=== PATIENT | male | born 1950 | race Two or more races ===

== ENCOUNTER 2018-03-05 00:26 | Inpatient (IN) | payer MEDICARE ==
[~2018-03-05] VITALS: Ht 177.8 cm; Wt 93.0 kg
[2018-03-05] VITALS (7 sets, daily range): BP systolic 94–136; BP diastolic 42–81; BMI 29.4
--- NOTE | ~2018-03-05 | EC ---
PATIENT:DARRELL DE LA ROSA DATE OF SERVICE: 03/05/18 SEX: M MEDICAL RECORD: [id number] DATE OF : 50 LOCATION:D.[facility] AGE OF PATIENT: 67 ADMISSION DATE: 03/05/18 REFERRING PHYSICIAN: INTERPRETING PHYSICIAN: ANNE SANTANA MD ECHOCARDIOGRAM REPORT ECHO CHARGES 4 ECHO COMPLETE Date: 03/06 CLINICAL DIAGNOSIS: FEVER/CELLULITIS - R/O ENDOCARDITIS ECHOCARDIOGRAPHIC MEASUREMENTS (adult normal given) AC root (d.<3.7cm) 3.0 cm LV Septum d (<1.2 cm> 1.3 cm Valve Excursion 2.2 cm LV Septum (systole) 1.8 cm Left Atria (s.<4.0cm> 3.9 cm LVPW d(<1.2cm) 1.3 cm RV (d.<2.3cm) 2.7 cm LVPW (sytole) 1.8 cm LV diastole(<5.6CM) 5.4 cm MV E-F(>70mm/sec) cm LV systole 2.9 cm LVOT Diameter 1.9 cm MV exc.(>10mm) cm Est.ejection fraction (50-75%) % DOPPLER: LVIT cm/sec A 82.0 cm/sec E 118 cm/sec LA cm/sec RVSP 48.0 mmHg LVOT 142 cm/sec AOP1/2T m/s Asc. Ao 173 cm/sec RVOT 87.0 cm/sec RA cm/sec PA 133 cm/sec AV Gradient Peak 12.0 mmHg AV Mean 6.1 mmHg AV Area 2.0 cm MV Gradient Peak 7.3 mmHg MV Mean 2.6 mmHg MV Area cm COMMENTS: Digital Strategist Senior Manager: 1 MICHELLE FRANCIA Multimedia Programmer: 4 Dr. Santana TAPE# PACS Pericardial Effusion N DATE OF SERVICE: PROCEDURE: Transthoracic echocardiogram. FINDINGS: 1. The patient has evidence of mild left ventricular hypertrophy. Ejection fraction is 60%. 2. The left atrium is normal size, structure and function. 3. The aortic valve is normal. 4. The mitral valve is normal. ECHOCARDIOGRAM REPORT [id number] DARRELL DE LA ROSA 5. The tricuspid valve is normal with an RVSP estimated at 40 mmHg. 6. The pericardium is normal. 7. The right ventricle is normal. 8. The right atrium is mildly dilated. 9. The pulmonic valve is normal. CONCLUSIONS: The patient has no distinct evidence on transthoracic of endocarditis. A ERIBERTO may be more helpful if clinical indications are there. TRANSINT:[id number] Voice Confirmation ID: [id number] DOCUMENT ID: [id number] ANNE SANTANA MD at 1702 CC: [id number] DICTATION DATE: 03/07/18 0746 STATIONARY FIREMAN: 03/07/18 1115 ADM IN [facility] [address] [place] [address]
--- NOTE | ~2018-03-05 | MORECARE ---
CASE MANAGEMENT DISCHARGE SUMMARY PATIENT: DARRELL DE LA ROSA UNIT: [id number] ADM DATE: 03/05/18 AGE: 67 : 50 SEX: M ROOM/BED: D.2206 AUTHOR: CASE, DOOR LINER PHYSICIAN: REFERRING PHYSICIAN: RICARDO BAUMAN MD DATE OF SERVICE: 03/05/18 Discharge Plan Patient Name: DARRELL DE LA ROSA Facility: [facility]:[place] : 1950 Planned Disposition: Home Anticipated Discharge Date: Discharge Date: Expected LOS: Initial Reviewer: [email or web address] Initial Review Date: 03/05/2018 Generated: 03/10/18 12:56 pm Patient Name: DARERLL DE LA ROSA Page [id number] All edits/amendments must be made on the electronic document DICTATION DATE: 03/10/18 1155 ASSISTANT PRESSMAN: 03/10/18 1155 RPT#: [id number] DC DATE: STATUS: ADM IN [facility] [address] [place] [address] END OF REPORT
[2018-03-05 06:25] LABS: BASOPHILS 0 % (0-2); EOSINOPHILS 0 % (0-7); HEMATOCRIT 35.5 % (42.0-54.0); HEMOGLOBIN 12.3 g/dL (13.5-17.5); IMMATURE GRANULOCYTES 0.2 % (0-5); LYMPHOCYTES 4.6 % (15-50); MCH 35.7 pg (26.0-34.0); MCHC 34.6 g/dL (31.0-37.0); MCV 102.9 fL (80.0-100.0); MONOCYTES 3.5 % (2-11); NEUTROPHILS 91.7 % (40-80); PLATELET COUNT 76 10x3/uL (130-400); RBC 3.45 10x6/uL (4.20-6.10); RDW 15.2 % (11.5-14.5)
[2018-03-05 06:47] LABS: ALBUMIN 2.1 g/dL (3.4-5.0); ALKALINE PHOSPHATASE 100 U/L (46-116); ALT (SGPT) 32 U/L (10-68); BILIRUBIN - TOTAL 7.17 mg/dL (0.2-1.3); CALC OSMOLALITY 274 mosm/kg (275-300); CARBON DIOXIDE 27.1 mmol/L (21.0-32.0); CHLORIDE - SERUM 105 mmol/L (98-107); CREATININE - SERUM 0.7 mg/dL (0.6-1.3); GLUCOSE 160 mg/dL (74-106); POTASSIUM - SERUM 3.9 mmol/L (3.5-5.1); PROTEIN - SERUM 6.5 g/dL (6.4-8.2); SODIUM 136 mmol/L (136-145); UREA NITROGEN 13 mg/dL (7-18); eGFR NON AFRICAN AMERICAN > 90 mL/min (90-120)
[2018-03-05 07:15] LABS: PLATELET ESTIMATE DECREASED
[2018-03-05 14:33] LABS: APPEARANCE CLEAR (CLEAR); COLOR ORANGE/RED (YELLOW); GLUCOSE NEGATIVE (NEGATIVE); KETONE SMALL mg/dL (NEGATIVE); NITRITE NEGATIVE (NEGATIVE); PROTEIN NEGATIVE (NEGATIVE)
[2018-03-05 14:34] LABS: BILIRUBIN 2+ (NEGATIVE)
[2018-03-05 14:35] LABS: BACTERIA FEW /hpf (NONE SEEN); EPITHELIAL CELLS 0-5 /hpf (0-5); WHITE CELLS - URINE 0-5 /hpf (0-5)
[2018-03-05 14:49] LABS: THYROID STIMULATING HORMONE 0.99 uIU/mL (0.36-3.74)
[2018-03-06 04:30] VITALS: BP 104/50
[2018-03-06 05:36] LABS: BASOPHILS 0 % (0-2); EOSINOPHILS 0 % (0-7); HEMATOCRIT 30.9 % (42.0-54.0); HEMOGLOBIN 10.7 g/dL (13.5-17.5); IMMATURE GRANULOCYTES 0.2 % (0-5); LYMPHOCYTES 4.7 % (15-50); MCH 35.3 pg (26.0-34.0); MCHC 34.6 g/dL (31.0-37.0); MONOCYTES 9.1 % (2-11); PLATELET COUNT 77 10x3/uL (130-400); RBC 3.03 10x6/uL (4.20-6.10); RDW 15.2 % (11.5-14.5); WBC 13.1 10x3/uL (4.8-10.8)
[2018-03-06 06:09] LABS: ALBUMIN 1.9 g/dL (3.4-5.0); ALKALINE PHOSPHATASE 73 U/L (46-116); ALT (SGPT) 30 U/L (10-68); BILIRUBIN - DIRECT 1.81 mg/dL (0.00-0.30); BILIRUBIN - TOTAL 3.89 mg/dL (0.2-1.3); CALC OSMOLALITY 281 mosm/kg (275-300); CALCIUM 7.8 mg/dL (8.5-10.1); CARBON DIOXIDE 26.6 mmol/L (21.0-32.0); CHLORIDE - SERUM 107 mmol/L (98-107); CREATININE - SERUM 0.6 mg/dL (0.6-1.3); GLUCOSE 122 mg/dL (74-106); POTASSIUM - SERUM 3.9 mmol/L (3.5-5.1); PROTEIN - SERUM 5.8 g/dL (6.4-8.2); SODIUM 139 mmol/L (136-145); UREA NITROGEN 21 mg/dL (7-18); eGFR NON AFRICAN AMERICAN > 90 mL/min (90-120)
[2018-03-06 06:10] LABS: INR 3.21 (0.85-1.17)
[2018-03-06 09:10] VITALS: BP 106/51
[2018-03-06 14:32] VITALS: BP 110/45
[2018-03-06 17:00] VITALS: BP 108/49
[2018-03-06 21:05] VITALS: BP 121/55
[2018-03-07 05:45] LABS: BASOPHILS 0.1 % (0-2); EOSINOPHILS 0.2 % (0-7); HEMOGLOBIN 10.9 g/dL (13.5-17.5); IMMATURE GRANULOCYTES 0.3 % (0-5); LYMPHOCYTES 10.8 % (15-50); MCHC 34.1 g/dL (31.0-37.0); MCV 102.9 fL (80.0-100.0); MEAN PLATELET VOLUME 12.3 fL (7.4-10.4); MONOCYTES 9.5 % (2-11); NEUTROPHILS 79.1 % (40-80); PLATELET COUNT 81 10x3/uL (130-400); RBC 3.11 10x6/uL (4.20-6.10); RDW 15.8 % (11.5-14.5)
[2018-03-07 05:55] LABS: PROTIME 22.2 SECONDS (11.6-15.0)
[2018-03-07 05:56] LABS: INR 2.05 (0.85-1.17)
[2018-03-07 06:27] LABS: ALBUMIN 1.9 g/dL (3.4-5.0); ALKALINE PHOSPHATASE 80 U/L (46-116); ALT (SGPT) 30 U/L (10-68); BILIRUBIN - TOTAL 3.08 mg/dL (0.2-1.3); CALC OSMOLALITY 278 mosm/kg (275-300); CALCIUM 7.7 mg/dL (8.5-10.1); CARBON DIOXIDE 29.6 mmol/L (21.0-32.0); CHLORIDE - SERUM 108 mmol/L (98-107); CREATININE - SERUM 0.6 mg/dL (0.6-1.3); GLUCOSE 91 mg/dL (74-106); POTASSIUM - SERUM 3.9 mmol/L (3.5-5.1); PROTEIN - SERUM 5.9 g/dL (6.4-8.2); SODIUM 139 mmol/L (136-145); UREA NITROGEN 16 mg/dL (7-18); eGFR NON AFRICAN AMERICAN > 90 mL/min (90-120)
[2018-03-07 06:35] VITALS: BP 117/62
[2018-03-07 09:12] VITALS: BP 115/50
[2018-03-07 11:01] VITALS: Ht 177.8 cm; Wt 93.0 kg
[2018-03-07 12:52] VITALS: BP 114/52
[2018-03-07 22:53] VITALS: BP 118/56
[2018-03-08 05:43] VITALS: BP 138/60
[2018-03-08 06:21] LABS: BASOPHILS 0.2 % (0-2); EOSINOPHILS 3.4 % (0-7); HEMATOCRIT 34.2 % (42.0-54.0); HEMOGLOBIN 11.5 g/dL (13.5-17.5); IMMATURE GRANULOCYTES 1.1 % (0-5); LYMPHOCYTES 18.6 % (15-50); MCH 35.3 pg (26.0-34.0); MCHC 33.6 g/dL (31.0-37.0); MEAN PLATELET VOLUME 12.3 fL (7.4-10.4); MONOCYTES 9.7 % (2-11); RBC 3.26 10x6/uL (4.20-6.10); RDW 15.9 % (11.5-14.5)
[2018-03-08 06:23] LABS: APTT 42.3 SECONDS (22.8-39.4); INR 1.83 (0.85-1.17); PROTIME 20.6 SECONDS (11.6-15.0)
[2018-03-08 06:30] LABS: MCV 104.9 fL (80.0-100.0); PLATELET COUNT 98 10x3/uL (130-400); WBC 4.7 10x3/uL (4.8-10.8)
[2018-03-08 06:54] LABS: ALBUMIN 1.9 g/dL (3.4-5.0); ALKALINE PHOSPHATASE 82 U/L (46-116); ALT (SGPT) 32 U/L (10-68); BILIRUBIN - TOTAL 2.96 mg/dL (0.2-1.3); CALC OSMOLALITY 283 mosm/kg (275-300); CALCIUM 7.4 mg/dL (8.5-10.1); CARBON DIOXIDE 29.6 mmol/L (21.0-32.0); CHLORIDE - SERUM 109 mmol/L (98-107); CREATININE - SERUM 0.7 mg/dL (0.6-1.3); GLUCOSE 98 mg/dL (74-106); POTASSIUM - SERUM 3.7 mmol/L (3.5-5.1); SODIUM 143 mmol/L (136-145); eGFR NON AFRICAN AMERICAN > 90 mL/min (90-120)
[2018-03-08 06:55] LABS: UREA NITROGEN 11 mg/dL (7-18)
[2018-03-08 08:37] VITALS: BP 130/66
[2018-03-08 12:29] VITALS: BP 124/55
[2018-03-08 14:55] LABS: BASOPHILS 0.2 % (0-2); EOSINOPHILS 3.6 % (0-7); HEMATOCRIT 33.3 % (42.0-54.0); HEMOGLOBIN 11.1 g/dL (13.5-17.5); IMMATURE GRANULOCYTES 1.5 % (0-5); LYMPHOCYTES 16.7 % (15-50); MCHC 33.3 g/dL (31.0-37.0); MEAN PLATELET VOLUME 11.2 fL (7.4-10.4); MONOCYTES 15.6 % (2-11); NEUTROPHILS 62.4 % (40-80); PLATELET COUNT 80 10x3/uL (130-400); RBC 3.17 10x6/uL (4.20-6.10); RDW 15.7 % (11.5-14.5); WBC 4.7 10x3/uL (4.8-10.8)
[2018-03-08 15:02] LABS: APTT 41.4 SECONDS (22.8-39.4); INR 1.85 (0.85-1.17); PROTIME 20.8 SECONDS (11.6-15.0)
[2018-03-08 15:06] LABS: ALBUMIN 1.8 g/dL (3.4-5.0); CALC OSMOLALITY 281 mosm/kg (275-300); CALCIUM 7.4 mg/dL (8.5-10.1); CARBON DIOXIDE 32.5 mmol/L (21.0-32.0); CHLORIDE - SERUM 109 mmol/L (98-107); CREATININE - SERUM 0.6 mg/dL (0.6-1.3); GLUCOSE 140 mg/dL (74-106); POTASSIUM - SERUM 3.8 mmol/L (3.5-5.1); SODIUM 141 mmol/L (136-145); UREA NITROGEN 9 mg/dL (7-18); eGFR NON AFRICAN AMERICAN > 90 mL/min (90-120)
[2018-03-08 15:31] LABS: PLATELET ESTIMATE DECREASED
[2018-03-08 16:35] VITALS: BP 115/51
[2018-03-08 21:25] VITALS: BP 123/70
[2018-03-09 00:34] VITALS: BP 127/60
[2018-03-09 04:28] LABS: BASOPHILS 0.2 % (0-2); EOSINOPHILS 5.8 % (0-7); HEMATOCRIT 35.6 % (42.0-54.0); HEMOGLOBIN 11.7 g/dL (13.5-17.5); IMMATURE GRANULOCYTES 2.7 % (0-5); LYMPHOCYTES 16.1 % (15-50); MCHC 32.9 g/dL (31.0-37.0); MCV 106.6 fL (80.0-100.0); MEAN PLATELET VOLUME 11.4 fL (7.4-10.4); MONOCYTES 16.1 % (2-11); NEUTROPHILS 59.1 % (40-80); PLATELET COUNT 93 10x3/uL (130-400); RBC 3.34 10x6/uL (4.20-6.10); RDW 15.8 % (11.5-14.5); WBC 4.1 10x3/uL (4.8-10.8)
[2018-03-09 04:42] LABS: ALBUMIN 2.1 g/dL (3.4-5.0); ALKALINE PHOSPHATASE 102 U/L (46-116); ALT (SGPT) 34 U/L (10-68); BILIRUBIN - TOTAL 2.76 mg/dL (0.2-1.3); CALC OSMOLALITY 290 mosm/kg (275-300); CALCIUM 7.8 mg/dL (8.5-10.1); CARBON DIOXIDE 35.6 mmol/L (21.0-32.0); CHLORIDE - SERUM 105 mmol/L (98-107); CREATININE - SERUM 0.7 mg/dL (0.6-1.3); GLUCOSE 113 mg/dL (74-106); PROTEIN - SERUM 6.4 g/dL (6.4-8.2); SODIUM 147 mmol/L (136-145); UREA NITROGEN 7 mg/dL (7-18); eGFR NON AFRICAN AMERICAN > 90 mL/min (90-120)
[2018-03-09 06:12] VITALS: BP 146/59
[2018-03-09 07:37] LABS: INR 1.79 (0.85-1.17); PROTIME 20.2 SECONDS (11.6-15.0)
[2018-03-09 08:48] VITALS: BP 133/56
[2018-03-09 10:26] LABS: PROTEIN - BODY FLUID 0.8 G/DL
[2018-03-09 13:17] LABS: MACROPHAGES BF 45 %; MESOTHELIALS BF 6 %; NEUT - BF 34 %
[2018-03-09 13:21] LABS: HEPATITIS C ANTIBODY 0.3 (0.0-0.9)
[2018-03-09 16:20] VITALS: BP 110/63
[2018-03-09 20:21] VITALS: BP 118/50
[2018-03-10 00:22] VITALS: BP 111/46
[2018-03-10 04:31] LABS: BASOPHILS 0 % (0-2); EOSINOPHILS 3.6 % (0-7); HEMOGLOBIN 11.6 g/dL (13.5-17.5); IMMATURE GRANULOCYTES 1.6 % (0-5); LYMPHOCYTES 13.5 % (15-50); MCH 34.9 pg (26.0-34.0); MCHC 32.2 g/dL (31.0-37.0); MCV 108.4 fL (80.0-100.0); MEAN PLATELET VOLUME 11.3 fL (7.4-10.4); MONOCYTES 15.5 % (2-11); NEUTROPHILS 65.8 % (40-80); PLATELET COUNT 95 10x3/uL (130-400); RBC 3.32 10x6/uL (4.20-6.10); RDW 15.7 % (11.5-14.5); WBC 4.4 10x3/uL (4.8-10.8)
[2018-03-10 04:57] LABS: ALKALINE PHOSPHATASE 103 U/L (46-116); ALT (SGPT) 34 U/L (10-68); BILIRUBIN - TOTAL 2.53 mg/dL (0.2-1.3); CALC OSMOLALITY 282 mosm/kg (275-300); CALCIUM 7.7 mg/dL (8.5-10.1); CARBON DIOXIDE 36.1 mmol/L (21.0-32.0); CHLORIDE - SERUM 107 mmol/L (98-107); CREATININE - SERUM 0.7 mg/dL (0.6-1.3); GLUCOSE 136 mg/dL (74-106); POTASSIUM - SERUM 4.1 mmol/L (3.5-5.1); PROTEIN - SERUM 6.3 g/dL (6.4-8.2); SODIUM 142 mmol/L (136-145); UREA NITROGEN 7 mg/dL (7-18); eGFR NON AFRICAN AMERICAN > 90 mL/min (90-120)
[2018-03-10 06:13] VITALS: BP 139/56
[2018-03-10 08:34] VITALS: BP 103/58
[2018-03-10] MEDS ORDERED: XIFAXAN550 MG PO (11:29)
[2018-03-10] MEDS ORDERED: ALDACTONE25 MG PO (11:29)
[2018-03-10] MEDS ORDERED: CHRONULAC30 ML PO (11:30)
[2018-03-10] MEDS ORDERED: PROTONIX40 MG PO (11:30)
[2018-03-10] MEDS ORDERED: ANORO ELLIPTA1 EACH INH (12:13)
[2018-03-10 12:40] VITALS: BP 117/54
== END 2018-03-10 15:24 | disposition home or self-care (01) | DRG 441 ==
LOC: D.ER 00:26 → D.EDHOLD 04:53 → D.MS 04:53
PROVIDERS: Family Medicine; Internal Medicine Gastroenterology; Radiology Diagnostic Radiology; Specialist
PROC: 0W9G3ZZ Drainage of Peritoneal Cavity, Percutaneous Approach (ICD-10-PCS; principal; 2018-03-09 09:00)
DX: K72.90 Hepatic failure, unspecified without coma (principal); J18.9 Pneumonia, unspecified organism; E72.20 Disorder of urea cycle metabolism, unspecified; D68.9 Coagulation defect, unspecified; J96.11 Chronic respiratory failure with hypoxia; I87.8 Other specified disorders of veins; K70.31 Alcoholic cirrhosis of liver with ascites; R60.9 Edema, unspecified; R16.1 Splenomegaly, not elsewhere classified; J44.9 Chronic obstructive pulmonary disease, unspecified; D53.9 Nutritional anemia, unspecified; D69.6 Thrombocytopenia, unspecified; I10 Essential (primary) hypertension; F10.11 Alcohol abuse, in remission; E11.65 Type 2 diabetes mellitus with hyperglycemia

== ENCOUNTER 2019-03-12 12:03 | Inpatient (IN) | payer MEDICARE ==
[~2019-03-12] VITALS: Ht 177.8 cm; Wt 89.1 kg
[~2019-03-12 12:03] MED LIST: ALDACTONE25 MG PO; ANORO ELLIPTA1 EACH INH; CHRONULAC30 ML PO; PROTONIX40 MG PO; XIFAXAN550 MG PO
--- NOTE | 2019-03-12 14:21 | NUR ---
ZITHROMAX AND ROCHEPHIN GIVEN SHAPE CARVER;
[2019-03-12 14:44] VITALS: BP 119/67
[2019-03-12 14:58] LABS: BASOPHILS 0.1 % (0-2); EOSINOPHILS 0 % (0-7); HEMOGLOBIN 10.8 g/dL (13.5-17.5); IMMATURE GRANULOCYTES 0.3 % (0-5); LYMPHOCYTES 3.1 % (15-50); MCH 35.4 pg (26.0-34.0); MCV 98.4 fL (80.0-100.0); MONOCYTES 2.8 % (2-11); NEUTROPHILS 93.7 % (40-80); PLATELET COUNT 83 10x3/uL (130-400); RBC 3.05 10x6/uL (4.20-6.10); RDW 14.9 % (11.5-14.5)
[2019-03-12 15:22] LABS: ALBUMIN 1.6 g/dL (3.4-5.0); ALKALINE PHOSPHATASE 76 U/L (46-116); ALT (SGPT) 41 U/L (10-68); BILIRUBIN - TOTAL 6.86 mg/dL (0.2-1.3); CALC OSMOLALITY 278 mosm/kg (275-300); CALCIUM 7.4 mg/dL (8.5-10.1); CARBON DIOXIDE 17.5 mmol/L (21.0-32.0); CHLORIDE - SERUM 105 mmol/L (98-107); GLUCOSE 105 mg/dL (74-106); MAGNESIUM - SERUM 2.1 mg/dL (1.8-2.4); PROTEIN - SERUM 5.2 g/dL (6.4-8.2); SODIUM 135 mmol/L (136-145); UREA NITROGEN 37 mg/dL (7-18); eGFR NON AFRICAN AMERICAN 79 mL/min (90-120)
[2019-03-12 15:37] LABS: PLATELET ESTIMATE DECREASED
--- NOTE | 2019-03-12 15:40 | NUR ---
RECIEVED PT FROM ER. PT HAD DIFFICULTY TRANSFERING TO OUR BED, WAS ASSISTED. PT HAD LARGE BELLY GIRTH, VERY DISTENDED AND FIRM. PTS SKIN IS YELLOW AND TIGHT. LOWER LEGS HAVE +4 EDEMA, EVERYWHERE ELSE HAS GENERALIZED EDEMA. PT AND SPEAK NO ROMANSH, EXECUTIVE OFFICER PHONE IN ROOM BUT I HAVE BEEN TOLD WE HAVE TO USE IT SPARINGLY AND SHARE WITH OTHER DEPARTMENTS OF THE HOSPITAL WE HAVE SEVERAL PTS THAT REQUIRE IT BUT ONLY ONE PHONE AVALIABLE. PT STATES NO PAIN AT THIS TIME, REPORTS NO TROUBLE BREATHING AT THIS TIME. CL IN REACH, SRX2, BED ALARM ON. PT DOES NOT SEEM CONFUSED OR DISORIENTED BUT D/T LANGUAGE BARRIER AND PTS EXTREME WEAKNESS I FEEL THIS IS THE BEST MOVE AT THIS TIME. AT BEDSIDE.
[2019-03-12 15:46] LABS: AMYLASE - SERUM 47 U/L (25-115); LIPASE 811 U/L (73-393)
[2019-03-12 15:59] VITALS: BP 100/70; BMI 25.8
[2019-03-12 16:02] LABS: CKMB 9.3 U/L (0.0-3.6); CREATINE KINASE 256 UL (21-232)
[2019-03-12 16:07] LABS: TROPONIN-I < 0.017 ng/mL (0.000-0.060)
[2019-03-12 16:19] VITALS: BP 163/94
--- NOTE | 2019-03-12 18:02 | NUR ---
AFTER RECIEVING LACTOLOSE PT HAD TO USE THE RESTROOM. PT DIDN'T UNDERSTAND THE BEDPAN, HE INSISTED HE USE THE TOILET. OBTAINED A BEDSIDE COMMODE AND AIDED PT TO IT. PT WAS A MAX ASSIST WITH MYSELF AND TWO TECHS BASICALLY LIFTING HIM TO THE TOILET AND TEHN BACK WHEN HE WAS DONE. AFTER MAKING SURE HE WAS CLEAN, I USED THE TRANSPORTATION MAINTENANCE SPECIALIST PHONE TO INFORM THE PT AND HIS HE WOULD HAVE TO USE THE BEDPAN. WHILE USING THE TRANSLATER I ANSWERED ALL QUESTIONS THE FAMILY HAD TO THE BEST OF MY KNOWLEDGE. CL IN REACH, SRX2, AT BEDSIDE.
[2019-03-12 20:00] VITALS: BP 110/51
--- NOTE | 2019-03-12 20:00 | NUR ---
INITIAL ROUNDS AND ASSESSMENT COMPLETED. PT RESTING IN BED. IV TO RIGHT A/C AND LEFT A/C, BOTH SALINE LOCKED. SR PER TELEMETRY. ABDOMEN DISTENDED. PT AND HAVE BEEN TOLD THAT HE IS TOO WEAK TO GET UP FROM THE BED AND MUST USE A BEDPAN. BUSH PATENT TO BEDSIDE DRAIN BAG. TRANSLATER PHONE IN ROOM AND UTILIZED AT THIS TIME TO GIVE INSTRUCTIONS TO PATIENT/SPOUSE ABOUT SAFETY AND TAKING HIS LACTULOSE.
--- NOTE | 2019-03-12 22:00 | NUR ---
STILL HAVING LANGUAGE BARRIER ISSUES. USING TRANSLATER PHONE AND ABLE TO GET TO UNDERSTAND TEACHINGS OF SAFETY AND USE OF BEDPAN.
[2019-03-12 22:05] LABS: CKMB 7.3 U/L (0.0-3.6); CREATINE KINASE 155 UL (21-232)
[2019-03-12 22:09] LABS: TROPONIN-I < 0.017 ng/mL (0.000-0.060)
[2019-03-13] VITALS: BP 102/53
--- NOTE | 2019-03-13 02:20 | NUR ---
STAFF ATTEMPTED TO GET PT UP TO BSC AT HIS INSISTANCE. PT WAS MAX ASSIST AND STUBBED HIS RIGHT FOOT/TOES ON SOMETHING DURING THE ATTEMPTED TRANSFER. PT MAX ASSIST BACK TO BED AND THEN DRESSING APPLIED TO ABRAISED AREA OF RIGHT FOOT/TOE AREAS. PROVIDED BLANKET/PILLOW TO SPOUSE AND BOTH ARE SETTLED FOR THE NIGHT.
[2019-03-13 04:00] VITALS: BP 101/51
--- NOTE | 2019-03-13 04:42 | NUR ---
URINE SPECIMEN COLLECTED AND SENT TO LAB. URINE IS FRANCES COLORED.
[2019-03-13 04:48] LABS: BASOPHILS 0.1 % (0-2); EOSINOPHILS 0.1 % (0-7); HEMATOCRIT 27.3 % (42.0-54.0); HEMOGLOBIN 9.9 g/dL (13.5-17.5); IMMATURE GRANULOCYTES 0.4 % (0-5); LYMPHOCYTES 5.9 % (15-50); MCH 35.9 pg (26.0-34.0); MCHC 36.3 g/dL (31.0-37.0); MCV 98.9 fL (80.0-100.0); MEAN PLATELET VOLUME 11.5 fL (7.4-10.4); MONOCYTES 7.7 % (2-11); NEUTROPHILS 85.8 % (40-80); PLATELET COUNT 86 10x3/uL (130-400); RBC 2.76 10x6/uL (4.20-6.10); RDW 14.8 % (11.5-14.5)
[2019-03-13 05:12] LABS: ALBUMIN 1.4 g/dL (3.4-5.0); ALKALINE PHOSPHATASE 70 U/L (46-116); ALT (SGPT) 36 U/L (10-68); BILIRUBIN - TOTAL 5.56 mg/dL (0.2-1.3); CALC OSMOLALITY 280 mosm/kg (275-300); CALCIUM 7.3 mg/dL (8.5-10.1); CHLORIDE - SERUM 107 mmol/L (98-107); CKMB 7.8 U/L (0.0-3.6); CREATINE KINASE 173 UL (21-232); GLUCOSE 129 mg/dL (74-106); MAGNESIUM - SERUM 2.1 mg/dL (1.8-2.4); POTASSIUM - SERUM 3.4 mmol/L (3.5-5.1); SODIUM 136 mmol/L (136-145); UREA NITROGEN 32 mg/dL (7-18); eGFR NON AFRICAN AMERICAN 79 mL/min (90-120)
[2019-03-13 05:15] LABS: APTT 47.1 SECONDS (22.8-39.4); INR 3.15 (0.85-1.17); PROTIME 31.6 SECONDS (11.6-15.0)
[2019-03-13 05:20] LABS: CARBON DIOXIDE 21.9 mmol/L (21.0-32.0); TROPONIN-I < 0.017 ng/mL (0.000-0.060)
[2019-03-13 09:42] VITALS: BP 101/43
[2019-03-13 14:32] VITALS: BMI 25.8
[2019-03-13 16:03] VITALS: Ht 177.8 cm; Wt 89.1 kg
--- NOTE | 2019-03-13 16:59 | MORECARE ---
CASE MANAGEMENT DISCHARGE SUMMARY PATIENT: DARRELL DE LA ROSA UNIT: [id number] ADM DATE: 03/12/19 AGE: 68 : 50 SEX: M ROOM/BED: D.2106 AUTHOR: GUIDO CURTIS PHYSICIAN: REFERRING PHYSICIAN: TREVA MCCARTNEY MD DATE OF SERVICE: 03/13/19 Discharge Plan Patient Name: DARRELL DE LA ROSA Facility: [facility]:[place] : 1950 Planned Disposition: Home Anticipated Discharge Date: Discharge Date: Expected LOS: Initial Reviewer: [email or web address] Initial Review Date: 03/12/2019 Generated: 03/13/19 5:59 pm DCPIA - Discharge Planning Initial Assessment Updated by [email or web address]: Javi Ayala on 03/13/19 4:59 pm * Is the patient Alert and Oriented? Yes * How many steps to enter\exit or inside your home? * PCP [facility] [phone] * Pharmacy [facility] [phone] * Preadmission Environment Home with Family * ADLs Independent * Equipment Nebulizer * Other Equipment [facility] - MEDICAL EQUIPMENT PROVIDER PREFERENCE * List name and contact numbers for known caregivers / representatives who currently or will assist patient after discharge: RONDA SARWAT, SPOUSE, [phone] TAPAN RAO, DTR, * Verbal permission to speak to the caregivers and representatives has been obtained from the patient. Yes * Community resources currently utilized None * Please name any agencies selected above. NONE * Additional services required to return to the preadmission environment? No * Can the patient safely return to the preadmission environment? Yes * Has this patient been hospitalized within the prior 30 days at any hospital? No Patient Name: DARRELL DE LA ROSA Page [phone] at 8173 All edits/amendments must be made on the electronic document DICTATION DATE: 03/13/191658 RUG SETTER AXMINSTER: MARCELL 03/13/191658 RPT#: [id number] DC DATE: STATUS: ADM IN [facility] [address] [place] [address] END OF REPORT
--- NOTE | 2019-03-13 17:09 | MORECARE ---
CASE MANAGEMENT DISCHARGE SUMMARY PATIENT: DARRELL DE LA ROSA UNIT: [id number] ADM DATE: 03/12/19 AGE: 68 : 50 SEX: M ROOM/BED: D.2106 AUTHOR: GUIDO CURTIS PHYSICIAN: REFERRING PHYSICIAN: TREVA MCCARTNEY MD DATE OF SERVICE: 03/13/19 Discharge Plan Patient Name: DARRELL DE LA ROSA Facility: [facility]:[place] : 1950 Planned Disposition: Home Anticipated Discharge Date: Discharge Date: Expected LOS: Initial Reviewer: [email or web address] Initial Review Date: 03/12/2019 Generated: 03/13/19 6:09 pm Comments DCP- Discharge Planning Updated by [id number]: Javi Ayala on 03/13/19 4:[address] Patient Name: DARRELL GALDAMEZ Admission Status: ER Accout number: [id number] Admission Date: 03-12-2019 : 1950 Admission Diagnosis: Attending: TREVA MCCARTNEY Current LOS: 1 Anticipated DC Date: Planned Disposition: Home Primary Insurance: MEDICARE A & B Discharge Planning Comments: CM MET WITH PT AND SPOUSE IN ROOM TO DISCUSS DISCHARGE PLANNING AND NEEDS. CM CALLED [facility] [employer] [employer], , WAS ASSISTED BY RONDA, BUTTON CUTTING MACHINE OPERATOR # [id number]. DARRELL GALDAMEZ provided verbal consent to discuss current and ongoing needs with/in the presence of: SPOUSE, RONDA. PT REPORTS LIVING AT HOME INDEPENDENTLY WITH HIS . PT HAS NEBULIZER, HE NO LONGER HAS OXYGEN FROM [facility], THEY PICKED IT UP. PT HAS NO OUTSIDE SERVICES ASSISTING IN THE HOME. PT REPORTS SOMEONE FROM THE MEDICAL CLINIC CHECKS ON HIM AT HOME. CM DISCUSSED AVAILABILITY OF HOME HEALTH, REHAB SERVICES AND MEDICAL EQUIPMENT. PT DENIES DISCHARGE NEEDS, PT INITIALLY ASKED FOR HOSPITAL TO GIVE HIM AND HIS A TAXI RIDE HOME IF THEY ARE LEAVING TODAY, CM EXPLAINED THAT THEY ARE NOT DISCHARGING TODAY, WE ARE ONLY TALKING ABOUT THE DISCHARGE PLAN. PT HTEN REPORTS FAMILY WILL PICK HE AND UP FOR DISCHARGE HOME. IMPORTANT MESSAGE FROM MEDICARE PROVIDED AND EXPLAINED, PROVIDED IN ENGLISH PT REPORTS ABILITY TO READ ENGLISH. PT DENIES DISCHARGE NEEDS, FAMILY TO TRANSPORT HOME AT DISCHARGE. CM TO FOLLOW AND ASSIST IF NEEDED. Analytical Strategist: Javi Ayala DCPIA - Discharge Planning Initial Assessment Updated by [id number]: Javi Ayala on 03/13/19 4:59 pm * Is the patient Alert and Oriented? Yes * How many steps to enter\exit or inside your home? * PCP [facility] [phone] * Pharmacy [facility] [phone] * Preadmission Environment Home with Family * ADLs Independent * Equipment Nebulizer * Other Equipment [facility] - MEDICAL EQUIPMENT PROVIDER PREFERENCE * List name and contact numbers for known caregivers / representatives who currently or will assist patient after discharge: RONDA FAM, SPOUSE, [phone] TAPAN RAO, DTR, * Verbal permission to speak to the caregivers and representatives has been obtained from the patient. Yes * Community resources currently utilized None * Please name any agencies selected above. NONE * Additional services required to return to the preadmission environment? No * Can the patient safely return to the preadmission environment? Yes * Has this patient been hospitalized within the prior 30 days at any hospital? No Coverage Notice Reviewer: [id number] - Javi Ayala Notice Issued Date-Time: 03/13/2019 16:30 Notice Type: IM Discharge Notice Notice Delivered To: Family Member Relationship to Patient: Spouse Inspector Toys Name: RONDA FAM Delivery Method: HAND - Hand Delivered Lanny Days: Prior Verbal Notification: Recipient Understood Notice: Yes Recipient Signature: Yes Med Rec Note Co-signed by Attending: Coverage Notice Comment: Last DP export: 03/13/19 3:59 pm Patient Name: MAIRA GALDAMEZ MELLISAALVAGERBER Page 13091 at 1709 All edits/amendments must be made on the electronic document DICTATION DATE: 03/13/191708 TURNAROUND PLANNER: MARCELL 03/13/191708 RPT#: [id number] DC DATE: STATUS: ADM IN [facility] [address] [place] [address] END OF REPORT
[2019-03-13 20:00] VITALS: BP 101/48
--- NOTE | 2019-03-13 20:43 | NUR ---
AT BEDSIDE. CALL LIGHT IN REACH.
[2019-03-14] VITALS: BP 116/59
--- NOTE | 2019-03-14 01:49 | NUR ---
REST QUIETLY IN BED. BED LOW. CALL LIGHT IN REACH.
[2019-03-14 04:00] VITALS: BP 101/48
--- NOTE | 2019-03-14 04:23 | NUR ---
REST QUIETLY IN BED. CALL LIGHT IN REACH.
[2019-03-14 04:51] LABS: ALBUMIN 1.6 g/dL (3.4-5.0); ALKALINE PHOSPHATASE 103 U/L (46-116); ALT (SGPT) 45 U/L (10-68); BILIRUBIN - TOTAL 4.23 mg/dL (0.2-1.3); CALCIUM 7.5 mg/dL (8.5-10.1); CARBON DIOXIDE 20.4 mmol/L (21.0-32.0); CHLORIDE - SERUM 109 mmol/L (98-107); CREATININE - SERUM 0.9 mg/dL (0.6-1.3); GLUCOSE 98 mg/dL (74-106); LIPASE 1211 U/L (73-393); MAGNESIUM - SERUM 1.7 mg/dL (1.8-2.4); PROTEIN - SERUM 5.6 g/dL (6.4-8.2); SODIUM 138 mmol/L (136-145); eGFR NON AFRICAN AMERICAN 89 mL/min (90-120)
[2019-03-14 04:53] LABS: CALC OSMOLALITY 278 mosm/kg (275-300); POTASSIUM - SERUM 3.4 mmol/L (3.5-5.1); UREA NITROGEN 22 mg/dL (7-18)
[2019-03-14 05:22] LABS: BASOPHILS 0.2 % (0-2); EOSINOPHILS 0.7 % (0-7); HEMATOCRIT 28.9 % (42.0-54.0); HEMOGLOBIN 10.5 g/dL (13.5-17.5); IMMATURE GRANULOCYTES 1.3 % (0-5); LYMPHOCYTES 5.6 % (15-50); MCH 35.8 pg (26.0-34.0); MCHC 36.3 g/dL (31.0-37.0); MCV 98.6 fL (80.0-100.0); MEAN PLATELET VOLUME 11.6 fL (7.4-10.4); MONOCYTES 11.4 % (2-11); NEUTROPHILS 80.8 % (40-80); PLATELET COUNT 90 10x3/uL (130-400); RBC 2.93 10x6/uL (4.20-6.10); WBC 9.9 10x3/uL (4.8-10.8)
[2019-03-14 06:01] LABS: PLATELET ESTIMATE DECREASED
--- NOTE | 2019-03-14 07:00 | NUR ---
BEDSIDE SHIFT REPORT, PATIENT IS IN ISOLATION FOR ECOLI IN THE BLOOD PER NURSE REPORT. PATIENT IS SLEEPING/SNORING IN THE BED, SUPINE WITH HEAD OF BED AT 30 DEGREES, SPOUSE IS SNORING IN THE RECLINER AT BEDSIDE. LIGHTS OFF, CALL LIGHT IN REACH
--- NOTE | 2019-03-14 07:51 | NUR ---
USED THE LANGUAGE LINE TO INFORM PATIENT AND HIS SPOUSE ABOUT THE SCHEDULED CT, AND BEING NPO. INTRODUCTIONS MADE, PATIENT DENIES ANY NEEDS, JUST ASKING WHEN HE CAN EAT.
[2019-03-14 08:10] LABS: HEPATITIS C ANTIBODY <0.1 S/CO RAT (0.0-0.9)
[2019-03-14 09:02] VITALS: BP 113/53
[2019-03-14 09:40] LABS: APTT 49.8 SECONDS (22.8-39.4)
[2019-03-14 10:17] LABS: INR 2.95 (0.85-1.17)
[2019-03-14 13:07] VITALS: BP 105/53
--- NOTE | 2019-03-14 15:45 | NUR ---
OT NOTE: PT COMPLETED BED MOB TASKS WITH MIN A. PT COMPLETED SIT TO STAND WITH CGA. PT COMPLETED FACE WASH WITH SET UP. PT COMPLETED HAIR GROOMING WITH SET UP. THANK YOU, STACEY HOLLIS
--- NOTE | 2019-03-14 19:15 | NUR ---
CONTACT ISOLATION OBSERVED BED LOW AND LOCKED IV AT 30M TO RT AC AND SALINE LOCK TO LEFT PT DOES NOT SPEAK ANY SPANISH LCTA BUSH TO GRAVITY
[2019-03-14 20:00] VITALS: BP 121/64
[2019-03-15] VITALS: BP 119/65
[2019-03-15 04:00] VITALS: BP 118/63
[2019-03-15 05:14] LABS: BASOPHILS 0.1 % (0-2); EOSINOPHILS 0.9 % (0-7); HEMATOCRIT 28.4 % (42.0-54.0); HEMOGLOBIN 10.2 g/dL (13.5-17.5); IMMATURE GRANULOCYTES 2.6 % (0-5); LYMPHOCYTES 7.4 % (15-50); MCH 35.8 pg (26.0-34.0); MCHC 35.9 g/dL (31.0-37.0); MCV 99.6 fL (80.0-100.0); MEAN PLATELET VOLUME 11.8 fL (7.4-10.4); PLATELET COUNT 92 10x3/uL (130-400); RBC 2.85 10x6/uL (4.20-6.10); RDW 15.3 % (11.5-14.5); WBC 9.1 10x3/uL (4.8-10.8)
[2019-03-15 05:42] LABS: ALBUMIN 1.4 g/dL (3.4-5.0); ALKALINE PHOSPHATASE 89 U/L (46-116); ALT (SGPT) 46 U/L (10-68); BILIRUBIN - TOTAL 3.43 mg/dL (0.2-1.3); CALC OSMOLALITY 272 mosm/kg (275-300); CALCIUM 7.1 mg/dL (8.5-10.1); CARBON DIOXIDE 20.9 mmol/L (21.0-32.0); CHLORIDE - SERUM 109 mmol/L (98-107); CREATININE - SERUM 0.8 mg/dL (0.6-1.3); GLUCOSE 128 mg/dL (74-106); PHOSPHOROUS 1.9 mg/dL (2.5-4.9); PROTEIN - SERUM 5.2 g/dL (6.4-8.2); SODIUM 135 mmol/L (136-145); eGFR NON AFRICAN AMERICAN > 90 mL/min (90-120)
[2019-03-15 05:49] LABS: APTT 48.5 SECONDS (22.8-39.4); INR 2.59 (0.85-1.17)
[2019-03-15 06:05] LABS: UREA NITROGEN 16 mg/dL (7-18)
--- NOTE | 2019-03-15 07:03 | NUR ---
REPORT RECEIVED. HE IS ASLEEP AT THIS TIME WITH RESP EVEN WITHOUT LABOR. FAMILY AT BEDSIDE ASLEEP. IV SITE TO RIGHT A/C WITH SITE CLEAR. F/C PATENT WITH FRANCES URINE DRAINING. BED IN LOWEST POSITION AND LOCKED. CAREPLAN REVIEW DONE WITH SAFETY PRECAUTIONS IN PLACE. HE REMAINS IN CONTACT ISOLATION.
[2019-03-15 08:00] VITALS: BP 126/56
--- NOTE | 2019-03-15 11:25 | NUR ---
OT NOTE: BED MOB WITH MOD/MIN ASSIST FOR SUPINE TO SIT. ABLE TO AMB IN ROOM WITH USE OF RW AND MIN ASSIST. BACK TO BED WITH MIN ASSIST. AMB TO BATHROOM WITH PRESS LEADER BUT VERY UNSTEADY WITHOUT WALKER. TOILET TRANSFER WITH MIN ASSIST; SET UP FOR HYGIENE. LUKE CHEUNG,OTR/L
[2019-03-15 11:37] VITALS: BP 120/47
[2019-03-15 12:10] LABS: ANA REFLEX - DIRECT Negative (Negative)
--- NOTE | 2019-03-15 12:47 | NUR ---
Nutrition Follow-up: Tolerating PO intake Diet: Low Na Diabetic PO intake: 100% lunch & dinner 03/14 Last BM: 03/14 Wt: 180# Labs noted: Ca 7.1, Glu 128, Na 135, Alb 1.4, PO4 1.9 Meds noted: Lasix, KDur, Mag Sulfate Rec continue current diet as tolerated. [place] food preferences within diet restrictions. RD following.
[2019-03-15 16:41] VITALS: BP 124/63
--- NOTE | 2019-03-15 17:30 | NUR ---
STAT LOCK MOVED OVER TO LEFT LEG DUE TO C/O ITCHING. NOTED TO HAVE FLUID FILLED AREA ON UNDER SIDE OF PENIS DUE TO EDEMA. TOWEL ROLLED UP AND PROPPED UP ON IT TO HELP WITH EDEMA. HIS ABDOMEN REMAINS SWOLLEN SHINY AND WITH EDEMA BUT IS THE SAME SIZE HAS THIS AM.
--- NOTE | 2019-03-15 19:39 | NUR ---
PT IN BED. RESTING QUIETLY WITH EYES CLOSED. EVEN AND UNLABORED RESPIRATIONS NOTED AT THIS TIME.
[2019-03-15 20:00] VITALS: BP 114/49
[2019-03-16] VITALS: BP 133/63
[2019-03-16 04:00] VITALS: BP 116/54
[2019-03-16 06:01] LABS: BASOPHILS 0.1 % (0-2); EOSINOPHILS 0.5 % (0-7); HEMATOCRIT 30.6 % (42.0-54.0); HEMOGLOBIN 10.7 g/dL (13.5-17.5); IMMATURE GRANULOCYTES 5.9 % (0-5); LYMPHOCYTES 5.8 % (15-50); MCH 35.3 pg (26.0-34.0); MEAN PLATELET VOLUME 11.7 fL (7.4-10.4); MONOCYTES 8.7 % (2-11); PLATELET COUNT 93 10x3/uL (130-400); RBC 3.03 10x6/uL (4.20-6.10); RDW 15.4 % (11.5-14.5)
[2019-03-16 06:04] LABS: WBC 11.8 10x3/uL (4.8-10.8)
[2019-03-16 06:08] LABS: APTT 43.2 SECONDS (22.8-39.4); INR 2.68 (0.85-1.17); PROTIME 27.8 SECONDS (11.6-15.0)
[2019-03-16 06:23] LABS: ALBUMIN 1.4 g/dL (3.4-5.0); ALKALINE PHOSPHATASE 120 U/L (46-116); BILIRUBIN - TOTAL 3.56 mg/dL (0.2-1.3); CALC OSMOLALITY 263 mosm/kg (275-300); CARBON DIOXIDE 19.6 mmol/L (21.0-32.0); CHLORIDE - SERUM 104 mmol/L (98-107); CREATININE - SERUM 0.8 mg/dL (0.6-1.3); GLUCOSE 150 mg/dL (74-106); MAGNESIUM - SERUM 1.6 mg/dL (1.8-2.4); PHOSPHOROUS 2.3 mg/dL (2.5-4.9); POTASSIUM - SERUM 4.6 mmol/L (3.5-5.1); PROTEIN - SERUM 5.6 g/dL (6.4-8.2); SODIUM 130 mmol/L (136-145); UREA NITROGEN 12 mg/dL (7-18); eGFR NON AFRICAN AMERICAN > 90 mL/min (90-120)
[2019-03-16 06:29] LABS: CALCIUM 7.3 mg/dL (8.5-10.1)
[2019-03-16 06:36] LABS: ALT (SGPT) 61 U/L (10-68); LIPASE 1741 U/L (73-393)
--- NOTE | 2019-03-16 07:00 | NUR ---
BEDSIDE SHIFT REPORT, PATIENT RESTING IN THE BED, DENIES PAIN, SPOUSE AT BEDSIDE
--- NOTE | 2019-03-16 07:45 | NUR ---
CALLED TO THE ROOM TO ASSIST THE PATIENT OUT OF THE BATHROOM, LARGE SOFT BM NOTED. ASSESSMENT COMPLETED, PATIENT DENIES PAIN. SCROTUM PROPPED UP ON A TOWEL TO PROMOTE DECREASE IN SWELLING. LANGUAGE LINE USED FOR ASSESSMENT. PATIENT REPORTS HIS BUSH NO LONGER HURTS, AND HIS LEG NO LONGER ITCHES WITH NEW STAT LOCK. IT WAS EXPLAINED AGAIN WHAT THE DOCTORS ARE WAITING FOR BEFORE THE PATIENT HAS HIS FLUID DRAINED OFF HIS ABDOMEN. BOTH HE AND THE SPOUSE STATE UNDERSTANDING. CALL LIGHT IN REACH, FALL PRECAUTIONS EXPLAINED.
[2019-03-16 09:17] VITALS: BP 126/64
[2019-03-16 09:46] LABS: PLATELET ESTIMATE DECREASED
[2019-03-16 09:49] LABS: ROULEAUX OCC
--- NOTE | 2019-03-16 13:02 | NUR ---
OT NOTE: PT APPEARS MORE DISTENDED TODAY. INCREASED DIFFICULTY WITH SUPINE TO SIT DUE TO ABD SIZE. AMB APPROX 100 FT TODAY WITH MIN ASSIST AND FREQ CUES FOR WALKER MGMT. MIN ASSIST TO ALL GOWN BUT UNABLE TO ALL SOCKS DUE TO DIFFICULTY BENDING OVER. LUKE CHEUNG, OTR/L
[2019-03-16 14:09] LABS: MITOCHONDRIAL ANTIBODY <20.0 Units (0.0-20.0); SMOOTH MUSCLE ABS (ACTIN) 167 Units (0-19)
--- NOTE | 2019-03-16 16:16 | NUR ---
OT NOTE: PT COMPLETED ORAL HYGIENE WITH SET UP. PT COMPLETED FACE WASH WITH SET UP. PT COMPLETED BED MOB WITH MIN A FOR LE MANAGEMENT. PT COMPLETED ADL MOB WITH R/W WITH CGA. PT BY BEDSIDE. PT IS PLEASANT AND COOPERATIVE. THANK YOU, STACEY HOLLIS
--- NOTE | 2019-03-16 19:30 | NUR ---
PT LAYING IN BED ALERT AND ORIENTED WITH AT BEDSIDE. THERE IS A LANGUAGE BARRIER. A TRANSLATION PHONE IS SET UP IN PT'S ROOM. NO ACUTE S/S OF DISTRESS AT THIS TIME. IS AT BEDSIDE. WILL CONTINUE TO MONITOR.
[2019-03-16 20:00] VITALS: BP 131/75
--- NOTE | 2019-03-16 23:56 | NUR ---
ASSISTED PT TO BATHEROOM. WILL CONTINUE TO MONITOR.
[2019-03-17] VITALS: BP 117/68
--- NOTE | 2019-03-17 03:25 | NUR ---
PT ALERT BUT CONFUSED AT THIS TIME. PT COMPLAINS OF PAIN IN ABDOMEN. USED I-PHONE TO COMMUNICATE. THE TRANSLATION PHONE IS HARD TO HEAR BOTH PT AND MYSELF COULD NOT UNDERSTAND. WILL CONTINUE TO MONITOR.
[2019-03-17 04:00] VITALS: BP 124/67
[2019-03-17 05:05] LABS: APTT 42.2 SECONDS (22.8-39.4); INR 2.51 (0.85-1.17); PROTIME 26.3 SECONDS (11.6-15.0)
--- NOTE | 2019-03-17 05:11 | NUR ---
ASSISTED PT TO BATHEROOM. BOWEL MOVEMENT LIQUID WITH BRIGHT RED IN IT. PT COMPLAINS OD PAIN IN LOWER QUADRANT OF ABDOMEN. REPOSITIONED PT. DOES NOT HELP DISCOMFORT. PT CONFUSED BUT ALERT. AT BEDSIDE. WILL CONTINUE TO MONITOR.
[2019-03-17 05:20] LABS: BASOPHILS 0.3 % (0-2); EOSINOPHILS 0.9 % (0-7); HEMATOCRIT 29.1 % (42.0-54.0); HEMOGLOBIN 10.3 g/dL (13.5-17.5); IMMATURE GRANULOCYTES 8.7 % (0-5); LYMPHOCYTES 8.3 % (15-50); MCH 35.6 pg (26.0-34.0); MCHC 35.4 g/dL (31.0-37.0); MCV 100.7 fL (80.0-100.0); MEAN PLATELET VOLUME 11.8 fL (7.4-10.4); MONOCYTES 11.7 % (2-11); NEUTROPHILS 70.1 % (40-80); PLATELET COUNT 82 10x3/uL (130-400); RBC 2.89 10x6/uL (4.20-6.10); RDW 15.2 % (11.5-14.5); WBC 9.7 10x3/uL (4.8-10.8)
[2019-03-17 05:25] LABS: ALBUMIN 1.5 g/dL (3.4-5.0); ALKALINE PHOSPHATASE 101 U/L (46-116); ALT (SGPT) 53 U/L (10-68); BILIRUBIN - TOTAL 4.68 mg/dL (0.2-1.3); CALC OSMOLALITY 267 mosm/kg (275-300); CALCIUM 7.7 mg/dL (8.5-10.1); CARBON DIOXIDE 22.2 mmol/L (21.0-32.0); CHLORIDE - SERUM 105 mmol/L (98-107); CREATININE - SERUM 0.9 mg/dL (0.6-1.3); GLUCOSE 118 mg/dL (74-106); LIPASE 1230 U/L (73-393); MAGNESIUM - SERUM 1.6 mg/dL (1.8-2.4); PHOSPHOROUS 2.6 mg/dL (2.5-4.9); POTASSIUM - SERUM 4.7 mmol/L (3.5-5.1); PROTEIN - SERUM 5.7 g/dL (6.4-8.2); SODIUM 133 mmol/L (136-145); eGFR NON AFRICAN AMERICAN 89 mL/min (90-120)
[2019-03-17 05:28] LABS: UREA NITROGEN 16 mg/dL (7-18)
[2019-03-17 09:27] VITALS: BP 116/70
--- NOTE | 2019-03-17 11:03 | NUR ---
BLADDER SCAN COMPLETED WITH RESULTS OF 10 ML URINE NOTED.
--- NOTE | 2019-03-17 13:33 | NUR ---
Nutrition Follow-up: Per chart review, pt on clear liquid diet until lipase comes back down. No new wt Last BM: 03/16 Labs reviewed Meds reviewed If unable to advance past clears within the next 24-48 hours, may consider Procalamine. RD following.
[2019-03-17 13:45] VITALS: BP 122/62
--- NOTE | 2019-03-17 15:44 | NUR ---
IR-NOTIFIED [facility] NURSE- INR IS TOO HIGH FOR IR TO SAFELY DO PARACENTESIS TODAY. WILL REEVALUATE LAB ON WEDNESDAY
--- NOTE | 2019-03-17 15:50 | NUR ---
CANDICE FROM IR CALLED THEY ARE UNABLE TO DO PARACENTESIS DUE TO INR IS STILL TO HIGH. I DID CALL OFFICE AND LEAVE A MESSAGE FOR DR BARRAZA CONCERNING THIS. IR STATED THEY WOULD RE-EVAL ON WEDNESDAY.
--- NOTE | 2019-03-17 16:23 | NUR ---
OT NOTE: PT COMPLETED SUPINE TO SIT WITH CGA. PT COMPLETED ADL MOBILITY WITH HH ASSIST. PT COMPLETED TOILETING AND HANDING WASHING HYGIENE WITH SPV. THANK YOU, STACEY HOLLIS
[2019-03-17 17:18] VITALS: BP 105/56
[2019-03-17 20:00] VITALS: BP 118/61
--- NOTE | 2019-03-17 20:11 | NUR ---
EVENING ROUNDS COMPLETED. REPORT RECEIVED. PT SITTING UP IN BED WITH EYES OPEN, RR EVEN AND UNLABORED. BED IN LOW POSITION. NO S/S OF DISTRESS NOTED. 70 SINUS ON TELEMETRY. INTRODUCED SELF TO PT. PT NODS HEAD. CALL LIGHT IN REACH. WILL CTM.
--- NOTE | 2019-03-17 22:12 | NUR ---
ADMINISTERED ORDERED ANALGESIC FOR COMPLAINTS OF PAIN IN ABDOMEN, PT STATES PAIN OF AN 8 ON A SCALE OF 0-10.
[2019-03-18] VITALS: BP 114/61
--- NOTE | 2019-03-18 02:01 | NUR ---
ASSISTED PT TO BATHROOM, DENIES FURTHER NEEDS AT THIS TIME. CALL LIGHT IN REACG. WILL CTM.
--- NOTE | 2019-03-18 03:53 | NUR ---
I have reviewed this patient and I concur with the Shift Assessment completed by the Licensed Practical Nurse today this shift.
[2019-03-18 05:10] LABS: BASOPHILS 0.2 % (0-2); EOSINOPHILS 1.3 % (0-7); HEMATOCRIT 29.3 % (42.0-54.0); HEMOGLOBIN 10.3 g/dL (13.5-17.5); IMMATURE GRANULOCYTES 12.7 % (0-5); LYMPHOCYTES 7.8 % (15-50); MCH 35.6 pg (26.0-34.0); MCHC 35.2 g/dL (31.0-37.0); MCV 101.4 fL (80.0-100.0); MEAN PLATELET VOLUME 11.7 fL (7.4-10.4); MONOCYTES 12.5 % (2-11); NEUTROPHILS 65.5 % (40-80); PLATELET COUNT 90 10x3/uL (130-400); RBC 2.89 10x6/uL (4.20-6.10); RDW 15.4 % (11.5-14.5); WBC 8.2 10x3/uL (4.8-10.8)
[2019-03-18 05:25] LABS: PLATELET ESTIMATE DECREASED
[2019-03-18 05:38] LABS: ALBUMIN 1.4 g/dL (3.4-5.0); ALKALINE PHOSPHATASE 89 U/L (46-116); ALT (SGPT) 48 U/L (10-68); BILIRUBIN - TOTAL 6.36 mg/dL (0.2-1.3); CALC OSMOLALITY 269 mosm/kg (275-300); CALCIUM 7.7 mg/dL (8.5-10.1); CARBON DIOXIDE 23.2 mmol/L (21.0-32.0); CHLORIDE - SERUM 104 mmol/L (98-107); CREATININE - SERUM 0.8 mg/dL (0.6-1.3); GLUCOSE 111 mg/dL (74-106); LIPASE 619 U/L (73-393); PHOSPHOROUS 2.8 mg/dL (2.5-4.9); POTASSIUM - SERUM 4.7 mmol/L (3.5-5.1); PROTEIN - SERUM 5.6 g/dL (6.4-8.2); SODIUM 134 mmol/L (136-145); UREA NITROGEN 15 mg/dL (7-18); eGFR NON AFRICAN AMERICAN > 90 mL/min (90-120)
--- NOTE | 2019-03-18 06:25 | NUR ---
MORNING MEDICATIONS ADMINISTERED WITHOUT ISSUE. ASSISTED PT BACK TO BED AFTER LARGE LOOSE GREEN BOWEL MOVEMENT. PT DENIES FURTHER NEEDS AT THIS TIME. CALL LIGHT IN REACH. WILL CTM.
--- NOTE | 2019-03-18 07:00 | NUR ---
RECEIVED REPORT. ASSUMED CARE OF PATIENT. CALL LIGHT WITHIN REACH. PATIENT WITH EYES CLOSED. RESP EVEN AND UNLABORED. FEMALE AT BEDSIDE IN CHAIR WITH EYES CLOSED. NO DISTRESS.
--- NOTE | 2019-03-18 08:45 | NUR ---
ASSISTED PATIENT BACK TO BED FROM RESTROOM. NO DISTRESS.
[2019-03-18 08:50] VITALS: BP 130/61
[2019-03-18 11:55] LABS: INR 2.15 (0.85-1.17); PROTIME 23.4 SECONDS (11.6-15.0)
[2019-03-18 12:30] VITALS: BP 117/61
--- NOTE | 2019-03-18 14:54 | NUR ---
PATIENT RESTING IN BED. MULTIPLE FAMILY MEMBERS/FRIENDS SURROUNDING THE BED VISITING. NO DISTRESS. TAKES MEDICATIONS WITHOUT DIFFICULTY. FRESH ICEWATER AND JUICE PROVIDED.
--- NOTE | 2019-03-18 18:09 | NUR ---
ASSISTED PATIENT FROM BED TO BATHROOM AND BACK TO BED. CALL LIGHT WITHIN REACH. FRESH ICE WATER PROVIDED. NO DISTRESS. ABD SEEMS TO HAVE INCREASED IN SIZE FROM THIS AM BUT ABD NOT MEASURED THIS AM.
--- NOTE | 2019-03-18 19:30 | NUR ---
EVENING ROUNDS COMPLETED. REPORT RECEIVED. PT SITTING UP IN BED WITH EYES OPEN, RR EVEN AND UNLABORED. NO S/S OF DISTRESS NOTED. 81 SINUS ON TELEMETRY. ASSISTED PT TO TOILET WITH MINIMAL ASSISTANCE FROM . PT DENIES FURTHER NEEDS AT THIS TIME. CALL LIGHT IN REACH. WILL CTM.
[2019-03-18 20:00] VITALS: BP 124/58
--- NOTE | 2019-03-18 22:16 | NUR ---
EVENING MEDICATIONS ADMINISTERED WITHOUT ISSUE. PT DENIES FURTHER NEEDS AT THIS TIME. 82 SINUS ON TELEMETRY. BED IN LOW POSITION. AT BEDSIDE. CALL LIGHT IN REACH. WILL CTM.
[2019-03-19] VITALS: BP 134/67
--- NOTE | 2019-03-19 01:52 | NUR ---
I have reviewed this patient and I concur with the Shift Assessment completed by the Licensed Practical Nurse today this shift.
[2019-03-19 04:00] VITALS: BP 117/67
--- NOTE | 2019-03-19 08:07 | NUR ---
PT AWAKE AND ALERT DURING MORNING ROUNDS. LAB IS IN THE ROOM DRAWING BLOOD. PT COMPLAINS OF ABD PAIN IN THE LOWER RIGHT QUADRANT. BUT DENIES ANY WANTS OF PAIN MEDICAITON. CALL LIGHT IS IN REACH. IV IS INT HE RIGHT AND LEFT AC SALINE LOCKED. DENIES ANY ADDITONAL NEEDS AT THIS TIME
[2019-03-19 08:28] LABS: BASOPHILS 0.2 % (0-2); EOSINOPHILS 1.4 % (0-7); HEMATOCRIT 29.5 % (42.0-54.0); HEMOGLOBIN 10.3 g/dL (13.5-17.5); IMMATURE GRANULOCYTES 9.1 % (0-5); LYMPHOCYTES 7.6 % (15-50); MCH 35.5 pg (26.0-34.0); MCHC 34.9 g/dL (31.0-37.0); MCV 101.7 fL (80.0-100.0); MEAN PLATELET VOLUME 11.1 fL (7.4-10.4); MONOCYTES 14.8 % (2-11); NEUTROPHILS 66.9 % (40-80); PLATELET COUNT 105 10x3/uL (130-400); RDW 15.1 % (11.5-14.5)
[2019-03-19 08:39] LABS: ALBUMIN 1.6 g/dL (3.4-5.0); ALKALINE PHOSPHATASE 102 U/L (46-116); ALT (SGPT) 47 U/L (10-68); BILIRUBIN - TOTAL 6.72 mg/dL (0.2-1.3); CALC OSMOLALITY 269 mosm/kg (275-300); CARBON DIOXIDE 24.9 mmol/L (21.0-32.0); CHLORIDE - SERUM 104 mmol/L (98-107); CREATININE - SERUM 0.8 mg/dL (0.6-1.3); GLUCOSE 113 mg/dL (74-106); LIPASE 773 U/L (73-393); PHOSPHOROUS 2.8 mg/dL (2.5-4.9); POTASSIUM - SERUM 4.7 mmol/L (3.5-5.1); PROTEIN - SERUM 5.9 g/dL (6.4-8.2); SODIUM 134 mmol/L (136-145); UREA NITROGEN 15 mg/dL (7-18); eGFR NON AFRICAN AMERICAN > 90 mL/min (90-120)
[2019-03-19 08:53] LABS: INR 2.09 (0.85-1.17); PROTIME 22.8 SECONDS (11.6-15.0)
[2019-03-19 08:55] VITALS: BP 120/59
[2019-03-19 13:01] VITALS: BP 114/58
[2019-03-19 17:59] VITALS: BP 99/42
[2019-03-19 20:00] VITALS: BP 120/57
--- NOTE | 2019-03-19 20:01 | NUR ---
EVENING ROUNDS COMPLETED. REPORT RECEIVED. PT SITTING UP IN BED WITH EYES OPEN, RR EVEN AND UNLABORED. 82 SINUS ON TELEMETRY. NO S/S OF DISTRESS NOTED. BED IN LOW POSITION. AT BEDSIDE. INTRODUCED SELF TO PT. ASSISTED PT TO BATHROOM. PT DENIES FURTHER NEEDS AT THIS TIME. CALL LIGHT IN REACH. WILL CTM.
[2019-03-20] VITALS: BP 121/79; BP 122/62
--- NOTE | 2019-03-20 02:56 | NUR ---
I have reviewed this patient and I concur with the Shift Assessment completed by the Licensed Practical Nurse today this shift.
[2019-03-20 04:00] VITALS: BP 122/56
[2019-03-20 04:16] LABS: BASOPHILS 0.1 % (0-2); EOSINOPHILS 1.6 % (0-7); HEMATOCRIT 28.9 % (42.0-54.0); HEMOGLOBIN 10.1 g/dL (13.5-17.5); IMMATURE GRANULOCYTES 9.4 % (0-5); LYMPHOCYTES 8.9 % (15-50); MCH 35.1 pg (26.0-34.0); MCHC 34.9 g/dL (31.0-37.0); MCV 100.3 fL (80.0-100.0); MEAN PLATELET VOLUME 11.4 fL (7.4-10.4); PLATELET COUNT 88 10x3/uL (130-400); RBC 2.88 10x6/uL (4.20-6.10); RDW 15.1 % (11.5-14.5); WBC 6.9 10x3/uL (4.8-10.8)
[2019-03-20 04:43] LABS: ALBUMIN 1.6 g/dL (3.4-5.0); ALKALINE PHOSPHATASE 101 U/L (46-116); ALT (SGPT) 47 U/L (10-68); BILIRUBIN - TOTAL 6.29 mg/dL (0.2-1.3); CALC OSMOLALITY 270 mosm/kg (275-300); CALCIUM 8.1 mg/dL (8.5-10.1); CARBON DIOXIDE 26.2 mmol/L (21.0-32.0); CHLORIDE - SERUM 105 mmol/L (98-107); CREATININE - SERUM 0.9 mg/dL (0.6-1.3); GLUCOSE 97 mg/dL (74-106); LIPASE 704 U/L (73-393); POTASSIUM - SERUM 4.2 mmol/L (3.5-5.1); PROTEIN - SERUM 5.8 g/dL (6.4-8.2); SODIUM 135 mmol/L (136-145); UREA NITROGEN 15 mg/dL (7-18); eGFR NON AFRICAN AMERICAN 89 mL/min (90-120)
[2019-03-20 04:54] LABS: PLATELET ESTIMATE DECREASED
[2019-03-20 06:19] LABS: INR 2.28 (0.85-1.17); PROTIME 25.2 SECONDS (11.6-15.0)
[2019-03-20 08:30] VITALS: BP 103/54
[2019-03-20 12:06] VITALS: BP 108/43
--- NOTE | 2019-03-20 13:30 | NUR ---
Nutrition Follow-up: Diet: Clear Liquid PO intake: 75% avg meal intake on 03/18 Wt: 195# Last BM: 03/20 Labs reviewed Meds reviewed On clear liquid diet x 4 days. If unable to advance past clears, rec initiate Procalamine. RD following.
--- NOTE | 2019-03-20 13:54 | NUR ---
OT NOTE: PT REQUIRED MAX A FOR SUPINE TO SIT. PT REQUIRED MAX A FOR SIT TO SUPINE. PT COMPLETED EOB SITTING WITH SBA. PT CONFUSED THIS AM. PT UNABLE TO FOLLOW DIRECTIONS . IBARRA NOTIFIED NURSING OF PT CONDITION. NURSING COME IN TO BEDSIDE. THANK YOU, STACEY HOLLIS
--- NOTE | 2019-03-20 15:54 | NUR ---
DR SINGH CALLED ABOUT INR AND PARACENTESIS ORDERED. WILL CHECK LABS IN AM.
[2019-03-20 16:04] VITALS: BP 100/50
--- NOTE | 2019-03-20 19:10 | NUR ---
RESTING WITH EYES CLOSED PRESENT BUT ALSO SPEAKS NO QATARI LCTA SKIN WARM AND DRY BUSH TO GRAVITY AND IV X2 BILAT AC SL BED IS LOW AND LOCKED AND CALL LIGHT IS WITH
--- NOTE | 2019-03-21 03:32 | NUR ---
I have reviewed this patient and I concur with the Shift Assessment completed by the Licensed Practical Nurse today this shift.
[2019-03-21 04:00] VITALS: BP 128/57
[2019-03-21 07:14] LABS: BASOPHILS 0 % (0-2); EOSINOPHILS 0 % (0-7); HEMATOCRIT 24.2 % (42.0-54.0); HEMOGLOBIN 8.8 g/dL (13.5-17.5); LYMPHOCYTES 5.8 % (15-50); MCH 36.1 pg (26.0-34.0); MCHC 36.4 g/dL (31.0-37.0); MCV 99.2 fL (80.0-100.0); MEAN PLATELET VOLUME 11.3 fL (7.4-10.4); MONOCYTES 5.1 % (2-11); NEUTROPHILS 87.1 % (40-80); PLATELET COUNT 92 10x3/uL (130-400); RBC 2.44 10x6/uL (4.20-6.10); RDW 15.3 % (11.5-14.5); WBC 6.5 10x3/uL (4.8-10.8)
[2019-03-21 07:47] LABS: INR 2.3 (0.85-1.17); PROTIME 24.6 SECONDS (11.6-15.0)
[2019-03-21 07:57] VITALS: BP 102/58
[2019-03-21 08:38] LABS: ALBUMIN 1.3 g/dL (3.4-5.0); ALKALINE PHOSPHATASE 89 U/L (46-116); ALT (SGPT) 38 U/L (10-68); BILIRUBIN - TOTAL 4.71 mg/dL (0.2-1.3); CALC OSMOLALITY 274 mosm/kg (275-300); CALCIUM 7.7 mg/dL (8.5-10.1); CARBON DIOXIDE 25.4 mmol/L (21.0-32.0); CHLORIDE - SERUM 106 mmol/L (98-107); CREATININE - SERUM 0.9 mg/dL (0.6-1.3); GLUCOSE 128 mg/dL (74-106); POTASSIUM - SERUM 4.2 mmol/L (3.5-5.1); PROTEIN - SERUM 5.4 g/dL (6.4-8.2); SODIUM 136 mmol/L (136-145); UREA NITROGEN 16 mg/dL (7-18); eGFR NON AFRICAN AMERICAN 89 mL/min (90-120)
[2019-03-21 12:50] VITALS: BP 108/62
--- NOTE | 2019-03-21 15:42 | NUR ---
OT NOTE: PT IS STILL CONFUSED THIS AM. PT EXHIBITS PROCESSING DELAYS AND REQUIRED EXTENSIVE CUES FOR SIMPLE TASKS. PT REQUIRED MOD PHYSICAL ASSISTANCE WITH ADL MOB AND BED MOB SECONDARY TO INCREASED CONFUSION. PT REQUIRED TOTAL A WITH TOILETING HYGIENE TASKS WHERE PRIOR WAS AT SBA. IBARRA NOTIFIED NURSING OF SITUATION. THANK YOU, STACEY HOLLIS
--- NOTE | 2019-03-21 15:52 | NUR ---
OT NOTE: PT COMPLETED BUE AAROM WHILE SUPINE IN BED, IBARRA USED AAROM A TACTILE CUE. PT HAS STRENGTH/ROM TO COMPLETED TASK... HAS DIFFICULTY WHEN CUES TO PERFORM AN INTENTIONAL UE MOVEMENT FOR RETURN DEMONSTRATION. PT COMPLETED BED MOB TASKS WITH MOD A. THANK YOU, STACEY HOLLIS
--- NOTE | 2019-03-21 19:20 | NUR ---
RESTING QUIETLY IN BED AND AROUSES EASILY BED LOW AND LOCKED PT STARTED TWITCHING WHEN I BEGAN THE EXAM SKIN WARM AND DRY AND LCTA EDEMA TO FEET BUT PULSES INTACT BED LOW AND LOCKED CALL LIGHT IS IN REACH
--- NOTE | 2019-03-21 19:30 | NUR ---
AT REST OPENS EYES WITH EXAM NO SPANISH IS SPOKEN SKIN WARM AND DRY EDEMA TO BOTH LOWER EX AND ABD GREATLYU DISTINDED BED IS LOW AND LOCK WITH CALL LIGHT NOTE SHE ALSO DOES NOT SPEAK SPANISH THROUGH INTERPRITURE ITS DETERMINED PT IS NOT ORIETED TO PLACE OR SITUATION
[2019-03-21 20:00] VITALS: BP 160/55
[2019-03-22 04:00] VITALS: BP 118/51
[2019-03-22 05:38] LABS: BASOPHILS 0.1 % (0-2); EOSINOPHILS 0 % (0-7); HEMATOCRIT 27.6 % (42.0-54.0); HEMOGLOBIN 9.9 g/dL (13.5-17.5); IMMATURE GRANULOCYTES 1.7 % (0-5); LYMPHOCYTES 4.7 % (15-50); MCHC 35.9 g/dL (31.0-37.0); MCV 100.4 fL (80.0-100.0); MEAN PLATELET VOLUME 11.4 fL (7.4-10.4); MONOCYTES 4.5 % (2-11); PLATELET COUNT 99 10x3/uL (130-400); RBC 2.75 10x6/uL (4.20-6.10); RDW 15.7 % (11.5-14.5); WBC 7.8 10x3/uL (4.8-10.8)
[2019-03-22 06:02] LABS: INR 2.14 (0.85-1.17); PROTIME 23.2 SECONDS (11.6-15.0)
[2019-03-22 06:07] LABS: ALBUMIN 1.4 g/dL (3.4-5.0); ALKALINE PHOSPHATASE 98 U/L (46-116); ALT (SGPT) 43 U/L (10-68); BILIRUBIN - TOTAL 3.81 mg/dL (0.2-1.3); CALC OSMOLALITY 273 mosm/kg (275-300); CARBON DIOXIDE 26.9 mmol/L (21.0-32.0); CHLORIDE - SERUM 104 mmol/L (98-107); CREATININE - SERUM 0.9 mg/dL (0.6-1.3); GLUCOSE 125 mg/dL (74-106); POTASSIUM - SERUM 4.1 mmol/L (3.5-5.1); PROTEIN - SERUM 5.9 g/dL (6.4-8.2); SODIUM 136 mmol/L (136-145); UREA NITROGEN 16 mg/dL (7-18); eGFR NON AFRICAN AMERICAN 89 mL/min (90-120)
--- NOTE | 2019-03-22 07:31 | NUR ---
INITIAL ROUNDING, BEDSIDE REPORT COMPLETE. PATIENT IS AWAKE AND RESTING IN BED, HE REPORTS PAIN IN THE ABD OF 3/10, HOB AT 30 DEGREES, SPOUSE ASLEEP IN BEDSIDE RECLINER. CALL LIGHT IN REACH. O2 VIA NC IN PLACE, TELE MONITOR ON.
[2019-03-22 08:30] VITALS: BP 115/59
[2019-03-22 11:01] LABS: ACANTHOCYTES OCC; ANISOCYTOSIS OCC; PLATELET ESTIMATE DECREASED
--- NOTE | 2019-03-22 11:36 | NUR ---
Rehab Note- Acute Inpatient Rehab prescreen order received. The patient is a good inpatient acute rehab candidate when medically stable and medical work up is completed if the patient is in agreeance with coming to [facility] Acute Inpatient Rehab. Awaiting thoracentsis when INR WNL per IR. Will continue to follow at this time. Thank you for this referral! Katherine Lew RN Clinical Liaison, [facility] Rehab
[2019-03-22 12:59] VITALS: BP 124/59
--- NOTE | 2019-03-22 14:31 | NUR ---
OT NOTE: PT CONTINUES TO EXHIBIT DIFFICULTY WITH TRANSFERRING FROM TOILET TO BED. NURSING STATED THAT PTS LEGS ARE NUMB WHEN SITTING BECAUSE DECREASED BLOOD FLOW. PT COMPLETED TOILETING TASKS WITH MOD/MAX A. PT COMPLETED HYGIENE TASKS WITH MAX A. PT COMPLETED ADL MOBILITY TO TOILET WITH MIN A... REQUIRED MOD/MAX A FROM TOILET TO BED. PT IS COOPERATIVE BUT APPEARS CONFUSED. NOTED EDEMA IN LES. NURSING NOTIFIED . THANK YOU,STACEY HOLLIS
[2019-03-22 16:04] VITALS: BP 110/61
--- NOTE | 2019-03-22 16:49 | MORECARE ---
CASE MANAGEMENT DISCHARGE SUMMARY PATIENT: DARRELL DE LA ROSA UNIT: [id number] ADM DATE: 03/12/19 AGE: 68 : 50 SEX: M ROOM/BED: D.2106 AUTHOR: GUIDO CURTIS PHYSICIAN: REFERRING PHYSICIAN: TREVA MCCARTNEY MD DATE OF SERVICE: 03/22/19 Discharge Plan Patient Name: DARRELL DE LA ROSA Facility: [facility]:[place] : 1950 Planned Disposition: Inpatient Rehab Anticipated Discharge Date: 03/23/19 Discharge Date: Expected LOS: 11 Initial Reviewer: [id number] Initial Review Date: 03/12/2019 Generated: 03/22/19 5:49 pm DCP- Discharge Planning Updated by [email or web address]: Javi Ayala on 03/13/19 4:[address] Patient Name: DARRELL GALDAMEZ Admission Status: ER Accout number: [id number] Admission Date: 03-12-2019 : 1950 Admission Diagnosis: Attending: TREVA MCCARTNEY Current LOS: 1 Anticipated DC Date: Planned Disposition: Home Primary Insurance: MEDICARE A & B Discharge Planning Comments: CM MET WITH PT AND SPOUSE IN ROOM TO DISCUSS DISCHARGE PLANNING AND NEEDS. CM CALLED [employer] [employer], , WAS ASSISTED BY RONDA, GRINDER OPERATOR TOOL # [id number]. DARRELL GALDAMEZ provided verbal consent to discuss current and ongoing needs with/in the presence of: SPOUSE, RONDA. PT REPORTS LIVING AT HOME INDEPENDENTLY WITH HIS . PT HAS NEBULIZER, HE NO LONGER HAS OXYGEN FROM [facility], THEY PICKED IT UP. PT HAS NO OUTSIDE SERVICES ASSISTING IN THE HOME. PT REPORTS SOMEONE FROM THE MEDICAL CLINIC CHECKS ON HIM AT HOME. CM DISCUSSED AVAILABILITY OF HOME HEALTH, REHAB SERVICES AND MEDICAL EQUIPMENT. PT DENIES DISCHARGE NEEDS, PT INITIALLY ASKED FOR HOSPITAL TO GIVE HIM AND HIS A TAXI RIDE HOME IF THEY ARE LEAVING TODAY, CM EXPLAINED THAT THEY ARE NOT DISCHARGING TODAY, WE ARE ONLY TALKING ABOUT THE DISCHARGE PLAN. PT HTEN REPORTS FAMILY WILL PICK HE AND UP FOR DISCHARGE HOME. IMPORTANT MESSAGE FROM MEDICARE PROVIDED AND EXPLAINED, PROVIDED IN SUDANESE PT REPORTS ABILITY TO READ SUDANESE. PT DENIES DISCHARGE NEEDS, FAMILY TO TRANSPORT HOME AT DISCHARGE. CM TO FOLLOW AND ASSIST IF NEEDED. Cage Clerk: Javi Ayala DCPIA - Discharge Planning Initial Assessment Updated by CASEY: Javi Ayala on 03/13/19 4:59 pm * Is the patient Alert and Oriented? Yes * How many steps to enter\exit or inside your home? * PCP [facility] IN [facility] [phone] * Pharmacy [facility] IN [facility] [phone] * Preadmission Environment Home with Family * ADLs Independent * Equipment Nebulizer * Other Equipment [facility] IN [facility] - MEDICAL EQUIPMENT PROVIDER PREFERENCE * List name and contact numbers for known caregivers / representatives who currently or will assist patient after discharge: RONDA FAM, SPOUSE, [phone] TAPAN WEBSTERLemuel, DTR, * Verbal permission to speak to the caregivers and representatives has been obtained from the patient. Yes * Community resources currently utilized None * Please name any agencies selected above. NONE * Additional services required to return to the preadmission environment? No * Can the patient safely return to the preadmission environment? Yes * Has this patient been hospitalized within the prior 30 days at any hospital? No Coverage Notice Reviewer: CASEY - Javi Ayala Notice Issued Date-Time: 03/13/2019 16:30 Notice Type: IM Discharge Notice Notice Delivered To: Family Member Relationship to Patient: Spouse Motor Vehicle Emissions Inspector Name: RONDA FAM Delivery Method: HAND - Hand Delivered Lanny Days: Prior Verbal Notification: Recipient Understood Notice: Yes Recipient Signature: Yes Med Rec Note Co-signed by Attending: Coverage Notice Comment: Last DP export: 03/13/19 4:09 pm Patient Name: MAIRA GRANADOSDARRELL Gallo Page [phone] at 1649 All edits/amendments must be made on the electronic document DICTATION DATE: 03/22/191648 RADIOISOTOPE TECHNICIAN: MARCELL 03/22/191648 RPT#: [id number] DC DATE: STATUS: ADM IN [facility] [address] [place] [address] END OF REPORT
--- NOTE | 2019-03-22 16:57 | MORECARE ---
CASE MANAGEMENT DISCHARGE SUMMARY PATIENT: DARRELL DE LA ROSA UNIT: [id number] ADM DATE: 03/12/19 AGE: 68 : 50 SEX: M ROOM/BED: D.2106 AUTHOR: EVERDOC PHYSICIAN: REFERRING PHYSICIAN: TREVA MCCARTNEY MD DATE OF SERVICE: 03/22/19 Discharge Plan Patient Name: DARRELL DE LA ROSA Facility: [facility]:[place] : 1950 Planned Disposition: Inpatient Rehab Anticipated Discharge Date: 03/23/19 Discharge Date: Expected LOS: 11 Initial Reviewer: [email or web address] Initial Review Date: 03/12/2019 Generated: 03/22/19 5:56 pm Comments DCP- Discharge Planning Updated by [email or web address]: Javi Ayala on 03/22/19 3:[address] Patient Name: DARRELL GALDAMEZ Admission Status: ER Accout number: [id number] Admission Date: 03-12-2019 : 1950 Admission Diagnosis:SEPSIS, UNSPECIFIED ORGANISM Attending: TREVA MCCARTNEY Current LOS: 10 Anticipated DC Date: 03-23-2019 Planned Disposition: Inpatient Rehab Primary Insurance: MEDICARE A & B PLANNED EXTERNAL PROVIDER; [facility] INPATIENT REHAB Discharge Planning Comments: CM MET WITH PT AND SPOUSE IN ROOM TO DISCUSS DISCHARGE PLANNING AND NEEDS. CM UTILIZED [employer] LEAFLET OR NEWSPAPER DELIVERER SERVICES, , BUSINESS CONTINUITY SPECIALIST # [id number]. PTCM DISCUSSED AVAILABILITY OF REHAB SERVICES, PROVIDERS AND LOCATIONS. CM DISCUSSED INPATIENT REHAB PRESCREEN AND THERAPY NEEDS. PT WOULD LIKE TO STAY AT [facility] FOR REHAB. PT NOR SPOUSE HAD FURTHER QUESTIONS FOR CM AT THIS TIME. IMPORTANT MESSAGE FROM MEDICARE PROVIDED AND EXPLAINED. CM CALLED AND SPOKE TO MATT OF INPATIENT REHAB, THEY PLAN TO ACCEPT PT WHEN MEDICALLY STABLE. WHEN READY FOR DISCHARGE, NOTIFY [facility] INPATIENT REHAB. Hand Paster: Javi Ayala DCP- Discharge Planning Updated by [email or web address]: Javi Ayala on 03/13/19 4:[address] Patient Name: DARRELL GALDAMEZ Admission Status: ER Accout number: [id number] Admission Date: 03-12-2019 : 1950 Admission Diagnosis: Attending: TREVA MCCARTNEY Current LOS: 1 Anticipated DC Date: Planned Disposition: Home Primary Insurance: MEDICARE A & B Discharge Planning Comments: CM MET WITH PT AND SPOUSE IN ROOM TO DISCUSS DISCHARGE PLANNING AND NEEDS. CM CALLED [employer], , WAS ASSISTED BY RONDA, LEAFLET OR NEWSPAPER DELIVERER # [id number]. DARRELL GALDAMEZ provided verbal consent to discuss current and ongoing needs with/in the presence of: SPOUSE, RONDA. PT REPORTS LIVING AT HOME INDEPENDENTLY WITH HIS . PT HAS NEBULIZER, HE NO LONGER HAS OXYGEN FROM [facility], THEY PICKED IT UP. PT HAS NO OUTSIDE SERVICES ASSISTING IN THE HOME. PT REPORTS SOMEONE FROM THE MEDICAL CLINIC CHECKS ON HIM AT HOME. CM DISCUSSED AVAILABILITY OF HOME HEALTH, REHAB SERVICES AND MEDICAL EQUIPMENT. PT DENIES DISCHARGE NEEDS, PT INITIALLY ASKED FOR HOSPITAL TO GIVE HIM AND HIS A TAXI RIDE HOME IF THEY ARE LEAVING TODAY, CM EXPLAINED THAT THEY ARE NOT DISCHARGING TODAY, WE ARE ONLY TALKING ABOUT THE DISCHARGE PLAN. PT HTEN REPORTS FAMILY WILL PICK HE AND UP FOR DISCHARGE HOME. IMPORTANT MESSAGE FROM MEDICARE PROVIDED AND EXPLAINED, PROVIDED IN PALESTINIAN PT REPORTS ABILITY TO READ PALESTINIAN. PT DENIES DISCHARGE NEEDS, FAMILY TO TRANSPORT HOME AT DISCHARGE. CM TO FOLLOW AND ASSIST IF NEEDED. Hand Paster: Javi Ayala DCPIA - Discharge Planning Initial Assessment Updated by [email or web address]: Javi Ayala on 03/13/19 4:59 pm * Is the patient Alert and Oriented? Yes * How many steps to enter\exit or inside your home? * PCP [facility] IN [facility] [phone] * Pharmacy [facility] IN [facility] [phone] * Preadmission Environment Home with Family * ADLs Independent * Equipment Nebulizer * Other Equipment [facility] - MEDICAL EQUIPMENT PROVIDER PREFERENCE * List name and contact numbers for known caregivers / representatives who currently or will assist patient after discharge: RONDA FAM, SPOUSE, [phone] TAPAN RAO DTR, * Verbal permission to speak to the caregivers and representatives has been obtained from the patient. Yes * Community resources currently utilized None * Please name any agencies selected above. NONE * Additional services required to return to the preadmission environment? No * Can the patient safely return to the preadmission environment? Yes * Has this patient been hospitalized within the prior 30 days at any hospital? No Coverage Notice Reviewer: CASEY Ayala Notice Issued Date-Time: 03/13/2019 16:30 Notice Type: IM Discharge Notice Notice Delivered To: Family Member Relationship to Patient: Spouse Assembler Bonding Name: RONDA FAM Delivery Method: HAND - Hand Delivered Lanny Days: Prior Verbal Notification: Recipient Understood Notice: Yes Recipient Signature: Yes Med Rec Note Co-signed by Attending: Coverage Notice Comment: Reviewer: CASEY Ayala Notice Issued Date-Time: 03/22/2019 16:45 Notice Type: IM Discharge Notice Notice Delivered To: Family Member Relationship to Patient: Spouse Assembler Bonding Name: RONDA Delivery Method: HAND - Hand Delivered Lanny Days: Prior Verbal Notification: Recipient Understood Notice: Yes Recipient Signature: Yes Med Rec Note Co-signed by Attending: Coverage Notice Comment: Last DP export: 03/22/19 3:49 p Patient Name: MAIRA GALDAMEZDARRELL Page [phone] at 1657 All edits/amendments must be made on the electronic document DICTATION DATE: 03/22/191655 RECORD CHANGER TESTER: MARCELL 03/22/191655 RPT#: [id number] DC DATE: STATUS: ADM IN [facility] [address] [place] [address] END OF REPORT
[2019-03-22 20:00] VITALS: BP 128/55
--- NOTE | 2019-03-22 20:08 | NUR ---
ROUNDS COMPLETED. VSS, AAX3. SPOSUSE AT THE BEDSIDE. ABDOMEN APPEARS DISTENDED. PT DENIES ANY PAIN AT THIS TIME. PT ON CONTACT ISOLATION. URINE APPEARS CONCENTRATED. PT DENIES ANY FURTHER NEEDS AT THIS TIME. WILL CTM.
[2019-03-23] VITALS: BP 104/49
[2019-03-23 04:00] VITALS: BP 101/44
[2019-03-23 06:55] LABS: BASOPHILS 0 % (0-2); EOSINOPHILS 0 % (0-7); HEMATOCRIT 24.8 % (42.0-54.0); IMMATURE GRANULOCYTES 1.6 % (0-5); LYMPHOCYTES 3.5 % (15-50); MCH 35.9 pg (26.0-34.0); MCHC 36.3 g/dL (31.0-37.0); MCV 98.8 fL (80.0-100.0); MONOCYTES 8.8 % (2-11); NEUTROPHILS 86.1 % (40-80); PLATELET COUNT 93 10x3/uL (130-400); RBC 2.51 10x6/uL (4.20-6.10); RDW 15.8 % (11.5-14.5); WBC 8.2 10x3/uL (4.8-10.8)
[2019-03-23 07:06] LABS: ALBUMIN 1.4 g/dL (3.4-5.0); ALKALINE PHOSPHATASE 93 U/L (46-116); ALT (SGPT) 38 U/L (10-68); BILIRUBIN - TOTAL 3.08 mg/dL (0.2-1.3); CALC OSMOLALITY 279 mosm/kg (275-300); CALCIUM 8.3 mg/dL (8.5-10.1); CARBON DIOXIDE 25.6 mmol/L (21.0-32.0); CHLORIDE - SERUM 107 mmol/L (98-107); CREATININE - SERUM 0.9 mg/dL (0.6-1.3); GLUCOSE 127 mg/dL (74-106); POTASSIUM - SERUM 3.9 mmol/L (3.5-5.1); PROTEIN - SERUM 5.4 g/dL (6.4-8.2); SODIUM 138 mmol/L (136-145); UREA NITROGEN 17 mg/dL (7-18); eGFR NON AFRICAN AMERICAN 89 mL/min (90-120)
[2019-03-23 07:10] LABS: INR 2.42 (0.85-1.17); PROTIME 25.6 SECONDS (11.6-15.0)
--- NOTE | 2019-03-23 07:32 | NUR ---
PT RESTING IN BED COMFORTABLY WITH EYES CLOSED, BREATHING EVEN AND UNLABORED, NO S/S OF DISTRESS. FAMILY AT BEDSIDE. REPLACED TELEMETRY LINES. PT DENIES ANY NEEDS. WILL CTM.
[2019-03-23 09:23] VITALS: BP 112/52
--- NOTE | 2019-03-23 11:23 | NUR ---
ADMINISTERED MEDICATION AT THIS TIME NO TROUBLE SWALLOWING. PT CONTINUES TO TRY AND REMOVE TELEMETRY, DOES NOT SEEM TO BE CONFUSED. MINIMAL LANGUAGE BARRIER. PUT TELEMETRY BACK ON. FAMILY AT BEDSIDE. DENIES ANY NEEDS. BED IN LOWEST POSITION, BED RAILS X2, CALL LIGHT WITHIN REACH. WILL CTM.
[2019-03-23 13:30] VITALS: BP 113/61
--- NOTE | 2019-03-23 15:06 | NUR ---
OT NOTE: PT COMPLETED BATHING TASKS WITH MAX A. PT COMPLETED TOILET HYGIENE WITH MOD/MAX A. PT COMPLETED GROOMING TASKS WITH CGA FOR FACE WASH. PT COMPLETED ADL MOB WITH CGA. PT COMPLETED BED MOB WITH EXTENSIVE CUES. PT HAD DIARRHOEA THIS AM. REPORTED TO NURSING STAFF. THANK YOU, STACEY HOLLIS
--- NOTE | 2019-03-23 15:57 | NUR ---
PT RESTING SUPINE IN BED, AT BEDSIDE. DENIES NEEDS. WILL CTM.
[2019-03-23 17:29] VITALS: BP 121/56
[2019-03-23 20:00] VITALS: BP 111/52
--- NOTE | 2019-03-23 20:00 | NUR ---
EVENING ROUNDS COMPLETED. VSS, AAOX4 NO S/S OF DISTRESS. PT LOWER EXTREMITIES APPEARS DRY AND SWOLLEN. ABDOMEN APPEARS DISTENDED. PT PULLED OUT HIS STAT LOCK. NEW STAT LOCK IN PLACE AT THIS TIME. SPOUSE AT BEDSIDE. PT DENIES ANY FURTHER NEEDS AT THIS TIME. WILL CTM. CL WITHIN REACH.
[2019-03-24] VITALS: BP 116/52
[2019-03-24 04:00] VITALS: BP 110/53
[2019-03-24 05:30] LABS: BASOPHILS 0 % (0-2); EOSINOPHILS 0 % (0-7); HEMATOCRIT 26.7 % (42.0-54.0); HEMOGLOBIN 9.4 g/dL (13.5-17.5); IMMATURE GRANULOCYTES 1.2 % (0-5); LYMPHOCYTES 4.3 % (15-50); MCH 35.9 pg (26.0-34.0); MCHC 35.2 g/dL (31.0-37.0); MONOCYTES 8.4 % (2-11); NEUTROPHILS 86.1 % (40-80); PLATELET COUNT 85 10x3/uL (130-400); RBC 2.62 10x6/uL (4.20-6.10); RDW 16.2 % (11.5-14.5); WBC 7.5 10x3/uL (4.8-10.8)
[2019-03-24 05:42] LABS: MCV 101.9 fL (80.0-100.0)
[2019-03-24 05:51] LABS: ALBUMIN 1.6 g/dL (3.4-5.0); ALKALINE PHOSPHATASE 105 U/L (46-116); AMYLASE - SERUM 46 U/L (25-115); BILIRUBIN - TOTAL 3.51 mg/dL (0.2-1.3); CALC OSMOLALITY 277 mosm/kg (275-300); CALCIUM 8.4 mg/dL (8.5-10.1); CARBON DIOXIDE 27.1 mmol/L (21.0-32.0); CHLORIDE - SERUM 106 mmol/L (98-107); GLUCOSE 123 mg/dL (74-106); LIPASE 377 U/L (73-393); PROTEIN - SERUM 5.8 g/dL (6.4-8.2); SODIUM 138 mmol/L (136-145); UREA NITROGEN 15 mg/dL (7-18); eGFR NON AFRICAN AMERICAN 79 mL/min (90-120)
[2019-03-24 05:52] LABS: ALT (SGPT) 56 U/L (10-68)
[2019-03-24 07:41] LABS: INR 2.31 (0.85-1.17); PROTIME 24.7 SECONDS (11.6-15.0)
--- NOTE | 2019-03-24 08:00 | NUR ---
RECEIVED A/A/OX1 TO PERSON ONLY. DENIES ANY PAIN AND NO REQUESTS VOICED. TRYING TO GET OUT OF BED AND HEADS TO THE DOOR. TOLD BY BOILER TENDERS SUPERVISOR HE WANTS TO GO HOME. REFUSED TO STAY IN THE BED. SITTING ON EDGE OF BED WITH AT BEDSIDE. BED ALARM ON BUT PT HAS PULLED TRANSMITTER BOX OUT OF THE WALL AND HAS BEEN PUT BACK IN PLACE. ASSESSMENT COMPLETED AND WILL CONTINUE PLAN OF CARE. BUSH PATENT TO BEDSIDE DRAINAGE WITH FRANCES COLORED URINE.
[2019-03-24 09:58] VITALS: BP 123/59
--- NOTE | 2019-03-24 12:02 | NUR ---
UP IN HALLWAY TO AMBULATE WITH PT. AMBULATED AROUND UNIT X 2 WITH STEADY GAIT AND ONLY MINIMAL ASSISTANCE. BACK TO ROOM AND UP IN CHAIR AT BEDSIDE. HAS BEEN UP AND DOWN IN HIS ROOM AND DISREGARDS CATH. NOW HAS SOME BLOOD NOTED IN TUBING DUE TO PULLING ON IT. STAT LOCK PLACED AND HE PULLS IT OFF.
--- NOTE | 2019-03-24 12:04 | NUR ---
CASE ASSEMBLER STATES HAS SAID SHE WANTS HIM TO GO THE REHAB IN [facility]. JESSICA HAS WENT IN TO BEGIN THE PROCESS.
[2019-03-24] MEDS ORDERED: ALDACTONE100 MG PO (12:32)
[2019-03-24] MEDS ORDERED: MIRALAX17 GM PO (12:32)
[2019-03-24] MEDS ORDERED: LASIX40 MG PO (12:32)
[2019-03-24] MEDS ORDERED: PREDNISONE10 MG PO (12:33)
[2019-03-24] MEDS ORDERED: IMURAN50 MG PO (12:33)
[2019-03-24] MEDS ORDERED: PREDNISONE20 MG PO (12:34)
--- NOTE | 2019-03-24 12:58 | NUR ---
Nutrition Follow-up: Diet advanced; tolerating. Seen by ST; recs mechanical soft with thin liquids. Noted plans to d/c to rehab today. Diet: Regular, Mechanical Soft with Thin Liquids PO intake: 100% this AM Wt: 195# Last BM: 03/23 Labs reviewed Meds reviewed Rec cardiac mechanical soft diet. [place] food preferences within diet restrictions. RD following.
[2019-03-24 13:46] VITALS: BP 134/65
--- NOTE | 2019-03-24 14:06 | MORECARE ---
CASE MANAGEMENT DISCHARGE SUMMARY PATIENT: DARRELL DE LA ROSA UNIT: [id number] ADM DATE: 03/12/19 AGE: 68 : 50 SEX: M ROOM/BED: D.2106 AUTHOR: EVERDOC PHYSICIAN: REFERRING PHYSICIAN: TREVA MCCARTNEY MD DATE OF SERVICE: 03/24/19 Discharge Plan Patient Name: DARRELL DE LA ROSA Facility: [facility]:[place] : 1950 Planned Disposition: Inpatient Rehab Anticipated Discharge Date: 03/23/19 Discharge Date: Expected LOS: 11 Initial Reviewer: [id number] Initial Review Date: 03/12/2019 Generated: 03/24/19 3:06 pm Comments DCP- Discharge Planning Updated by [id number]: Javi Ayala on 03/22/19 3:[address] Patient Name: DARRELL GALDAMEZ Admission Status: ER Accout number: [id number] Admission Date: 03-12-2019 : 1950 Admission Diagnosis:SEPSIS, UNSPECIFIED ORGANISM Attending: TREVA MCCARTNEY Current LOS: 10 Anticipated DC Date: 03-23-2019 Planned Disposition: Inpatient Rehab Primary Insurance: MEDICARE A & B PLANNED EXTERNAL PROVIDER; [facility] INPATIENT REHAB Discharge Planning Comments: CM MET WITH PT AND SPOUSE IN ROOM TO DISCUSS DISCHARGE PLANNING AND NEEDS. CM UTILIZED [employer] EDUCATION ASSISTANT SERVICES, , PROVINCE ARCHIVIST # [id number]. PTCM DISCUSSED AVAILABILITY OF REHAB SERVICES, PROVIDERS AND LOCATIONS. CM DISCUSSED INPATIENT REHAB PRESCREEN AND THERAPY NEEDS. PT WOULD LIKE TO STAY AT [facility] FOR REHAB. PT NOR SPOUSE HAD FURTHER QUESTIONS FOR CM AT THIS TIME. IMPORTANT MESSAGE FROM MEDICARE PROVIDED AND EXPLAINED. CM CALLED AND SPOKE TO MATT OF INPATIENT REHAB, THEY PLAN TO ACCEPT PT WHEN MEDICALLY STABLE. WHEN READY FOR DISCHARGE, NOTIFY [facility] INPATIENT REHAB. Websphere Developer: Javi Ayala DCP- Discharge Planning Updated by [id number]: Javi Ayala on 03/13/19 4:[address] Patient Name: DARRELL GALDAMEZ Admission Status: ER Accout number: [id number] Admission Date: 03-12-2019 : 1950 Admission Diagnosis: Attending: TREVA MCCARTNEY Current LOS: 1 Anticipated DC Date: Planned Disposition: Home Primary Insurance: MEDICARE A & B Discharge Planning Comments: CM MET WITH PT AND SPOUSE IN ROOM TO DISCUSS DISCHARGE PLANNING AND NEEDS. CM CALLED [employer], , WAS ASSISTED BY RONDA, EDUCATION ASSISTANT # [id number]. DARRELL GALDAMEZ provided verbal consent to discuss current and ongoing needs with/in the presence of: SPOUSE, RONDA. PT REPORTS LIVING AT HOME INDEPENDENTLY WITH HIS . PT HAS NEBULIZER, HE NO LONGER HAS OXYGEN FROM [facility], THEY PICKED IT UP. PT HAS NO OUTSIDE SERVICES ASSISTING IN THE HOME. PT REPORTS SOMEONE FROM THE MEDICAL CLINIC CHECKS ON HIM AT HOME. CM DISCUSSED AVAILABILITY OF HOME HEALTH, REHAB SERVICES AND MEDICAL EQUIPMENT. PT DENIES DISCHARGE NEEDS, PT INITIALLY ASKED FOR HOSPITAL TO GIVE HIM AND HIS A TAXI RIDE HOME IF THEY ARE LEAVING TODAY, CM EXPLAINED THAT THEY ARE NOT DISCHARGING TODAY, WE ARE ONLY TALKING ABOUT THE DISCHARGE PLAN. PT HTEN REPORTS FAMILY WILL PICK HE AND UP FOR DISCHARGE HOME. IMPORTANT MESSAGE FROM MEDICARE PROVIDED AND EXPLAINED, PROVIDED IN CZECH PT REPORTS ABILITY TO READ CZECH. PT DENIES DISCHARGE NEEDS, FAMILY TO TRANSPORT HOME AT DISCHARGE. CM TO FOLLOW AND ASSIST IF NEEDED. Websphere Developer: Javi Ayala DCPIA - Discharge Planning Initial Assessment Updated by [id number]: Javi Ayala on 03/13/19 4:59 pm * Is the patient Alert and Oriented? Yes * How many steps to enter\exit or inside your home? * PCP LOCATED [facility] [phone] * Pharmacy LOCATED WITHIN [facility] IN [facility] [phone] * Preadmission Environment Home with Family * ADLs Independent * Equipment Nebulizer * Other Equipment [facility] IN [facility] - MEDICAL EQUIPMENT PROVIDER PREFERENCE * List name and contact numbers for known caregivers / representatives who currently or will assist patient after discharge: RONDA FAM, SPOUSE, [phone] TAPAN RAO DTR, * Verbal permission to speak to the caregivers and representatives has been obtained from the patient. Yes * Community resources currently utilized None * Please name any agencies selected above. NONE * Additional services required to return to the preadmission environment? No * Can the patient safely return to the preadmission environment? Yes * Has this patient been hospitalized within the prior 30 days at any hospital? No External Providers External Provider: OTHER-OTHER Next Contact Date: 03/24/2019 Service Request Date: Service Type: Resolution: Reviewer: Comments: Coverage Notice Reviewer: [email or web address] Ayala Notice Issued Date-Time: 03/13/2019 16:30 Notice Type: IM Discharge Notice Notice Delivered To: Family Member Relationship to Patient: Spouse Overhead Distribution Engineer Name: RONDA FAM Delivery Method: HAND - Hand Delivered Lanny Days: Prior Verbal Notification: Recipient Understood Notice: Yes Recipient Signature: Yes Med Rec Note Co-signed by Attending: Coverage Notice Comment: Reviewer: [id number] Ayala Notice Issued Date-Time: 03/22/2019 16:45 Notice Type: IM Discharge Notice Notice Delivered To: Family Member Relationship to Patient: Spouse Overhead Distribution Engineer Name: RONDA Delivery Method: HAND - Hand Delivered Lanny Days: Prior Verbal Notification: Recipient Understood Notice: Yes Recipient Signature: Yes Med Rec Note Co-signed by Attending: Coverage Notice Comment: Last DP export: 03/22/19 3:56 p Patient Name: MAIRA GALDAMEZVIRGINIAVAGERBER Page [phone] at 1406 All edits/amendments must be made on the electronic document DICTATION DATE: 03/24/19 1405 BAKING FACTORY WORKER: MARCELL 03/24/19 1405 RPT#: [id number] DC DATE: STATUS: ADM IN [facility] [address] [place] [address] END OF REPORT
--- NOTE | 2019-03-24 14:12 | NUR ---
OT NOTE: PT VERY CONFUSED THIS SESSION. PT REQUIRED MAX CUES FOR INCREASED SAFETY. PT COMPLETED ADL MOB WITH CGA/SBA. PT COMPLETED BED MOB WITH SPV. PT COMPLETED FACE WASH WITH SET UP. NOTIFIED NURSING. THANK YOU, STACEY HOLLIS
--- NOTE | 2019-03-24 14:15 | MORECARE ---
CASE MANAGEMENT DISCHARGE SUMMARY PATIENT: DARRELL DE LA ROSA UNIT: [id number] ADM DATE: 03/12/19 AGE: 68 : 50 SEX: M ROOM/BED: D.2106 AUTHOR: EVER,DOC PHYSICIAN: REFERRING PHYSICIAN: TREVA MCCARTNEY MD DATE OF SERVICE: 03/24/19 Discharge Plan Patient Name: DARRELL DE LA ROSA Facility: [facility]:[place] : 1950 Planned Disposition: Halfway Facility Anticipated Discharge Date: 03/27/19 Discharge Date: Expected LOS: 15 Initial Reviewer: [id number] Initial Review Date: 03/12/2019 Generated: 03/24/19 3:15 pm Comments DCP- Discharge Planning Updated by [email or web address]: Javi Ayala on 03/22/19 3:[address] Patient Name: DARRELL GALDAMEZ Admission Status: ER Accout number: [id number] Admission Date: 03-12-2019 : 1950 Admission Diagnosis:SEPSIS, UNSPECIFIED ORGANISM Attending: TREVA MCCARTNEY Current LOS: 10 Anticipated DC Date: 03-23-2019 Planned Disposition: Inpatient Rehab Primary Insurance: MEDICARE A & B PLANNED EXTERNAL PROVIDER; [facility] INPATIENT REHAB Discharge Planning Comments: CM MET WITH PT AND SPOUSE IN ROOM TO DISCUSS DISCHARGE PLANNING AND NEEDS. CM UTILIZED [employer] TAXI TRUCK DRIVER SERVICES, , PAID SEARCH MARKETING ANALYST # [id number]. PTCM DISCUSSED AVAILABILITY OF REHAB SERVICES, PROVIDERS AND LOCATIONS. CM DISCUSSED INPATIENT REHAB PRESCREEN AND THERAPY NEEDS. PT WOULD LIKE TO STAY AT [place] FOR REHAB. PT NOR SPOUSE HAD FURTHER QUESTIONS FOR CM AT THIS TIME. IMPORTANT MESSAGE FROM MEDICARE PROVIDED AND EXPLAINED. CM CALLED AND SPOKE TO MATT OF INPATIENT REHAB, THEY PLAN TO ACCEPT PT WHEN MEDICALLY STABLE. WHEN READY FOR DISCHARGE, NOTIFY [facility] INPATIENT [facility]. Machine Leather Trimmer: Javi Ayala DCP- Discharge Planning Updated by [id number]: Javi Ayala on 03/13/19 4:[address] Patient Name: DARRELL GALDAMEZ Admission Status: ER Accout number: [id number] Admission Date: 03-12-2019 : 1950 Admission Diagnosis: Attending: TREVA MCCARTNEY Current LOS: 1 Anticipated DC Date: Planned Disposition: Home Primary Insurance: MEDICARE A & B Discharge Planning Comments: CM MET WITH PT AND SPOUSE IN ROOM TO DISCUSS DISCHARGE PLANNING AND NEEDS. CM CALLED [employer]TATION [employer], , WAS ASSISTED BY RONDA, TAXI TRUCK DRIVER # [id number]. DARRELL GALDAMEZ provided verbal consent to discuss current and ongoing needs with/in the presence of: SPOUSE, RONDA. PT REPORTS LIVING AT HOME INDEPENDENTLY WITH HIS . PT HAS NEBULIZER, HE NO LONGER HAS OXYGEN FROM [facility], THEY PICKED IT UP. PT HAS NO OUTSIDE SERVICES ASSISTING IN THE HOME. PT REPORTS SOMEONE FROM THE MEDICAL CLINIC CHECKS ON HIM AT HOME. CM DISCUSSED AVAILABILITY OF HOME HEALTH, REHAB SERVICES AND MEDICAL EQUIPMENT. PT DENIES DISCHARGE NEEDS, PT INITIALLY ASKED FOR HOSPITAL TO GIVE HIM AND HIS A TAXI RIDE HOME IF THEY ARE LEAVING TODAY, CM EXPLAINED THAT THEY ARE NOT DISCHARGING TODAY, WE ARE ONLY TALKING ABOUT THE DISCHARGE PLAN. PT HTEN REPORTS FAMILY WILL PICK HE AND UP FOR DISCHARGE HOME. IMPORTANT MESSAGE FROM MEDICARE PROVIDED AND EXPLAINED, PROVIDED IN DIVEHI PT REPORTS ABILITY TO READ DIVEHI. PT DENIES DISCHARGE NEEDS, FAMILY TO TRANSPORT HOME AT DISCHARGE. CM TO FOLLOW AND ASSIST IF NEEDED. Machine Leather Trimmer: Javi Ayala DCPIA - Discharge Planning Initial Assessment Updated by [id number]: Javi Ayala on 03/13/19 4:59 pm * Is the patient Alert and Oriented? Yes * How many steps to enter\exit or inside your home? * PCP LOCATED WITHIN [facility] IN [facility] [phone] * Pharmacy LOCATED WITHIN [facility] IN [facility] [phone] * Preadmission Environment Home with Family * ADLs Independent * Equipment Nebulizer * Other Equipment [facility] IN [facility] - MEDICAL EQUIPMENT PROVIDER PREFERENCE * List name and contact numbers for known caregivers / representatives who currently or will assist patient after discharge: RONDA FAM, SPOUSE, [phone] TAPAN RAO DTR, * Verbal permission to speak to the caregivers and representatives has been obtained from the patient. Yes * Community resources currently utilized None * Please name any agencies selected above. NONE * Additional services required to return to the preadmission environment? No * Can the patient safely return to the preadmission environment? Yes * Has this patient been hospitalized within the prior 30 days at any hospital? No Coverage Notice Reviewer: CASEY Ayala Notice Issued Date-Time: 03/13/2019 16:30 Notice Type: IM Discharge Notice Notice Delivered To: Family Member Relationship to Patient: Spouse Fax Machine Operator Name: RONDA FAM Delivery Method: HAND - Hand Delivered Lanny Days: Prior Verbal Notification: Recipient Understood Notice: Yes Recipient Signature: Yes Med Rec Note Co-signed by Attending: Coverage Notice Comment: Reviewer: CASEY Ayala Notice Issued Date-Time: 03/22/2019 16:45 Notice Type: IM Discharge Notice Notice Delivered To: Family Member Relationship to Patient: Spouse Fax Machine Operator Name: RONDA Delivery Method: HAND - Hand Delivered Lanny Days: Prior Verbal Notification: Recipient Understood Notice: Yes Recipient Signature: Yes Med Rec Note Co-signed by Attending: Coverage Notice Comment: Last DP export: 03/24/19 1:06 p Patient Name: MAIRA GALDAMEZDARRELL Page [id number] at 1415 All edits/amendments must be made on the electronic document DICTATION DATE: 03/24/19 1414 FORM BUILDER HELPER: MARCELL 03/24/19 1414 [facility]#: [id number] DC DATE: STATUS: ADM IN [facility] [address] [place] [address] END OF REPORT
--- NOTE | 2019-03-24 14:23 | MORECARE ---
CASE MANAGEMENT DISCHARGE SUMMARY PATIENT: DARRELL DE LA ROSA UNIT: [id number] ADM DATE: 03/12/19 AGE: 68 : 50 SEX: M ROOM/BED: D.210 AUTHOR: EVER,DOC PHYSICIAN: REFERRING PHYSICIAN: TREVA MCCARTNEY MD DATE OF SERVICE: 03/24/19 Discharge Plan Patient Name: DARRELL DE LA ROSA Facility: [facility] : 1950 Planned Disposition: Senior Care Facility Anticipated Discharge Date: 03/27/19 Discharge Date: Expected LOS: 15 Initial Reviewer: [id number] Initial Review Date: 03/12/2019 Generated: 03/24/19 3:23 pm Comments DCP- Discharge Planning Updated by [id number]: Javi Ayala on 03/24/19 1:[address] Patient Name: DARRELL GALDAMEZ Encounter No: [id number] : 1950 Primary Insurance: MEDICARE A & B Anticipated DC Date: 03-27-2019 Planned Disposition: Senior Care Facility External Planned Provider: [employer] [facility], MEDICARE REHAB BED DCP follow-up note: ZANA SPOKE TO NURSE GAS WORKER JULIANNE WHO HAS SPOKEN TO THE PT IN ROOM 2106 HAS INFORMED JULIANNE THAT PT'S SPOUSE HAS SAID THEY DO NOT WANT TO STAY HERE FOR REHAB AND WANT TO GO TO REHAB IN [facility]. CM MET WITH PT AND SPOUSE IN ROOM, USED [employer], , SERVICE CENTER MANAGER [phone]; CM DISCUSSED REHAB HERE HAS ACCEPTED TODAY. PT AND SPOUSE WANT REHAB CLOSER TO HOME IN [facility] AND IF NOT IN [facility], CLOSE TO [facility] POSSIBLE. CHOICE LETTER SIGNED. IMPORTANT MESSAGE FROM MEDICARE PROVIDED AND EXPLAINED. CM NOTIFIED DR. MCCARTNEY AND ANTHONY OF INPATIENT REHAB OF PT'S CHANGE IN PLAN. CM CALLED [facility], , SPOKE TO MILLIE WHO TOOK REFERRAL INFORMATION AND REPORTS THEY HAVE A [place] SPEAKING STAFF MEMBER THAT CAN ASSIST WEDNESDAY THRU WEDNESDAY AND WILL CONSIDER PT FOR REHAB ADMISSION. THEY WILL NOT BE ABLE TO LOOK AT REFERRAL UNTIL WEDNESDAY THEIR DIRECTOR IS OUT UNTIL THEN. CM FAXED REHAB REFERRAL TO [facility] AT [phone]. CM WAITING ADMISSION DETERMINATION FROM [facility] IN [facility]. THEY WILL NOT HAVE ADMISSION DETERMINATION UNTIL WEDNESDAY AT THE EARLIEST, 03-27-19. Javi Ayala, CASE MANAGEMENT DCP- Discharge Planning Updated by [id number]: Javi Ayala on 03/22/19 3:[address] Patient Name: DARRELL GALDAMEZ Admission Status: ER Accout number: [id number] Admission Date: 03-12-2019 : 1950 Admission Diagnosis:SEPSIS, UNSPECIFIED ORGANISM Attending: TREVA MCCARTNEY Current LOS: 10 Anticipated DC Date: 03-23-2019 Planned Disposition: Inpatient Rehab Primary Insurance: MEDICARE A & B PLANNED EXTERNAL PROVIDER; [facility] INPATIENT REHAB Discharge Planning Comments: CM MET WITH PT AND SPOUSE IN ROOM TO DISCUSS DISCHARGE PLANNING AND NEEDS. CM UTILIZED [employer] SERVICE CENTER MANAGER SERVICES, , ARCHITECTURE DEPARTMENT CHAIR # [id number]. PTCM DISCUSSED AVAILABILITY OF REHAB SERVICES, PROVIDERS AND LOCATIONS. CM DISCUSSED INPATIENT REHAB PRESCREEN AND THERAPY NEEDS. PT WOULD LIKE TO STAY AT [place] FOR REHAB. PT NOR SPOUSE HAD FURTHER QUESTIONS FOR CM AT THIS TIME. IMPORTANT MESSAGE FROM MEDICARE PROVIDED AND EXPLAINED. CM CALLED AND SPOKE TO MATT OF INPATIENT REHAB, THEY PLAN TO ACCEPT PT WHEN MEDICALLY STABLE. WHEN READY FOR DISCHARGE, NOTIFY [facility] INPATIENT REHAB. Federal Air Marshal: Javi Ayala DCP- Discharge Planning Updated by [id number]: Javi Ayala on 03/13/19 4:[address] Patient Name: DARRELL GALDAMEZ Admission Status: ER Accout number: [id number] Admission Date: 03-12-2019 : 1950 Admission Diagnosis: Attending: TREVA MCCARTNEY Current LOS: 1 Anticipated DC Date: Planned Disposition: Home Primary Insurance: MEDICARE A & B Discharge Planning Comments: CM MET WITH PT AND SPOUSE IN ROOM TO DISCUSS DISCHARGE PLANNING AND NEEDS. CM CALLED [employer], , WAS ASSISTED BY RONDA, SERVICE CENTER MANAGER # [id number]. DARRELL GALDAMEZ provided verbal consent to discuss current and ongoing needs with/in the presence of: SPOUSE, RONDA. PT REPORTS LIVING AT HOME INDEPENDENTLY WITH HIS . PT HAS NEBULIZER, HE NO LONGER HAS OXYGEN FROM [facility], THEY PICKED IT UP. PT HAS NO OUTSIDE SERVICES ASSISTING IN THE HOME. PT REPORTS SOMEONE FROM THE MEDICAL CLINIC CHECKS ON HIM AT HOME. CM DISCUSSED AVAILABILITY OF HOME HEALTH, REHAB SERVICES AND MEDICAL EQUIPMENT. PT DENIES DISCHARGE NEEDS, PT INITIALLY ASKED FOR HOSPITAL TO GIVE HIM AND HIS A TAXI RIDE HOME IF THEY ARE LEAVING TODAY, CM EXPLAINED THAT THEY ARE NOT DISCHARGING TODAY, WE ARE ONLY TALKING ABOUT THE DISCHARGE PLAN. PT HTEN REPORTS FAMILY WILL PICK HE AND UP FOR DISCHARGE HOME. IMPORTANT MESSAGE FROM MEDICARE PROVIDED AND EXPLAINED, PROVIDED IN [place] PT REPORTS ABILITY TO READ [place]. PT DENIES DISCHARGE NEEDS, FAMILY TO TRANSPORT HOME AT DISCHARGE. CM TO FOLLOW AND ASSIST IF NEEDED. Federal Air Marshal: Javi Ayala [facility] - Discharge Planning Initial Assessment Updated by [id number]: Javi Ayala on 03/13/19 4:59 pm * Is the patient Alert and Oriented? Yes * How many steps to enter\exit or inside your home? * PCP [facility] IN [facility] [phone] * Pharmacy [facility] IN [facility] [phone] * Preadmission Environment Home with Family * ADLs Independent * Equipment Nebulizer * Other Equipment [facility] IN [facility] - MEDICAL EQUIPMENT PROVIDER PREFERENCE * List name and contact numbers for known caregivers / representatives who currently or will assist patient after discharge: RONDA FAM, SPOUSE, [phone] TAPANMARILEE WEBSTERLemule DTR, * Verbal permission to speak to the caregivers and representatives has been obtained from the patient. Yes * Community resources currently utilized None * Please name any agencies selected above. NONE * Additional services required to return to the preadmission environment? No * Can the patient safely return to the preadmission environment? Yes * Has this patient been hospitalized within the prior 30 days at any hospital? No Coverage Notice Reviewer: [id number] - Javi Ayala Notice Issued Date-Time: 03/13/2019 16:30 Notice Type: IM Discharge Notice Notice Delivered To: Family Member Relationship to Patient: Spouse Electronic Equipment Maint Tech Name: RONDA FAM Delivery Method: HAND - Hand Delivered Lanny Days: Prior Verbal Notification: Recipient Understood Notice: Yes Recipient Signature: Yes Med Rec Note Co-signed by Attending: Coverage Notice Comment: Reviewer: CASEY Ayala Notice Issued Date-Time: 03/22/2019 16:45 Notice Type: IM Discharge Notice Notice Delivered To: Family Member Relationship to Patient: Spouse Electronic Equipment Maint Tech Name: RONDA Delivery Method: HAND - Hand Delivered Lanny Days: Prior Verbal Notification: Recipient Understood Notice: Yes Recipient Signature: Yes Med Rec Note Co-signed by Attending: Coverage Notice Comment: Reviewer: CASEY Ayala Notice Issued Date-Time: 03/24/2019 12:03 Notice Type: Patient Choice Letter Notice Delivered To: Family Member Relationship to Patient: Spouse Electronic Equipment Maint Tech Name: RONDA Delivery Method: HAND - Hand Delivered Lanny Days: Prior Verbal Notification: Recipient Understood Notice: Yes Recipient Signature: Yes Med Rec Note Co-signed by Attending: Coverage Notice Comment: ANY SNF IN [facility] OR CLOSE TO [facility] Reviewer: CASEY Ayala Notice Issued Date-Time: 03/24/2019 12:03 Notice Type: IM Discharge Notice Notice Delivered To: Family Member Relationship to Patient: Spouse Electronic Equipment Maint Tech Name: RONDA Delivery Method: HAND - Hand Delivered Lanny Days: Prior Verbal Notification: Recipient Understood Notice: Yes Recipient Signature: Yes Med Rec Note Co-signed by Attending: Coverage Notice Comment: Last DP export: 03/24/19 1:15 p Patient Name: MAIRA GALDAMEZDARRELL Page [phone] at 1423 All edits/amendments must be made on the electronic document DICTATION DATE: 03/24/19 142 MATLAB DEVELOPER: MARCELL 03/24/19 1423 RPT#: [id number] PR DATE: STATUS: ADM IN [facility] [address] [place] [address] END OF REPORT
--- NOTE | 2019-03-24 17:11 | NUR ---
PT IS ORIENTED TO SELF BUT NOT SITUATION. ABDOMEN IS STILL VERY LARGE. LOWER EXTREMITIES ARE EDEMATOUS. TRYING TO LEAVE THE ROOM AND UNDERSTANDS TO STAY. AT BEDSIDE.
[2019-03-24 17:59] VITALS: BP 117/58
[2019-03-24 20:00] VITALS: BP 110/52
--- NOTE | 2019-03-24 22:01 | NUR ---
PT HAS BECOME INCREASINGLY CONFUSED. STATES THAT HE WANTS TO GO HOME OR DEQUEEN. STATES SHE IS TIRED OF BEEN IN THE HOSPITAL. PT ALSO FOUND PULLING ON HIS BUSH AND TRYING TO GET OOB. NOTIFIED LUISA LUCAS, HE STATES HE WILL TALK TO PT AND SPOUSE. WILL CTM.
--- NOTE | 2019-03-24 22:53 | NUR ---
EVENING ROUNDS COMPLETED. VSS, ALERT BUT CONFUSED. SPOUSE STATES SHE HAS BEEN FIGHTING HARD TO KEEP PT IN BED, BECAUSE HE HAS BEEN TRYING TO GET OOB. WILL NOTIFY ETCH OPERATOR SEMICONDUCTOR WAFERS. BUSH INTACT, REPLACED STAT-LOCK. ABDOMEN APPEARS DISTENDED AND FIRM, PT DENIES ANY PAIN AT THIS TIME. PT SPOUSE REQUESTED PT IN 2106 TO HELP TRANSLATE FROM GERMAN TO GERMAN, I TOLD SPOUSE WE HAVE A STORE SPECIALIST PHONE IN THE ROOM, BUT PT SPOUSE REFUSED AND WENT AHEAD TO COMMUNICATE WITH PT IN ROOM 2106 ABOUT HER SPOUSE'S CARE.
[2019-03-25] VITALS: BP 121/61
--- NOTE | 2019-03-25 01:36 | NUR ---
PT IS CALM AFTER ADMINISTRATION OF ATIVAN PRN. ALTHOUGH STILL STATES HE WANTS TO GO HOME.
[2019-03-25 04:00] VITALS: BP 113/57
--- NOTE | 2019-03-25 07:00 | NUR ---
RECEIVED REPORT. ASSUMED CARE OF PATIENT. CALL LIGHT WITHIN REACH. PATIENT AWAKE, CONFUSED AND GRABBING AT STUFF IN THE AIR THAT IS NOT THERE. PATIENT AT BEDSIDE. RESP EVEN AND UNLABORED. PATIENT ABD DISTENDED DUE TO UNABLE TO HAVE PARACENTHESIS.
[2019-03-25 07:34] LABS: BASOPHILS 0.1 % (0-2); EOSINOPHILS 0 % (0-7); HEMATOCRIT 26.8 % (42.0-54.0); HEMOGLOBIN 9.3 g/dL (13.5-17.5); IMMATURE GRANULOCYTES 1.7 % (0-5); LYMPHOCYTES 7.2 % (15-50); MCH 35.6 pg (26.0-34.0); MCHC 34.7 g/dL (31.0-37.0); MCV 102.7 fL (80.0-100.0); MEAN PLATELET VOLUME 11.2 fL (7.4-10.4); MONOCYTES 6.8 % (2-11); NEUTROPHILS 84.2 % (40-80); PLATELET COUNT 79 10x3/uL (130-400); RBC 2.61 10x6/uL (4.20-6.10); RDW 16.2 % (11.5-14.5)
--- NOTE | 2019-03-25 07:38 | NUR ---
PATIENT COMFUSED, GRASPING AT THINGS IN THE AIR. PATIENTS AT BEDSIDE. TELEMETRY REAPPLIED. NO DISTRESS. COMPLAIN OF PAIN TO ABDOMEN.
[2019-03-25 07:42] LABS: INR 2.28 (0.85-1.17); PROTIME 24.5 SECONDS (11.6-15.0)
[2019-03-25 07:43] LABS: WBC 10.4 10x3/uL (4.8-10.8)
[2019-03-25 07:54] LABS: ALBUMIN 1.7 g/dL (3.4-5.0); ALKALINE PHOSPHATASE 159 U/L (46-116); BILIRUBIN - TOTAL 3.38 mg/dL (0.2-1.3); CALCIUM 8.4 mg/dL (8.5-10.1); CARBON DIOXIDE 25.1 mmol/L (21.0-32.0); CHLORIDE - SERUM 107 mmol/L (98-107); GLUCOSE 123 mg/dL (74-106); POTASSIUM - SERUM 3.9 mmol/L (3.5-5.1); PROTEIN - SERUM 5.8 g/dL (6.4-8.2); SODIUM 139 mmol/L (136-145); eGFR NON AFRICAN AMERICAN 79 mL/min (90-120)
[2019-03-25 08:08] LABS: ALT (SGPT) 104 U/L (10-68); CALC OSMOLALITY 280 mosm/kg (275-300); UREA NITROGEN 19 mg/dL (7-18)
[2019-03-25 08:14] LABS: PLATELET ESTIMATE DECREASED
--- NOTE | 2019-03-25 09:23 | NUR ---
BUSINESS PROCESS LEAD PHONE WITH ALOT OF STATIC, BUSINESS PROCESS LEAD UNABLE TO HEAR THIS ACQUISITIONS ASSISTANT CLEARLY AND VIS VERSA. INFORMED DIESEL INSPECTOR. THIS ACQUISITIONS ASSISTANT CHECKED PHONE LINE, UNPLUGGED AND PLUGGED BACK IN. NEW BUSINESS PROCESS LEAD PHONE BE LOCATED AT THIS TIME.
--- NOTE | 2019-03-25 09:24 | NUR ---
MEDICATED FOR ABD PAIN AT THIS TIME.
[2019-03-25 09:58] VITALS: BP 123/66
--- NOTE | 2019-03-25 10:29 | NUR ---
22 GAUGE PLACED TO LEFT FOREARM X 1 STICK. GOOD BLOOD RETURN, EASY FLUSH. TOELRATED IV PLACEMENT WELL. IV ATIVAN ADMINISTERED. PATIENT CONTINUES TO TRY AND GET OOB, VERY CONFUSED, PULLING AT IV AND TELEMETRY. HAS LEFT THE ROOM. IV IS TAPED, DATED AND SECURED. CURRENTLY AT BEDSIDE DOING ONE ON ONE. PATIENT CONTINUES TO PULL AT F/C, IV, TELEMETRY. HAVE ASKED CHARGE NURSE FOR ONE ON ONE SITTER AND CHARGE NURSE IS CALLING L TACKER.
--- NOTE | 2019-03-25 11:23 | NUR ---
SHANICE WILL REMAINS AT BEDSIDE FOR ONE ON ONE AT THIS TIME. PATIENT GRASPING AT ITEMS IN AIR THAT ARE NOT THERE. SIDE RAIL PADDED WITH PILLOW TO PREVENT INJURY TO LEG FROM BUMPING KNEE ON SIDE RAIL ATTEMPTING TO GET OOB. RESP EVEN AND UNLABORE. NO DISTRESS.
--- NOTE | 2019-03-25 12:28 | NUR ---
PATIENTS FAMILY AT BEDSIDE THAT SPEAKS AZERI FLUENTLY. PER ESPERANZA, THIS RESTAURANT MAINTENANCE TECHNICIAN WAS ABLE TO DISCUSS CODE STATUS WITH PATIENTS FAMILY. FAMILY DECIDING AT THIS TIME WHAT THEY WOULD WANT IN THE CASE OF CARDIAC OR RESP ARREST WERE TO OCCUR.
--- NOTE | 2019-03-25 12:36 | NUR ---
PATIENTS SPOUSE, WITH HELP OF GENERAL DENTIST/OWNER, STATES SHE WANTS EVERYTHING POSSIBLE DONE TO PROLONG THE PATIENTS LIFE. THANKED PATIENT FOR CLARIFICATION OF WISHES.
--- NOTE | 2019-03-25 12:38 | NUR ---
ADDITONAL PHONE NUMBERS TO REACH PATIENTS - ROMANA (DJIBOUTIAN SPEAKING) [phone]. ROMANA IS THE GRANDSONS GIRLFRIEND. HIS DAUGHTER [phone] OR [phone]. THEY SPEAK SOME DJIBOUTIAN.
--- NOTE | 2019-03-25 12:40 | NUR ---
PATIENTS HAS NOW LEFT WITH FAMILY MEMBERS AND WILL NOT BE BACK FOR A FEW DAYS.
--- NOTE | 2019-03-25 14:26 | NUR ---
PATIENT RESTING WITH EYES CLOSED. NO FAMILY AT BEDSIDE. PATIENT NOT AWAKENED FOR MEDICAITON ADMINISTRATION AT THIS TIME HE WAS ADMINISTERED ATIVAN TO HELP HIM CALM DOWN AND REST BECAUSE HE HAS NOT SLEPT WELL IN DAYS.
--- NOTE | 2019-03-25 14:54 | NUR ---
RESTING WITH EYES CLOSED. RESP EVEN AND UNLABORED. NO DISTRESS. NO FAMILY AT BEDSIDE. PATIENT RESTING PEACEFULLY. CALL LIGHT WITHIN REACH.
[2019-03-25 17:15] VITALS: BP 118/53
[2019-03-25 20:00] VITALS: BP 151/78
--- NOTE | 2019-03-25 20:41 | NUR ---
REPOSITION PT. BED LOW. SIDERAIL X3. CONTINUE PLAN OF CARE.
[2019-03-26] VITALS: BP 144/72
--- NOTE | 2019-03-26 00:15 | NUR ---
PT IS SO CONFUSED, TRYING TO GET OUT OF BED. TEACH PT ABOUT FALL PRECAUTIONS. REPOSITION PT. BED LOW. SIDERAIL UP X3. CONTINUE MONITOR CLOSELY.
[2019-03-26 04:00] VITALS: BP 149/70
--- NOTE | 2019-03-26 04:01 | NUR ---
I have reviewed this patient and I concur with the Shift Assessment completed by the Licensed Practical Nurse today this shift.
[2019-03-26 08:12] LABS: BASOPHILS 0 % (0-2); EOSINOPHILS 0 % (0-7); HEMATOCRIT 30.1 % (42.0-54.0); HEMOGLOBIN 10.4 g/dL (13.5-17.5); MCHC 34.6 g/dL (31.0-37.0); MCV 104.2 fL (80.0-100.0); MONOCYTES 5.7 % (2-11); NEUTROPHILS 86.3 % (40-80); PLATELET COUNT 67 10x3/uL (130-400); RBC 2.89 10x6/uL (4.20-6.10); RDW 16.5 % (11.5-14.5)
[2019-03-26 08:18] LABS: WBC 7.4 10x3/uL (4.8-10.8)
[2019-03-26 08:21] LABS: ALBUMIN 1.8 g/dL (3.4-5.0); ALKALINE PHOSPHATASE 157 U/L (46-116); ALT (SGPT) 119 U/L (10-68); BILIRUBIN - TOTAL 3.24 mg/dL (0.2-1.3); CALC OSMOLALITY 280 mosm/kg (275-300); CALCIUM 8.4 mg/dL (8.5-10.1); CARBON DIOXIDE 28.6 mmol/L (21.0-32.0); CHLORIDE - SERUM 106 mmol/L (98-107); GLUCOSE 130 mg/dL (74-106); PROTEIN - SERUM 6.1 g/dL (6.4-8.2); SODIUM 139 mmol/L (136-145); UREA NITROGEN 16 mg/dL (7-18); eGFR NON AFRICAN AMERICAN 79 mL/min (90-120)
[2019-03-26 08:31] LABS: INR 2.29 (0.85-1.17); PROTIME 24.5 SECONDS (11.6-15.0)
[2019-03-26 08:47] VITALS: BP 119/68
--- NOTE | 2019-03-26 17:02 | NUR ---
ALERT. ASSIST UP TO RESTROOM. GAIT UNSTEADY. NONSKID SOCKS ON. BUSH DRAINING BY GRAVITY. SINUS RHYTHM 72 ON TELEMETRY. ASSIST BACKT TO BED. THREE SIDERAILS UP. BED ALARM NOT WORKING. WORK ORDER PLACED. REFUSE TO LEAVE BOX ALARM ON. CONTINUE PLAN OF CARE AND SAFETY PRECAUTIONS.
[2019-03-26 17:33] VITALS: BP 134/79
--- NOTE | 2019-03-26 19:15 | NUR ---
AROUSES WITH EXAM PT SPEAKS NO VIETNAMESE AND I HAVE NO ACCESS TO INTURPRTURE TONIGHT. PT CONTINUES TO PRESENT WITH LOTS OF EDEMA TO ABD LEGS AND SCROTAL AREA LCTA DENIES PAIN WHEN I ASK IN ESTONIAN BED IS LOW AND LOCKED CALL LIGHT IS IN REACH
[2019-03-26 20:00] VITALS: BP 123/69
[2019-03-27] VITALS: BP 134/70
[2019-03-27 04:00] VITALS: BP 112/61
--- NOTE | 2019-03-27 04:41 | NUR ---
I have reviewed this patient and I concur with the Shift Assessment completed by the Licensed Practical Nurse today this shift.
[2019-03-27 04:47] LABS: BASOPHILS 0.1 % (0-2); EOSINOPHILS 0 % (0-7); HEMATOCRIT 26.3 % (42.0-54.0); HEMOGLOBIN 9.2 g/dL (13.5-17.5); IMMATURE GRANULOCYTES 2.7 % (0-5); LYMPHOCYTES 3.7 % (15-50); MCH 35.9 pg (26.0-34.0); MCV 102.7 fL (80.0-100.0); MEAN PLATELET VOLUME 12.3 fL (7.4-10.4); MONOCYTES 6.8 % (2-11); NEUTROPHILS 86.7 % (40-80); PLATELET COUNT 70 10x3/uL (130-400); RBC 2.56 10x6/uL (4.20-6.10); RDW 16.7 % (11.5-14.5); WBC 6.8 10x3/uL (4.8-10.8)
[2019-03-27 04:59] LABS: INR 2.42 (0.85-1.17); PROTIME 25.6 SECONDS (11.6-15.0)
[2019-03-27 05:03] LABS: ALBUMIN 1.5 g/dL (3.4-5.0); ALKALINE PHOSPHATASE 150 U/L (46-116); ALT (SGPT) 113 U/L (10-68); BILIRUBIN - TOTAL 2.89 mg/dL (0.2-1.3); CALC OSMOLALITY 272 mosm/kg (275-300); CARBON DIOXIDE 29.4 mmol/L (21.0-32.0); CHLORIDE - SERUM 103 mmol/L (98-107); CREATININE - SERUM 0.9 mg/dL (0.6-1.3); GLUCOSE 141 mg/dL (74-106); POTASSIUM - SERUM 4.1 mmol/L (3.5-5.1); PROTEIN - SERUM 5.3 g/dL (6.4-8.2); SODIUM 135 mmol/L (136-145); UREA NITROGEN 15 mg/dL (7-18); eGFR NON AFRICAN AMERICAN 89 mL/min (90-120)
[2019-03-27 05:18] LABS: PLATELET ESTIMATE DECREASED
[2019-03-27 08:44] VITALS: BP 107/62
--- NOTE | 2019-03-27 09:32 | MORECARE ---
CASE MANAGEMENT DISCHARGE SUMMARY PATIENT: DARRELL DE LA ROSA UNIT: [id number] ADM DATE: 03/12/19 AGE: 68 : 50 SEX: M ROOM/BED: D.210 AUTHOR: EVERDOC PHYSICIAN: REFERRING PHYSICIAN: TREVA MCCARTNEY MD DATE OF SERVICE: 03/27/19 Discharge Plan Patient Name: DARRELL DE LA ROSA Facility: [facility] : 1950 Planned Disposition: Shelter Facility Anticipated Discharge Date: 03/27/19 Discharge Date: Expected LOS: 15 Initial Reviewer: [id number] Initial Review Date: 03/12/2019 Generated: 03/27/19 10:31 am Comments DCP- Discharge Planning Updated by [email or web address]: Javi Ayala on 03/27/19 8:[address] Patient Name: DARRELL GALDAMEZ Encounter No: [id number] : 1950 Primary Insurance: MEDICARE A & B Anticipated DC Date: 03-27-2019 Planned Disposition: Shelter Facility External Planned Provider: [facility], MEDICARE REHAB BED DCP follow-up note: CM FAXED REHAB REFERRAL UPDATE TO [place] AT [phone]. CM EMAILED REFERRAL AND UPDATE TO [email or web address] CM WAITING ADMISSION DETERMINATION FROM [facility] IN [facility]. Javi Ayala, CASE JACOB DCP- Discharge Planning Updated by [id number]: Javi Ayala on 03/24/19 1:[address] Patient Name: DARRELL GALDAMEZ Encounter No: [id number] : 1950 Primary Insurance: MEDICARE A & B Anticipated DC Date: 03-27-2019 Planned Disposition: Shelter Facility External Planned Provider: [facility], MEDICARE REHAB BED DCP follow-up note: CM SPOKE TO NURSE MOLDER CLOSED MOLDS JULIANNE WHO HAS SPOKEN TO THE PT IN ROOM 2106 HAS INFORMED JULIANNE THAT PT'S SPOUSE HAS SAID THEY DO NOT WANT TO STAY HERE FOR REHAB AND WANT TO GO TO REHAB IN [facility]. CM MET WITH PT AND SPOUSE IN ROOM, USED LANGUAGE LINE, , ROUNDHOUSE FIRER/FIREMAN [id number]; CM DISCUSSED REHAB HERE HAS ACCEPTED TODAY. PT AND SPOUSE WANT REHAB CLOSER TO HOME IN [facility] AND IF NOT IN [facility], CLOSE TO [facility] POSSIBLE. CHOICE LETTER SIGNED. IMPORTANT MESSAGE FROM MEDICARE PROVIDED AND EXPLAINED. CM NOTIFIED DR. MCCARTNEY AND ANTHONY OF INPATIENT REHAB OF PT'S CHANGE IN PLAN. CM CALLED [facility], , SPOKE TO MILLIE WHO TOOK REFERRAL INFORMATION AND REPORTS THEY HAVE A DUTCH SPEAKING STAFF MEMBER THAT CAN ASSIST WEDNESDAY THRU WEDNESDAY AND WILL CONSIDER PT FOR REHAB ADMISSION. THEY WILL NOT BE ABLE TO LOOK AT REFERRAL UNTIL WEDNESDAY THEIR DIRECTOR IS OUT UNTIL THEN. CM FAXED REHAB REFERRAL TO [place] AT [phone]. CM WAITING ADMISSION DETERMINATION FROM [facility] IN [facility]. THEY WILL NOT HAVE ADMISSION DETERMINATION UNTIL WEDNESDAY AT THE EARLIEST, 03-27-19. Javi Ayala, CASE MANAGEMENT DCP- Discharge Planning Updated by [id number]: Javi Ayala on 03/22/19 3:[address] Patient Name: DARRELL GALDAMEZ Admission Status: ER Accout number: [id number] Admission Date: 03-12-2019 : 1950 Admission Diagnosis:SEPSIS, UNSPECIFIED ORGANISM Attending: TREVA MCCARTNEY Current LOS: 10 Anticipated DC Date: 03-23-2019 Planned Disposition: Inpatient Rehab Primary Insurance: MEDICARE A & B PLANNED EXTERNAL PROVIDER; [facility] INPATIENT REHAB Discharge Planning Comments: CM MET WITH PT AND SPOUSE IN ROOM TO DISCUSS DISCHARGE PLANNING AND NEEDS. CM UTILIZED [employer] ROUNDHOUSE FIRER/FIREMAN SERVICES, , BEHAVIORAL THERAPY COORDINATOR # [id number]. PTCM DISCUSSED AVAILABILITY OF REHAB SERVICES, PROVIDERS AND LOCATIONS. CM DISCUSSED INPATIENT REHAB PRESCREEN AND THERAPY NEEDS. PT WOULD LIKE TO STAY AT [place] FOR REHAB. PT NOR SPOUSE HAD FURTHER QUESTIONS FOR CM AT THIS TIME. IMPORTANT MESSAGE FROM MEDICARE PROVIDED AND EXPLAINED. CM CALLED AND SPOKE TO MATT OF INPATIENT REHAB, THEY PLAN TO ACCEPT PT WHEN MEDICALLY STABLE. WHEN READY FOR DISCHARGE, NOTIFY [facility] INPATIENT REHAB. Day Care Supervisor: Javi Ayala DCP- Discharge Planning Updated by [id number]: Javi Ayala on 03/13/19 4:[address] Patient Name: DARRELL GALDAMEZ Admission Status: ER Accout number: [id number] Admission Date: 03-12-2019 : 1950 Admission Diagnosis: Attending: TREVA MCCARTNEY Current LOS: 1 Anticipated DC Date: Planned Disposition: Home Primary Insurance: MEDICARE A & B Discharge Planning Comments: CM MET WITH PT AND SPOUSE IN ROOM TO DISCUSS DISCHARGE PLANNING AND NEEDS. CM CALLED [employer], , WAS ASSISTED BY RONDA, ROUNDHOUSE FIRER/FIREMAN # [id number]. DARRELL GALDAMEZ provided verbal consent to discuss current and ongoing needs with/in the presence of: SPOUSE, RONDA. PT REPORTS LIVING AT HOME INDEPENDENTLY WITH HIS . PT HAS NEBULIZER, HE NO LONGER HAS OXYGEN FROM [facility], THEY PICKED IT UP. PT HAS NO OUTSIDE SERVICES ASSISTING IN THE HOME. PT REPORTS SOMEONE FROM THE MEDICAL CLINIC CHECKS ON HIM AT HOME. CM DISCUSSED AVAILABILITY OF HOME HEALTH, REHAB SERVICES AND MEDICAL EQUIPMENT. PT DENIES DISCHARGE NEEDS, PT INITIALLY ASKED FOR HOSPITAL TO GIVE HIM AND HIS A TAXI RIDE HOME IF THEY ARE LEAVING TODAY, CM EXPLAINED THAT THEY ARE NOT DISCHARGING TODAY, WE ARE ONLY TALKING ABOUT THE DISCHARGE PLAN. PT HTEN REPORTS FAMILY WILL PICK HE AND UP FOR DISCHARGE HOME. IMPORTANT MESSAGE FROM MEDICARE PROVIDED AND EXPLAINED, PROVIDED IN [employer]UTCH PT REPORTS ABILITY TO READ DUTCH. PT DENIES DISCHARGE NEEDS, FAMILY TO TRANSPORT HOME AT DISCHARGE. CM TO FOLLOW AND ASSIST IF NEEDED. Day Care Supervisor: Javi Ayala DCPIA - Discharge Planning Initial Assessment Updated by [id number]: Javi Ayala on 03/13/19 4:59 pm * Is the patient Alert and Oriented? Yes * How many steps to enter\exit or inside your home? * PCP [facility] IN [facility] [phone] * Pharmacy [facility] IN [facility] [phone] * Preadmission Environment Home with Family * ADLs Independent * Equipment Nebulizer * Other Equipment [facility] IN [facility] - MEDICAL EQUIPMENT PROVIDER PREFERENCE * List name and contact numbers for known caregivers / representatives who currently or will assist patient after discharge: RONDA FAM, SPOUSE, [phone] TAPAN RAO, DTR, * Verbal permission to speak to the caregivers and representatives has been obtained from the patient. Yes * Community resources currently utilized None * Please name any agencies selected above. NONE * Additional services required to return to the preadmission environment? No * Can the patient safely return to the preadmission environment? Yes * Has this patient been hospitalized within the prior 30 days at any hospital? No Coverage Notice Reviewer: CASEY Ayala Notice Issued Date-Time: 03/13/2019 16:30 Notice Type: IM Discharge Notice Notice Delivered To: Family Member Relationship to Patient: Spouse Golf Club Maker Name: RONDA FAM Delivery Method: HAND - Hand Delivered Lanny Days: Prior Verbal Notification: Recipient Understood Notice: Yes Recipient Signature: Yes Med Rec Note Co-signed by Attending: Coverage Notice Comment: Reviewer: CASEY Ayala Notice Issued Date-Time: 03/22/2019 16:45 Notice Type: IM Discharge Notice Notice Delivered To: Family Member Relationship to Patient: Spouse Golf Club Maker Name: RONDA Delivery Method: HAND - Hand Delivered Lanny Days: Prior Verbal Notification: Recipient Understood Notice: Yes Recipient Signature: Yes Med Rec Note Co-signed by Attending: Coverage Notice Comment: Reviewer: CASEY Ayala Notice Issued Date-Time: 03/24/2019 12:03 Notice Type: Patient Choice Letter Notice Delivered To: Family Member Relationship to Patient: Spouse Golf Club Maker Name: RONDA Delivery Method: HAND - Hand Delivered Lanny Days: Prior Verbal Notification: Recipient Understood Notice: Yes Recipient Signature: Yes Med Rec Note Co-signed by Attending: Coverage Notice Comment: ANY SNF IN [facility] OR CLOSE TO [facility] Reviewer: CASEY Ayala Notice Issued Date-Time: 03/24/2019 12:03 Notice Type: IM Discharge Notice Notice Delivered To: Family Member Relationship to Patient: Spouse Golf Club Maker Name: RONDA Delivery Method: HAND - Hand Delivered Lanny Days: Prior Verbal Notification: Recipient Understood Notice: Yes Recipient Signature: Yes Med Rec Note Co-signed by Attending: Coverage Notice Comment: Last DP export: 03/24/19 1:23 p Patient Name: MELLISA DE LA ROSAVENESSA Page [id number] Electronically Signed by [facility] [place] [facility] [place] on 03/27/19 at 0932 All edits/amendments must be made on the electronic document DICTATION DATE: 03/27/19930 SITE LEASING AGENT: DM 03/27/19930 RPT#: [id number] DC DATE: STATUS: ADM IN [facility] [address] [place] [address] END OF REPORT
[2019-03-27 13:50] VITALS: BP 110/58
--- NOTE | 2019-03-27 14:34 | NUR ---
IV OUT.UNABLE TO RESTART DUE TO PT UNABLE TO BE STILL. TALKED WITH DR. JORGENSEN AND HE ORDERED IV TO BE DC. CHANGED ATIVAN TO PO.
--- NOTE | 2019-03-27 15:11 | NUR ---
OT NOTE: PT PLACED ON O2 YESTERDAY. PT DID WELL. PT COMPLETED SIT TO STAND WITH CGA. PT COMPLETED ADL MOB WITH CGA. PT COMPLETED HYGIENE TASKS WITH MOD A SECONDARY TO SEQUENCING TASKS. PT EXHIBITS SOME CONFUSION AND REQUIRED EXTRA TIME TO COMPLETE TASKS. PTS FUNCTIONAL PERFORMANCE IS INCONSISTENT. PT IS PLEASANT. THANK YOU, STACEY HOLLIS
--- NOTE | 2019-03-27 15:29 | MORECARE ---
CASE MANAGEMENT DISCHARGE SUMMARY PATIENT: DARRELL DE LA ROSA UNIT: [id number] ADM DATE: 03/12/19 AGE: 68 : 50 SEX: M ROOM/BED: D.2105 AUTHOR: EVERDOC PHYSICIAN: REFERRING PHYSICIAN: TREVA MCCARTNEY MD DATE OF SERVICE: 03/27/19 Discharge Plan Patient Name: DARRELL DE LA ROSA Facility: [facility] : 1950 Planned Disposition: Fdc Facility Anticipated Discharge Date: 03/27/19 Discharge Date: Expected LOS: 15 Initial Reviewer: [id number] Initial Review Date: 03/12/2019 Generated: 03/27/19 4:28 pm DCP- Discharge Planning Updated by [id number]: Javi Ayala on 03/27/19 8:[address] Patient Name: DARRELL GALDAMEZ Encounter No: [id number] : 1950 Primary Insurance: MEDICARE A & B Anticipated DC Date: 03-27-2019 Planned Disposition: Fdc Facility External Planned Provider: [facility], MEDICARE REHAB BED DCP follow-up note: CM FAXED REHAB REFERRAL UPDATE TO [place] AT [phone]. CM EMAILED REFERRAL AND UPDATE TO [email or web address]. CM WAITING ADMISSION DETERMINATION FROM [facility] IN [facility]. Javi Ayala, CASE JACOB DCP- Discharge Planning Updated by [id number]: Javi Ayala on 03/24/19 1:[address] Patient Name: DARRELL GALDAMEZ Encounter No: [id number] : 1950 Primary Insurance: MEDICARE A & B Anticipated DC Date: 03-27-2019 Planned Disposition: Fdc Facility External Planned Provider: [facility], MEDICARE REHAB BED DCP follow-up note: CM SPOKE TO NURSE INDIVIDUAL SMALL GROUP INSTRUCTOR JULIANNE WHO HAS SPOKEN TO THE PT IN ROOM 2106 HAS INFORMED JULIANNE THAT PT'S SPOUSE HAS SAID THEY DO NOT WANT TO STAY HERE FOR REHAB AND WANT TO GO TO REHAB IN [facility]. CM MET WITH PT AND SPOUSE IN ROOM, USED LANGUAGE LINE, , DIRECTOR OF ENTERPRISE APPLICATIONS [phone]; CM DISCUSSED REHAB HERE HAS ACCEPTED TODAY. PT AND SPOUSE WANT REHAB CLOSER TO HOME IN [facility] AND IF NOT IN [facility], CLOSE TO [facility] POSSIBLE. CHOICE LETTER SIGNED. IMPORTANT MESSAGE FROM MEDICARE PROVIDED AND EXPLAINED. CM NOTIFIED DR. MCCARTNEY AND ANTHONY OF INPATIENT REHAB OF PT'S CHANGE IN PLAN. CM CALLED [facility], , SPOKE TO MILLIE WHO TOOK REFERRAL INFORMATION AND REPORTS THEY HAVE A MALDIVIAN SPEAKING STAFF MEMBER THAT CAN ASSIST WEDNESDAY THRU WEDNESDAY AND WILL CONSIDER PT FOR REHAB ADMISSION. THEY WILL NOT BE ABLE TO LOOK AT REFERRAL UNTIL WEDNESDAY THEIR DIRECTOR IS OUT UNTIL THEN. CM FAXED REHAB REFERRAL TO [facility] AT [phone]. CM WAITING ADMISSION DETERMINATION FROM [facility] IN [facility]. THEY WILL NOT HAVE ADMISSION DETERMINATION UNTIL WEDNESDAY AT THE EARLIEST, 03-27-19. Javi Ayala, CASE MANAGEMENT DCP- Discharge Planning Updated by [id number]: Javi Ayala on 03/22/19 3:[address] Patient Name: DARRELL GALDAMEZ Admission Status: ER Accout number: [id number] Admission Date: 03-12-2019 : 1950 Admission Diagnosis:SEPSIS, UNSPECIFIED ORGANISM Attending: TREVA MCCARTNEY Current LOS: 10 Anticipated DC Date: 03-23-2019 Planned Disposition: Inpatient Rehab Primary Insurance: MEDICARE A & B PLANNED EXTERNAL PROVIDER; [facility] INPATIENT REHAB Discharge Planning Comments: CM MET WITH PT AND SPOUSE IN ROOM TO DISCUSS DISCHARGE PLANNING AND NEEDS. CM UTILIZED [employer] DIRECTOR OF ENTERPRISE APPLICATIONS SERVICES, , WAREHOUSE CLERK # [id number]. PTCM DISCUSSED AVAILABILITY OF REHAB SERVICES, PROVIDERS AND LOCATIONS. CM DISCUSSED INPATIENT REHAB PRESCREEN AND THERAPY NEEDS. PT WOULD LIKE TO STAY AT [place] FOR REHAB. PT NOR SPOUSE HAD FURTHER QUESTIONS FOR CM AT THIS TIME. IMPORTANT MESSAGE FROM MEDICARE PROVIDED AND EXPLAINED. CM CALLED AND SPOKE TO MATT OF INPATIENT REHAB, THEY PLAN TO ACCEPT PT WHEN MEDICALLY STABLE. WHEN READY FOR DISCHARGE, NOTIFY [facility] INPATIENT REHAB. Autism Tutor: Javi Ayala DCP- Discharge Planning Updated by [id number]: Javi Ayala on 03/13/19 4:[address] Patient Name: DARRELL GALDAMEZ Admission Status: ER Accout number: [id number] Admission Date: 03-12-2019 : 1950 Admission Diagnosis: Attending: TREVA MCCARTNEY Current LOS: 1 Anticipated DC Date: Planned Disposition: Home Primary Insurance: MEDICARE A & B Discharge Planning Comments: CM MET WITH PT AND SPOUSE IN ROOM TO DISCUSS DISCHARGE PLANNING AND NEEDS. CM CALLED [employer], , WAS ASSISTED BY RONDA, DIRECTOR OF ENTERPRISE APPLICATIONS # [id number]. DARRELL GALDAMEZ provided verbal consent to discuss current and ongoing needs with/in the presence of: SPOUSE, RONDA. PT REPORTS LIVING AT HOME INDEPENDENTLY WITH HIS . PT HAS NEBULIZER, [facility], [facility]. PT HAS NO OUTSIDE SERVICES ASSISTING IN THE HOME. PT REPORTS SOMEONE FROM THE MEDICAL CLINIC CHECKS ON HIM AT HOME. CM DISCUSSED AVAILABILITY OF HOME HEALTH, REHAB SERVICES AND MEDICAL EQUIPMENT. PT DENIES DISCHARGE NEEDS, PT INITIALLY ASKED FOR HOSPITAL TO GIVE HIM AND HIS A TAXI RIDE HOME IF THEY ARE LEAVING TODAY, CM EXPLAINED THAT THEY ARE NOT DISCHARGING TODAY, WE ARE ONLY TALKING ABOUT THE DISCHARGE PLAN. PT HTEN REPORTS FAMILY WILL PICK HE AND UP FOR DISCHARGE HOME. IMPORTANT MESSAGE FROM MEDICARE PROVIDED AND EXPLAINED, PROVIDED IN MALDIVIAN PT REPORTS ABILITY TO READ MALDIVIAN. PT DENIES DISCHARGE NEEDS, FAMILY TO TRANSPORT HOME AT DISCHARGE. CM TO FOLLOW AND ASSIST IF NEEDED. Autism Tutor: Javi Ayala DCPIA - Discharge Planning Initial Assessment Updated by [id number]: Javi Ayala on 03/13/19 4:59 pm * Is the patient Alert and Oriented? Yes * How many steps to enter\exit or inside your home? * PCP [facility] [phone] * Pharmacy [facility] [phone] * Preadmission Environment Home with Family * ADLs Independent * Equipment Nebulizer * Other Equipment [facility] IN [facility] - MEDICAL EQUIPMENT PROVIDER PREFERENCE * List name and contact numbers for known caregivers / representatives who currently or will assist patient after discharge: RONDA FAM, SPOUSE, [phone] TAPAN RAO, DTR, * Verbal permission to speak to the caregivers and representatives has been obtained from the patient. Yes * Community resources currently utilized None * Please name any agencies selected above. NONE * Additional services required to return to the preadmission environment? No * Can the patient safely return to the preadmission environment? Yes * Has this patient been hospitalized within the prior 30 days at any hospital? No Coverage Notice Reviewer: CASEY Ayala Notice Issued Date-Time: 03/13/2019 16:30 Notice Type: IM Discharge Notice Notice Delivered To: Family Member Relationship to Patient: Spouse Law Office Receptionist Name: RONDA FAM Delivery Method: HAND - Hand Delivered Lanny Days: Prior Verbal Notification: Recipient Understood Notice: Yes Recipient Signature: Yes Med Rec Note Co-signed by Attending: Coverage Notice Comment: Reviewer: CASEY Ayala Notice Issued Date-Time: 03/22/2019 16:45 Notice Type: IM Discharge Notice Notice Delivered To: Family Member Relationship to Patient: Spouse Law Office Receptionist Name: RONDA Delivery Method: HAND - Hand Delivered Lanny Days: Prior Verbal Notification: Recipient Understood Notice: Yes Recipient Signature: Yes Med Rec Note Co-signed by Attending: Coverage Notice Comment: Reviewer: CASEY Ayala Notice Issued Date-Time: 03/24/2019 12:03 Notice Type: Patient Choice Letter Notice Delivered To: Family Member Relationship to Patient: Spouse Law Office Receptionist Name: RONDA Delivery Method: HAND - Hand Delivered Lanny Days: Prior Verbal Notification: Recipient Understood Notice: Yes Recipient Signature: Yes Med Rec Note Co-signed by Attending: Coverage Notice Comment: ANY SNF IN [facility] OR CLOSE TO [facility] Reviewer: CASEY Ayala Notice Issued Date-Time: 03/24/2019 12:03 Notice Type: IM Discharge Notice Notice Delivered To: Family Member Relationship to Patient: Spouse Law Office Receptionist Name: RONDA Delivery Method: HAND - Hand Delivered Lanny Days: Prior Verbal Notification: Recipient Understood Notice: Yes Recipient Signature: Yes Med Rec Note Co-signed by Attending: Coverage Notice Comment: Last DP export: 03/27/19 8:32 a Patient Name: MELLISA DE LA ROSAVENESSA Page [phone] at 1529 All edits/amendments must be made on the electronic document DICTATION DATE: 03/27/191527 COMMUNITY FUNDRAISER: MARCELL 03/27/191527 RPT#: [id number] DC DATE: STATUS: ADM IN [facility] [address] [place] [address] END OF REPORT
--- NOTE | 2019-03-27 15:39 | MORECARE ---
CASE MANAGEMENT DISCHARGE SUMMARY PATIENT: DARRELL DE LA ROSA UNIT: [id number] ADM DATE: 03/12/19 AGE: 68 : 50 SEX: M ROOM/BED: D.2106 AUTHOR: EVER,DOC PHYSICIAN: REFERRING PHYSICIAN: TREVA MCCARTNEY MD DATE OF SERVICE: 03/27/19 Discharge Plan Patient Name: DARRELL DE LA ROSA Facility: [facility]:[place] : 1950 Planned Disposition: Intermediate Facility Anticipated Discharge Date: 03/27/19 Discharge Date: Expected LOS: 15 Initial Reviewer: [id number] Initial Review Date: 03/12/2019 Generated: 03/27/19 4:38 pm Comments DCP- Discharge Planning Updated by [id number]: Javi Ayala on 03/27/19 2:[address] Patient Name: DARRELL GALDAMEZ Admission Status: ER Accout number: [id number] Admission Date: 03-12-2019 : 1950 Admission Diagnosis:SEPSIS, UNSPECIFIED ORGANISM Attending: TREVA MCCARTNEY Current LOS: 15 Anticipated DC Date: 03-27-2019 Planned Disposition: Intermediate Facility Primary Insurance: MEDICARE A & B PLANNED EXTERNAL [facility] Discharge Planning Comments: CM RECEIVED CALL FROM MILLIE [facility] AT ABOUT 1420 HOURS, THEY CANNOT MEET PT'S NEEDS THEY DO NOT HAVE 24 HOUR IRISH SPEAKING STAFF AT THE FACILITY. CM CALLED [facility], , SPOKE TO SHANAE WHO TOOK REFERRAL INFORMATION AND ASKED THAT CM NOT FAX REFERRAL YET, SHE WILL CHECK WITH PEDIATRIC SPEECH LANGUAGE PATHOLOGIST AND NOTIFY CM IF THEY WILL REVIEW REFERRAL AND NOTIFY CM SHORTLY. CM WAITING RETURN CALL FROM [facility] REGARDING REHAB PLACEMENT REFERRAL. Buck Swamper: Javi Ayala DCP- Discharge Planning Updated by [id number]: Javi Ayala on 03/27/19 8:[address] Patient Name: DARRELL GALDAMEZ Encounter No: [id number] : 1950 Primary Insurance: MEDICARE A & B Anticipated DC Date: 03-27-2019 Planned Disposition: Intermediate Facility External Planned Provider: [facility], MEDICARE REHAB BED DCP follow-up note: CM FAXED REHAB REFERRAL UPDATE TO [facility] AT [phone]. CM EMAILED REFERRAL AND UPDATE TO [email or web address]. CM WAITING ADMISSION DETERMINATION FROM [facility] IN [facility]. JUSTIN Mcghee MANAGEMENT DCP- Discharge Planning Updated by [id number]: Javi Ayala on 03/24/19 1:[address] Patient Name: DARRELL GALDAMEZ Encounter No: [id number] : 1950 Primary Insurance: MEDICARE A & B Anticipated DC Date: 03-27-2019 Planned Disposition: Intermediate Facility External Planned Provider: [facility], MEDICARE REHAB BED DCP follow-up note: CM SPOKE TO NURSE LITHOGRAPHIC PLATE MAKER JULIANNE WHO HAS SPOKEN TO THE PT IN ROOM 2106 HAS INFORMED JULIANNE THAT PT'S SPOUSE HAS SAID THEY DO NOT WANT TO STAY HERE FOR REHAB AND WANT TO GO TO REHAB IN [facility]. CM MET WITH PT AND SPOUSE IN ROOM, USED LANGUAGE LINE, , HUNTER TRAPPER [id number]; CM DISCUSSED REHAB HERE HAS ACCEPTED TODAY. PT AND SPOUSE WANT REHAB CLOSER TO HOME IN [facility] AND IF NOT [facility], CLOSE TO [facility] POSSIBLE. CHOICE LETTER SIGNED. IMPORTANT MESSAGE FROM MEDICARE PROVIDED AND EXPLAINED. CM NOTIFIED DR. MCCARTNEY AND ANTHONY OF INPATIENT REHAB OF PT'S CHANGE IN PLAN. CM CALLED [facility], , SPOKE TO MILLIE WHO TOOK REFERRAL INFORMATION AND REPORTS THEY HAVE A IRISH SPEAKING STAFF MEMBER THAT CAN ASSIST WEDNESDAY THRU WEDNESDAY AND WILL CONSIDER PT FOR REHAB ADMISSION. THEY WILL NOT BE ABLE TO LOOK AT REFERRAL UNTIL WEDNESDAY THEIR DIRECTOR IS OUT UNTIL THEN. CM FAXED REHAB REFERRAL TO [facility] AT [phone]. CM WAITING ADMISSION DETERMINATION FROM [facility] IN [facility]. THEY WILL NOT HAVE ADMISSION DETERMINATION UNTIL WEDNESDAY AT THE EARLIEST, 03-27-19. JUSTIN Mcghee DCP- Discharge Planning Updated by [id number]: Javi Ayala on 03/22/19 3:[address] Patient Name: DARRELL GALDAMEZ Admission Status: ER Accout number: [id number] Admission Date: 03-12-2019 : 1950 Admission Diagnosis:SEPSIS, UNSPECIFIED ORGANISM Attending: TREVA MCCARTNEY Current LOS: 10 Anticipated DC Date: 03-23-2019 Planned Disposition: Inpatient Rehab Primary Insurance: MEDICARE A & B PLANNED EXTERNAL PROVIDER; [facility] INPATIENT REHAB Discharge Planning Comments: CM MET WITH PT AND SPOUSE IN ROOM TO DISCUSS DISCHARGE PLANNING AND NEEDS. CM UTILIZED [employer], , GRADER TENDER # [id number]. PTCM DISCUSSED AVAILABILITY OF REHAB SERVICES, PROVIDERS AND LOCATIONS. CM DISCUSSED INPATIENT REHAB PRESCREEN AND THERAPY NEEDS. PT WOULD LIKE TO STAY AT [place] FOR REHAB. PT NOR SPOUSE HAD FURTHER QUESTIONS FOR CM AT THIS TIME. IMPORTANT MESSAGE FROM MEDICARE PROVIDED AND EXPLAINED. CM CALLED AND SPOKE TO MATT OF INPATIENT REHAB, THEY PLAN TO ACCEPT PT WHEN MEDICALLY STABLE. WHEN READY FOR DISCHARGE, NOTIFY [facility] INPATIENT REHAB. Buck Swamper: Javi Ayala DCP- Discharge Planning Updated by [id number]: Javi Ayala on 03/13/19 4:[address] Patient Name: DARRELL GALDAMEZ Admission Status: ER Accout number: [id number] Admission Date: 03-12-2019 : 1950 Admission Diagnosis: Attending: TREVA MCCARTNEY Current LOS: 1 Anticipated DC Date: Planned Disposition: Home Primary Insurance: MEDICARE A & B Discharge Planning Comments: CM MET WITH PT AND SPOUSE IN ROOM TO DISCUSS DISCHARGE PLANNING AND NEEDS. CM CALLED [employer], , WAS ASSISTED BY RONDA HUNTER TRAPPER # [id number]. DARRELL GALDAMEZ provided verbal consent to discuss current and ongoing needs with/in the presence of: SPOUSE, RONDA. PT REPORTS LIVING AT HOME INDEPENDENTLY WITH HIS . PT HAS NEBULIZER, HE NO LONGER HAS OXYGEN FROM [facility], THEY PICKED IT UP. PT HAS NO OUTSIDE SERVICES ASSISTING IN THE HOME. PT REPORTS SOMEONE FROM THE MEDICAL CLINIC CHECKS ON HIM AT HOME. CM DISCUSSED AVAILABILITY OF HOME HEALTH, REHAB SERVICES AND MEDICAL EQUIPMENT. PT DENIES DISCHARGE NEEDS, PT INITIALLY ASKED FOR HOSPITAL TO GIVE HIM AND HIS A TAXI RIDE HOME IF THEY ARE LEAVING TODAY, CM EXPLAINED THAT THEY ARE NOT DISCHARGING TODAY, WE ARE ONLY TALKING ABOUT THE DISCHARGE PLAN. PT HTEN REPORTS FAMILY WILL PICK HE AND UP FOR DISCHARGE HOME. IMPORTANT MESSAGE FROM MEDICARE PROVIDED AND EXPLAINED, PROVIDED IN IRISH PT REPORTS ABILITY TO READ IRISH. PT DENIES DISCHARGE NEEDS, FAMILY TO TRANSPORT HOME AT DISCHARGE. CM TO FOLLOW AND ASSIST IF NEEDED. Buck Swamper: Javi Ayala DCPIA - Discharge Planning Initial Assessment Updated by [id number]: Javi Ayala on 03/13/19 4:59 pm * Is the patient Alert and Oriented? Yes * How many steps to enter\exit or inside your home? * PCP [facility] IN [facility] [phone] * Pharmacy [facility] [phone] * Preadmission Environment Home with Family * ADLs Independent * Equipment Nebulizer * Other Equipment [facility] - MEDICAL EQUIPMENT PROVIDER PREFERENCE * List name and contact numbers for known caregivers / representatives who currently or will assist patient after discharge: RONDA FAM, SPOUSE, [phone] TAPAN RAO DTR, * Verbal permission to speak to the caregivers and representatives has been obtained from the patient. Yes * Community resources currently utilized None * Please name any agencies selected above. NONE * Additional services required to return to the preadmission environment? No * Can the patient safely return to the preadmission environment? Yes * Has this patient been hospitalized within the prior 30 days at any hospital? No Coverage Notice Reviewer: CASEY Ayala Notice Issued Date-Time: 03/24/2019 12:03 Notice Type: IM Discharge Notice Notice Delivered To: Family Member Relationship to Patient: Spouse Primary Counselor Name: RONDA Delivery Method: HAND - Hand Delivered Lanny Days: Prior Verbal Notification: Recipient Understood Notice: Yes Recipient Signature: Yes Med Rec Note Co-signed by Attending: Coverage Notice Comment: Reviewer: CASEY Ayala Notice Issued Date-Time: 03/22/2019 16:45 Notice Type: IM Discharge Notice Notice Delivered To: Family Member Relationship to Patient: Spouse Primary Counselor Name: RONDA Delivery Method: HAND - Hand Delivered Lanny Days: Prior Verbal Notification: Recipient Understood Notice: Yes Recipient Signature: Yes Med Rec Note Co-signed by Attending: Coverage Notice Comment: Reviewer: CASEY Ayala Notice Issued Date-Time: 03/13/2019 16:30 Notice Type: IM Discharge Notice Notice Delivered To: Family Member Relationship to Patient: Spouse Primary Counselor Name: RONDA FAM Delivery Method: HAND - Hand Delivered Lanny Days: Prior Verbal Notification: Recipient Understood Notice: Yes Recipient Signature: Yes Med Rec Note Co-signed by Attending: Coverage Notice Comment: Reviewer: [id number] Shayan Ayala Notice Issued Date-Time: 03/24/2019 12:03 Notice Type: Patient Choice Letter Notice Delivered To: Family Member Relationship to Patient: Spouse Primary Counselor Name: RONDA Delivery Method: HAND - Hand Delivered Lanny Days: Prior Verbal Notification: Recipient Understood Notice: Yes Recipient Signature: Yes Med Rec Note Co-signed by Attending: Coverage Notice Comment: ANY SNF IN [facility] OR CLOSE TO [facility] Last DP export: 03/27/19 2:29 p Patient Name: MELLISA DE LA ROSAVENESSA Page [phone] at 1539 All edits/amendments must be made on the electronic document DICTATION DATE: 03/27/19 153 ASSISTANT GM OF CONTENT & DELIVERY: MARCELL 03/27/19 1538 RPT#: [id number] DC DATE: STATUS: ADM IN [facility] [address] [place] [address] END OF REPORT
--- NOTE | 2019-03-27 17:00 | NUR ---
CONFUSED X4. IV INFILTRATED. DC LT ARM IV TIP INTACT. NO IV RESITE PER . BUSH DRAINING AT BEDSIDE. ABDOMEN DISTENDED. LOWER EXTREMITIES BILATERALLY +3 PITTING EDEMA. SINUS RHYTHM ON TELEMETRY. CONTINUE PLAN OF CARE AND SAFETY PRECAUTIONS.
--- NOTE | 2019-03-27 17:21 | MORECARE ---
CASE MANAGEMENT DISCHARGE SUMMARY PATIENT: DARRELL DE LA ROSA UNIT: [id number] ADM DATE: 03/12/19 AGE: 68 : 50 SEX: M ROOM/BED: D.2106 AUTHOR: EVER,DOC PHYSICIAN: REFERRING PHYSICIAN: TREVA MCCARTNEY MD DATE OF SERVICE: 03/27/19 Discharge Plan Patient Name: DARRELL DE LA ROSA Facility: [facility]:[place] : 1950 Planned Disposition: Snf Facility Anticipated Discharge Date: 03/27/19 Discharge Date: Expected LOS: 15 Initial Reviewer: [id number] Initial Review Date: 03/12/2019 Generated: 03/27/19 6:20 pm Comments DCP- Discharge Planning Updated by [id number]: Javi Ayala on 03/27/19 2:[address] Patient Name: DARRELL GALDAMEZ Admission Status: ER Accout number: [id number] Admission Date: 03-12-2019 : 1950 Admission Diagnosis:SEPSIS, UNSPECIFIED ORGANISM Attending: TREVA MCCARTNEY Current LOS: 15 Anticipated DC Date: 03-27-2019 Planned Disposition: Snf Facility Primary Insurance: MEDICARE A & B PLANNED [facility]TERNAL [facility] Discharge Planning Comments: CM RECEIVED CALL FROM [facility] AT ABOUT 1420 HOURS, THEY CANNOT MEET PT'S NEEDS THEY DO NOT HAVE 24 HOUR [place]ORGIAN SPEAKING STAFF AT THE FACILITY. CM CALLED [facility], , SPOKE TO SHANAE WHO TOOK REFERRAL INFORMATION AND ASKED THAT CM NOT FAX REFERRAL YET, SHE WILL CHECK WITH RESOURCE COORDINATOR AND NOTIFY CM IF THEY WILL REVIEW REFERRAL AND NOTIFY CM SHORTLY. CM WAITING RETURN CALL FROM [facility] REGARDING REHAB PLACEMENT REFERRAL. Environmental Services Aide: Javi Ayala DCP- Discharge Planning Updated by [id number]: Javi Ayala on 03/27/19 8:[address] Patient Name: DARRELL GALDAMEZ Encounter No: [id number] : 1950 Primary Insurance: MEDICARE A & B Anticipated DC Date: 03-27-2019 Planned Disposition: Snf Facility External Planned Provider: [facility], MEDICARE REHAB BED DCP follow-up note: CM FAXED REHAB REFERRAL UPDATE TO [facility] AT [phone]. CM EMAILED REFERRAL AND UPDATE TO [email or web address]. CM WAITING ADMISSION DETERMINATION FROM [facility] IN [facility]. JUSTIN Mcghee MANAGEMENT DCP- Discharge Planning Updated by [id number]: Javi Ayala on 03/24/19 1:[address] Patient Name: DARRELL GALDAMEZ Encounter No: [id number] : 1950 Primary Insurance: MEDICARE A & B Anticipated DC Date: 03-27-2019 Planned Disposition: Snf Facility External Planned Provider: [facility], MEDICARE REHAB BED DCP follow-up note: CM SPOKE TO NURSE SUPERVISOR CELL OPERATION JULIANNE WHO HAS SPOKEN TO THE PT IN ROOM 2106 HAS INFORMED JULIANNE THAT PT'S SPOUSE HAS SAID THEY DO NOT WANT TO STAY HERE FOR REHAB AND WANT TO GO TO REHAB IN [facility]. CM MET WITH PT AND SPOUSE IN ROOM, USED LANGUAGE LINE, , FRUIT BUYING GRADER [phone]; CM DISCUSSED REHAB HERE HAS ACCEPTED TODAY. PT AND SPOUSE WANT REHAB CLOSER TO HOME IN [facility] AND IF NOT IN [facility], CLOSE TO [facility] POSSIBLE. CHOICE LETTER SIGNED. IMPORTANT MESSAGE FROM MEDICARE PROVIDED AND EXPLAINED. CM NOTIFIED DR. MCCARTNEY AND ANTHONY OF INPATIENT REHAB OF PT'S CHANGE IN PLAN. CM CALLED [facility], , SPOKE TO MILLIE WHO TOOK REFERRAL INFORMATION AND REPORTS THEY HAVE A [place]ORGIAN SPEAKING STAFF MEMBER THAT CAN ASSIST WEDNESDAY THRU WEDNESDAY AND WILL CONSIDER PT FOR REHAB ADMISSION. THEY WILL NOT BE ABLE TO LOOK AT REFERRAL UNTIL WEDNESDAY THEIR DIRECTOR IS OUT UNTIL THEN. CM FAXED REHAB REFERRAL TO [facility] AT [phone]. CM WAITING ADMISSION DETERMINATION FROM [facility] IN [facility]. THEY WILL NOT HAVE ADMISSION DETERMINATION UNTIL WEDNESDAY AT THE EARLIEST, 03-27-19. JUSTIN Mcghee DCP- Discharge Planning Updated by [id number]: Javi Ayala on 03/22/19 3:[address] Patient Name: DARRELL GADLAMEZ Admission Status: ER Accout number: [id number] Admission Date: 03-12-2019 : 1950 Admission Diagnosis:SEPSIS, UNSPECIFIED ORGANISM Attending: TREVA MCCARTNEY Current LOS: 10 Anticipated DC Date: 03-23-2019 Planned Disposition: Inpatient Rehab Primary Insurance: MEDICARE A & B PLANNED EXTERNAL PROVIDER; [facility] INPATIENT REHAB Discharge Planning Comments: CM MET WITH PT AND SPOUSE IN ROOM TO DISCUSS DISCHARGE PLANNING AND NEEDS. CM UTILIZED [employer], , ASSISTANT TO THE VICE PRESIDENT # [id number]. PTCM DISCUSSED AVAILABILITY OF REHAB SERVICES, PROVIDERS AND LOCATIONS. CM DISCUSSED INPATIENT REHAB PRESCREEN AND THERAPY NEEDS. PT WOULD LIKE TO STAY AT [place] FOR REHAB. PT NOR SPOUSE HAD FURTHER QUESTIONS FOR CM AT THIS TIME. IMPORTANT MESSAGE FROM MEDICARE PROVIDED AND EXPLAINED. CM CALLED AND SPOKE TO MATT OF INPATIENT REHAB, THEY PLAN TO ACCEPT PT WHEN MEDICALLY STABLE. WHEN READY FOR DISCHARGE, NOTIFY [facility] INPATIENT REH[facility]. Environmental Services Aide: Javi Ayala DCP- Discharge Planning Updated by [id number]: Javi Ayala on 03/13/19 4:[address] Patient Name: DARRELL GALDAMEZ Admission Status: ER Accout number: [id number] Admission Date: 03-12-2019 : 1950 Admission Diagnosis: Attending: TREVA MCCARTNEY Current LOS: 1 Anticipated DC Date: Planned Disposition: Home Primary Insurance: MEDICARE A & B Discharge Planning Comments: CM MET WITH PT AND SPOUSE IN ROOM TO DISCUSS DISCHARGE PLANNING AND NEEDS. CM CALLED [employer], , WAS ASSISTED BY RONDA FRUIT BUYING GRADER # [id number]. DARRELL GALDAMEZ provided verbal consent to discuss current and ongoing needs with/in the presence of: SPOUSE, RONDA. PT REPORTS LIVING AT HOME INDEPENDENTLY WITH HIS . PT HAS NEBULIZER, HE NO LONGER HAS OXYGEN FROM [facility], THEY PICKED IT UP. PT HAS NO OUTSIDE SERVICES ASSISTING IN THE HOME. PT REPORTS SOMEONE FROM THE MEDICAL CLINIC CHECKS ON HIM AT HOME. CM DISCUSSED AVAILABILITY OF HOME HEALTH, REHAB SERVICES AND MEDICAL EQUIPMENT. PT DENIES DISCHARGE NEEDS, PT INITIALLY ASKED FOR HOSPITAL TO GIVE HIM AND HIS A TAXI RIDE HOME IF THEY ARE LEAVING TODAY, CM EXPLAINED THAT THEY ARE NOT DISCHARGING TODAY, WE ARE ONLY TALKING ABOUT THE DISCHARGE PLAN. PT HTEN REPORTS FAMILY WILL PICK HE AND UP FOR DISCHARGE HOME. IMPORTANT MESSAGE FROM MEDICARE PROVIDED AND EXPLAINED, PROVIDED IN GEORGIAN PT REPORTS ABILITY TO READ GEORGIAN. PT DENIES DISCHARGE NEEDS, FAMILY TO TRANSPORT HOME AT DISCHARGE. CM TO FOLLOW AND ASSIST IF NEEDED. Environmental Services Aide: Javi Ayala DCPIA - Discharge Planning Initial Assessment Updated by [id number]: Javi Ayala on 03/13/19 4:59 pm * Is the patient Alert and Oriented? Yes * How many steps to enter\exit or inside your home? * PCP [facility] [phone] * Pharmacy [facility] [phone] * Preadmission Environment Home with Family * ADLs Independent * Equipment Nebulizer * Other Equipment [facility] - MEDICAL EQUIPMENT PROVIDER PREFERENCE * List name and contact numbers for known caregivers / representatives who currently or will assist patient after discharge: RONDA FAM, SPOUSE, [phone] TAPAN RAO DTR, * Verbal permission to speak to the caregivers and representatives has been obtained from the patient. Yes * Community resources currently utilized None * Please name any agencies selected above. NONE * Additional services required to return to the preadmission environment? No * Can the patient safely return to the preadmission environment? Yes * Has this patient been hospitalized within the prior 30 days at any hospital? No External Providers External Provider: OTHER-OTHER Next Contact Date: 03/27/2019 Service Request Date: Service Type: Resolution: Reviewer: Comments: Coverage Notice Reviewer: [id number] Shayan Ayala Notice Issued Date-Time: 03/13/2019 16:30 Notice Type: IM Discharge Notice Notice Delivered To: Family Member Relationship to Patient: Spouse Interlocker Name: RONDA FAM Delivery Method: HAND - Hand Delivered Lanny Days: Prior Verbal Notification: Recipient Understood Notice: Yes Recipient Signature: Yes Med Rec Note Co-signed by Attending: Coverage Notice Comment: Reviewer: [id number] Shayan Ayala Notice Issued Date-Time: 03/22/2019 16:45 Notice Type: IM Discharge Notice Notice Delivered To: Family Member Relationship to Patient: Spouse Interlocker Name: RONDA Delivery Method: HAND - Hand Delivered Lanny Days: Prior Verbal Notification: Recipient Understood Notice: Yes Recipient Signature: Yes Med Rec Note Co-signed by Attending: Coverage Notice Comment: Reviewer: CASEY Ayala Notice Issued Date-Time: 03/24/2019 12:03 Notice Type: Patient Choice Letter Notice Delivered To: Family Member Relationship to Patient: Spouse Interlocker Name: RONDA Delivery Method: HAND - Hand Delivered Lanny Days: Prior Verbal Notification: Recipient Understood Notice: Yes Recipient Signature: Yes Med Rec Note Co-signed by Attending: Coverage Notice Comment: ANY SNF IN [facility] OR CLOSE TO [facility] Reviewer: [id number] Ayala Notice Issued Date-Time: 03/24/2019 12:03 Notice Type: IM Discharge Notice Notice Delivered To: Family Member Relationship to Patient: Spouse Interlocker Name: RONDA Delivery Method: HAND - Hand Delivered Lanny Days: Prior Verbal Notification: Recipient Understood Notice: Yes Recipient Signature: Yes Med Rec Note Co-signed by Attending: Coverage Notice Comment: Last DP export: 03/27/19 2:39 p Patient Name: MAIRA GRANADOSDARRELL Gallo Page [id number] at 1721 All edits/amendments must be made on the electronic document DICTATION DATE: 03/27/191719 BLOCK SORTER: MARCELL 03/27/191719 RPT#: [id number] DC DATE: STATUS: ADM IN [facility] [address] [place] [address] END OF REPORT
--- NOTE | 2019-03-27 17:29 | MORECARE ---
CASE MANAGEMENT DISCHARGE SUMMARY PATIENT: DARRELL DE LA ROSA UNIT: [id number] ADM DATE: 03/12/19 AGE: 68 : 50 SEX: M ROOM/BED: D.2106 AUTHOR: EVERDOC PHYSICIAN: REFERRING PHYSICIAN: TREVA MCCARTNEY MD DATE OF SERVICE: 03/27/19 Discharge Plan Patient Name: DARRELL DE LA ROSA Facility: [facility] : 1950 Planned Disposition: Custodial Facility Anticipated Discharge Date: 03/27/19 Discharge Date: Expected LOS: 15 Initial Reviewer: [id number] Initial Review Date: 03/12/2019 Generated: 03/27/19 6:29 pm Comments DCP- Discharge Planning Updated by [email or web address]: Javi Ayala on 03/27/19 4:[address] Patient Name: DARRELL GALDAMEZ Encounter No: [id number] : 1950 Primary Insurance: MEDICARE A & B Anticipated DC Date: 03-27-2019 Planned Disposition: Custodial Facility External Planned Provider: [facility], MEDICARE REHAB BED DCP follow-up note: CM RECEIVED CALL FROM [facility],, , WHO ADVISED THAT THEY WILL SCREEN FOR REHAB ADMISSION AND TO SEND REFERRAL VIA FAX. CM FAXED REFERRAL TO [facility], . CM WAITING ADMISSION DETERMINATION FROM [facility]. JUSTIN Mcghee DCP- Discharge Planning Updated by [id number]: Javi Ayala on 03/27/19 2:[address] Patient Name: DARRELL GALDAMEZ Admission Status: ER Accout number: [id number] Admission Date: 03-12-2019 : 1950 Admission Diagnosis:SEPSIS, UNSPECIFIED ORGANISM Attending: TREVA MCCARTNEY Current LOS: 15 Anticipated DC Date: 03-27-2019 Planned Disposition: Custodial Facility Primary Insurance: MEDICARE A & B PLANNED EXTERNAL PROVIDER: [facility] Discharge Planning Comments: CM RECEIVED CALL FROM [facility] AT ABOUT 1420 HOURS, THEY CANNOT MEET PT'S NEEDS THEY DO NOT HAVE 24 HOUR [place]EXICAN SPEAKING STAFF AT THE FACILITY. CM CALLED [facility], , SPOKE TO SHANAE WHO TOOK REFERRAL INFORMATION AND ASKED THAT CM NOT FAX REFERRAL YET, SHE WILL CHECK WITH FACILITY ATTENDANT AND NOTIFY CM IF THEY WILL REVIEW REFERRAL AND NOTIFY CM SHORTLY. CM WAITING RETURN CALL FROM [facility] REGARDING REHAB PLACEMENT REFERRAL. Community Outreach Advocate: Javi Ayala DCP- Discharge Planning Updated by [email or web address]: Javi Ayala on 03/27/19 8:[address] Patient Name: DARRELL GALDAMEZ Encounter No: [id number] : 1950 Primary Insurance: MEDICARE A & B Anticipated DC Date: 03-27-2019 Planned Disposition: Custodial Facility External Planned Provider: [facility], MEDICARE REHAB BED DCP follow-up note: CM FAXED REHAB REFERRAL UPDATE TO [facility] AT [phone]. CM EMAILED REFERRAL AND UPDATE TO [email or web address]. CM WAITING ADMISSION DETERMINATION FROM [facility] IN [facility]. Javi Ayala, CASE MANAGEMENT DCP- Discharge Planning Updated by [id number]: Javi Ayala on 03/24/19 1:[address] Patient Name: DARRELL GALDAMEZ Encounter No: [id number] : 1950 Primary Insurance: MEDICARE A & B Anticipated DC Date: 03-27-2019 Planned Disposition: Custodial Facility External Planned Provider: [facility], MEDICARE REHAB BED DCP follow-up note: CM SPOKE TO NURSE CHIEF NURSE EXECUTIVE JULIANNE WHO HAS SPOKEN TO THE PT IN ROOM 5689 HAS INFORMED JULIANNE THAT PT'S SPOUSE HAS SAID THEY DO NOT WANT TO STAY HERE FOR REHAB AND WANT TO GO TO REHAB IN [facility]. CM MET WITH PT AND SPOUSE IN ROOM, USED [employer], , DOG FOOD DOUGH MIXER [phone]; CM DISCUSSED REHAB HERE HAS ACCEPTED TODAY. PT AND SPOUSE WANT REHAB CLOSER TO HOME IN [facility] AND IF NOT IN [facility], CLOSE TO [facility] POSSIBLE. CHOICE LETTER SIGNED. IMPORTANT MESSAGE FROM MEDICARE PROVIDED AND EXPLAINED. CM NOTIFIED DR. DWNATALYA OF INPATIENT REHAB OF PT'S CHANGE IN PLAN. CM CALLED [facility], , SPOKE TO MILLIE WHO TOOK REFERRAL INFORMATION AND REPORTS THEY HAVE A [place] SPEAKING STAFF MEMBER THAT CAN ASSIST WEDNESDAY THRU WEDNESDAY AND WILL CONSIDER PT FOR REHAB ADMISSION. THEY WILL NOT BE ABLE TO LOOK AT REFERRAL UNTIL WEDNESDAY THEIR DIRECTOR IS OUT UNTIL THEN. CM FA[facility]ED REH[facility] REFERRAL TO [facility] AT [phone]. CM WAITING ADMISSION DETERMINATION FROM [facility] IN [facility]. THEY WILL NOT HAVE ADMISSION DETERMINATION UNTIL WEDNESDAY AT THE EARLIEST, 03-27-19. Javi Ayala, CASE MANAGEMENT DCP- Discharge Planning Updated by [id number]: Javi Ayala on 03/22/19 3:[address] Patient Name: DARRELL GALDAMEZ Admission Status: ER Accout number: [id number] Admission Date: 03-12-2019 : 1950 Admission Diagnosis:SEPSIS, UNSPECIFIED ORGANISM Attending: TREVA MCCARTNEY Current LOS: 10 Anticipated DC Date: 03-23-2019 Planned Disposition: Inpatient Rehab Primary Insurance: MEDICARE A & B PLANNED EXTERNAL PROVIDER; [facility] IN[facility]IENT [facility]HAB Discharge Planning Comments: CM MET WITH PT AND SPOUSE IN ROOM TO DISCUSS DISCHARGE PLANNING AND NEEDS. CM UTILIZED [employer] D[employer], , COST CONTROLLER # [id number]. PTCM DISCUSSED AVAILABILITY OF REHAB SERVICES, PROVIDERS AND LOCATIONS. CM DISCUSSED INPATIENT REHAB PRESCREEN AND THERAPY NEEDS. PT WOULD LIKE TO STAY AT [place] FOR REHAB. PT NOR SPOUSE HAD FURTHER QUESTIONS FOR CM AT THIS TIME. IMPORTANT MESSAGE FROM MEDICARE PROVIDED AND EXPLAINED. CM CALLED AND SPOKE TO MATT OF INPATIENT REHAB, THEY PLAN TO ACCEPT PT WHEN MEDICALLY STABLE. WHEN READY FOR DISCHARGE, NOTIFY [facility]IENT [facility]. Community Outreach Advocate: Javi Ayala DCP- Discharge Planning Updated by [id number]: Javi Ayala on 03/13/19 4:[address] Patient Name: DARRELL GALDAMEZ Admission Status: ER Accout number: [id number] Admission Date: 03-12-2019 : 1950 Admission Diagnosis: Attending: TREVA MCCARTNEY Current LOS: 1 Anticipated DC Date: Planned Disposition: Home Primary Insurance: MEDICARE A & B Discharge Planning Comments: CM MET WITH PT AND SPOUSE IN ROOM TO DISCUSS DISCHARGE PLANNING AND NEEDS. CM CALLED [employer], , WAS ASSISTED BY RONDA, DOG FOOD DOUGH MIXER # [id number]. DARRELL GALDAMEZ provided verbal consent to discuss current and ongoing needs with/in the presence of: SPOUSE, RONDA. PT REPORTS LIVING AT HOME INDEPENDENTLY WITH HIS . PT HAS NEBULIZER, HE NO LONGER HAS OXYGEN FROM [facility], THEY PICKED IT UP. PT HAS NO OUTSIDE SERVICES ASSISTING IN THE HOME. PT REPORTS SOMEONE FROM THE MEDICAL CLINIC CHECKS ON HIM AT HOME. CM DISCUSSED AVAILABILITY OF HOME HEALTH, REHAB SERVICES AND MEDICAL EQUIPMENT. PT DENIES DISCHARGE NEEDS, PT INITIALLY ASKED FOR HOSPITAL TO GIVE HIM AND HIS A TAXI RIDE HOME IF THEY ARE LEAVING TODAY, CM EXPLAINED THAT THEY ARE NOT DISCHARGING TODAY, WE ARE ONLY TALKING ABOUT THE DISCHARGE PLAN. PT HTEN REPORTS FAMILY WILL PICK HE AND UP FOR DISCHARGE HOME. IMPORTANT MESSAGE FROM MEDICARE PROVIDED AND EXPLAINED, PROVIDED IN MEXICAN PT REPORTS ABILITY TO READ MEXICAN. PT DENIES DISCHARGE NEEDS, FAMILY TO TRANSPORT HOME AT DISCHARGE. CM TO FOLLOW AND ASSIST IF NEEDED. Community Outreach Advocate: Javi Ayala [place] - Discharge Planning Initial Assessment Updated by [id number]: Javi Ayala on 03/13/19 4:59 pm * Is the patient Alert and Oriented? Yes * How many steps to enter\exit or inside your home? * PCP [facility] IN [facility] [phone] * Pharmacy [facility] IN [facility] [phone] * Preadmission Environment Home with Family * ADLs Independent * Equipment Nebulizer * Other Equipment [facility] IN [facility] - MEDICAL EQUIPMENT PROVIDER PREFERENCE * List name and contact numbers for known caregivers / representatives who currently or will assist patient after discharge: RONDA SARWAT, SPOUSE, [phone] TAPAN RAO DTR, * Verbal permission to speak to the caregivers and representatives has been obtained from the patient. Yes * Community resources currently utilized None * Please name any agencies selected above. NONE * Additional services required to return to the preadmission environment? No * Can the patient safely return to the preadmission environment? Yes * Has this patient been hospitalized within the prior 30 days at any hospital? No Coverage Notice Reviewer: CASEY Ayala Notice Issued Date-Time: 03/24/2019 12:03 Notice Type: IM Discharge Notice Notice Delivered To: Family Member Relationship to Patient: Spouse Nursing Home Admissions Director Name: RONDA Delivery Method: HAND - Hand Delivered Lanny Days: Prior Verbal Notification: Recipient Understood Notice: Yes Recipient Signature: Yes Med Rec Note Co-signed by Attending: Coverage Notice Comment: Reviewer: CASEY Ayala Notice Issued Date-Time: 03/22/2019 16:45 Notice Type: IM Discharge Notice Notice Delivered To: Family Member Relationship to Patient: Spouse Nursing Home Admissions Director Name: RONDA Delivery Method: HAND - Hand Delivered Lanny Days: Prior Verbal Notification: Recipient Understood Notice: Yes Recipient Signature: Yes Med Rec Note Co-signed by Attending: Coverage Notice Comment: Reviewer: CASEY Ayala Notice Issued Date-Time: 03/13/2019 16:30 Notice Type: IM Discharge Notice Notice Delivered To: Family Member Relationship to Patient: Spouse Nursing Home Admissions Director Name: RONDA FAM Delivery Method: HAND - Hand Delivered Lanny Days: Prior Verbal Notification: Recipient Understood Notice: Yes Recipient Signature: Yes Med Rec Note Co-signed by Attending: Coverage Notice Comment: Reviewer: CASEY Ayala Notice Issued Date-Time: 03/24/2019 12:03 Notice Type: Patient Choice Letter Notice Delivered To: Family Member Relationship to Patient: Spouse Nursing Home Admissions Director Name: RONDA Delivery Method: HAND - Hand Delivered Lanny Days: Prior Verbal Notification: Recipient Understood Notice: Yes Recipient Signature: Yes Med Rec Note Co-signed by Attending: Coverage Notice Comment: ANY SNF IN [facility] OR CLOSE TO [facility] Last DP export: 03/27/19 4:21 p Patient Name: MAIRA GALDAMEZDARRELL Page [phone] at 1729 All edits/amendments must be made on the electronic document DICTATION DATE: 03/27/191728 RESERVATIONS CLERK: MARCELL 03/27/191728 RPT#: [id number] DC DATE: STATUS: ADM IN [facility] [address] [place] [address] END OF REPORT
--- NOTE | 2019-03-27 19:00 | NUR ---
PATIENT LAYING IN BED. PATIENT HAS NO COMPLAINTS AT THIS TIME. NO DISTRESS NOTED.
[2019-03-27 20:00] VITALS: BP 125/48
[2019-03-28 00:10] VITALS: BP 117/52
[2019-03-28 04:00] VITALS: BP 101/50
--- NOTE | 2019-03-28 04:34 | NUR ---
PATIENT FELL AT APPROXIMATELY 0340. PATIENT HAD NO INJURIES NOTED. PATIENT DENIES HITTING HEAD. PATIENT HELPED BACK INTO BED. LANCE MORAN NOTIFIED AT APPROXIMATELY 0400.
--- NOTE | 2019-03-28 04:48 | NUR ---
PATIENT'S WAS NOTIFIED OF FALL.
[2019-03-28 05:16] LABS: BASOPHILS 0.1 % (0-2); EOSINOPHILS 0 % (0-7); HEMATOCRIT 28.5 % (42.0-54.0); HEMOGLOBIN 10.1 g/dL (13.5-17.5); IMMATURE GRANULOCYTES 2.4 % (0-5); LYMPHOCYTES 6.2 % (15-50); MCH 35.9 pg (26.0-34.0); MCHC 35.4 g/dL (31.0-37.0); MCV 101.4 fL (80.0-100.0); NEUTROPHILS 85.3 % (40-80); PLATELET COUNT 71 10x3/uL (130-400); RBC 2.81 10x6/uL (4.20-6.10); RDW 17.1 % (11.5-14.5); WBC 7.2 10x3/uL (4.8-10.8)
[2019-03-28 05:27] LABS: INR 2.4 (0.85-1.17); PROTIME 25.4 SECONDS (11.6-15.0)
[2019-03-28 05:46] LABS: ALBUMIN 1.7 g/dL (3.4-5.0); ALKALINE PHOSPHATASE 154 U/L (46-116); BILIRUBIN - TOTAL 3.51 mg/dL (0.2-1.3); CALC OSMOLALITY 274 mosm/kg (275-300); CALCIUM 8.2 mg/dL (8.5-10.1); CARBON DIOXIDE 31.4 mmol/L (21.0-32.0); CHLORIDE - SERUM 101 mmol/L (98-107); CREATININE - SERUM 0.9 mg/dL (0.6-1.3); GLUCOSE 116 mg/dL (74-106); POTASSIUM - SERUM 4.3 mmol/L (3.5-5.1); PROTEIN - SERUM 5.8 g/dL (6.4-8.2); SODIUM 136 mmol/L (136-145); UREA NITROGEN 17 mg/dL (7-18); eGFR NON AFRICAN AMERICAN 89 mL/min (90-120)
[2019-03-28 05:47] LABS: ALT (SGPT) 145 U/L (10-68)
[2019-03-28 09:21] VITALS: BP 117/60
--- NOTE | 2019-03-28 09:34 | NUR ---
ALERT SPEAKS LITTLE GRENADIAN. HAS INTERPETER PHONE. ABD DISTENDED AND AND FIRM. BS X4. CL IN REACH.
--- NOTE | 2019-03-28 12:41 | NUR ---
OT NOTE: INCREASED ABD SWELLING NOTED TODAY. ALSO LES APPEARED MORE EDEMATOUS. REQUIRED MOD/MAX ASSIST WITH SUPINE TO SIT; AMB TO BATHROOM WITH MIN ASSIST; TOILET TRANSFER WITH MIN/MOD ASSIST; MAX ASSIST WITH TOILET HYGIENE. PT CONTINUES TO HAVE DIARRHEA. ABLE TO WASH FACE AND HANDS WITH SET UP. BACK TO BED WITH MOD ASSIST TO GET LEGS BACK INTO BED. LUKE CHEUNG, OTR/L
--- NOTE | 2019-03-28 13:24 | NUR ---
ALERT. RESP EVEN AND UNLABORED. CL IN REACH.
--- NOTE | 2019-03-28 13:57 | NUR ---
NO CHANGE IN ASSESSMENT. ISOLATION FOR E. COLI IN URINE.
--- NOTE | 2019-03-28 15:24 | NUR ---
OT NOTE: PT COMPLETED EOB SITTING WITH SBA. PT COMPLETED ADL MOB WITH CGA. PT COMPLETED HYGIENE TASKS WITH MOD/MAX A. THANK YOU, STACEY HOLLIS
--- NOTE | 2019-03-28 17:03 | MORECARE ---
CASE MANAGEMENT DISCHARGE SUMMARY PATIENT: DARRELL DE LA ROSA UNIT: [id number] ADM DATE: 03/12/19 AGE: 68 : 50 SEX: M ROOM/BED: D.2106 AUTHOR: EVER,DOC PHYSICIAN: REFERRING PHYSICIAN: TREVA MCCARTNEY MD DATE OF SERVICE: 03/28/19 Discharge Plan Patient Name: DARRELL DE LA ROSA Facility: [facility] : 1950 Planned Disposition: Assisted Facility Anticipated Discharge Date: 03/27/19 Discharge Date: Expected LOS: 15 Initial Reviewer: [id number] Initial Review Date: 03/12/2019 Generated: 03/28/19 6:03 pm Comments DCP- Discharge Planning Updated by [email or web address]: Javi Ayala on 03/28/19 4:[address] Patient Name: DARRELL GALDAMEZ Encounter No: [id number] : 1950 Primary Insurance: MEDICARE A & B Anticipated DC Date: 03-27-2019 Planned Disposition: Assisted Facility External Planned Provider: TO BE DETERMINED DCP follow-up note: CM SPOKE TO [facility] WHO ADVISED THEY WILL NOT ACCEPT PT FOR REHAB. CM FAXED REFERRAL TO [facility] IN [place] AT [phone]. CM TO DISCUSS GOING TO INPATIENT REHAB AT [place] AGAIN WHEN PT'S SPOUSE ARRIVES. SHE HAS NOT BEEN IN ROOM TODAY, PT IS CONFUSED. CM WAITING ADMISSION DETERMINATION FROM [facility] IN [place], [place], FOR REHAB. CM TO DISCUSS WITH PT'S SPOUSE STAYING AT [place] FOR REHAB. Javi Ayala, CASE MANAGEMENT DCP- Discharge Planning Updated by [id number]: Javi Ayala on 03/27/19 4:[address] Patient Name: DARRELL GALDAMEZ Encounter No: [id number] : 1950 Primary Insurance: MEDICARE A & B Anticipated DC Date: 03-27-2019 Planned Disposition: Assisted Facility External Planned Provider: [facility], MEDICARE REHAB BED DCP follow-up note: CM RECEIVED CALL FROM [facility],, , WHO ADVISED THAT THEY WILL SCREEN FOR REHAB ADMISSION AND TO SEND REFERRAL VIA FAX. CM FAXED REFERRAL TO [facility], . CM WAITING ADMISSION DETERMINATION FROM [facility]. JUSTIN Mcghee DCP- Discharge Planning Updated by [id number]: Javi Ayala on 03/27/19 2:[address] Patient Name: DARRELL GALDAMEZ Admission Status: ER Accout number: [id number] Admission Date: 03-12-2019 : 1950 Admission Diagnosis:SEPSIS, UNSPECIFIED ORGANISM Attending: TREVA MCCARTNEY Current LOS: 15 Anticipated DC Date: 03-27-2019 Planned Disposition: Assisted Facility Primary Insurance: MEDICARE A & B PLANNED EXTERNAL PROVIDER: [facility] Discharge Planning Comments: CM RECEIVED CALL FROM [facility] AT ABOUT 1420 HOURS, THEY CANNOT MEET PT'S NEEDS THEY DO NOT HAVE 24 HOUR [place] SPEAKING STAFF AT THE FACILITY. CM CALLED [facility], , SPOKE TO SHANAE WHO TOOK REFERRAL INFORMATION AND ASKED THAT CM NOT FAX REFERRAL YET, SHE WILL CHECK WITH SEGMENTAL PAVING SUPERVISOR AND NOTIFY CM IF THEY WILL REVIEW REFERRAL AND NOTIFY CM SHORTLY. CM WAITING RETURN CALL FROM [facility] REGARDING REHAB PLACEMENT REFERRAL. Copier And Printer Field Technician: Javi Ayala DCP- Discharge Planning Updated by [id number]: Javi Ayala on 03/27/19 8:[address] Patient Name: DARRELL GALDAMEZ Encounter No: [id number] : 1950 Primary Insurance: MEDICARE A & B Anticipated DC Date: 03-27-2019 Planned Disposition: Assisted Facility External Planned Provider: [facility], MEDICARE REHAB BED DCP follow-up note: CM FAXED REHAB REFERRAL UPDATE TO [facility] AT [phone]. CM EMAILED REFERRAL AND UPDATE TO [email or web address] CM WAITING ADMISSION DETERMINATION FROM [facility] IN [facility]. JUSTIN Mcghee DCP- Discharge Planning Updated by [id number]: Javi Ayala on 03/24/19 1:[address] Patient Name: DARRELL GALDAMEZ Encounter No: [id number] : 1950 Primary Insurance: MEDICARE A & B Anticipated DC Date: 03-27-2019 Planned Disposition: Assisted Facility External Planned Provider: [facility], MEDICARE REHAB BED DCP follow-up note: CM SPOKE TO NURSE VEHICLE WASHER JULIANNE WHO HAS SPOKEN TO THE PT IN ROOM 2106 HAS INFORMED JULIANNE THAT PT'S SPOUSE HAS SAID THEY DO NOT WANT TO STAY HERE FOR REHAB AND WANT TO GO TO REHAB IN [facility]. CM MET WITH PT AND SPOUSE IN ROOM, USED [employer], , INSTALLER HELPER [phone]; CM DISCUSSED REHAB HERE HAS ACCEPTED TODAY. PT AND SPOUSE WANT REHAB CLOSER TO HOME IN [facility] AND IF NOT IN [facility], CLOSE TO [facility] POSSIBLE. CHOICE LETTER SIGNED. IMPORTANT MESSAGE FROM MEDICARE PROVIDED AND EXPLAINED. CM NOTIFIED DR. MCCARTNEY AND ANTHONY OF INPATIENT REHAB OF PT'S CHANGE IN PLAN. CM CALLED [facility], , SPOKE TO MILLIE WHO TOOK REFERRAL INFORMATION AND REPORTS THEY HAVE A [place] SPEAKING STAFF MEMBER THAT CAN ASSIST WEDNESDAY THRU WEDNESDAY AND WILL CONSIDER PT FOR REHAB ADMISSION. THEY WILL NOT BE ABLE TO LOOK AT REFERRAL UNTIL WEDNESDAY THEIR DIRECTOR IS OUT UNTIL THEN. CM FAXED REHAB REFERRAL TO [facility] AT [phone]. CM WAITING ADMISSION DETERMINATION FROM [facility] IN [facility]. THEY WILL NOT HAVE ADMISSION DETERMINATION UNTIL WEDNESDAY AT THE EARLIEST, 03-27-19. Javi Ayala, CASE MANAGEMENT DCP- Discharge Planning Updated by [id number]: Javi Ayala on 03/22/19 3:[address] Patient Name: DARRELL GALDAMEZ Admission Status: ER Accout number: [id number] Admission Date: 03-12-2019 : 1950 Admission Diagnosis:SEPSIS, UNSPECIFIED ORGANISM Attending: TREVA MCCARTNEY Current LOS: 10 Anticipated DC Date: 03-23-2019 Planned Disposition: Inpatient Rehab Primary Insurance: MEDICARE A & B PLANNED EXTERNAL PROVIDER; [facility] INPATIENT REHAB Discharge Planning Comments: CM MET WITH PT AND SPOUSE IN ROOM TO DISCUSS DISCHARGE PLANNING AND NEEDS. CM UTILIZED [employer] INSTALLER HELPER [employer], , INSURANCE VERIFICATION REPRESENTATIVE # [id number]. PTCM DISCUSSED AVAILABILITY OF REHAB SERVICES, PROVIDERS AND LOCATIONS. CM DISCUSSED INPATIENT REHAB PRESCREEN AND THERAPY NEEDS. PT WOULD LIKE TO STAY AT [place] FOR REHAB. PT NOR SPOUSE HAD FURTHER QUESTIONS FOR CM AT THIS TIME. IMPORTANT MESSAGE FROM MEDICARE PROVIDED AND EXPLAINED. CM CALLED AND SPOKE TO [facility] OF INPATIENT REHAB, THEY PLAN TO ACCEPT PT WHEN MEDICALLY STABLE. WHEN READY FOR DISCHARGE, NOTIFY [facility]. Copier And Printer Field Technician: Javi Ayala DCP- Discharge Planning Updated by [id number]: Javi Ayala on 03/13/19 4:[address] Patient Name: DARRELL GALDAMEZ Admission Status: ER Accout number: [id number] Admission Date: 03-12-2019 : 1950 Admission Diagnosis: Attending: TREVA MCCARTNEY Current LOS: 1 Anticipated DC Date: Planned Disposition: Home Primary Insurance: MEDICARE A & B Discharge Planning Comments: CM MET WITH PT AND SPOUSE IN ROOM TO DISCUSS DISCHARGE PLANNING AND NEEDS. CM CALLED [employer] INTERPRETATION SERVICES, , WAS ASSISTED BY RONDA, INSTALLER HELPER # [id number]. DARRELL GALDAMEZ provided verbal consent to discuss current and ongoing needs with/in the presence of: SPOUSE, RONDA. PT REPORTS LIVING AT HOME INDEPENDENTLY WITH HIS . PT HAS NEBULIZER, HE NO LONGER HAS OXYGEN FROM [facility], THEY PICKED IT UP. PT HAS NO OUTSIDE SERVICES ASSISTING IN THE HOME. PT REPORTS SOMEONE FROM THE MEDICAL CLINIC CHECKS ON HIM AT HOME. CM DISCUSSED AVAILABILITY OF HOME HEALTH, REHAB SERVICES AND MEDICAL EQUIPMENT. PT DENIES DISCHARGE NEEDS, PT INITIALLY ASKED FOR HOSPITAL TO GIVE HIM AND HIS A TAXI RIDE HOME IF THEY ARE LEAVING TODAY, CM EXPLAINED THAT THEY ARE NOT DISCHARGING TODAY, WE ARE ONLY TALKING ABOUT THE DISCHARGE PLAN. PT HTEN REPORTS FAMILY WILL PICK HE AND UP FOR DISCHARGE HOME. IMPORTANT MESSAGE FROM MEDICARE PROVIDED AND EXPLAINED, PROVIDED IN MACANESE PT REPORTS ABILITY TO READ MACANESE. PT DENIES DISCHARGE NEEDS, FAMILY TO TRANSPORT HOME AT DISCHARGE. CM TO FOLLOW AND ASSIST IF NEEDED. Copier And Printer Field Technician: Javi Ayala DCPIA - Discharge Planning Initial Assessment Updated by [id number]: Javi Ayala on 03/13/19 4:59 pm * Is the patient Alert and Oriented? Yes * How many steps to enter\exit or inside your home? * PCP [facility] IN [facility] [phone] * Pharmacy [facility] IN [facility] [phone] * Preadmission Environment Home with Family * ADLs Independent * Equipment Nebulizer * Other Equipment [facility] IN [facility] - MEDICAL EQUIPMENT PROVIDER PREFERENCE * List name and contact numbers for known caregivers / representatives who currently or will assist patient after discharge: RONDA FAM, SPOUSE, [phone] TAPAN RAO, DTR, * Verbal permission to speak to the caregivers and representatives has been obtained from the patient. Yes * Community resources currently utilized None * Please name any agencies selected above. NONE * Additional services required to return to the preadmission environment? No * Can the patient safely return to the preadmission environment? Yes * Has this patient been hospitalized within the prior 30 days at any hospital? No Coverage Notice Reviewer: CASEY Ayala Notice Issued Date-Time: 03/13/2019 16:30 Notice Type: IM Discharge Notice Notice Delivered To: Family Member Relationship to Patient: Spouse Venture Capital Analyst Name: RONDA FAM Delivery Method: HAND - Hand Delivered Lanny Days: Prior Verbal Notification: Recipient Understood Notice: Yes Recipient Signature: Yes Med Rec Note Co-signed by Attending: Coverage Notice Comment: Reviewer: CASEY Ayala Notice Issued Date-Time: 03/22/2019 16:45 Notice Type: IM Discharge Notice Notice Delivered To: Family Member Relationship to Patient: Spouse Venture Capital Analyst Name: RONDA Delivery Method: HAND - Hand Delivered Lanny Days: Prior Verbal Notification: Recipient Understood Notice: Yes Recipient Signature: Yes Med Rec Note Co-signed by Attending: Coverage Notice Comment: Reviewer: CASEY Ayala Notice Issued Date-Time: 03/24/2019 12:03 Notice Type: Patient Choice Letter Notice Delivered To: Family Member Relationship to Patient: Spouse Venture Capital Analyst Name: RONDA Delivery Method: HAND - Hand Delivered Lanny Days: Prior Verbal Notification: Recipient Understood Notice: Yes Recipient Signature: Yes Med Rec Note Co-signed by Attending: Coverage Notice Comment: ANY SNF IN [facility] OR CLOSE TO [facility] Reviewer: CASEY Ayala Notice Issued Date-Time: 03/24/2019 12:03 Notice Type: IM Discharge Notice Notice Delivered To: Family Member Relationship to Patient: Spouse Venture Capital Analyst Name: RONDA Delivery Method: HAND - Hand Delivered Lanny Days: Prior Verbal Notification: Recipient Understood Notice: Yes Recipient Signature: Yes Med Rec Note Co-signed by Attending: Coverage Notice Comment: Last DP export: 03/27/19 4:29 p Patient Name: DARRELL DE LA ROSA Page 34865 at 1703 All edits/amendments must be made on the electronic document DICTATION DATE: 03/28/191702 SPECIFICATION WRITER: MARCELL 03/28/191702 RPT#: [id number] DC DATE: STATUS: ADM IN [facility] [address] [place] [address] END OF REPORT
--- NOTE | 2019-03-28 17:13 | MORECARE ---
CASE MANAGEMENT DISCHARGE SUMMARY PATIENT: DARRELL DE LA ROSA UNIT: [id number] ADM DATE: 03/12/19 AGE: 68 : 50 SEX: M ROOM/BED: D.2106 AUTHOR: EVER,DOC PHYSICIAN: REFERRING PHYSICIAN: TREVA MCCARTNEY MD DATE OF SERVICE: 03/28/19 Discharge Plan Patient Name: DRARELL DE LA ROSA Facility: [facility]:[place] : 1950 Planned Disposition: Residential Facility Anticipated Discharge Date: 03/27/19 Discharge Date: Expected LOS: 15 Initial Reviewer: [id number] Initial Review Date: 03/12/2019 Generated: 03/28/19 6:12 pm Comments DCP- Discharge Planning Updated by [email or web address]: Javi Ayala on 03/28/19 4:[address] Patient Name: DARRELL GALDAMEZ Encounter No: [id number] : 1950 Primary Insurance: MEDICARE A & B Anticipated DC Date: 03-27-2019 Planned Disposition: Residential Facility External Planned Provider: TO BE DETERMINED DCP follow-up note: CM SPOKE TO [facility] WHO ADVISED THEY WILL NOT ACCEPT PT FOR REHAB. CM FAXED REFERRAL TO [facility] IN [place] AT [phone]. CM TO DISCUSS GOING TO INPATIENT REHAB AT [facility] AGAIN WHEN PT'S SPOUSE ARRIVES. SHE HAS NOT BEEN IN ROOM TODAY, PT IS CONFUSED. CM WAITING ADMISSION DETERMINATION FROM [facility] IN [place], [place], FOR REHAB. CM TO DISCUSS WITH PT'S SPOUSE STAYING AT [facility] FOR REHAB. Javi Ayala, CASE MANAGEMENT DCP- Discharge Planning Updated by [id number]: Javi Ayala on 03/27/19 4:[address] Patient Name: DARRELL GALDAMEZ Encounter No: [id number] : 1950 Primary Insurance: MEDICARE A & B Anticipated DC Date: 03-27-2019 Planned Disposition: Residential Facility External Planned Provider: [facility], MEDICARE REHAB BED DCP follow-up note: CM RECEIVED CALL FROM [facility],, , WHO ADVISED THAT THEY WILL SCREEN FOR REHAB ADMISSION AND TO SEND REFERRAL VIA FAX. CM FAXED REFERRAL TO [facility], . CM WAITING ADMISSION DETERMINATION FROM [facility]. JUSTIN Mcghee DCP- Discharge Planning Updated by [email or web address]: Javi Ayala on 03/27/19 2:[address] Patient Name: DARRELL GALDAMEZ Admission Status: ER Accout number: [id number] Admission Date: 03-12-2019 : 1950 Admission Diagnosis:SEPSIS, UNSPECIFIED ORGANISM Attending: TREVA MCCARTNEY Current LOS: 15 Anticipated DC Date: 03-27-2019 Planned Disposition: Residential Facility Primary Insurance: MEDICARE A & B PLANNED EXTERNAL PROVIDER: [facility] Discharge Planning Comments: CM RECEIVED CALL FROM [facility] AT ABOUT 1420 HOURS, THEY CANNOT MEET PT'S NEEDS THEY DO NOT HAVE 24 HOUR MALIAN SPEAKING STAFF AT THE FACILITY. CM CALLED [facility], , SPOKE TO SHANAE WHO TOOK REFERRAL INFORMATION AND ASKED THAT CM NOT FAX REFERRAL YET, SHE WILL CHECK WITH COMMERCIAL CARPET INSTALLER AND NOTIFY CM IF THEY WILL REVIEW REFERRAL AND NOTIFY CM SHORTLY. CM WAITING RETURN CALL FROM [facility] REGARDING REHAB PLACEMENT REFERRAL. Chief Procurement Officer: Javi Aylaa DCP- Discharge Planning Updated by [id number]: Javi Ayala on 03/27/19 8:[address] Patient Name: DARRELL GALDAMEZ Encounter No: [id number] : 1950 Primary Insurance: MEDICARE A & B Anticipated DC Date: 03-27-2019 Planned Disposition: Residential Facility External Planned Provider: [employer] [facility], MEDICARE REHAB BED DCP follow-up note: CM FAXED REHAB REFERRAL UPDATE TO [facility] AT [phone]. CM EMAILED REFERRAL AND UPDATE TO [email or web address] CM WAITING ADMISSION DETERMINATION FROM [facility] IN [facility]. JUSTIN Mcghee DCP- Discharge Planning Updated by [email or web address]: Javi Ayala on 03/24/19 1:[address] Patient Name: DARRELL GALDAMEZ Encounter No: [id number] : 1950 Primary Insurance: MEDICARE A & B Anticipated DC Date: 03-27-2019 Planned Disposition: Residential Facility External Planned Provider: [facility], MEDICARE REHAB BED DCP follow-up note: CM SPOKE TO NURSE CERTIFIED PERSONAL CHEF JULIANNE WHO HAS SPOKEN TO THE PT IN ROOM 2106 HAS INFORMED JULIANNE THAT PT'S SPOUSE HAS SAID THEY DO NOT WANT TO STAY HERE FOR REHAB AND WANT TO GO TO REHAB IN [facility]. CM MET WITH PT AND SPOUSE IN ROOM, USED [employer], , [employer] CONSOLE OPERATOR TRACK [id number]; CM DISCUSSED REHAB HERE HAS ACCEPTED TODAY. PT AND SPOUSE WANT REHAB CLOSER TO HOME IN [facility] AND IF NOT IN [facility], CLOSE TO [facility] POSSIBLE. CHOICE LETTER SIGNED. IMPORTANT MESSAGE FROM MEDICARE PROVIDED AND EXPLAINED. CM NOTIFIED DR. MCCARTNYE AND ANTHONY OF INPATIENT REHAB OF PT'S CHANGE IN PLAN. CM CALLED [facility], , SPOKE TO MILLIE WHO TOOK REFERRAL INFORMATION AND REPORTS THEY HAVE A MALIAN SPEAKING STAFF MEMBER THAT CAN ASSIST WEDNESDAY THRU WEDNESDAY AND WILL CONSIDER PT FOR REHAB ADMISSION. THEY WILL NOT BE ABLE TO LOOK AT REFERRAL UNTIL WEDNESDAY THEIR DIRECTOR IS OUT UNTIL THEN. CM FAXED REHAB REFERRAL TO [facility] AT [phone]. CM WAITING ADMISSION DETERMINATION FROM [facility] IN [facility]. THEY WILL NOT HAVE ADMISSION DETERMINATION UNTIL WEDNESDAY AT THE EARLIEST, 03-27-19. Javi Ayala, CASE MANAGEMENT DCP- Discharge Planning Updated by [id number]: Javi Ayala on 03/22/19 3:[address] Patient Name: DARRELL GALDAMEZ Admission Status: ER Accout number: [id number] Admission Date: 03-12-2019 : 1950 Admission Diagnosis:SEPSIS, UNSPECIFIED ORGANISM Attending: TREVA MCCARTNEY Current LOS: 10 Anticipated DC Date: 03-23-2019 Planned Disposition: Inpatient Rehab Primary Insurance: MEDICARE A & B PLANNED EXTERNAL PROVIDER; [facility] INPATIENT REHAB Discharge Planning Comments: CM MET WITH PT AND SPOUSE IN ROOM TO DISCUSS DISCHARGE PLANNING AND NEEDS. CM UTILIZED LANGUAGE LINE [employer] CONSOLE OPERATOR [employer], , BAND MACHINE OPERATOR # [id number]. PTCM DISCUSSED AVAILABILITY OF REHAB SERVICES, PROVIDERS AND LOCATIONS. CM DISCUSSED INPATIENT REHAB PRESCREEN AND THERAPY NEEDS. PT WOULD LIKE TO STAY AT [facility] FOR REHAB. PT NOR SPOUSE HAD FURTHER QUESTIONS FOR CM AT THIS TIME. IMPORTANT MESSAGE FROM MEDICARE PROVIDED AND EXPLAINED. CM CALLED AND SPOKE TO MATT OF INPATIENT REHAB, THEY PLAN TO ACCEPT PT WHEN MEDICALLY STABLE. WHEN READY FOR DISCHARGE, NOTIFY [facility] INPATIENT REHAB. Chief Procurement Officer: Javi Ayala DCP- Discharge Planning Updated by [id number]: Javi Ayala on 03/13/19 4:[address] Patient Name: DARRELL GALDAMEZ Admission Status: ER Accout number: [id number] Admission Date: 03-12-2019 : 1950 Admission Diagnosis: Attending: TREVA MCCARTNEY Current LOS: 1 Anticipated DC Date: Planned Disposition: Home Primary Insurance: MEDICARE A & B Discharge Planning Comments: CM MET WITH PT AND SPOUSE IN ROOM TO DISCUSS DISCHARGE PLANNING AND NEEDS. CM CALLED [employer], , WAS ASSISTED BY RONDA, [employer] CONSOLE OPERATOR TRACK # [id number]. DARRELL GALDAMEZ provided verbal consent to discuss current and ongoing needs with/in the presence of: SPOUSE, RONDA. PT REPORTS LIVING AT HOME INDEPENDENTLY WITH HIS . PT HAS NEBULIZER, HE NO LONGER HAS OXYGEN FROM [facility], THEY PICKED IT UP. PT HAS NO OUTSIDE SERVICES ASSISTING IN THE HOME. PT REPORTS SOMEONE FROM THE MEDICAL CLINIC CHECKS ON HIM AT HOME. CM DISCUSSED AVAILABILITY OF HOME HEALTH, REHAB SERVICES AND MEDICAL EQUIPMENT. PT DENIES DISCHARGE NEEDS, PT INITIALLY ASKED FOR HOSPITAL TO GIVE HIM AND HIS A [place] RIDE HOME IF THEY ARE LEAVING TODAY, CM EXPLAINED THAT THEY ARE NOT DISCHARGING TODAY, WE ARE ONLY TALKING ABOUT THE DISCHARGE PLAN. PT HTEN REPORTS FAMILY WILL PICK HE AND UP FOR DISCHARGE HOME. IMPORTANT MESSAGE FROM MEDICARE PROVIDED AND EXPLAINED, PROVIDED IN MALIAN PT REPORTS ABILITY TO READ MALIAN. PT DENIES DISCHARGE NEEDS, FAMILY TO TRANSPORT HOME AT DISCHARGE. CM TO FOLLOW AND ASSIST IF NEEDED. Chief Procurement Officer: Javi Ayala DCPIA - Discharge Planning Initial Assessment Updated by [id number]: Javi Ayala on 03/13/19 4:59 pm * Is the patient Alert and Oriented? Yes * How many steps to enter\exit or inside your home? * PCP [facility] IN [facility] [phone] * Pharmacy [facility] IN [facility] [phone] * Preadmission Environment Home with Family * ADLs Independent * Equipment Nebulizer * Other Equipment [facility] IN [facility] - MEDICAL EQUIPMENT PROVIDER PREFERENCE * List name and contact numbers for known caregivers / representatives who currently or will assist patient after discharge: RONDA FAM, SPOUSE, [phone] TAPAN RAO, DTR, * Verbal permission to speak to the caregivers and representatives has been obtained from the patient. Yes * Community resources currently utilized None * Please name any agencies selected above. NONE * Additional services required to return to the preadmission environment? No * Can the patient safely return to the preadmission environment? Yes * Has this patient been hospitalized within the prior 30 days at any hospital? No Coverage Notice Reviewer: CASEY Ayala Notice Issued Date-Time: 03/24/2019 12:03 Notice Type: IM Discharge Notice Notice Delivered To: Family Member Relationship to Patient: Spouse Boom Master Name: RONDA Delivery Method: HAND - Hand Delivered Lanny Days: Prior Verbal Notification: Recipient Understood Notice: Yes Recipient Signature: Yes Med Rec Note Co-signed by Attending: Coverage Notice Comment: Reviewer: CASEY Ayala Notice Issued Date-Time: 03/22/2019 16:45 Notice Type: IM Discharge Notice Notice Delivered To: Family Member Relationship to Patient: Spouse Boom Master Name: RONDA Delivery Method: HAND - Hand Delivered Lanny Days: Prior Verbal Notification: Recipient Understood Notice: Yes Recipient Signature: Yes Med Rec Note Co-signed by Attending: Coverage Notice Comment: Reviewer: CASEY Ayala Notice Issued Date-Time: 03/13/2019 16:30 Notice Type: IM Discharge Notice Notice Delivered To: Family Member Relationship to Patient: Spouse Boom Master Name: RONDA FAM Delivery Method: HAND - Hand Delivered Lanny Days: Prior Verbal Notification: Recipient Understood Notice: Yes Recipient Signature: Yes Med Rec Note Co-signed by Attending: Coverage Notice Comment: Reviewer: CASEY Ayala Notice Issued Date-Time: 03/24/2019 12:03 Notice Type: Patient Choice Letter Notice Delivered To: Family Member Relationship to Patient: Spouse Boom Master Name: RONDA Delivery Method: HAND - Hand Delivered Lanny Days: Prior Verbal Notification: Recipient Understood Notice: Yes Recipient Signature: Yes Med Rec Note Co-signed by Attending: Coverage Notice Comment: ANY SNF IN [facility] OR CLOSE TO [facility] Last DP export: 03/28/19 4:03 p Patient Name: DARRELL DE LA ROSA Page [id number] at 1713 All edits/amendments must be made on the electronic document DICTATION DATE: 03/28/191711 HOLISTIC PULSER: MARCELL 03/28/191711 RPT#: [id number] DC DATE: STATUS: ADM IN [facility] [address] [place] [address] END OF REPORT
--- NOTE | 2019-03-28 17:13 | NUR ---
NO CHANGE IN ASSESSMENT. CL IN REACH. HAS NEW INTERPETER PHONE IN ROOM.
[2019-03-28 18:36] VITALS: BP 133/64
--- NOTE | 2019-03-28 19:40 | NUR ---
EVENING ROUNDS COMPLETED. VSS, AAOX2, WITH EPISODES OF CONFUSION, PT RECIEVING BREATHING TREATMENT AT THIS TIME. ADELA DAUGHTER CALLED. PT DENIES ANY FURTHER NEEDS AT THIS TIME. WILL CPOC. CL WITHIN REACH, BED IN LOW, SR UP X2.
[2019-03-28 20:00] VITALS: BP 140/59
[2019-03-29] VITALS: BP 103/58
[2019-03-29 04:00] VITALS: BP 114/60
--- NOTE | 2019-03-29 06:39 | NUR ---
PT HAD 1 INCONTINENT BOWEL. HELP CLEAN PT AND PROVIDED FRESH LINEN AND GOWN. PT VOICED THANKS. WILL CPOC. CL WITHIN REACH.
--- NOTE | 2019-03-29 07:35 | NUR ---
PT RESTING IN BED, ALERT AND ORIENTED. SPEAKS GREEK, CAN UNDERSTAND SOME AZERI. ON CONTACT ISOLATION FOR ECOLI IN URINE. BUSH CATHETER PRESENT, URINE CONCENTRATED. ABDOMEN DISTENDED AND FIRM. FALL PRECAUTIONS IN PLACE. IV TO RIGHT AC, SL. SITE PATENT WITHOUT REDNESS OR SWELLING. PT DENIES ANY NEEDS. CALL LIGHT IN REACH. WILL CONTINUE TO MONITOR.
[2019-03-29 08:41] VITALS: BP 113/69
--- NOTE | 2019-03-29 10:37 | NUR ---
I have reviewed this patient and I concur with the Shift Assessment completed by the Licensed Practical Nurse today this shift.
[2019-03-29 11:34] LABS: BASOPHILS 0 % (0-2); EOSINOPHILS 0.1 % (0-7); HEMATOCRIT 29.1 % (42.0-54.0); HEMOGLOBIN 10.3 g/dL (13.5-17.5); IMMATURE GRANULOCYTES 1.8 % (0-5); LYMPHOCYTES 7.4 % (15-50); MCH 36.1 pg (26.0-34.0); MCHC 35.4 g/dL (31.0-37.0); MCV 102.1 fL (80.0-100.0); MEAN PLATELET VOLUME 12.6 fL (7.4-10.4); MONOCYTES 6.7 % (2-11); PLATELET COUNT 62 10x3/uL (130-400); RBC 2.85 10x6/uL (4.20-6.10); RDW 17.7 % (11.5-14.5); WBC 7.6 10x3/uL (4.8-10.8)
[2019-03-29 11:52] LABS: ALBUMIN 1.8 g/dL (3.4-5.0); ALKALINE PHOSPHATASE 176 U/L (46-116); ALT (SGPT) 176 U/L (10-68); BILIRUBIN - TOTAL 4.01 mg/dL (0.2-1.3); CALC OSMOLALITY 274 mosm/kg (275-300); CALCIUM 8.2 mg/dL (8.5-10.1); CARBON DIOXIDE 28.6 mmol/L (21.0-32.0); CHLORIDE - SERUM 102 mmol/L (98-107); GLUCOSE 158 mg/dL (74-106); MAGNESIUM - SERUM 1.7 mg/dL (1.8-2.4); POTASSIUM - SERUM 4.1 mmol/L (3.5-5.1); PROTEIN - SERUM 5.7 g/dL (6.4-8.2); SODIUM 135 mmol/L (136-145); UREA NITROGEN 17 mg/dL (7-18); eGFR NON AFRICAN AMERICAN 79 mL/min (90-120)
[2019-03-29 12:39] VITALS: BP 114/56
[2019-03-29 13:59] LABS: PLATELET ESTIMATE DECREASED
[2019-03-29 14:01] LABS: ROULEAUX OCC; TARGET CELLS OCC
--- NOTE | 2019-03-29 14:08 | NUR ---
OT NOTE: AMB WITH LEARNING SPECIALIST TO BATHROOM; TOILETING WITH SET UP TODAY. PT WAS ABLE TO PERFORM TOILET HYGIENE WITHOUT ASSIST TODAY. CONT WITH DIARRHEA. WASHED HANDS AT SINK WITH MIN ASSIST FOR BALANCE. LUKE CHEUNG, OTR/L
--- NOTE | 2019-03-29 14:18 | NUR ---
Nutrition Follow-up: Diet: Regular, Mechanical Soft with Thin Liquids PO intake: 70% avg (03/28) Wt: 196# Last BM: 03/29 (diarrhea) Labs reviewed Meds reviewed May consider low Na mechanical soft diet. [place] food preferences within diet restrictions. RD following.
--- NOTE | 2019-03-29 14:32 | NUR ---
OT NOTE: PT COMPLETED FACE WASH WITH SET UP. PT COMPLETED TOILETING HYGIENE WITH MOD A . PT COMPLETED HAND WASHING WITH CGA WHILE STANDING AT SINK. PT COMPLETED ADL MOB WITH CGA. PT DID WELL THIS AM. THANK YOU, STACEY HOLLIS
--- NOTE | 2019-03-29 16:57 | MORECARE ---
CASE MANAGEMENT DISCHARGE SUMMARY PATIENT: DARRELL DE LA ROSA UNIT: [id number] ADM DATE: 03/12/19 AGE: 68 : 50 SEX: M ROOM/BED: D.2106 AUTHOR: EVER,DOC PHYSICIAN: REFERRING PHYSICIAN: TREVA MCCARTNEY MD DATE OF SERVICE: 03/29/19 Discharge Plan Patient Name: DARRELL DE LA ROSA Facility: [facility]:[place] : 1950 Planned Disposition: Custodial Facility Anticipated Discharge Date: 03/27/19 Discharge Date: Expected LOS: 15 Initial Reviewer: [id number] Initial Review Date: 03/12/2019 Generated: 03/29/19 5:57 pm Comments DCP- Discharge Planning Updated by [id number]: aJvi Ayala on 03/29/19 3:[address] Patient Name: DARRELL GALDAMEZ Encounter No: [id number] : 1950 Primary Insurance: MEDICARE A & B Anticipated DC Date: 03-27-2019 Planned Disposition: Custodial Facility External Planned Provider: [facility] DCP follow-up note: CM ATTEMPTED TO CALL PT'S SPOUSE, RONDA, , THERE WAS NOT ANSWER AND NO VOICE MAIL SET UP. CM CALLED PT'S DAUGHTER, TAPAN, , LEFT MESSAGE ASKING FOR RETURN CALL SOON POSSIBLE REGADING DISCHARGE PLANNING FOR PATIENT. CM WAITING ADMISSION DETERMINATION FROM [facility] IN [place], [place], FOR REHAB. CM TO DISCUSS WITH PT'S SPOUSE THE POSSIBILITY OF STAYING AT [facility] FOR REHAB. Javi Ayala CASE MANAGEMENT DCP- Discharge Planning Updated by [id number]: Javi Ayala on 03/28/19 4:[address] Patient Name: DARRELL GALDAMEZ Encounter No: [id number] : 1950 Primary Insurance: MEDICARE A & B Anticipated DC Date: 03-27-2019 Planned Disposition: Custodial Facility External Planned Provider: TO BE DETERMINED DCP follow-up note: CM SPOKE TO LIZA [facility] WHO ADVISED THEY WILL NOT ACCEPT PT FOR REHAB. CM FAXED REFERRAL TO [facility] IN [place] AT [phone]. CM TO DISCUSS GOING TO INPATIENT REHAB AT [facility] AGAIN WHEN PT'S SPOUSE ARRIVES. SHE HAS NOT BEEN IN ROOM TODAY, PT IS CONFUSED. CM WAITING ADMISSION DETERMINATION FROM [facility] IN [place], [place], FOR REHAB. CM TO DISCUSS WITH PT'S SPOUSE STAYING AT [facility] FOR REHAB. JUSTIN Mcghee MANAGEMENT DCP- Discharge Planning Updated by [id number]: Javi Ayala on 03/27/19 4:[address] Patient Name: DARRELL GALDAMEZ Encounter No: [id number] : 1950 Primary Insurance: MEDICARE A & B Anticipated DC Date: 03-27-2019 Planned Disposition: Custodial Facility External Planned Provider: [facility], MEDICARE REHAB BED DCP follow-up note: CM RECEIVED CALL FROM LIZA [facility],, , WHO ADVISED THAT THEY WILL SCREEN FOR REHAB ADMISSION AND TO SEND REFERRAL VIA FAX. CM FAXED REFERRAL TO [facility], . CM WAITING ADMISSION DETERMINATION FROM [facility]. JUSTIN Mcghee DCP- Discharge Planning Updated by [id number]: Javi Ayala on 03/27/19 2:[address] Patient Name: DARRELL GALDAMEZ Admission Status: ER Accout number: [id number] Admission Date: 03-12-2019 : 1950 Admission Diagnosis:SEPSIS, UNSPECIFIED ORGANISM Attending: TREVA MCCARTNEY Current LOS: 15 Anticipated DC Date: 03-27-2019 Planned Disposition: Custodial Facility Primary Insurance: MEDICARE A & B PLANNED EXTERNAL PROVIDER: [email or web address] Discharge Planning Comments: CM RECEIVED CALL FROM [facility] AT ABOUT 1420 HOURS, THEY CANNOT MEET PT'S NEEDS THEY DO NOT HAVE 24 HOUR GHA[employer]IAN SPEAKING STAFF AT THE FACILITY. CM CALLED [facility], , SPOKE TO SHANAE WHO TOOK REFERRAL INFORMATION AND ASKED THAT CM NOT FAX REFERRAL YET, SHE WILL CHECK WITH PC TECH AND NOTIFY CM IF THEY WILL REVIEW REFERRAL AND NOTIFY CM SHORTLY. CM WAITING RETURN CALL FROM [facility] REGARDING REHAB PLACEMENT REFERRAL. Information Technology Internship: Javi Ayala DCP- Discharge Planning Updated by [id number]: Javi Ayala on 03/27/19 8:[address] Patient Name: DARRELL GALDAMEZ Encounter No: [id number] : 1950 Primary Insurance: MEDICARE A & B Anticipated DC Date: 03-27-2019 Planned Disposition: Custodial Facility External Planned Provider: [facility], MEDICARE REHAB BED DCP follow-up note: CM FAXED REHAB REFERRAL UPDATE TO [facility] AT [phone]. CM EMAILED REFERRAL AND UPDATE TO [email or web address]. CM WAITING ADMISSION DETERMINATION FROM [facility] IN [facility]. Javi Ayala, CASE MANAGEMENT DCP- Discharge Planning Updated by [id number]: Javi Ayala on 03/24/19 1:[address] Patient Name: DARRELL GALDAMEZ Encounter No: [id number] : 1950 Primary Insurance: MEDICARE A & B Anticipated DC Date: 03-27-2019 Planned Disposition: Custodial Facility External Planned Provider: [facility], MEDICARE REHAB BED DCP follow-up note: CM SPOKE TO NURSE DIRECTOR OF FIELD SALES JULIANNE WHO HAS SPOKEN TO THE PT IN ROOM 2106 HAS INFORMED JULIANNE THAT PT'S SPOUSE HAS SAID THEY DO NOT WANT TO STAY HERE FOR REHAB AND WANT TO GO TO REHAB IN [facility]. CM MET WITH PT AND SPOUSE IN ROOM, USED [employer], , CATALYST UNIT OPERATOR [id number]; CM DISCUSSED REHAB HERE HAS ACCEPTED TODAY. PT AND SPOUSE WANT REHAB CLOSER TO HOME IN [facility] AND IF NOT IN [facility], CLOSE TO [facility] POSSIBLE. CHOICE LETTER SIGNED. IMPORTANT MESSAGE FROM MEDICARE PROVIDED AND EXPLAINED. CM NOTIFIED DR. MCCARTNEY AND ANTHONY OF INPATIENT REHAB OF PT'S CHANGE IN PLAN. CM CALLED [facility], , SPOKE TO MILLIE WHO TOOK REFERRAL INFORMATION AND REPORTS THEY HAVE A [facility] SPEAKING STAFF MEMBER THAT CAN ASSIST WEDNESDAY THRU WEDNESDAY AND WILL CONSIDER PT FOR REHAB ADMISSION. THEY WILL NOT BE ABLE TO LOOK AT REFERRAL UNTIL WEDNESDAY THEIR DIRECTOR IS OUT UNTIL THEN. CM FAXED REHAB REFERRAL TO [facility] AT [phone]. CM WAITING ADMISSION [facility]MINATION [facility]. THEY WILL NOT HAVE ADMISSION DETERMINATION UNTIL WEDNESDAY AT THE EARLIEST, 03-27-19. Javi Ayala, CASE MANAGEMENT DCP- Discharge Planning Updated by [id number]: Javi Ayala on 03/22/19 3:[address] Patient Name: DARRELL GALDAMEZ Admission Status: ER Accout number: [id number] Admission Date: 03-12-2019 : 1950 Admission Diagnosis:SEPSIS, UNSPECIFIED ORGANISM Attending: TREVA MCCARTNEY Current LOS: 10 Anticipated DC Date: 03-23-2019 Planned Disposition: Inpatient Rehab Primary Insurance: MEDICARE A & B PLANNED EXTERNAL PROVIDER; [facility] Discharge Planning Comments: CM MET WITH PT AND SPOUSE IN ROOM TO DISCUSS DISCHARGE PLANNING AND NEEDS. CM UTILIZED [employer] CATALYST UNIT OPERATOR SERVICES, , HEAD LIBRARIAN # [id number]. PTCM DISCUSSED AVAILABILITY OF REHAB SERVICES, PROVIDERS AND LOCATIONS. CM DISCUSSED INPATIENT REHAB PRESCREEN AND THERAPY NEEDS. PT WOULD LIKE TO STAY AT [facility] FOR REHAB. PT NOR SPOUSE HAD FURTHER QUESTIONS FOR CM AT THIS TIME. IMPORTANT MESSAGE FROM MEDICARE PROVIDED AND EXPLAINED. CM CALLED AND SPOKE TO MATT OF INPATIENT REHAB, THEY PLAN TO ACCEPT PT WHEN MEDICALLY STABLE. WHEN READY FOR DISCHARGE, NOTIFY [facility]. Information Technology Internship: Javi Ayala DCP- Discharge Planning Updated by [id number]: Javi Ayala on 03/13/19 4:[address] Patient Name: DARRELL GALDAMEZ Admission Status: ER Accout number: [id number] Admission Date: 03-12-2019 : 1950 Admission Diagnosis: Attending: TREVA MCCARTNEY Current LOS: 1 Anticipated DC Date: Planned Disposition: Home Primary Insurance: MEDICARE A & B Discharge Planning Comments: CM MET WITH PT AND SPOUSE IN ROOM TO DISCUSS DISCHARGE PLANNING AND NEEDS. CM CALLED [employer], , WAS ASSISTED BY RONDA, CATALYST UNIT OPERATOR # [id number]. DARRELL GALDAMEZ provided verbal consent to discuss current and ongoing needs with/in the presence of: SPOUSE, RONDA. PT REPORTS LIVING AT HOME INDEPENDENTLY WITH HIS . PT HAS NEBULIZER, HE NO LONGER HAS OXYGEN FROM [facility], THEY PICKED IT UP. PT HAS NO OUTSIDE SERVICES ASSISTING IN THE HOME. PT REPORTS SOMEONE FROM THE MEDICAL CLINIC CHECKS ON HIM AT HOME. CM DISCUSSED AVAILABILITY OF HOME HEALTH, REHAB SERVICES AND MEDICAL EQUIPMENT. PT DENIES DISCHARGE NEEDS, PT INITIALLY ASKED FOR HOSPITAL TO GIVE HIM AND HIS A [place] RIDE HOME IF THEY ARE LEAVING TODAY, CM EXPLAINED THAT THEY ARE NOT DISCHARGING TODAY, WE ARE ONLY TALKING ABOUT THE DISCHARGE PLAN. PT HTEN REPORTS FAMILY WILL PICK HE AND UP FOR DISCHARGE HOME. IMPORTANT MESSAGE FROM MEDICARE PROVIDED AND EXPLAINED, PROVIDED IN [facility] PT REPORTS ABILITY TO READ GHANAIAN. PT DENIES DISCHARGE NEEDS, FAMILY TO TRANSPORT HOME AT DISCHARGE. CM TO FOLLOW AND ASSIST IF NEEDED. Information Technology Internship: Javi Ayala [facility] - [facility]charge Planning Initial Assessment Updated by [id number]: Javi Ayala on 03/13/19 4:59 pm * Is the patient Alert and Oriented? Yes * How many steps to enter\exit or inside your home? * PCP [facility] IN [facility] [phone] * Pharmacy [facility] [phone] * Preadmission Environment Home with Family * ADLs Independent * Equipment Nebulizer * Other Equipment [facility] IN [facility] - MEDICAL EQUIPMENT PROVIDER PREFERENCE * List name and contact numbers for known caregivers / representatives who currently or will assist patient after discharge: RONDA FAM, SPOUSE, [phone] TAPAN WEBSTERLemuel DTR, * Verbal permission to speak to the caregivers and representatives has been obtained from the patient. Yes * Community resources currently utilized None * Please name any agencies selected above. NONE * Additional services required to return to the preadmission environment? No * Can the patient safely return to the preadmission environment? Yes * Has this patient been hospitalized within the prior 30 days at any hospital? No Coverage Notice Reviewer: [id number] - Javi Ayala Notice Issued Date-Time: 03/13/2019 16:30 Notice Type: IM Discharge Notice Notice Delivered To: Family Member Relationship to Patient: Spouse Ethical Hacker Name: RONDA FAM Delivery Method: HAND - Hand Delivered Lanny Days: Prior Verbal Notification: Recipient Understood Notice: Yes Recipient Signature: Yes Med Rec Note Co-signed by Attending: Coverage Notice Comment: Reviewer: CASEY Ayala Notice Issued Date-Time: 03/22/2019 16:45 Notice Type: IM Discharge Notice Notice Delivered To: Family Member Relationship to Patient: Spouse Ethical Hacker Name: RONDA Delivery Method: HAND - Hand Delivered Lanny Days: Prior Verbal Notification: Recipient Understood Notice: Yes Recipient Signature: Yes Med Rec Note Co-signed by Attending: Coverage Notice Comment: Reviewer: CASEY Ayala Notice Issued Date-Time: 03/24/2019 12:03 Notice Type: Patient Choice Letter Notice Delivered To: Family Member Relationship to Patient: Spouse Ethical Hacker Name: RONDA Delivery Method: HAND - Hand Delivered Lanny Days: Prior Verbal Notification: Recipient Understood Notice: Yes Recipient Signature: Yes Med Rec Note Co-signed by Attending: Coverage Notice Comment: ANY SNF IN [facility] OR CLOSE TO [facility] Reviewer: CASEY Ayala Notice Issued Date-Time: 03/24/2019 12:03 Notice Type: IM Discharge Notice Notice Delivered To: Family Member Relationship to Patient: Spouse Ethical Hacker Name: RONDA Delivery Method: HAND - Hand Delivered Lanny Days: Prior Verbal Notification: Recipient Understood Notice: Yes Recipient Signature: Yes Med Rec Note Co-signed by Attending: Coverage Notice Comment: Last DP export: 03/28/19 4:13 p Patient Name: MAIRA GALDAMEZDARRELL Page [id number] at 1657 All edits/amendments must be made on the electronic document DICTATION DATE: 03/29/191656 BARK SPUDDER: MARCELL 03/29/191656 RPT#: [id number] DC DATE: STATUS: ADM IN [facility] [address] [place] [address] END OF REPORT
--- NOTE | 2019-03-29 18:18 | NUR ---
PT RESTING IN BED, EYES CLOSED. AROUSES TO VOICE. NO C/O PAIN. NO S/S OF ACUTE DISTRESS NOTED. CALL LIGHT IN REACH. PT DENIES ANY NEEDS AT THIS TIME. WILL CONTINUE TO MONITOR.
--- NOTE | 2019-03-29 19:45 | NUR ---
RECIEVED BEDSIDE REPORT. VSS, AAOX2, NO S/S OF DISTRESS. LANDSCAPE CREW MEMBER PHONE @ BEDSIDE. ABD APPEARS DISTENDED AND FIRM. PT DENIES PAIN AT THIS TIME. BUSH INTACT. URINE APPEARS CONC. BILAT LOWER EXTREMETIES APPEARS EDEMATOUS. PT DENIES ANY FURTHER NEEDS AT THIS TIME. WILL CTM. CL WITHIN REACH, BED IN LOW, SR UP X2, STILL ON CONTACT ISOLATION.
[2019-03-29 20:52] VITALS: BP 132/69
--- NOTE | 2019-03-30 | NUR ---
ASSIST PT TO THE BATHROOM. PT HAD A BM OF WELL FORMED STOOL. ASSIST PT BACK IN BED. PT VOICED THANKS. WILL CTM. CL WITHIN REACH.
[2019-03-30 00:12] VITALS: BP 133/61
[2019-03-30 04:43] VITALS: BP 111/53
[2019-03-30 05:30] LABS: BASOPHILS 0.1 % (0-2); EOSINOPHILS 0.1 % (0-7); HEMATOCRIT 29.9 % (42.0-54.0); HEMOGLOBIN 10.7 g/dL (13.5-17.5); IMMATURE GRANULOCYTES 3.4 % (0-5); MCH 36.1 pg (26.0-34.0); MCHC 35.8 g/dL (31.0-37.0); MEAN PLATELET VOLUME 13.6 fL (7.4-10.4); NEUTROPHILS 84.4 % (40-80); RBC 2.96 10x6/uL (4.20-6.10); RDW 17.8 % (11.5-14.5); WBC 9.1 10x3/uL (4.8-10.8)
[2019-03-30 05:47] LABS: INR 2.32 (0.85-1.17); PLATELET COUNT 77 10x3/uL (130-400); PROTIME 24.7 SECONDS (11.6-15.0)
[2019-03-30 06:02] LABS: ALBUMIN 1.9 g/dL (3.4-5.0); ALKALINE PHOSPHATASE 212 U/L (46-116); BILIRUBIN - TOTAL 3.87 mg/dL (0.2-1.3); CALC OSMOLALITY 275 mosm/kg (275-300); CALCIUM 8.4 mg/dL (8.5-10.1); CARBON DIOXIDE 31.5 mmol/L (21.0-32.0); CHLORIDE - SERUM 102 mmol/L (98-107); GLUCOSE 133 mg/dL (74-106); POTASSIUM - SERUM 4.3 mmol/L (3.5-5.1); PROTEIN - SERUM 5.9 g/dL (6.4-8.2); SODIUM 136 mmol/L (136-145); UREA NITROGEN 18 mg/dL (7-18); eGFR NON AFRICAN AMERICAN 79 mL/min (90-120)
[2019-03-30 06:04] LABS: ALT (SGPT) 222 U/L (10-68)
[2019-03-30 08:26] LABS: PLATELET ESTIMATE DECREASED
--- NOTE | 2019-03-30 08:38 | NUR ---
PATIENT IS SITTING UP IN BED . HE IS EATTING BREAKFAST. HE DENIES ANY NEEDS AT THIS TIME.
[2019-03-30 08:55] VITALS: BP 131/81
--- NOTE | 2019-03-30 09:15 | MORECARE ---
CASE MANAGEMENT DISCHARGE SUMMARY PATIENT: DARRELL DE LA ROSA UNIT: [id number] ADM DATE: 03/12/19 AGE: 68 : 50 SEX: M ROOM/BED: D.2106 AUTHOR: EVERDOC PHYSICIAN: REFERRING PHYSICIAN: TREVA MCCARTNEY MD DATE OF SERVICE: 03/30/19 Discharge Plan Patient Name: DARRELL DE LA ROSA Facility: [facility]:[place] : 1950 Planned Disposition: Custodial Facility Anticipated Discharge Date: 03/27/19 Discharge Date: Expected LOS: 15 Initial Reviewer: [id number] Initial Review Date: 03/12/2019 Generated: 03/30/19 10:15 am Comments DCP- Discharge Planning Updated by [id number]: Javi Ayala on 03/30/19 8:[address] Patient Name: DARRELL GALDAMEZ Encounter No: [id number] : 1950 Primary Insurance: MEDICARE A & B Anticipated DC Date: 03-27-2019 Planned Disposition: Custodial Facility External Planned Provider: [facility], MEDICARE REHAB BED DCP follow-up note: CM CALLED [facility], , LEFT MESSAGE FOR ENVIRONMENTAL TEST TECHNICIAN TO DISCUSS REFERRAL. CM FAXED UDPATE TO [facility], . CM WAITING RETURN CALL FROM [facility]. CM WAITING ADMISSION DETERMINATION FROM [facility] IN [place], [place], FOR REHAB. CM WAITING RETURN CALL FROM PT'S JOHN TO DISCUSS THE POSSIBILITY OF STAYING AT [facility] FOR REHAB. Javi Ayala, CASE MANAGEMENT DCP- Discharge Planning Updated by [id number]: Javi Ayala on 03/29/19 3:[address] Patient Name: DARRELL GALDAMEZ Encounter No: [id number] : 1950 Primary Insurance: MEDICARE A & B Anticipated DC Date: 03-27-2019 Planned Disposition: Custodial Facility External Planned Provider: [facility], MEDICARE REHAB BED DCP follow-up note: CM ATTEMPTED TO CALL PT'S SPOUSE, RONDA, , THERE WAS NOT ANSWER AND NO VOICE MAIL SET UP. CM CALLED PT'S DAUGHTER, TAPAN, , LEFT MESSAGE ASKING FOR RETURN CALL SOON POSSIBLE REGADING DISCHARGE PLANNING FOR PATIENT. CM WAITING ADMISSION DETERMINATION FROM [facility] IN [place], [place], FOR REHAB. CM TO DISCUSS WITH PT'S SPOUSE THE POSSIBILITY OF STAYING AT [facility] FOR REHAB. JUSTIN Mcghee DCP- Discharge Planning Updated by [id number]: Javi Ayala on 03/28/19 4:[address] Patient Name: DARRELL GALDAMEZ Encounter No: [id number] : 1950 Primary Insurance: MEDICARE A & B Anticipated DC Date: 03-27-2019 Planned Disposition: Custodial Facility External Planned Provider: TO BE DETERMINED DCP follow-up note: CM SPOKE TO [facility] WHO ADVISED THEY WILL NOT ACCEPT PT FOR REHAB. CM FAXED REFERRAL TO [facility] IN [place] AT [phone]. CM TO DISCUSS GOING TO INPATIENT REHAB AT [facility] AGAIN WHEN PT'S SPOUSE ARRIVES. SHE HAS NOT BEEN IN ROOM TODAY, PT IS CONFUSED. CM WAITING ADMISSION DETERMINATION FROM [facility] IN [place], [place], FOR REHAB. CM TO DISCUSS WITH PT'S SPOUSE STAYING AT [facility] FOR REHAB. Javi Ayala CASE JCAOB DCP- Discharge Planning Updated by [id number]: Javi Ayala on 03/27/19 4:[address] Patient Name: DARRELL GALDAMEZ Encounter No: [id number] : 1950 Primary Insurance: MEDICARE A & B Anticipated DC Date: 03-27-2019 Planned Disposition: Custodial Facility External Planned Provider: [facility], MEDICARE REHAB BED DCP follow-up note: CM RECEIVED CALL FROM [facility],, , WHO ADVISED THAT THEY WILL SCREEN FOR REHAB ADMISSION AND TO SEND REFERRAL VIA FAX. CM FAXED REFERRAL TO [facility], . CM WAITING ADMISSION DETERMINATION FROM [facility]. JUSTIN Mcghee MANAGEMENT DCP- Discharge Planning Updated by [id number]: Javi Ayala on 03/27/19 2:[address] Patient Name: DARRELL GALDAMEZ Admission Status: ER Accout number: [id number] Admission Date: 03-12-2019 : 1950 Admission Diagnosis:SEPSIS, UNSPECIFIED ORGANISM Attending: TREVA MCCARTNEY Current LOS: 15 Anticipated DC Date: 03-27-2019 Planned Disposition: Custodial Facility Primary Insurance: MEDICARE A & B PLANNED EXTERNAL PROVIDER: [facility] Discharge Planning Comments: CM RECEIVED CALL FROM MILLIE OF [facility] AT ABOUT 1420 HOURS, THEY CANNOT MEET PT'S NEEDS THEY DO NOT HAVE 24 HOUR BRITISH SPEAKING STAFF AT THE FACILITY. CM [facility]ED [facility], , SPOKE TO SHANAE WHO TOOK REFERRAL INFORMATION AND ASKED THAT CM NOT FAX REFERRAL YET, SHE WILL CHECK WITH ENVIRONMENTAL TEST TECHNICIAN AND NOTIFY CM IF THEY WILL REVIEW REFERRAL AND NOTIFY CM SHORTLY. CM WAITING RETURN CALL FROM [facility] REGARDING REHAB PLACEMENT REFERRAL. Reducer: Javi Ayala DCP- Discharge Planning Updated by [id number]: Javi Ayala on 03/27/19 8:[address] Patient Name: DARRELL GALDAMEZ Encounter No: [id number] : 1950 Primary Insurance: MEDICARE A & B Anticipated DC Date: 03-27-2019 Planned Disposition: Custodial Facility External Planned Provider: [facility], MEDICARE REHAB BED DCP follow-up note: CM FAXED REHAB REFERRAL UPDATE TO [facility] AT [phone]. CM EMAILED REFERRAL AND UPDATE TO [email or web address]. CM WAITING ADMISSION DETERMINATION FROM [facility] IN [facility]. Javi Ayala, CASE MANAGEMENT DCP- Discharge Planning Updated by [id number]: Javi Ayala on 03/24/19 1:[address] Patient Name: DARRELL GALDAMEZ Encounter No: [id number] : 1950 Primary Insurance: MEDICARE A & B Anticipated DC Date: 03-27-2019 Planned Disposition: Custodial Facility External Planned Provider: [facility], MEDICARE REHAB BED DCP follow-up note: CM SPOKE TO NURSE FIELD ARTILLERY CANNONEER JULIANNE WHO HAS SPOKEN TO THE PT IN ROOM 2107 HAS INFORMED JULIANNE THAT PT'S SPOUSE HAS SAID THEY DO NOT WANT TO STAY HERE FOR REHAB AND WANT TO GO TO REHAB IN [facility]. CM MET WITH PT AND SPOUSE IN ROOM, USED LANGUAGE [employer], , CERTIFIED PROFESSIONAL MIDWIFE [phone]; CM DISCUSSED REHAB HERE HAS ACCEPTED TODAY. PT AND SPOUSE WANT REHAB CLOSER TO HOME IN [facility] AND IF NOT IN [facility], CLOSE TO [facility] POSSIBLE. CHOICE LETTER SIGNED. IMPORTANT MESSAGE FROM MEDICARE PROVIDED AND EXPLAINED. CM NOTIFIED DR. MCCARTNEY AND ANTHONY OF INPATIENT REHAB OF PT'S CHANGE IN PLAN. CM CALLED [facility], , SPOKE TO MILLIE WHO TOOK REFERRAL INFORMATION AND REPORTS THEY HAVE A BRITISH SPEAKING STAFF MEMBER THAT CAN ASSIST WEDNESDAY THRU WEDNESDAY AND WILL CONSIDER PT FOR REHAB ADMISSION. THEY WILL NOT BE ABLE TO LOOK AT REFERRAL UNTIL WEDNESDAY THEIR DIRECTOR IS OUT UNTIL THEN. CM FAXED REHAB REFERRAL TO [facility] AT [phone]. CM WAITING ADMISSION DETERMINATION FROM [facility] IN [facility]. THEY WILL NOT HAVE ADMISSION DETERMINATION UNTIL WEDNESDAY AT THE EARLIEST, 03-27-19. Javi Ayala, CASE MANAGEMENT DCP- Discharge Planning Updated by [id number]: Javi Ayala on 03/22/19 3:[address] Patient Name: DARRELL GALDAMEZ Admission Status: ER Accout number: [id number] Admission Date: 03-12-2019 : 1950 Admission Diagnosis:SEPSIS, UNSPECIFIED ORGANISM Attending: TREVA MCCARTNEY Current LOS: 10 Anticipated DC Date: 03-23-2019 Planned Disposition: Inpatient Rehab Primary Insurance: MEDICARE A & B PLANNED EXTERNAL PROVIDER; [facility] INPATIENT REHAB Discharge Planning Comments: CM MET WITH PT AND SPOUSE IN ROOM TO DISCUSS DISCHARGE PLANNING AND NEEDS. CM UTILIZED LANGUAGE LINE CERTIFIED PROFESSIONAL MIDWIFE [employer], , STAGECRAFT TEACHER # [id number]. PTCM DISCUSSED AVAILABILITY OF REHAB SERVICES, PROVIDERS AND LOCATIONS. CM DISCUSSED INPATIENT REHAB PRESCREEN AND THERAPY NEEDS. PT WOULD LIKE TO STAY AT [facility] FOR REHAB. PT NOR SPOUSE HAD FURTHER QUESTIONS FOR CM AT THIS TIME. IMPORTANT MESSAGE FROM MEDICARE PROVIDED AND EXPLAINED. CM CALLED AND SPOKE TO MATT OF INPATIENT REHAB, THEY PLAN TO ACCEPT PT WHEN MEDICALLY STABLE. WHEN READY FOR DISCHARGE, NOTIFY [facility] INPATIENT [facility]. Reducer: Javi Ayala DCP- Discharge Planning Updated by [id number]: Javi Ayala on 03/13/19 4:[address] Patient Name: DARRELL GALDAMEZ Admission Status: ER Accout number: [id number] Admission Date: 03-12-2019 : 1950 Admission Diagnosis: Attending: TREVA MCCARTNEY Current LOS: 1 Anticipated DC Date: Planned Disposition: Home Primary Insurance: MEDICARE A & B Discharge Planning Comments: CM MET WITH PT AND SPOUSE IN ROOM TO DISCUSS DISCHARGE PLANNING AND NEEDS. CM CALLED [employer] [facility], , WAS ASSISTED BY RONDA, CERTIFIED PROFESSIONAL MIDWIFE # [id number]. DARRELL GALDAMEZ provided verbal consent to discuss current and ongoing needs with/in the presence of: SPOUSE, RONDA. PT REPORTS LIVING AT HOME INDEPENDENTLY WITH HIS . PT HAS NEBULIZER, HE NO LONGER HAS OXYGEN FROM [facility], THEY PICKED IT UP. PT HAS NO OUTSIDE SERVICES ASSISTING IN THE HOME. PT REPORTS SOMEONE FROM THE MEDICAL CLINIC CHECKS ON HIM AT HOME. CM DISCUSSED AVAILABILITY OF HOME HEALTH, REHAB SERVICES AND MEDICAL EQUIPMENT. PT DENIES DISCHARGE NEEDS, PT INITIALLY ASKED FOR HOSPITAL TO GIVE HIM AND HIS A [place] HOME IF THEY ARE LEAVING TODAY, CM EXPLAINED THAT THEY ARE NOT DISCHARGING TODAY, WE ARE ONLY TALKING ABOUT THE DISCHARGE PLAN. PT HTEN REPORTS FAMILY WILL PICK HE AND UP FOR DISCHARGE HOME. IMPORTANT MESSAGE FROM MEDICARE PROVIDED AND EXPLAINED, PROVIDED IN BRITISH PT REPORTS ABILITY TO READ BRITISH. PT DENIES DISCHARGE NEEDS, FAMILY TO TRANSPORT HOME AT DISCHARGE. CM TO FOLLOW AND ASSIST IF NEEDED. Reducer: Javi Ayala DCPIA - Discharge Planning Initial Assessment Updated by [id number]: Javi Ayala on 03/13/19 4:59 pm * Is the patient Alert and Oriented? Yes * How many steps to enter\exit or inside your home? * PCP [facility] IN [facility] [phone] * Pharmacy [facility] IN [facility] [phone] * Preadmission Environment Home with Family * ADLs Independent * Equipment Nebulizer * Other Equipment [facility] IN [facility] - MEDICAL EQUIPMENT PROVIDER PREFERENCE * List name and contact numbers for known caregivers / representatives who currently or will assist patient after discharge: RONDA FAM, SPOUSE, [phone] TAPAN RAO, DTR, * Verbal permission to speak to the caregivers and representatives has been obtained from the patient. Yes * Community resources currently utilized None * Please name any agencies selected above. NONE * Additional services required to return to the preadmission environment? No * Can the patient safely return to the preadmission environment? Yes * Has this patient been hospitalized within the prior 30 days at any hospital? No Coverage Notice Reviewer: CASEY Ayala Notice Issued Date-Time: 03/13/2019 16:30 Notice Type: IM Discharge Notice Notice Delivered To: Family Member Relationship to Patient: Spouse Spout Tender Name: RONDA FAM Delivery Method: HAND - Hand Delivered Lanny Days: Prior Verbal Notification: Recipient Understood Notice: Yes Recipient Signature: Yes Med Rec Note Co-signed by Attending: Coverage Notice Comment: Reviewer: CASEY Ayala Notice Issued Date-Time: 03/22/2019 16:45 Notice Type: IM Discharge Notice Notice Delivered To: Family Member Relationship to Patient: Spouse Spout Tender Name: RONDA Delivery Method: HAND - Hand Delivered Lanny Days: Prior Verbal Notification: Recipient Understood Notice: Yes Recipient Signature: Yes Med Rec Note Co-signed by Attending: Coverage Notice Comment: Reviewer: CASEY Ayala Notice Issued Date-Time: 03/24/2019 12:03 Notice Type: Patient Choice Letter Notice Delivered To: Family Member Relationship to Patient: Spouse Spout Tender Name: RONDA Delivery Method: HAND - Hand Delivered Lanny Days: Prior Verbal Notification: Recipient Understood Notice: Yes Recipient Signature: Yes Med Rec Note Co-signed by Attending: Coverage Notice Comment: ANY SNF IN [facility] OR CLOSE TO [facility] Reviewer: CASEY Ayala Notice Issued Date-Time: 03/24/2019 12:03 Notice Type: IM Discharge Notice Notice Delivered To: Family Member Relationship to Patient: Spouse Spout Tender Name: RONDA Delivery Method: HAND - Hand Delivered Lanny Days: Prior Verbal Notification: Recipient Understood Notice: Yes Recipient Signature: Yes Med Rec Note Co-signed by Attending: Coverage Notice Comment: Last DP export: 03/29/19 3:57 p Patient Name: DARRELL DE LA ROSA Page [phone] at 0915 All edits/amendments must be made on the electronic document DICTATION DATE: 03/30/19914 METAL MILLING MACHINE OPERATOR: MARCELL 03/30/19914 RPT#: [id number] DC DATE: STATUS: ADM IN [facility] [address] [place] [address] END OF REPORT
--- NOTE | 2019-03-30 10:02 | MORECARE ---
CASE MANAGEMENT DISCHARGE SUMMARY PATIENT: DARRELL DE LA ROSA UNIT: [id number] ADM DATE: 03/12/19 AGE: 68 : 50 SEX: M ROOM/BED: D.2106 AUTHOR: EVERDOC PHYSICIAN: REFERRING PHYSICIAN: TREVA MCCARTNEY MD DATE OF SERVICE: 03/30/19 Discharge Plan Patient Name: DARRELL DE LA ROSA Facility: [facility]:[place] : 1950 Planned Disposition: Shelter Facility Anticipated Discharge Date: 03/27/19 Discharge Date: Expected LOS: 15 Initial Reviewer: CASEY Initial Review Date: 03/12/2019 Generated: 03/30/19 11:02 am Comments DCP- Discharge Planning Updated by [id number]: Javi Ayala on 03/30/19 8:[address] Patient Name: DARRELL GALDAMEZ Encounter No: [id number] : 1950 Primary Insurance: MEDICARE A & B Anticipated DC Date: 03-27-2019 Planned Disposition: Shelter Facility External Planned Provider: [facility], MEDICARE REHAB BED DCP follow-up note: CM CALLED [facility], , LEFT MESSAGE FOR ANCILLARY SERVICES MANAGER TO DISCUSS REFERRAL. CM FAXED UDPATE TO [facility], . CM WAITING RETURN CALL FROM [facility]. CM WAITING ADMISSION DETERMINATION FROM [facility] IN [place], [place], FOR REHAB. CM WAITING RETURN CALL FROM PT'S JOHN TO DISCUSS THE POSSIBILITY OF STAYING AT [place] FOR REHAB. Javi Ayala, CASE MANAGEMENT DCP- Discharge Planning Updated by [id number]: Javi Ayala on 03/29/19 3:[address] Patient Name: DARRELL GALDAMEZ Encounter No: [id number] : 1950 Primary Insurance: MEDICARE A & B Anticipated DC Date: 03-27-2019 Planned Disposition: Shelter Facility External Planned Provider: [facility], MEDICARE REHAB BED DCP follow-up note: CM ATTEMPTED TO CALL PT'S SPOUSE, RONDA, , THERE WAS NOT ANSWER AND NO VOICE MAIL SET UP. CM CALLED PT'S DAUGHTER, TAPAN, , LEFT MESSAGE ASKING FOR RETURN CALL SOON POSSIBLE REGADING DISCHARGE PLANNING FOR PATIENT. CM WAITING ADMISSION DETERMINATION FROM [facility] IN [place], [place], FOR REHAB. CM TO DISCUSS WITH PT'S SPOUSE THE POSSIBILITY OF STAYING AT [place] FOR REHAB. JUSTIN Mcghee DCP- Discharge Planning Updated by [id number]: Javi Ayala on 03/28/19 4:[address] Patient Name: DARRELL GALDAMEZ Encounter No: [id number] : 1950 Primary Insurance: MEDICARE A & B Anticipated DC Date: 03-27-2019 Planned Disposition: Shelter Facility External Planned Provider: TO BE DETERMINED DCP follow-up note: CM SPOKE TO [facility] WHO ADVISED THEY WILL NOT ACCEPT PT FOR REHAB. CM FAXED REFERRAL TO [facility] IN [place] AT [phone]. CM TO DISCUSS GOING TO INPATIENT REHAB AT [place] AGAIN WHEN PT'S SPOUSE ARRIVES. SHE HAS NOT BEEN IN ROOM TODAY, PT IS CONFUSED. CM WAITING ADMISSION DETERMINATION FROM [facility] IN [place], [place], FOR REHAB. CM TO DISCUSS WITH PT'S SPOUSE STAYING AT [place] FOR REHAB. Javi Ayala CASE JACOB DCP- Discharge Planning Updated by [email or web address]: Javi Ayala on 03/27/19 4:[address] Patient Name: DARRELL GALDAMEZ Encounter No: [id number] : 1950 Primary Insurance: MEDICARE A & B Anticipated DC Date: 03-27-2019 Planned Disposition: Shelter Facility External Planned Provider: [facility], MEDICARE REHAB BED DCP follow-up note: CM RECEIVED CALL FROM [facility],, , WHO ADVISED THAT THEY WILL SCREEN FOR REHAB ADMISSION AND TO SEND REFERRAL VIA FAX. CM FAXED REFERRAL TO [facility], . CM WAITING ADMISSION DETERMINATION FROM [facility]. JUSTIN Mcghee MANAGEMENT DCP- Discharge Planning Updated by [id number]: Javi Ayala on 03/27/19 2:[address] Patient Name: DARRELL GALDAMEZ Admission Status: ER Accout number: [id number] Admission Date: 03-12-2019 : 1950 Admission Diagnosis:SEPSIS, UNSPECIFIED ORGANISM Attending: TREVA MCCARTNEY Current LOS: 15 Anticipated DC Date: 03-27-2019 Planned Disposition: Shelter Facility Primary Insurance: MEDICARE A & B PLANNED EXTERNAL PROVIDER: [facility] Discharge Planning Comments: CM RECEIVED CALL FROM MILL[facility] OF [facility] AT ABOUT 1420 HOURS, THEY CANNOT MEET PT'S NEEDS THEY DO NOT HAVE 24 HOUR [place] SPEAKING STAFF AT THE FACILITY. [facility], , SPOKE TO SHANAE WHO TOOK REFERRAL INFORMATION AND ASKED THAT CM NOT FAX REFERRAL YET, SHE WILL CHECK WITH ANCILLARY SERVICES MANAGER AND NOTIFY CM IF THEY WILL REVIEW REFERRAL AND NOTIFY CM SHORTLY. CM WAITING RETURN CALL [facility] REGARDING [facility]HAB PLACEMENT REFERRAL. Silverlight Developer: Javi Ayala DCP- Discharge Planning Updated by [email or web address]: Javi Ayala on 03/27/19 8:[address] Patient Name: DARRELL GALDAMEZ Encounter No: [id number] : 1950 Primary Insurance: MEDICARE A & B Anticipated DC Date: 03-27-2019 Planned Disposition: Shelter Facility External Planned Provider: [facility], [facility] B[facility] DCP follow-up note: CM FAXED REHAB REFERRAL UPDATE TO [facility] AT [phone]. CM EMAILED REFERRAL AND UPDATE TO [email or web address]. CM WAITING ADMISSION DETERMINATION FROM [facility]. Javi Ayala, CASE MANAGEMENT DCP- Discharge Planning Updated by [email or web address]: Javi Ayala on 03/24/19 1:[address] Patient Name: DARRELL GALDAMEZ Encounter No: [id number] : 1950 Primary Insurance: MEDICARE A & B Anticipated DC Date: 03-27-2019 Planned Disposition: Shelter Facility External Planned Provider[facility], [facility] B[facility] DCP follow-up note: CM SPOKE TO NURSE DIRECTOR OF LABORATORY OPERATIONS JULIANNE WHO HAS SPOKEN TO THE PT IN ROOM 2107 HAS INFORMED JULIANNE THAT PT'S SPOUSE HAS SAID THEY DO NOT WANT TO STAY HERE FOR REHAB AND WANT TO GO TO REHAB IN [facility]. CM MET WITH PT AND SPOUSE IN ROOM, USED LANGUAGE Factery, , PHYSICAL EDUCATION INSTRUCTOR [id number]; CM DISCUSSED REHAB HERE HAS ACCEPTED TODAY. PT AND SPOUSE WANT REHAB CLOSER TO HOME IN [facility] AND IF NOT IN [facility], CLOSE TO [facility] POSSIBLE. CHOICE LETTER SIGNED. IMPORTANT MESSAGE FROM MEDICARE PROVIDED AND EXPLAINED. CM NOTIFIED DR. MCCARTNEY AND ANTHONY OF INPATIENT REHAB OF PT'S CHANGE IN PLAN. CM CALLED [facility], , SPOKE TO MILLIE WHO TOOK REFERRAL INFORMATION AND REPORTS THEY HAVE A [place] SPEAKING STAFF MEMBER THAT CAN ASSIST WEDNESDAY THRU WEDNESDAY AND WILL CONSIDER PT FOR REHAB ADMISSION. THEY WILL NOT BE ABLE TO LOOK AT REFERRAL UNTIL WEDNESDAY THEIR DIRECTOR IS OUT UNTIL THEN. CM FAXED REHAB REFERRAL TO [facility] AT [phone]. CM WAITING ADMISSION DETERMINATION FROM [facility] IN [facility]. THEY WILL NOT HAVE ADMISSION DETERMINATION UNTIL WEDNESDAY AT THE EARLIEST, 03-27-19. Javi Ayala, CASE MANAGEMENT DCP- Discharge Planning Updated by [email or web address]: Javi Ayala on 03/22/19 3:[address] Patient Name: DARRELL GALDAMEZ Admission Status: ER Accout number: [id number] Admission Date: 03-12-2019 : 1950 Admission Diagnosis:SEPSIS, UNSPECIFIED ORGANISM Attending: TREVA MCCARTNEY Current LOS: 10 Anticipated DC Date: 03-23-2019 Planned Disposition: Inpatient Rehab Primary Insurance: MEDICARE A & B PLANNED EXTERNAL PROVIDER; [facility] Discharge Planning Comments: CM MET WITH PT AND SPOUSE IN ROOM TO DISCUSS DISCHARGE PLANNING AND NEEDS. CM UTILIZED [employer]ANG[employer]AGE [employer] PHYSICAL EDUCATION INSTRUCTOR SERVICES, , PHARMACOVIGILANCE SPECIALIST # [id number]. PTCM DISCUSSED AVAILABILITY OF REHAB SERVICES, PROVIDERS AND LOCATIONS. CM DISCUSSED INPATIENT REHAB PRESCREEN AND THERAPY NEEDS. PT WOULD LIKE TO STAY AT [place] FOR REHAB. PT NOR SPOUSE HAD FURTHER QUESTIONS FOR CM AT THIS TIME. IMPORTANT MESSAGE FROM MEDICARE PROVIDED AND EXPLAINED. CM CALLED AND SPOKE TO MATT OF INPATIENT REHAB, THEY PLAN TO ACCEPT PT WHEN MEDICALLY STABLE. WHEN READY FOR DISCHARGE, NOTIFY [facility]. Silverlight Developer: Javi Ayala DCP- Discharge Planning Updated by [email or web address]: Javi Ayala on 03/13/19 4:[address] Patient Name: DARRELL GALDAMEZ Admission Status: ER Accout number: [id number] Admission Date: 03-12-2019 : 1950 Admission Diagnosis: Attending: TREVA MCCARTNEY Current LOS: 1 Anticipated DC Date: Planned Disposition: Home Primary Insurance: MEDICARE A & B Discharge Planning Comments: CM MET WITH PT AND SPOUSE IN ROOM TO DISCUSS DISCHARGE PLANNING AND NEEDS. CM CALLED [employer] [facility], , WAS ASSISTED BY RONDA, PHYSICAL EDUCATION INSTRUCTOR # [id number]. DARRELL GALDAMEZ provided verbal consent to discuss current and ongoing needs with/in the presence of: SPOUSE, RONDA. PT REPORTS LIVING AT HOME INDEPENDENTLY WITH HIS . PT HAS NEBULIZER, HE NO LONGER HAS OXYGEN FROM [facility] [place], THEY PICKED IT UP. PT HAS NO OUTSIDE SERVICES ASSISTING IN THE HOME. PT REPORTS SOMEONE FROM THE MEDICAL CLINIC CHECKS ON HIM AT HOME. CM DISCUSSED AVAILABILITY OF HOME HEALTH, REHAB SERVICES AND MEDICAL EQUIPMENT. PT DENIES DISCHARGE NEEDS, PT INITIALLY ASKED FOR HOSPITAL TO GIVE HIM AND HIS A [place] HOME IF THEY ARE LEAVING TODAY, CM EXPLAINED THAT THEY ARE NOT DISCHARGING TODAY, WE ARE ONLY TALKING ABOUT THE DISCHARGE PLAN. PT HTEN REPORTS FAMILY WILL PICK HE AND UP FOR DISCHARGE HOME. IMPORTANT MESSAGE FROM MEDICARE PROVIDED AND EXPLAINED, PROVIDED IN W[place]IAN PT REPORTS ABILITY TO READ WALLISIAN. PT DENIES DISCHARGE NEEDS, FAMILY TO TRANSPORT HOME AT DISCHARGE. CM TO FOLLOW AND ASSIST IF NEEDED. Silverlight Developer: Javi Ayala DCPIA - Discharge Planning Initial Assessment Updated by [email or web address]: Javi Ayala on 03/13/19 4:59 pm * Is the patient Alert and Oriented? Yes * How many steps to enter\exit or inside your home? * PCP [facility] [phone] * Pharmacy [facility] [phone] * Preadmission Environment Home with Family * ADLs Independent * Equipment Nebulizer * Other Equipment [facility] [facility] - MEDICAL EQUIPMENT PROVIDER PREFERENCE * List name and contact numbers for known caregivers / representatives who currently or will assist patient after discharge: RONDA FAM, SPOUSE, [phone] TAPAN RAO, DTR, * Verbal permission to speak to the caregivers and representatives has been obtained from the patient. Yes * Community resources currently utilized None * Please name any agencies selected above. NONE * Additional services required to return to the preadmission environment? No * Can the patient safely return to the preadmission environment? Yes * Has this patient been hospitalized within the prior 30 days at any hospital? No External Providers External Provider: [facility] Next Contact Date: 03/30/2019 Service Request Date: Service Type: Resolution: Reviewer: Comments: Coverage Notice Reviewer: CASEY Ayala Notice Issued Date-Time: 03/24/2019 12:03 Notice Type: IM Discharge Notice Notice Delivered To: Family Member Relationship to Patient: Spouse Surgical Assistant Name: RONDA Delivery Method: HAND - Hand Delivered Lanny Days: Prior Verbal Notification: Recipient Understood Notice: Yes Recipient Signature: Yes Med Rec Note Co-signed by Attending: Coverage Notice Comment: Reviewer: CASEY Ayala Notice Issued Date-Time: 03/22/2019 16:45 Notice Type: IM Discharge Notice Notice Delivered To: Family Member Relationship to Patient: Spouse Surgical Assistant Name: RONDA Delivery Method: HAND - Hand Delivered Lanny Days: Prior Verbal Notification: Recipient Understood Notice: Yes Recipient Signature: Yes Med Rec Note Co-signed by Attending: Coverage Notice Comment: Reviewer: CASEY Ayala Notice Issued Date-Time: 03/13/2019 16:30 Notice Type: IM Discharge Notice Notice Delivered To: Family Member Relationship to Patient: Spouse Surgical Assistant Name: RONDA FAM Delivery Method: HAND - Hand Delivered Lanny Days: Prior Verbal Notification: Recipient Understood Notice: Yes Recipient Signature: Yes Med Rec Note Co-signed by Attending: Coverage Notice Comment: Reviewer: CASEY Ayala Notice Issued Date-Time: 03/24/2019 12:03 Notice Type: Patient Choice Letter Notice Delivered To: Family Member Relationship to Patient: Spouse Surgical Assistant Name: RONDA Delivery Method: HAND - Hand Delivered Lanny Days: Prior Verbal Notification: Recipient Understood Notice: Yes Recipient Signature: Yes Med Rec Note Co-signed by Attending: Coverage Notice Comment: ANY SNF IN [facility] OR CLOSE TO [place] Last DP export: 03/30/19 8:15 a Patient Name: DARRELL DE LA ROSA Page [id number] at 1002 All edits/amendments must be made on the electronic document DICTATION DATE: 03/30/191001 CREDIT FRONT OFFICE DEVELOPER: MARCELL 03/30/19 1002 RPT#: [id number] DC DATE: STATUS: ADM IN [facility] [address] [place] [address] END OF REPORT
--- NOTE | 2019-03-30 11:11 | MORECARE ---
CASE MANAGEMENT DISCHARGE SUMMARY PATIENT: DARRELL DE LA ROSA UNIT: [id number] ADM DATE: 03/12/19 AGE: 68 : 50 SEX: M ROOM/BED: D.2106 AUTHOR: EVER,DOC PHYSICIAN: REFERRING PHYSICIAN: TREVA MCCARTNEY MD DATE OF SERVICE: 03/30/19 Discharge Plan Patient Name: DARRELL DE LA ROSA Facility: [facility]:[place] : 1950 Planned Disposition: Detention Facility Anticipated Discharge Date: 03/27/19 Discharge Date: Expected LOS: 15 Initial Reviewer: CASEY Initial Review Date: 03/12/2019 Generated: 03/30/19 12:11 pm Comments DCP- Discharge Planning Updated by CASEY: Javi Ayala on 03/30/19 10:[address] Patient Name: DARRELL GALDAMEZ Encounter No: [id number] : 1950 Primary Insurance: MEDICARE A & B Anticipated DC Date: 03-27-2019 Planned Disposition: Detention Facility External Planned Provider: [facility] DCP follow-up note: CM CALLED [facility], , LEFT MESSAGE FOR DRAW FURNACE TENDER TO DISCUSS REFERRAL. CM FAXED UDPATE TO [facility], . CM WAITING RETURN CALL FROM [facility]. CM WAITING ADMISSION DETERMINATION FROM [facility] IN [place], [place], FOR REHAB. CM WAITING RETURN CALL FROM PT'S RAMALY TO DISCUSS THE POSSIBILITY OF STAYING AT [facility] FOR REHAB. Javi Ayala, CASE MANAGEMENT Appended by Javi Ayala on 03/30/2019 11:06 CDT: CM RECEIVED CALL FROM GADIEL OF [facility] WHO ADVISED THEY DO NOT HAVE OPEN REHAB BEDS. CM CALLED [facility], , DISCUSSED PT'S SITUATION AND NEED FOR REHAB. [facility] HAS NURSING FACILITIES IN [place] AND [place]. ZANA FAXED REFERRAL TO [facility] FOR [facility] IN [facility], . CM WAITING ADMISSION DETERMINATION FROM [facility] FOR REHAB IN [place] OR [place], [place]. CM WAITING RETURN CALL FROM PT'S FAMLY TO DISCUSS THE POSSIBILITY OF STAYING AT [facility] FOR REHAB. Javi Ayala CASE MANAGEMENT DCP- Discharge Planning Updated by [id number]: Javi Ayala on 03/29/19 3:[address] Patient Name: DARRELL GALDAMEZ Encounter No: [id number] : 1950 Primary Insurance: MEDICARE A & B Anticipated DC Date: 03-27-2019 Planned Disposition: Detention Facility External Planned Provider: [facility] DCP follow-up note: CM ATTEMPTED TO CALL PT'S SPOUSE, RONDA, , THERE WAS NOT ANSWER AND NO VOICE MAIL SET UP. CM CALLED PT'S DAUGHTER, TAPAN, , LEFT MESSAGE ASKING FOR RETURN CALL SOON POSSIBLE REGADING DISCHARGE PLANNING FOR PATIENT. CM WAITING ADMISSION DETERMINATION FROM [facility] IN [place], [place], FOR REHAB. CM TO DISCUSS WITH PT'S SPOUSE THE POSSIBILITY OF STAYING AT [facility] FOR REHAB. Javi Ayala CASE MANAGEMENT DCP- Discharge Planning Updated by [email or web address]: Javi Ayala on 03/28/19 4:[address] Patient Name: DARRELL GALDAMEZ Encounter No: [id number] : 1950 Primary Insurance: MEDICARE A & B Anticipated DC Date: 03-27-2019 Planned Disposition: Detention Facility External Planned Provider: TO BE DETERMINED DCP follow-up note: CM SPOKE TO [facility] WHO ADVISED THEY WILL NOT ACCEPT PT FOR REHAB. CM FAXED REFERRAL TO [facility] IN [place] AT [phone]. CM TO DISCUSS GOING TO INPATIENT REHAB AT [facility] AGAIN WHEN PT'S SPOUSE ARRIVES. SHE HAS NOT BEEN IN ROOM TODAY, PT IS CONFUSED. CM WAITING ADMISSION DETERMINATION FROM [facility] IN [place], [place], FOR REHAB. CM TO DISCUSS WITH PT'S SPOUSE STAYING AT [facility] FOR REHAB. Javi Ayala CASE MANAGEMENT DCP- Discharge Planning Updated by [email or web address]: Javi Ayala on 03/27/19 4:[address] Patient Name: DARRELL GALDAMEZ Encounter No: [id number] : 1950 Primary Insurance: MEDICARE A & B Anticipated DC Date: 03-27-2019 Planned Disposition: Detention Facility External Planned Provider: [facility], MEDICARE REHAB BED DCP follow-up note: CM RECEIVED CALL FROM [facility],, , WHO ADVISED THAT THEY WILL SCREEN FOR REHAB ADMISSION AND TO SEND REFERRAL VIA FAX. CM FAXED REFERRAL TO [facility] AND [facility], . CM WAITING ADMISSION DETERMINATION FROM [facility] AND [facility]. Javi Ayala, CASE MANAGEMENT DCP- Discharge Planning Updated by [id number]: Javi Ayala on 03/27/19 2:[address] Patient Name: DARRELL GALDAMEZ Admission Status: ER Accout number: [id number] Admission Date: 03-12-2019 : 1950 Admission Diagnosis:SEPSIS, UNSPECIFIED ORGANISM Attending: TREVA MCCARTNEY Current LOS: 15 Anticipated DC Date: 03-27-2019 Planned Disposition: Detention Facility Primary Insurance: MEDICARE A & B PLANNED EXTERNAL PROVIDER: [facility] Discharge Planning Comments: CM RECEIVED CALL FROM MILLIE OF [facility] AT ABOUT 1420 HOURS, THEY CANNOT MEET PT'S NEEDS THEY DO NOT HAVE 24 HOUR BULGARIAN SPEAKING STAFF AT THE FACILITY. CM CALLED [facility], , SPOKE TO SHANAE WHO TOOK REFERRAL INFORMATION AND ASKED THAT CM NOT FAX REFERRAL YET, SHE WILL CHECK WITH DRAW FURNACE TENDER AND NOTIFY CM IF THEY WILL REVIEW REFERRAL AND NOTIFY CM SHORTLY. CM WAITING RETURN CALL FROM [facility] REGARDING REHAB PLACEMENT REFERRAL. Community Leader: Javi Ayala DCP- Discharge Planning Updated by [id number]: Javi Ayala on 03/27/19 8:[address] Patient Name: DARRELL GALDAMEZ Encounter No: [id number] : 1950 Primary Insurance: MEDICARE A & B Anticipated DC Date: 03-27-2019 Planned Disposition: Detention Facility External Planned Provider: [facility], MEDICARE REHAB BED DCP follow-up note: CM FAXED REHAB REFERRAL UPDATE TO [facility] AT [phone]. CM EMAILED REFERRAL AND UPDATE [facility] [email or web address]. CM WAITING ADMISSION DETERMINATION FROM [facility] IN [facility]. JUSTIN Mcghee DCP- Discharge Planning Updated by [id number]: Javi Ayala on 03/24/19 1:[address] Patient Name: DARRELL GALDAMEZ Encounter No: [id number] : 1950 Primary Insurance: MEDICARE A & B Anticipated DC Date: 03-27-2019 Planned Disposition: Detention Facility External Planned Provider: [facility], MEDICARE REHAB BED DCP follow-up note: CM SPOKE TO NURSE ANGLE SHEAR SET UP OPERATOR JULIANNE WHO HAS SPOKEN TO THE PT IN ROOM 2106 HAS INFORMED JULIANNE THAT PT'S SPOUSE HAS SAID THEY DO NOT WANT TO STAY HERE FOR REHAB AND WANT TO GO TO REHAB IN [facility]. CM MET WITH PT AND SPOUSE IN ROOM, USED LANGUAGE LINE, , REFRIGERATOR MOVER [phone]; CM DISCUSSED REHAB HERE HAS ACCEPTED TODAY. PT AND SPOUSE WANT REHAB CLOSER TO HOME IN [facility] AND IF NOT IN [facility], CLOSE TO [facility] POSSIBLE. CHOICE LETTER SIGNED. IMPORTANT MESSAGE FROM MEDICARE PROVIDED AND EXPLAINED. CM NOTIFIED DR. MCCARTNEY AND ANTHONY OF INPATIENT REHAB OF PT'S CHANGE IN PLAN. CM CALLED [facility], , SPOKE TO MILLIE WHO TOOK REFERRAL INFORMATION AND REPORTS THEY HAVE A BULGARIAN SPEAKING STAFF MEMBER THAT CAN ASSIST WEDNESDAY THRU WEDNESDAY AND WILL CONSIDER PT FOR REHAB ADMISSION. THEY WILL NOT BE ABLE TO LOOK AT REFERRAL UNTIL WEDNESDAY THEIR DIRECTOR IS OUT UNTIL THEN. CM FAXED REHAB REFERRAL TO [facility] AT [phone]. CM WAITING ADMISSION DETERMINATION FROM [facility] IN [facility]. THEY WILL NOT HAVE ADMISSION DETERMINATION UNTIL WEDNESDAY AT THE EARLIEST, 03-27-19. JUSTIN Mcghee DCP- Discharge Planning Updated by [id number]: Javi Ayala on 03/22/19 3:[address] Patient Name: DARRELL GALDAMEZ Admission Status: ER Accout number: [id number] Admission Date: 03-12-2019 : 1950 Admission Diagnosis:SEPSIS, UNSPECIFIED ORGANISM Attending: TREVA MCCARTNEY Current LOS: 10 Anticipated DC Date: 03-23-2019 Planned Disposition: Inpatient Rehab Primary Insurance: MEDICARE A & B PLANNED EXTERNAL PROVIDER; [facility] IN[facility]IENT [facility] Discharge Planning Comments: CM MET WITH PT AND SPOUSE IN ROOM TO DISCUSS DISCHARGE PLANNING AND NEEDS. CM UTILIZED [employer], , STRUCTURAL DRAFTSMAN # [id number]. PTCM DISCUSSED AVAILABILITY OF REHAB SERVICES, PROVIDERS AND LOCATIONS. CM DISCUSSED INPATIENT REHAB PRESCREEN AND THERAPY NEEDS. PT WOULD LIKE TO STAY AT [facility] FOR REHAB. PT NOR SPOUSE HAD FURTHER QUESTIONS FOR CM AT THIS TIME. IMPORTANT MESSAGE FROM MEDICARE PROVIDED AND EXPLAINED. CM CALLED AND SPOKE TO MATT OF INPATIENT REHAB, THEY PLAN TO ACCEPT PT WHEN MEDICALLY STABLE. WHEN READY FOR DISCHARGE, NOTIFY [facility] IN[facility]IENT [facility]. Community Leader: Javi Ayala DCP- Discharge Planning Updated by [email or web address]: Javi Ayala on 03/13/19 4:[address] Patient Name: DARRELL GALDAMEZ Admission Status: ER Accout number: [id number] Admission Date: 03-12-2019 : 1950 Admission Diagnosis: Attending: TREVA MCCARTNEY Current LOS: 1 Anticipated DC Date: Planned Disposition: Home Primary Insurance: MEDICARE A & B Discharge Planning Comments: CM MET WITH PT AND SPOUSE IN ROOM TO DISCUSS DISCHARGE PLANNING AND NEEDS. CM CALLED [employer], , WAS ASSISTED BY RONDA, REFRIGERATOR MOVER # [id number]. DARRELL GALDAMEZ provided verbal consent to discuss current and ongoing needs with/in the presence of: SPOUSE, RONDA. PT REPORTS LIVING AT HOME INDEPENDENTLY WITH HIS . PT HAS NEBULIZER, HE NO LONGER HAS OXYGEN FROM [facility], THEY PICKED IT UP. PT HAS NO OUTSIDE SERVICES ASSISTING IN THE HOME. PT REPORTS SOMEONE FROM THE MEDICAL CLINIC CHECKS ON HIM AT HOME. CM DISCUSSED AVAILABILITY OF HOME HEALTH, REHAB SERVICES AND MEDICAL EQUIPMENT. PT DENIES DISCHARGE NEEDS, PT INITIALLY ASKED FOR HOSPITAL TO GIVE HIM AND HIS A [place]AXI RIDE HOME IF THEY ARE LEAVING TODAY, CM EXPLAINED THAT THEY ARE NOT DISCHARGING TODAY, WE ARE ONLY TALKING ABOUT THE DISCHARGE PLAN. PT HTEN REPORTS FAMILY WILL PICK HE AND UP FOR DISCHARGE HOME. IMPORTANT MESSAGE FROM MEDICARE PROVIDED AND EXPLAINED, PROVIDED IN BULGARIAN PT REPORTS ABILITY TO READ BULGARIAN. PT DENIES DISCHARGE NEEDS, FAMILY TO TRANSPORT HOME AT DISCHARGE. CM TO FOLLOW AND ASSIST IF NEEDED. Community Leader: Javi Ayala DCPIA - Discharge Planning Initial Assessment Updated by CASEY: Javi Ayala on 03/13/19 4:59 pm * Is the patient Alert and Oriented? Yes * How many steps to enter\exit or inside your home? * PCP [facility] IN [facility] [phone] * Pharmacy [facility] IN [facility] [phone] * Preadmission Environment Home with Family * ADLs Independent * Equipment Nebulizer * Other Equipment [facility] IN [facility] - MEDICAL EQUIPMENT PROVIDER PREFERENCE * List name and contact numbers for known caregivers / representatives who currently or will assist patient after discharge: RONDA FAM, SPOUSE, [phone] TAPAN RAO, DTR, * Verbal permission to speak to the caregivers and representatives has been obtained from the patient. Yes * Community resources currently utilized None * Please name any agencies selected above. NONE * Additional services required to return to the preadmission environment? No * Can the patient safely return to the preadmission environment? Yes * Has this patient been hospitalized within the prior 30 days at any hospital? No Coverage Notice Reviewer: CASEY Ayala Notice Issued Date-Time: 03/13/2019 16:30 Notice Type: IM Discharge Notice Notice Delivered To: Family Member Relationship to Patient: Spouse Upholstered Goods Crafter Name: RONDA FAM Delivery Method: HAND - Hand Delivered Lanny Days: Prior Verbal Notification: Recipient Understood Notice: Yes Recipient Signature: Yes Med Rec Note Co-signed by Attending: Coverage Notice Comment: Reviewer: CASEY Ayala Notice Issued Date-Time: 03/22/2019 16:45 Notice Type: IM Discharge Notice Notice Delivered To: Family Member Relationship to Patient: Spouse Upholstered Goods Crafter Name: RONDA Delivery Method: HAND - Hand Delivered Lanny Days: Prior Verbal Notification: Recipient Understood Notice: Yes Recipient Signature: Yes Med Rec Note Co-signed by Attending: Coverage Notice Comment: Reviewer: CASEY Ayala Notice Issued Date-Time: 03/24/2019 12:03 Notice Type: Patient Choice Letter Notice Delivered To: Family Member Relationship to Patient: Spouse Upholstered Goods Crafter Name: RONDA Delivery Method: HAND - Hand Delivered Lanny Days: Prior Verbal Notification: Recipient Understood Notice: Yes Recipient Signature: Yes Med Rec Note Co-signed by Attending: Coverage Notice Comment: ANY SNF IN [facility] OR CLOSE TO [facility] Reviewer: [id number] Shayan Ayala Notice Issued Date-Time: 03/24/2019 12:03 Notice Type: IM Discharge Notice Notice Delivered To: Family Member Relationship to Patient: Spouse Upholstered Goods Crafter Name: RONDA Delivery Method: HAND - Hand Delivered Lanny Days: Prior Verbal Notification: Recipient Understood Notice: Yes Recipient Signature: Yes Med Rec Note Co-signed by Attending: Coverage Notice Comment: Last DP export: 03/30/19 9:02 a Patient Name: MAIRA GALDAMEZDARRELL Page [id number] at 1111 All edits/amendments must be made on the electronic document DICTATION DATE: 03/30/19 1111 ELECTRIFIER OPERATOR: MARCELL 03/30/19 1111 RPT#: [id number] DC DATE: STATUS: ADM IN [facility] [address] [place] [address] END OF REPORT
[2019-03-30 12:31] VITALS: BP 139/77
--- NOTE | 2019-03-30 13:19 | MORECARE ---
CASE MANAGEMENT DISCHARGE SUMMARY PATIENT: DARRELL DE LA ROSA UNIT: [id number] ADM DATE: 03/12/19 AGE: 68 : 50 SEX: M ROOM/BED: D.2106 AUTHOR: EVER,DOC PHYSICIAN: REFERRING PHYSICIAN: TREVA MCCARTNEY MD DATE OF SERVICE: 03/30/19 Discharge Plan Patient Name: DARRELL DE LA ROSA Facility: [facility]:[place] : 1950 Planned Disposition: Inpatient Rehab Anticipated Discharge Date: 03/30/19 Discharge Date: Expected LOS: 18 Initial Reviewer: CASEY Initial Review Date: 03/12/2019 Generated: 03/30/19 2:19 pm Comments DCP- Discharge Planning Updated by CASEY: Javi Ayala on 03/30/19 10:[address] Patient Name: DARRELL GALDAMEZ Encounter No: [id number] : 1950 Primary Insurance: MEDICARE A & B Anticipated DC Date: 03-27-2019 Planned Disposition: Senior Living Facility External Planned Provider: [facility] DCP follow-up note: CM CALLED [facility], , LEFT MESSAGE FOR TRUCK DISPATCHER TO DISCUSS REFERRAL. CM FAXED UDPATE TO [facility], . CM WAITING RETURN CALL FROM [facility]. CM WAITING ADMISSION DETERMINATION FROM [facility] IN [place], [place], FOR REHAB. CM WAITING RETURN CALL FROM PT'S RAMALY TO DISCUSS THE POSSIBILITY OF STAYING AT [place] FOR REHAB. Javi Ayala, CASE MANAGEMENT Appended by Javi Ayala on 03/30/2019 11:06 CDT: CM RECEIVED CALL FROM GADIEL OF [facility] WHO ADVISED THEY DO NOT HAVE OPEN REHAB BEDS. CM CALLED [facility], , DISCUSSED PT'S SITUATION AND NEED FOR REHAB. [facility] HAS NURSING FACILITIES IN [place] AND [place]. ZANA FAXED REFERRAL TO [facility] FOR REHAB IN [facility], . CM WAITING ADMISSION DETERMINATION FROM [facility] FOR REHAB IN [facility]. CM WAITING RETURN CALL FROM PT'S FAMLY TO DISCUSS THE POSSIBILITY OF STAYING AT [place] FOR REHAB. Javi Ayala CASE MANAGEMENT DCP- Discharge Planning Updated by [id number]: Javi Ayala on 03/29/19 3:[address] Patient Name: DARRELL GALDAMEZ Encounter No: [id number] : 1950 Primary Insurance: MEDICARE A & B Anticipated DC Date: 03-27-2019 Planned Disposition: Senior Living Facility External Planned Provider: [facility] DCP follow-up note: CM ATTEMPTED TO CALL PT'S SPOUSE, RONDA, , THERE WAS NOT ANSWER AND NO VOICE MAIL SET UP. CM CALLED PT'S DAUGHTER, TAPAN, , LEFT MESSAGE ASKING FOR RETURN CALL SOON POSSIBLE REGADING DISCHARGE PLANNING FOR PATIENT. CM WAITING ADMISSION DETERMINATION FROM [facility] IN [place], [place], FOR REHAB. CM TO DISCUSS WITH PT'S SPOUSE THE POSSIBILITY OF STAYING AT [place] FOR REHAB. Javi Ayala CASE MANAGEMENT DCP- Discharge Planning Updated by [id number]: Javi Ayala on 03/28/19 4:[address] Patient Name: DARRELL GALDAMEZ Encounter No: [id number] : 1950 Primary Insurance: MEDICARE A & B Anticipated DC Date: 03-27-2019 Planned Disposition: Senior Living Facility External Planned Provider: TO BE DETERMINED DCP follow-up note: CM SPOKE TO [facility] WHO ADVISED THEY WILL NOT ACCEPT PT FOR REHAB. CM FAXED REFERRAL TO [facility] IN [place] AT [phone]. CM TO DISCUSS GOING TO INPATIENT REHAB AT [place] AGAIN WHEN PT'S SPOUSE ARRIVES. SHE HAS NOT BEEN IN ROOM TODAY, PT IS CONFUSED. CM WAITING ADMISSION DETERMINATION FROM [facility] IN [place], [place], FOR REHAB. CM TO DISCUSS WITH PT'S SPOUSE STAYING AT [place] FOR REHAB. Javi Ayala CASE MANAGEMENT DCP- Discharge Planning Updated by [id number]: Javi Ayala on 03/27/19 4:[address] Patient Name: DARRELL GALDAMEZ Encounter No: [id number] : 1950 Primary Insurance: MEDICARE A & B Anticipated DC Date: 03-27-2019 Planned Disposition: Senior Living Facility External Planned Provider: [facility], MEDICARE REHAB BED DCP follow-up note: CM RECEIVED CALL FROM [facility],, , WHO ADVISED THAT THEY WILL SCREEN FOR REHAB ADMISSION AND TO SEND REFERRAL VIA FAX. CM FAXED REFERRAL TO [facility], . CM WAITING ADMISSION DETERMINATION FROM [facility]. Javi Ayala, CASE MANAGEMENT DCP- Discharge Planning Updated by [id number]: Javi Ayala on 03/27/19 2:[address] Patient Name: DARRELL GALDAMEZ Admission Status: ER Accout number: [id number] Admission Date: 03-12-2019 : 1950 Admission Diagnosis:SEPSIS, UNSPECIFIED ORGANISM Attending: TREVA MCCARTNEY Current LOS: 15 Anticipated DC Date: 03-27-2019 Planned Disposition: Senior Living Facility Primary Insurance: MEDICARE A & B PLANNED EXTERNAL PROVIDER: [facility] Discharge Planning Comments: CM RECEIVED CALL FROM MILLIE OF [facility] AT ABOUT 1420 HOURS, THEY CANNOT MEET PT'S NEEDS THEY DO NOT HAVE 24 HOUR [place] SPEAKING STAFF AT THE FACILITY. CM CALLED [facility], , SPOKE TO SHANAE WHO TOOK REFERRAL INFORMATION AND ASKED THAT CM NOT FAX REFERRAL YET, SHE WILL CHECK WITH TRUCK DISPATCHER AND NOTIFY CM IF THEY WILL REVIEW REFERRAL AND NOTIFY CM SHORTLY. CM WAITING RETURN CALL FROM [facility] REGARDING REHAB PLACEMENT REFERRAL. Chassis Inspector: Javi Ayala DCP- Discharge Planning Updated by [id number]: Javi Ayala on 03/27/19 8:[address] Patient Name: DARRELL GALDAMEZ Encounter No: [id number] : 1950 Primary Insurance: MEDICARE A & B Anticipated DC Date: 03-27-2019 Planned Disposition: Senior Living Facility External Planned Provider: [facility], MEDICARE REHAB BED DCP follow-up note: CM FAXED REHAB REFERRAL UPDATE TO [facility] AT [phone]. CM EMAILED REFERRAL AND UPDATE [facility] [email or web address]. CM WAITING ADMISSION DETERMINATION FROM [facility] IN [facility]. JUSTIN Mcghee DCP- Discharge Planning Updated by [id number]: Javi Ayala on 03/24/19 1:[address] Patient Name: DARRELL GALDAMEZ Encounter No: [id number] : 1950 Primary Insurance: MEDICARE A & B Anticipated DC Date: 03-27-2019 Planned Disposition: Senior Living Facility External Planned Provider: [facility], MEDICARE REHAB BED DCP follow-up note: CM SPOKE TO NURSE MARINE ENGINEER JULIANNE WHO HAS SPOKEN TO THE PT IN ROOM 2106 HAS INFORMED JULIANNE THAT PT'S SPOUSE HAS SAID THEY DO NOT WANT TO STAY HERE FOR REHAB AND WANT TO GO TO REHAB IN [facility]. CM MET WITH PT AND SPOUSE IN ROOM, USED LANGUAGE LINE, , BRAIDING OPERATOR [phone]; CM DISCUSSED REHAB HERE HAS ACCEPTED TODAY. PT AND SPOUSE WANT REHAB CLOSER TO HOME IN [facility] AND IF NOT IN [facility], CLOSE TO [facility] POSSIBLE. CHOICE LETTER SIGNED. IMPORTANT MESSAGE FROM MEDICARE PROVIDED AND EXPLAINED. CM NOTIFIED DR. MCCARTNEY AND ANTHONY OF INPATIENT REHAB OF PT'S CHANGE IN PLAN. CM CALLED [facility], , SPOKE TO MILLIE WHO TOOK REFERRAL INFORMATION AND REPORTS THEY HAVE A [place] SPEAKING STAFF MEMBER THAT CAN ASSIST WEDNESDAY THRU WEDNESDAY AND WILL CONSIDER PT FOR REHAB ADMISSION. THEY WILL NOT BE ABLE TO LOOK AT REFERRAL UNTIL WEDNESDAY THEIR DIRECTOR IS OUT UNTIL THEN. CM FAXED REHAB REFERRAL TO [facility] AT [phone]. CM WAITING ADMISSION DETERMINATION FROM [facility] IN [facility]. THEY WILL NOT HAVE ADMISSION DETERMINATION UNTIL WEDNESDAY AT THE EARLIEST, 03-27-19. JUSTIN Mcghee DCP- Discharge Planning Updated by [id number]: Javi Ayala on 03/22/19 3:[address] Patient Name: DARRELL GALDAMEZ Admission Status: ER Accout number: [id number] Admission Date: 03-12-2019 : 1950 Admission Diagnosis:SEPSIS, UNSPECIFIED ORGANISM Attending: TREVA MCCARTNEY Current LOS: 10 Anticipated DC Date: 03-23-2019 Planned Disposition: Inpatient Rehab Primary Insurance: MEDICARE A & B PLANNED EXTERNAL PROVIDER; [facility] Discharge Planning Comments: CM MET WITH PT AND SPOUSE IN ROOM TO DISCUSS DISCHARGE PLANNING AND NEEDS. CM UTILIZED [employer] [facility]RAID[facility] [employer] [employer], , FLUX MIXER # [id number]. PTCM DISCUSSED AVAILABILITY OF REHAB SERVICES, PROVIDERS AND LOCATIONS. CM DISCUSSED INPATIENT REHAB PRESCREEN AND THERAPY NEEDS. PT WOULD LIKE TO STAY AT [place] FOR REHAB. PT NOR SPOUSE HAD FURTHER QUESTIONS FOR CM AT THIS TIME. IMPORTANT MESSAGE FROM MEDICARE PROVIDED AND EXPLAINED. CM CALLED AND SPOKE TO MATT OF INPATIENT REHAB, THEY PLAN TO ACCEPT PT WHEN MEDICALLY STABLE. WHEN READY FOR DISCHARGE, NOTIFY [facility] IN[facility]. Chassis Inspector: Javi Ayala DCP- Discharge Planning Updated by [id number]: Javi Ayala on 03/13/19 4:[address] Patient Name: DARRELL GALDAMEZ Admission Status: ER Accout number: [id number] Admission Date: 03-12-2019 : 1950 Admission Diagnosis: Attending: TREVA MCCARTNEY Current LOS: 1 Anticipated DC Date: Planned Disposition: Home Primary Insurance: MEDICARE A & B Discharge Planning Comments: CM MET WITH PT AND SPOUSE IN ROOM TO DISCUSS DISCHARGE PLANNING AND NEEDS. CM CALLED [employer] [facility] [employer], , WAS ASSISTED BY RONDA, BRAIDING OPERATOR # [id number]. DARRELL GALDAMEZ provided verbal consent to discuss current and ongoing needs with/in the presence of: SPOUSE, RONDA. PT REPORTS LIVING AT HOME INDEPENDENTLY WITH HIS . PT HAS NEBULIZER, HE NO LONGER HAS OXYGEN FROM [facility], THEY PICKED IT UP. PT HAS NO OUTSIDE SERVICES ASSISTING IN THE HOME. PT REPORTS SOMEONE FROM THE MEDICAL CLINIC CHECKS ON HIM AT HOME. CM DISCUSSED AVAILABILITY OF HOME HEALTH, REHAB SERVICES AND MEDICAL EQUIPMENT. PT DENIES DISCHARGE NEEDS, PT INITIALLY ASKED FOR HOSPITAL TO GIVE HIM AND HIS A [place] R[place] HOME IF THEY ARE LEAVING TODAY, CM EXPLAINED THAT THEY ARE NOT DISCHARGING TODAY, WE ARE ONLY TALKING ABOUT THE DISCHARGE PLAN. PT HTEN REPORTS FAMILY WILL PICK HE AND UP FOR DISCHARGE HOME. IMPORTANT MESSAGE FROM MEDICARE PROVIDED AND EXPLAINED, PROVIDED IN [place] PT REPORTS ABILITY TO READ [place]. PT DENIES DISCHARGE NEEDS, FAMILY TO TRANSPORT HOME AT DISCHARGE. CM TO FOLLOW AND ASSIST IF NEEDED. Chassis Inspector: Javi Ayala DCPIA - Discharge Planning Initial Assessment Updated by CASEY: Javi Ayala on 03/13/19 4:59 pm * Is the patient Alert and Oriented? Yes * How many steps to enter\exit or inside your home? * PCP [facility] [phone] * Pharmacy [facility] [phone] * Preadmission Environment Home with Family * ADLs Independent * Equipment Nebulizer * Other Equipment [facility] IN [facility] - MEDICAL EQUIPMENT PROVIDER PREFERENCE * List name and contact numbers for known caregivers / representatives who currently or will assist patient after discharge: RONDA FAM, SPOUSE, [phone] TAPAN RAO, DTR, * Verbal permission to speak to the caregivers and representatives has been obtained from the patient. Yes * Community resources currently utilized None * Please name any agencies selected above. NONE * Additional services required to return to the preadmission environment? No * Can the patient safely return to the preadmission environment? Yes * Has this patient been hospitalized within the prior 30 days at any hospital? No Coverage Notice Reviewer: CASEY Ayala Notice Issued Date-Time: 03/13/2019 16:30 Notice Type: IM Discharge Notice Notice Delivered To: Family Member Relationship to Patient: Spouse Bakery Technician Name: RONDA FAM Delivery Method: HAND - Hand Delivered Lanny Days: Prior Verbal Notification: Recipient Understood Notice: Yes Recipient Signature: Yes Med Rec Note Co-signed by Attending: Coverage Notice Comment: Reviewer: CASEY Ayala Notice Issued Date-Time: 03/22/2019 16:45 Notice Type: IM Discharge Notice Notice Delivered To: Family Member Relationship to Patient: Spouse Bakery Technician Name: RONDA Delivery Method: HAND - Hand Delivered Lanny Days: Prior Verbal Notification: Recipient Understood Notice: Yes Recipient Signature: Yes Med Rec Note Co-signed by Attending: Coverage Notice Comment: Reviewer: CASEY Ayala Notice Issued Date-Time: 03/24/2019 12:03 Notice Type: Patient Choice Letter Notice Delivered To: Family Member Relationship to Patient: Spouse Bakery Technician Name: RONDA Delivery Method: HAND - Hand Delivered Lanny Days: Prior Verbal Notification: Recipient Understood Notice: Yes Recipient Signature: Yes Med Rec Note Co-signed by Attending: Coverage Notice Comment: ANY SNF IN [facility] OR CLOSE TO [facility] Reviewer: [id number] Shayan Ayala Notice Issued Date-Time: 03/24/2019 12:03 Notice Type: IM Discharge Notice Notice Delivered To: Family Member Relationship to Patient: Spouse Bakery Technician Name: RONDA Delivery Method: HAND - Hand Delivered Lanny Days: Prior Verbal Notification: Recipient Understood Notice: Yes Recipient Signature: Yes Med Rec Note Co-signed by Attending: Coverage Notice Comment: Last DP export: 03/30/19 10:11 a Patient Name: MAIRA GALDAMEZDARRELL Page [id number] at 1319 All edits/amendments must be made on the electronic document DICTATION DATE: 03/30/19 1319 WOODWORKING MACHINE OPERATOR: MARCLEL 03/30/19 1319 RPT#: [id number] MT DATE: STATUS: ADM IN [facility] [address] [place] [address] END OF REPORT
--- NOTE | 2019-03-30 13:27 | MORECARE ---
CASE MANAGEMENT DISCHARGE SUMMARY PATIENT: DARRELL DE LA ROSA UNIT: [id number] ADM DATE: 03/12/19 AGE: 68 : 50 SEX: M ROOM/BED: D.2106 AUTHOR: EVERDOC PHYSICIAN: REFERRING PHYSICIAN: TREVA MCCARTNEY MD DATE OF SERVICE: 03/30/19 Discharge Plan Patient Name: DARRELL DE LA ROSA Facility: [facility]:[place] : 1950 Planned Disposition: Inpatient Rehab Anticipated Discharge Date: 03/30/19 Discharge Date: Expected LOS: 18 Initial Reviewer: [id number] Initial Review Date: 03/12/2019 Generated: 03/30/19 2:27 pm Comments DCP- Discharge Planning Updated by [id number]: Javi Ayala on 03/30/19 12:[address] Patient Name: DARRELL GALDAMEZ Encounter No: [id number] : 1950 Primary Insurance: MEDICARE A & B Anticipated DC Date: 03-30-2019 Planned Disposition: Inpatient Rehab External Planned Provider: [facility] DCP follow-up note: CM CALLED AND SPOKE TO PT'S SPOUSE, RONDA, . CM ADDED LANGUAGE LINE [id number], RAUEL, TO THE LINE. CM DISCUSSED NURSING REHAB DECLINATIONS IN [facility] AND CLOSE TO [facility] REQUESTED BY SHE AND PT. CM ASKED IF REFERRALS TO [facility] OR [facility] WOULD BE OK. RONDA STATES THAT WOULD BE A LITTLE FAR, BUT BELIEVES THAT PT NEEDS REHAB AND ASKED THAT CM PUT PT ANYWHERE WHERE HE WILL GET REHAB TO COME HOME SOON POSSIBLE. ZANA EXPLAINED THAT PT HAS ALREADY MISSED OUT ON 5 DAYS OF REHAB HE COULD HAVE RECEIVED AT [facility]. CM INFORMED RONDA THAT [facility] RE[facility] WILL ACCEPT PT. AKIL ASKED IF THE REHAB WILL BE ABLE TO COMMUNICATE WITH PT, CM ASSURED RONDA THAT THEY TOO HAVE ACCESS TO LANGUAGE LINE IF NEEDED. RONDA IS IN AGREEMENT WITH PLAN, SHE REPORTS SHE WANTS TO KNOW WHAT ROOM HE IS IN SHE PLANS TO COME AND SEE PT ON WEDNESDAY. CM NOTIFIED DR. JORGENSEN WHO WILL DISCHARGE PT TO REHAB TODAY. CM SPOKE TO MATT OF INPATIENT REHAB WHO WILL ACCEPT PT TODAY. [facility] INPATIENT [facility] TO CONTACT MED 2 NURSE WITH ROOM NUMBER WHEN READY TO ACCEPT PT AND NURSE REPORT. Javi Ayala CASE MANAGEMENT DCP- Discharge Planning Updated by [id number]: Javi Ayala on 03/30/19 10:[address] Patient Name: DARRELL GALDAMEZ Encounter No: [id number] : 1950 Primary Insurance: MEDICARE A & B Anticipated DC Date: 03-27-2019 Planned Disposition: Long Term Facility External Planned Provider: [facility], MEDICARE REHAB BED DCP follow-up note: CM CALLED [facility], , LEFT MESSAGE FOR TANK CREWMEMBER TO DISCUSS REFERRAL. CM FAXED UDPATE TO [facility], . CM WAITING RETURN CALL FROM [facility]. CM WAITING ADMISSION DETERMINATION FROM [facility] IN [place], [place], FOR REHAB. CM WAITING RETURN CALL FROM PT'S JOHN TO DISCUSS THE POSSIBILITY OF STAYING AT [facility] FOR REHAB. Javi Ayala, CASE MANAGEMENT Appended by Javi Ayala on 03/30/2019 11:06 CDT: CM RECEIVED CALL FROM GADIEL OF [facility] WHO ADVISED THEY DO NOT HAVE OPEN REHAB BEDS. CM CALLED [facility], , DISCUSSED PT'S SITUATION AND NEED FOR REHAB. [facility] NURSING FACILITIES IN [place] AND [place]. CM FAXED REFERRAL TO [facility] FOR [facility]HAB IN [place] OR [place], . CM WAITING ADMISSION DETERMINATION FROM [facility] FOR REHAB IN [place] OR [place], [place]. CM WAITING RETURN CALL FROM PT'S JOHN TO DISCUSS THE POSSIBILITY OF STAYING AT [facility] FOR REHAB. Javi Ayala CASE JACOB DCP- Discharge Planning Updated by [id number]: Javi Ayala on 03/29/19 3:[address] Patient Name: DARRELL GALDAMEZ Encounter No: [id number] : 1950 Primary Insurance: MEDICARE A & B Anticipated DC Date: 03-27-2019 Planned Disposition: Long Term Facility External Planned Provider: [facility] RE[facility] B[facility] DCP follow-up note: CM ATTEMPTED TO CALL PT'S SPOUSE, RONDA, , THERE WAS NOT ANSWER AND NO VOICE MAIL SET UP. CM CALLED PT'S DAUGHTER, TAPAN, , LEFT MESSAGE ASKING FOR RETURN CALL SOON POSSIBLE REGADING DISCHARGE PLANNING FOR PATIENT. CM WAITING ADMISSION DETERMINATION FROM [facility] IN [place], [place], FOR REHAB. CM TO DISCUSS WITH PT'S SPOUSE THE POSSIBILITY OF STAYING AT [facility] FOR REHAB. Javi Ayala CASE MANAGEMENT DCP- Discharge Planning Updated by [id number]: Javi Ayala on 03/28/19 4:[address] Patient Name: DARRELL GALDAMEZ Encounter No: [id number] : 1950 Primary Insurance: MEDICARE A & B Anticipated DC Date: 03-27-2019 Planned Disposition: Long Term Facility External Planned Provider: TO BE DETERMINED DCP follow-up note: CM SPOKE TO [facility]ZA [facility] WHO ADVISED THEY WILL NOT ACCEPT PT FOR REHAB. CM FAXED REFERRAL TO [facility] IN [place] AT [phone]. CM TO DISCUSS GOING TO INPATIENT REHAB AT [facility] AGAIN WHEN PT'S SPOUSE ARRIVES. SHE HAS NOT BEEN IN ROOM TODAY, PT IS CONFUSED. CM WAITING ADMISSION DETERMINATION FROM [facility] IN [place], [place], FOR REHAB. CM TO DISCUSS WITH PT'S SPOUSE STAYING AT [facility] FOR REHAB. JUSTIN Mcghee DCP- Discharge Planning Updated by [id number]: Javi Ayala on 03/27/19 4:[address] Patient Name: DARRELL GALDAMEZ Encounter No: [id number] : 1950 Primary Insurance: MEDICARE A & B Anticipated DC Date: 03-27-2019 Planned Disposition: Long Term Facility External Planned Provider: [facility], MEDICARE REHAB BED DCP follow-up note: CM RECEIVED CALL FROM LIZA MENG [facility],, , WHO ADVISED THAT THEY WILL SCREEN FOR REHAB ADMISSION AND TO SEND REFERRAL VIA FAX. ZANA FAXED REFERRAL TO [facility], . CM WAITING ADMISSION DETERMINATION FROM [facility]. JUSTIN Mcghee DCP- Discharge Planning Updated by [id number]: Javi Ayala on 03/27/19 2:[address] Patient Name: DARRELL GALDAMEZ Admission Status: ER Accout number: [id number] Admission Date: 03-12-2019 : 1950 Admission Diagnosis:SEPSIS, UNSPECIFIED ORGANISM Attending: TREVA MCCARTNEY Current LOS: 15 Anticipated DC Date: 03-27-2019 Planned Disposition: Long Term Facility Primary Insurance: MEDICARE A & B PLANNED EXTERNAL PROVIDER: [facility] Discharge Planning Comments: CM RECEIVED CALL FROM MILLIE OF [facility] AT ABOUT 1420 HOURS, THEY CANNOT MEET PT'S NEEDS THEY DO NOT HAVE 24 HOUR [employer]AN SPEAKING STAFF AT THE FACILITY. CM CALLED [facility], , SPOKE TO SHANAE WHO TOOK REFERRAL INFORMATION AND ASKED THAT CM NOT FAX REFERRAL YET, SHE WILL CHECK WITH TANK CREWMEMBER AND NOTIFY CM IF THEY WILL REVIEW REFERRAL AND NOTIFY CM SHORTLY. CM WAITING RETURN CALL FROM [facility] REGARDING REHAB PLACEMENT REFERRAL. Food Service Worker: Javi Ayala DCP- Discharge Planning Updated by [id number]: Javi Ayala on 03/27/19 8:[address] Patient Name: DARRELL GALDAMEZ Encounter No: [id number] : 1950 Primary Insurance: MEDICARE A & B Anticipated DC Date: 03-27-2019 Planned Disposition: Long Term Facility External Planned Provider: [facility], MEDICARE REHAB BED DCP follow-up note: CM FAXED REHAB REFERRAL UPDATE TO [facility] AT [phone]. CM EMAILED REFERRAL AND UPDATE TO [email or web address]. CM WAITING ADMISSION DETERMINATION FROM [facility] IN [facility]. JUSTIN Mcghee DCP- Discharge Planning Updated by [id number]: Javi Ayala on 03/24/19 1:[address] Patient Name: DARRELL GALDAMEZ Encounter No: [id number] : 1950 Primary Insurance: MEDICARE A & B Anticipated DC Date: 03-27-2019 Planned Disposition: Long Term Facility External Planned Provider: [facility], MEDICARE REHAB BED DCP follow-up note: CM SPOKE TO NURSE STUDENT DEVELOPMENT COORDINATOR JULIANNE WHO HAS SPOKEN TO THE PT IN ROOM 2106 HAS INFORMED JULIANNE THAT PT'S SPOUSE HAS SAID THEY DO NOT WANT TO STAY HERE FOR REHAB AND WANT TO GO TO REHAB IN [facility]. CM MET WITH PT AND SPOUSE IN ROOM, USED [employer], , YARD ATTENDANT [phone]; CM DISCUSSED REHAB HERE HAS ACCEPTED TODAY. PT AND SPOUSE WANT REHAB CLOSER TO HOME IN [facility] AND IF NOT IN [facility], CLOSE TO [facility] POSSIBLE. CHOICE LETTER SIGNED. IMPORTANT MESSAGE FROM MEDICARE PROVIDED AND EXPLAINED. CM NOTIFIED DR. MCCARTNEY AND ANTHONY OF INPATIENT REHAB OF PT'S CHANGE IN PLAN. CM CALLED [facility], [place], , SPOKE TO MILLIE WHO TOOK REFERRAL INFORMATION AND REPORTS THEY HAVE A [employer] SPEAKING STAFF MEMBER THAT CAN ASSIST WEDNESDAY THRU WEDNESDAY AND WILL CONSIDER PT FOR REHAB ADMISSION. THEY WILL NOT BE ABLE TO LOOK AT REFERRAL UNTIL WEDNESDAY THEIR DIRECTOR IS OUT UNTIL THEN. CM FAXED REHAB REFERRAL TO [facility] AT [phone]. CM WAITING ADMISSION DETERMINATION FROM [facility] IN [facility]. THEY WILL NOT HAVE ADMISSION DETERMINATION UNTIL WEDNESDAY AT THE EARLIEST, 03-27-19. Javi Ayala, CASE MANAGEMENT DCP- Discharge Planning Updated by [id number]: Javi Ayala on 03/22/19 3:[address] Patient Name: DARRELL GALDAMEZ Admission Status: ER Accout number: [id number] Admission Date: 03-12-2019 : 1950 Admission Diagnosis:SEPSIS, UNSPECIFIED ORGANISM Attending: TREVA MCCARTNEY Current LOS: 10 Anticipated DC Date: 03-23-2019 Planned Disposition: Inpatient Rehab Primary Insurance: MEDICARE A & B PLANNED EXTERNAL PROVIDER; [facility] IN[facility] Discharge Planning Comments: CM MET WITH PT AND SPOUSE IN ROOM TO DISCUSS DISCHARGE PLANNING AND NEEDS. CM UTILIZED [employer] YARD ATTENDANT SERVICES, , PHOTOGRAPH RETOUCHER # [id number]. PTCM DISCUSSED AVAILABILITY OF REHAB SERVICES, PROVIDERS AND LOCATIONS. CM DISCUSSED INPATIENT REHAB PRESCREEN AND THERAPY NEEDS. PT WOULD LIKE TO STAY AT [facility] FOR REHAB. PT NOR SPOUSE HAD FURTHER QUESTIONS FOR CM AT THIS TIME. IMPORTANT MESSAGE FROM MEDICARE PROVIDED AND EXPLAINED. CM CALLED AND SPOKE TO MATT OF INPATIENT REHAB, THEY PLAN TO ACCEPT PT WHEN MEDICALLY STABLE. WHEN READY FOR DISCHARGE, NOTIFY [facility] IN[facility]. Food Service Worker: Javi Ayala DCP- Discharge Planning Updated by [id number]: Javi Ayala on 03/13/19 4:[address] Patient Name: DARRELL GALDAMEZ Admission Status: ER Accout number: [id number] Admission Date: 03-12-2019 : 1950 Admission Diagnosis: Attending: TREVA MCCARTNEY Current LOS: 1 Anticipated DC Date: Planned Disposition: Home Primary Insurance: MEDICARE A & B Discharge Planning Comments: CM MET WITH PT AND SPOUSE IN ROOM TO DISCUSS DISCHARGE PLANNING AND NEEDS. CM CALLED [employer]ATION SERVICES, , WAS ASSISTED BY RONDA, YARD ATTENDANT # [id number]. DARRELL GALDAMEZ provided verbal consent to discuss current and ongoing needs with/in the presence of: SPOUSE, RONDA. PT REPORTS LIVING AT HOME INDEPENDENTLY WITH HIS . PT HAS NEBULIZER, HE NO LONGER HAS OXYGEN FROM [facility], THEY PICKED IT UP. PT HAS NO OUTSIDE SERVICES ASSISTING IN THE HOME. PT REPORTS SOMEONE FROM THE MEDICAL CLINIC CHECKS ON HIM AT HOME. CM DISCUSSED AVAILABILITY OF HOME HEALTH, REHAB SERVICES AND MEDICAL EQUIPMENT. PT DENIES DISCHARGE NEEDS, PT INITIALLY ASKED FOR HOSPITAL TO GIVE HIM AND HIS A [place] RIDE HOME IF THEY ARE LEAVING TODAY, CM EXPLAINED THAT THEY ARE NOT DISCHARGING TODAY, WE ARE ONLY TALKING ABOUT THE DISCHARGE PLAN. PT HTEN REPORTS FAMILY WILL PICK HE AND UP FOR DISCHARGE HOME. IMPORTANT MESSAGE FROM MEDICARE PROVIDED AND EXPLAINED, PROVIDED IN [employer] PT REPORTS ABILITY TO READ ECUADOREAN. PT DENIES DISCHARGE NEEDS, FAMILY TO TRANSPORT HOME AT DISCHARGE. CM TO FOLLOW AND ASSIST IF NEEDED. Food Service Worker: Javi Ayala DCPIA - Discharge Planning Initial Assessment Updated by [id number]: Javi Ayala on 03/13/19 4:59 pm * Is the patient Alert and Oriented? Yes * How many steps to enter\exit or inside your home? * PCP [facility] [phone] * Pharmacy [facility] [phone] * Preadmission Environment Home with Family * ADLs Independent * Equipment Nebulizer * Other Equipment [facility] - MEDICAL EQUIPMENT PROVIDER PREFERENCE * List name and contact numbers for known caregivers / representatives who currently or will assist patient after discharge: RONDA FAM, SPOUSE, [phone] TAPAN RAO, DTR, * Verbal permission to speak to the caregivers and representatives has been obtained from the patient. Yes * Community resources currently utilized None * Please name any agencies selected above. NONE * Additional services required to return to the preadmission environment? No * Can the patient safely return to the preadmission environment? Yes * Has this patient been hospitalized within the prior 30 days at any hospital? No Coverage Notice Reviewer: CASEY Ayala Notice Issued Date-Time: 03/24/2019 12:03 Notice Type: IM Discharge Notice Notice Delivered To: Family Member Relationship to Patient: Spouse Staker Surveying Name: RONDA Delivery Method: HAND - Hand Delivered Lanny Days: Prior Verbal Notification: Recipient Understood Notice: Yes Recipient Signature: Yes Med Rec Note Co-signed by Attending: Coverage Notice Comment: Reviewer: CASEY Ayala Notice Issued Date-Time: 03/22/2019 16:45 Notice Type: IM Discharge Notice Notice Delivered To: Family Member Relationship to Patient: Spouse Staker Surveying Name: RONDA Delivery Method: HAND - Hand Delivered Lanny Days: Prior Verbal Notification: Recipient Understood Notice: Yes Recipient Signature: Yes Med Rec Note Co-signed by Attending: Coverage Notice Comment: Reviewer: CASEY Ayala Notice Issued Date-Time: 03/13/2019 16:30 Notice Type: IM Discharge Notice Notice Delivered To: Family Member Relationship to Patient: Spouse Staker Surveying Name: RONDA FAM Delivery Method: HAND - Hand Delivered Lanny Days: Prior Verbal Notification: Recipient Understood Notice: Yes Recipient Signature: Yes Med Rec Note Co-signed by Attending: Coverage Notice Comment: Reviewer: CASEY Ayala Notice Issued Date-Time: 03/24/2019 12:03 Notice Type: Patient Choice Letter Notice Delivered To: Family Member Relationship to Patient: Spouse Staker Surveying Name: RONDA Delivery Method: HAND - Hand Delivered Lanny Days: Prior Verbal Notification: Recipient Understood Notice: Yes Recipient Signature: Yes Med Rec Note Co-signed by Attending: Coverage Notice Comment: ANY SNF IN [facility] OR CLOSE TO [facility] Last DP export: 03/30/19 12:19 p Patient Name: DARRELL DE LA ROSA Page [id number] at 1327 All edits/amendments must be made on the electronic document DICTATION DATE: 03/30/197 HEEL PADDER: MARCELL 03/30/197 RPT#: [id number] DC DATE: STATUS: ADM IN [facility] [address] [place] [address] END OF REPORT
--- NOTE | 2019-03-30 14:46 | NUR ---
OT NOTE: MIN ASSIST WITH TOILETING. BED MOB WITH MIN ASSIST. LUKE CHEUNG, OTR/L
--- NOTE | 2019-03-30 14:46 | NUR ---
DR. JORGENSEN EXAMINED PENIS,AND PENILE SHAFT AND SCROTUM. NO BLISTERS NOTED. GEODETIC SURVEYOR NOTIFIED. ORDER FOR [facility] TO BE DC PRIOR TO REHAB.
--- NOTE | 2019-03-30 14:47 | NUR ---
OT NOTE: PT COMPLETED TOILETING TASKS WITH MIN/MOD A. PT COMPLETED HAND WASHING WITH CGA AT SINK LEVEL. THANK YOU, STACEY HOLLIS
[2019-03-30 15:36] VITALS: BP 134/79
--- NOTE | 2019-03-30 15:49 | MORECARE ---
CASE MANAGEMENT DISCHARGE SUMMARY PATIENT: DARRELL DE LA ROSA UNIT: [id number] ADM DATE: 03/12/19 AGE: 68 : 50 SEX: M ROOM/BED: D.2106 AUTHOR: EVERDOC PHYSICIAN: REFERRING PHYSICIAN: TREVA MCCARTNEY MD DATE OF SERVICE: 03/30/19 Discharge Plan Patient Name: DARRELL DE LA ROSA Facility: [facility]:[place] : 1950 Planned Disposition: Inpatient Rehab Anticipated Discharge Date: 03/30/19 Discharge Date: Expected LOS: 18 Initial Reviewer: [id number] Initial Review Date: 03/12/2019 Generated: 03/30/19 4:48 pm Comments DCP- Discharge Planning Updated by [id number]: Javi Lott on 03/30/19 2:[address] Patient Name: DARRELL GALDAMEZ Encounter No: [id number] : 1950 Primary Insurance: MEDICARE A & B Anticipated DC Date: 03-30-2019 Planned Disposition: Inpatient Rehab External Planned Provider: [facility] INPATIENT [facility]HAB DCP follow-up note: CM CALLED AND SPOKE TO PT'S SPOUSE, RONDA, . CM ADDED LANGUAGE LINE [id number], RAUEL, TO THE LINE. CM DISCUSSED NURSING REHAB DECLINATIONS IN [facility] AND CLOSE TO [facility] REQUESTED BY SHE AND PT. CM ASKED IF REFERRALS TO [place] OR [place] WOULD BE OK. RONDA STATES THAT WOULD BE A LITTLE FAR, BUT BELIEVES THAT PT NEEDS REHAB AND ASKED THAT CM PUT PT ANYWHERE WHERE HE WILL GET REHAB TO COME HOME SOON POSSIBLE. ZANA EXPLAINED THAT PT HAS ALREADY MISSED OUT ON 5 DAYS OF REHAB HE COULD HAVE RECEIVED AT [facility]. CM INFORMED RONDA THAT [facility] REHAB WILL ACCEPT PT. AKIL ASKED IF THE REHAB WILL BE ABLE TO COMMUNICATE WITH PT, CM ASSURED RONDA THAT THEY TOO HAVE ACCESS TO LANGUAGE LINE IF NEEDED. RONDA IS IN AGREEMENT WITH PLAN, SHE REPORTS SHE WANTS TO KNOW WHAT ROOM HE IS IN SHE PLANS TO COME AND SEE PT ON WEDNESDAY. CM NOTIFIED DR. JORGENSEN WHO WILL DISCHARGE PT TO REHAB TODAY. ZANA SPOKE TO MATT OF INPATIENT REHAB WHO WILL ACCEPT PT TODAY. [facility] INPATIENT REHAB TO CONTACT MED 2 NURSE WITH ROOM NUMBER WHEN READY TO ACCEPT PT AND NURSE REPORT. Javi Lott, CASE MANAGEMENT Appended by Javi Lott on 03/30/2019 15:42 CDT: CM RECEIVED CALL FROM JOCELINE OF [facility] WHO VOICED CONCERNS OF MEDICAL STABLITY AND THAT DR. SINGH'S NOTE INDICATED THAT IF LIVER ENZYMES CONTINUE TO RISE, AND THEY HAVE, PT WILL NEED FURHTER IMAGING. CM SPOKE TO DR. JORGENSEN AND DR. SINGH'S NURSE REGINA, WHO BOTH INFORMED CM THAT PT IS STABLE TO DISCHARGE TO REHAB WITH NO FURHTER TESTING. MIRYAM STATED THAT AN ULTRASOUND IS NOT GOING TO SHOW ANYTHING AND THEY ARE NOT GOING TO BE ABLE TO PERFORM ANY BIOPSY. CM NOTIFIED JOCELINE OF INPATIENT REHAB. JESSICA LOTT, CASE MANAGEMENT DCP- Discharge Planning Updated by [id number]: Javi Lott on 03/30/19 10:[address] Patient Name: DARRELL GALDAMEZ Encounter No: [id number] : 1950 Primary Insurance: MEDICARE A & B Anticipated DC Date: 03-27-2019 Planned Disposition: Senior Care Facility External Planned Provider: [facility] DCP follow-up note: CM CALLED [facility], , LEFT MESSAGE FOR IT PROJECT LEAD TO DISCUSS REFERRAL. CM FAXED UDPATE TO [facility], . CM WAITING RETURN CALL FROM [facility]. CM WAITING ADMISSION DETERMINATION FROM [facility] IN [place], [place], FOR REHAB. CM WAITING RETURN CALL FROM PT'S RAMALY TO DISCUSS THE POSSIBILITY OF STAYING AT [facility] FOR REHAB. Javi Lott, CASE MANAGEMENT Appended by Javi Lott on 03/30/2019 11:06 CDT: CM RECEIVED CALL FROM GADIEL OF [facility] WHO ADVISED THEY DO NOT HAVE OPEN REHAB BEDS. CM CALLED [facility], , DISCUSSED PT'S SITUATION AND NEED FOR REHAB. [facility] NURSING FACILITIES IN [place] AND [place]. CM FAXED REFERRAL TO [facility] FOR REHAB IN [place] OR [place], . CM WAITING ADMISSION DETERMINATION FROM [facility] IN [place] OR [place], [place]. CM WAITING RETURN CALL FROM PT'S FAMLY TO DISCUSS THE POSSIBILITY OF STAYING AT [facility] FOR REHAB. JUSTIN Mcghee MANAGEMENT DCP- Discharge Planning Updated by [id number]: Javi Lott on 03/29/19 3:[address] Patient Name: DARRELL GALDAMEZ Encounter No: [id number] : 1950 Primary Insurance: MEDICARE A & B Anticipated DC Date: 03-27-2019 Planned Disposition: Senior Care Facility External Planned Provider: [facility], MEDICARE REHAB BED DCP follow-up note: CM ATTEMPTED TO CALL PT'S SPOUSE, RONDA, , THERE WAS NOT ANSWER AND NO VOICE MAIL SET UP. CM CALLED PT'S DAUGHTER, TAPAN, , LEFT MESSAGE ASKING FOR RETURN CALL SOON POSSIBLE REGADING DISCHARGE PLANNING FOR PATIENT. CM WAITING ADMISSION DETERMINATION FROM [facility] IN [place], [place], FOR REHAB. CM TO DISCUSS WITH PT'S SPOUSE THE POSSIBILITY OF STAYING AT [facility] FOR REHAB. JUSTIN Mcghee DCP- Discharge Planning Updated by [id number]: Javi Lott on 03/28/19 4:[address] Patient Name: DARRELL GALDAMEZ Encounter No: [id number] : 1950 Primary Insurance: MEDICARE A & B Anticipated DC Date: 03-27-2019 Planned Disposition: Senior Care Facility External Planned Provider: TO BE DETERMINED DCP follow-up note: CM SPOKE TO [facility] WHO ADVISED THEY WILL NOT ACCEPT PT FOR REHAB. CM FAXED REFERRAL TO [facility] IN [place] AT [phone]. CM TO DISCUSS GOING TO INPATIENT REHAB AT [facility] AGAIN WHEN PT'S SPOUSE ARRIVES. SHE HAS NOT BEEN IN ROOM TODAY, PT IS CONFUSED. CM WAITING ADMISSION DETERMINATION FROM [facility] IN [place], FOR REHAB. CM TO DISCUSS WITH PT'S SPOUSE STAYING AT [facility] FOR REHAB. Javi Lott CASE MANAGEMENT DCP- Discharge Planning Updated by [id number]: Javi Lott on 03/27/19 4:[address] Patient Name: DARRELL GALDAMEZ Encounter No: [id number] : 1950 Primary Insurance: MEDICARE A & B Anticipated DC Date: 03-27-2019 Planned Disposition: Senior Care Facility External Planned Provider: [facility], MEDICARE REHAB BED DCP follow-up note: CM RECEIVED CALL FROM [facility],, , WHO ADVISED THAT THEY WILL SCREEN FOR REHAB ADMISSION AND TO SEND REFERRAL VIA FAX. CM FAXED REFERRAL TO [facility], . CM WAITING ADMISSION DETERMINATION FROM [facility]. Javi Lott, CASE MANAGEMENT DCP- Discharge Planning Updated by [id number]: Javi Lott on 03/27/19 2:[address] Patient Name: DARRELL GALDAMEZ Admission Status: ER Accout number: [id number] Admission Date: 03-12-2019 : 1950 Admission Diagnosis:SEPSIS, UNSPECIFIED ORGANISM Attending: TREVA MCCARTNEY Current LOS: 15 Anticipated DC Date: 03-27-2019 Planned Disposition: Senior Care Facility Primary Insurance: MEDICARE A & B PLANNED EXTERNAL PROVIDER: [facility] Discharge Planning Comments: CM RECEIVED CALL FROM MILLIE OF [place] AT ABOUT 1420 HOURS, THEY CANNOT MEET PT'S NEEDS THEY DO NOT HAVE 24 HOUR [employer] SPEAKING STAFF AT THE FACILITY. CM CALLED [facility], , SPOKE TO SHANAE WHO TOOK REFERRAL INFORMATION AND ASKED THAT CM NOT FAX REFERRAL YET, SHE WILL CHECK WITH IT PROJECT LEAD AND NOTIFY CM IF THEY WILL REVIEW REFERRAL AND NOTIFY CM SHORTLY. CM WAITING RETURN CALL FROM [facility] REGARDING REHAB PLACEMENT REFERRAL. [address] Man: Javi Lott DCP- Discharge Planning Updated by [id number]: Javi Lott on 03/27/19 8:[address] Patient Name: DARRELL GALDAMEZ Encounter No: [id number] : 1950 Primary Insurance: MEDICARE A & B Anticipated DC Date: 03-27-2019 Planned Disposition: Senior Care Facility External Planned Provider: [facility], MEDICARE REHAB BED DCP follow-up note: CM FAXED REHAB REFERRAL UPDATE TO [facility] AT [phone]. CM EMAILED REFERRAL AND UPDATE TO [email or web address]. CM WAITING ADMISSION DETERMINATION FROM [facility] IN [facility]. JUSTIN Mcghee DCP- Discharge Planning Updated by [id number]: Javi Lott on 03/24/19 1:[address] Patient Name: DARRELL GALDAMEZ Encounter No: [id number] : 1950 Primary Insurance: MEDICARE A & B Anticipated DC Date: 03-27-2019 Planned Disposition: Senior Care Facility External Planned Provider: [facility], MEDICARE REHAB BED DCP follow-up note: CM SPOKE TO NURSE POSTAL SUPERVISOR JULIANNE WHO HAS SPOKEN TO THE PT IN ROOM 2106 HAS INFORMED JULIANNE THAT PT'S SPOUSE HAS SAID THEY DO NOT WANT TO STAY HERE FOR REHAB AND WANT TO GO TO REHAB IN [facility]. CM MET WITH PT AND SPOUSE IN ROOM, USED LANGUAGE LINE, , NEON SIGN INSTALLER [phone]; CM DISCUSSED REHAB HERE HAS ACCEPTED TODAY. PT AND SPOUSE WANT REHAB CLOSER TO HOME IN [facility] AND IF NOT IN [facility], CLOSE TO [facility] POSSIBLE. CHOICE LETTER SIGNED. IMPORTANT MESSAGE FROM MEDICARE PROVIDED AND EXPLAINED. CM NOTIFIED DR. MCCARTNEY AND ANTHONY OF INPATIENT REHAB OF PT'S CHANGE IN PLAN. CM CALLED [facility], , SPOKE TO MILLIE WHO TOOK REFERRAL INFORMATION AND REPORTS THEY HAVE A [employer] SPEAKING STAFF MEMBER THAT CAN ASSIST WEDNESDAY THRU WEDNESDAY AND WILL CONSIDER PT FOR REHAB ADMISSION. THEY WILL NOT BE ABLE TO LOOK AT REFERRAL UNTIL WEDNESDAY THEIR DIRECTOR IS OUT UNTIL THEN. CM FAXED REHAB REFERRAL TO [facility] AT [phone]. CM WAITING ADMISSION DETERMINATION FROM [facility] IN [facility]. THEY WILL NOT HAVE ADMISSION DETERMINATION UNTIL WEDNESDAY AT THE EARLIEST, 03-27-19. JUSTIN Mcghee DCP- Discharge Planning Updated by [id number]: Javi Lott on 03/22/19 3:[address] Patient Name: DARRELL GALDAMEZ Admission Status: ER Accout number: [id number] Admission Date: 03-12-2019 : 1950 Admission Diagnosis:SEPSIS, UNSPECIFIED ORGANISM Attending: TREVA MCCARTNEY Current LOS: 10 Anticipated DC Date: 03-23-2019 Planned Disposition: Inpatient Rehab Primary Insurance: MEDICARE A & B PLANNED EXTERNAL PROVIDER; [facility] INPATIENT REHAB Discharge Planning Comments: CM MET WITH PT AND SPOUSE IN ROOM TO DISCUSS DISCHARGE PLANNING AND NEEDS. CM UTILIZED LANGUAGE LINE [employer], , BRANCH ASSOCIATE # [id number]. PTCM DISCUSSED AVAILABILITY OF REHAB SERVICES, PROVIDERS AND LOCATIONS. CM DISCUSSED INPATIENT REHAB PRESCREEN AND THERAPY NEEDS. PT WOULD LIKE TO STAY AT [facility] FOR REHAB. PT NOR SPOUSE HAD FURTHER QUESTIONS FOR CM AT THIS TIME. IMPORTANT MESSAGE FROM MEDICARE PROVIDED AND EXPLAINED. CM CALLED AND SPOKE TO MATT OF INPATIENT REHAB, THEY PLAN TO ACCEPT PT WHEN MEDICALLY STABLE. WHEN READY FOR DISCHARGE, NOTIFY [facility] INPATIENT [facility]. Skid [address] Man: Javi Lott DCP- Discharge Planning Updated by [id number]: Javi Lott on 03/13/19 4:[address] Patient Name: DARRELL GALDAMEZ Admission Status: ER Accout number: [id number] Admission Date: 03-12-2019 : 1950 Admission Diagnosis: Attending: TREVA MCCARTNEY Current LOS: 1 Anticipated DC Date: Planned Disposition: Home Primary Insurance: MEDICARE A & B Discharge Planning Comments: CM MET WITH PT AND SPOUSE IN ROOM TO DISCUSS DISCHARGE PLANNING AND NEEDS. CM CALLED [facility], , WAS ASSISTED BY RONDA, NEON SIGN INSTALLER # [id number]. DARRELL GALDAMEZ provided verbal consent to discuss current and ongoing needs with/in the presence of: SPOUSE, RONDA. PT REPORTS LIVING AT HOME INDEPENDENTLY WITH HIS . PT HAS NEBULIZER, HE NO LONGER HAS OXYGEN FROM [facility], THEY PICKED IT UP. PT HAS NO OUTSIDE SERVICES ASSISTING IN THE HOME. PT REPORTS SOMEONE FROM THE MEDICAL CLINIC CHECKS ON HIM AT HOME. CM DISCUSSED AVAILABILITY OF HOME HEALTH, REHAB SERVICES AND MEDICAL EQUIPMENT. PT DENIES DISCHARGE NEEDS, PT INITIALLY ASKED FOR HOSPITAL TO GIVE HIM AND HIS A TAXI RIDE HOME IF THEY ARE LEAVING TODAY, CM EXPLAINED THAT THEY ARE NOT DISCHARGING TODAY, WE ARE ONLY TALKING ABOUT THE DISCHARGE PLAN. PT HTEN REPORTS FAMILY WILL PICK HE AND UP FOR DISCHARGE HOME. IMPORTANT MESSAGE FROM MEDICARE PROVIDED AND EXPLAINED, PROVIDED IN [employer] PT REPORTS ABILITY TO READ [employer]. PT DENIES DISCHARGE NEEDS, FAMILY TO TRANSPORT HOME AT DISCHARGE. CM TO FOLLOW AND ASSIST IF NEEDED. Skid Road Man: Javi Lott DCPIA - Discharge Planning Initial Assessment Updated by CASEY: Javi Lott on 03/13/19 4:59 pm * Is the patient Alert and Oriented? Yes * How many steps to enter\exit or inside your home? * PCP [facility] IN [facility] [phone] * Pharmacy [facility] [phone] * Preadmission Environment Home with Family * ADLs Independent * Equipment Nebulizer * Other Equipment [facility] IN [facility] - MEDICAL EQUIPMENT PROVIDER PREFERENCE * List name and contact numbers for known caregivers / representatives who currently or will assist patient after discharge: RONDA FAM, SPOUSE, [phone] TAPAN RAO, DTR, * Verbal permission to speak to the caregivers and representatives has been obtained from the patient. Yes * Community resources currently utilized None * Please name any agencies selected above. NONE * Additional services required to return to the preadmission environment? No * Can the patient safely return to the preadmission environment? Yes * Has this patient been hospitalized within the prior 30 days at any hospital? No Coverage Notice Reviewer: CASEY Lott Notice Issued Date-Time: 03/13/2019 16:30 Notice Type: IM Discharge Notice Notice Delivered To: Family Member Relationship to Patient: Spouse Stereoptician Name: RONDA FAM Delivery Method: HAND - Hand Delivered Lanny Days: Prior Verbal Notification: Recipient Understood Notice: Yes Recipient Signature: Yes Med Rec Note Co-signed by Attending: Coverage Notice Comment: Reviewer: CASEY Lott Notice Issued Date-Time: 03/22/2019 16:45 Notice Type: IM Discharge Notice Notice Delivered To: Family Member Relationship to Patient: Spouse Stereoptician Name: RONDA Delivery Method: HAND - Hand Delivered Lanny Days: Prior Verbal Notification: Recipient Understood Notice: Yes Recipient Signature: Yes Med Rec Note Co-signed by Attending: Coverage Notice Comment: Reviewer: CASEY Lott Notice Issued Date-Time: 03/24/2019 12:03 Notice Type: Patient Choice Letter Notice Delivered To: Family Member Relationship to Patient: Spouse Stereoptician Name: RONDA Delivery Method: HAND - Hand Delivered Lanny Days: Prior Verbal Notification: Recipient Understood Notice: Yes Recipient Signature: Yes Med Rec Note Co-signed by Attending: Coverage Notice Comment: ANY SNF IN [facility] OR CLOSE TO [facility] Reviewer: [id number] Shayan Lott Notice Issued Date-Time: 03/24/2019 12:03 Notice Type: IM Discharge Notice Notice Delivered To: Family Member Relationship to Patient: Spouse Stereoptician Name: RONDA Delivery Method: HAND - Hand Delivered Lanny Days: Prior Verbal Notification: Recipient Understood Notice: Yes Recipient Signature: Yes Med Rec Note Co-signed by Attending: Coverage Notice Comment: Last DP export: 03/30/19 12:27 p Patient Name: MAIRA GALDAMEZDARRELL Page [id number] at 1549 All edits/amendments must be made on the electronic document DICTATION DATE: 03/30/19 1548 SENIOR ASSISTANT MANAGER: MARCELL 03/30/19 1548 RPT#: [id number] DC DATE: STATUS: ADM IN [facility] [address] [place] [address] END OF REPORT
--- NOTE | 2019-03-30 16:52 | NUR ---
REMOVED BUSH CATHETER. REMOVED TOTAL AMOUNT STERILE WATER FROM BALLOON BEFORE REMOVAL. PATIENT TOLERATED.
--- NOTE | 2019-03-30 19:30 | NUR ---
PATIENT HAS BEEN DISCAHRGED TO REHAB. ALL HIS BELONGINGS HAVE BEEN REMOVED FROM THE ROOM. HIS TELEMETRY WAS REMOVED. HE DOES NOT HAVE AN IV. HIS PAPERS AND DISCHARGE TEACHING SENT DOWNSTAIRS WITH HIM. HE HAS A DISPOSAL MAN PHONE WITH HIM.
--- NOTE | 2019-03-31 08:37 | MORECARE ---
CASE MANAGEMENT DISCHARGE SUMMARY PATIENT: DARRELL DE LA ROSA UNIT: [id number] ADM DATE: 03/12/19 AGE: 68 : 50 SEX: M ROOM/BED: D.2106 AUTHOR: EVER,DOC PHYSICIAN: REFERRING PHYSICIAN: TREVA MCCARTNEY MD DATE OF SERVICE: 03/31/19 Discharge Plan Patient Name: DARRELL DE LA ROSA Facility: [facility]:[place] : 1950 Planned Disposition: Inpatient Rehab Anticipated Discharge Date: 03/30/19 Discharge Date: 03/30/2019 Expected LOS: 18 Initial Reviewer: [id number] Initial Review Date: 03/12/2019 Generated: 03/31/19 9:37 am Comments DCP- Discharge Planning Updated by [id number]: Javi Lott on 03/30/19 2:[address] Patient Name: DARRELL GALDAMEZ Encounter No: [id number] : 1950 Primary Insurance: MEDICARE A & B Anticipated DC Date: 03-30-2019 Planned Disposition: Inpatient Rehab External Planned Provider: [facility] DCP follow-up note: CM CALLED AND SPOKE TO PT'S SPOUSE, RONDA, . CM ADDED LANGUAGE LINE [id number], RAUEL, TO THE LINE. CM DISCUSSED NURSING REHAB DECLINATIONS IN [facility] AND CLOSE TO [facility] REQUESTED BY SHE AND PT. CM ASKED IF REFERRALS TO [facility] OR [facility] WOULD BE OK. RONDA STATES THAT WOULD BE A LITTLE FAR, BUT BELIEVES THAT PT NEEDS REHAB AND ASKED THAT CM PUT PT ANYWHERE WHERE HE WILL GET REHAB TO COME HOME SOON POSSIBLE. ZANA EXPLAINED THAT PT HAS ALREADY MISSED OUT ON 5 DAYS OF REHAB HE COULD HAVE RECEIVED AT [facility]. CM INFORMED RODNA THAT [facility] REHAB WILL ACCEPT PT. AKIL ASKED IF THE REHAB WILL BE ABLE TO COMMUNICATE WITH PT, CM ASSURED RONDA THAT THEY TOO HAVE ACCESS TO LANGUAGE LINE IF NEEDED. RONDA IS IN AGREEMENT WITH PLAN, SHE REPORTS SHE WANTS TO KNOW WHAT ROOM HE IS IN SHE PLANS TO COME AND SEE PT ON WEDNESDAY. CM NOTIFIED DR. JORGENSEN WHO WILL DISCHARGE PT TO REHAB TODAY. CM SPOKE TO MATT OF INPATIENT REHAB WHO WILL ACCEPT PT TODAY. [facility] TO CONTACT MED 2 NURSE WITH ROOM NUMBER WHEN READY TO ACCEPT PT AND NURSE REPORT. Javi Lott, CASE MANAGEMENT Appended by Javi Lott on 03/30/2019 15:42 CDT: CM RECEIVED CALL FROM JOCELINE OF [facility] WHO VOICED CONCERNS OF MEDICAL STABLITY AND THAT DR. SINGH'S NOTE INDICATED THAT IF LIVER ENZYMES CONTINUE TO RISE, AND THEY HAVE, PT WILL NEED FURHTER IMAGING. CM SPOKE TO DR. JORGENSEN AND DR. SINGH'S NURSE REGINA, WHO BOTH INFORMED CM THAT PT IS STABLE TO DISCHARGE TO REHAB WITH NO FURHTER TESTING. MIRYAM STATED THAT AN ULTRASOUND IS NOT GOING TO SHOW ANYTHING AND THEY ARE NOT GOING TO BE ABLE TO PERFORM ANY BIOPSY. CM NOTIFIED JOCELINE OF INPATIENT REHAB. JESSICA LOTT, CASE MANAGEMENT DCP- Discharge Planning Updated by [id number]: Javi Lott on 03/30/19 10:[address] Patient Name: DARRELL GALDAMEZ Encounter No: [id number] : 1950 Primary Insurance: MEDICARE A & B Anticipated DC Date: 03-27-2019 Planned Disposition: Care Home Facility External Planned Provider: [facility], MEDICARE REHAB BED DCP follow-up note: CM CALLED [facility], , LEFT MESSAGE FOR METROLOGY TECHNICIAN TO DISCUSS REFERRAL. CM FAXED UDPATE TO [facility], . CM WAITING RETURN CALL FROM [facility]. CM WAITING ADMISSION DETERMINATION FROM [facility] IN [place], [place], FOR REHAB. CM WAITING RETURN CALL FROM PT'S JOHN TO DISCUSS THE POSSIBILITY OF STAYING AT [facility] FOR [facility]AB. Javi Lott, CASE MANAGEMENT Appended by Javi Lott on 03/30/2019 11:06 CDT: CM RECEIVED CALL FROM GADIEL OF [facility] WHO ADVISED THEY DO NOT HAVE OPEN REHAB BEDS. CM CALLED [facility], , DISCUSSED PT'S SITUATION AND NEED FOR REHAB. [facility] FACILITIES IN [place] AND [place]. CM FAXED REFERRAL TO [facility] FOR REHAB IN [place] OR [place], . CM WAITING ADMISSION DETERMINATION FROM [facility] FOR REHAB IN [place] OR [place], [place]. CM WAITING RETURN CALL FROM PT'S FAMLY TO DISCUSS THE POSSIBILITY OF STAYING AT [facility] FOR [facility]AB. Javi Lott CASE MANAGEMENT DCP- Discharge Planning Updated by [id number]: Javi Lott on 03/29/19 3:[address] Patient Name: DARRELL GALDAMEZ Encounter No: [id number] : 1950 Primary Insurance: MEDICARE A & B Anticipated DC Date: 03-27-2019 Planned Disposition: Care Home Facility External Planned Provider: [facility] DCP follow-up note: CM ATTEMPTED TO CALL PT'S SPOUSE, RONDA, , THERE WAS NOT ANSWER AND NO VOICE MAIL SET UP. CM CALLED PT'S DAUGHTER, TAPAN, , LEFT MESSAGE ASKING FOR RETURN CALL SOON POSSIBLE REGADING DISCHARGE PLANNING FOR PATIENT. CM WAITING ADMISSION DETERMINATION FROM [facility] IN [place], [place], FOR REHAB. CM TO DISCUSS WITH PT'S SPOUSE THE POSSIBILITY OF STAYING AT [facility] FOR [facility]. Javi Lott CASE MANAGEMENT DCP- Discharge Planning Updated by [id number]: Javi Lott on 03/28/19 4:[address] Patient Name: DARRELL GALDAMEZ Encounter No: [id number] : 1950 Primary Insurance: MEDICARE A & B Anticipated DC Date: 03-27-2019 Planned Disposition: Care Home Facility External Planned Provider: TO BE DETERMINED DCP follow-up note: CM SPOKE TO [facility] WHO ADVISED THEY WILL NOT ACCEPT PT FOR REHAB. CM FAXED REFERRAL TO [facility] IN [place] AT [phone]. CM TO DISCUSS GOING TO INPATIENT REHAB AT [facility] AGAIN WHEN PT'S SPOUSE ARRIVES. SHE HAS NOT BEEN IN ROOM TODAY, PT IS CONFUSED. CM WAITING ADMISSION DETERMINATION FROM [facility] IN [place], [place], FOR REHAB. CM TO DISCUSS WITH PT'S SPOUSE STAYING AT [facility] FOR [facility]. Javi Lott CASE MANAGEMENT DCP- Discharge Planning Updated by [id number]: Javi Lott on 03/27/19 4:[address] Patient Name: DARRELL GALDAMEZ Encounter No: [id number] : 1950 Primary Insurance: MEDICARE A & B Anticipated DC Date: 03-27-2019 Planned Disposition: Care Home Facility External Planned Provider: [facility], MEDICARE REHAB BED DCP follow-up note: CM RECEIVED CALL FROM LIZA [facility],, , WHO ADVISED THAT THEY WILL SCREEN FOR REHAB ADMISSION AND TO SEND REFERRAL VIA FAX. CM FAXED REFERRAL TO [facility], . CM WAITING ADMISSION DETERMINATION FROM [facility]. Javi Lott, CASE MANAGEMENT DCP- Discharge Planning Updated by [id number]: Javi Lott on 03/27/19 2:[address] Patient Name: DARRELL GALDAMEZ Admission Status: ER Accout number: [id number] Admission Date: 03-12-2019 : 1950 Admission Diagnosis:SEPSIS, UNSPECIFIED ORGANISM Attending: TREVA MCCARTNEY Current LOS: 15 Anticipated DC Date: 03-27-2019 Planned Disposition: Care Home Facility Primary Insurance: MEDICARE A & B PLANNED EXTERNAL PROVIDER: [facility] Discharge Planning Comments: CM RECEIVED CALL FROM MILLIE OF [facility] AT ABOUT 1420 HOURS, THEY CANNOT MEET PT'S NEEDS THEY DO NOT HAVE 24 HOUR [place] SPEAKING STAFF AT THE FACILITY. CM CALLED [facility], , SPOKE TO SHANAE WHO TOOK REFERRAL INFORMATION AND ASKED THAT CM NOT FAX REFERRAL YET, SHE WILL CHECK WITH METROLOGY TECHNICIAN AND NOTIFY CM IF THEY WILL REVIEW REFERRAL AND NOTIFY CM SHORTLY. CM WAITING RETURN CALL FROM [facility] REGARDING REHAB PLACEMENT REFERRAL. Special Effects Artist: Javi Lott DCP- Discharge Planning Updated by [id number]: Javi Lott on 03/27/19 8:[address] Patient Name: DARRELL GALDAMEZ Encounter No: [id number] : 1950 Primary Insurance: MEDICARE A & B Anticipated DC Date: 03-27-2019 Planned Disposition: Care Home Facility External Planned Provider: [facility], MEDICARE REHAB BED DCP follow-up note: CM FAXED REHAB REFERRAL UPDATE TO [facility] AT [phone]. CM EMAILED REFERRAL AND UPDATE TO [email or web address]. CM WAITING ADMISSION DETERMINATION FROM [facility] IN [facility]. JUSTIN Mcghee DCP- Discharge Planning Updated by [id number]: Javi Lott on 03/24/19 1:[address] Patient Name: DARRELL GALDAMEZ Encounter No: [id number] : 1950 Primary Insurance: MEDICARE A & B Anticipated DC Date: 03-27-2019 Planned Disposition: Care Home Facility External Planned Provider: [facility], MEDICARE REHAB BED DCP follow-up note: CM SPOKE TO NURSE JOINT CLEANING MACHINE OPERATOR JULIANNE WHO HAS SPOKEN TO THE PT IN ROOM 2106 HAS INFORMED JULIANNE THAT PT'S SPOUSE HAS SAID THEY DO NOT WANT TO STAY HERE FOR REHAB AND WANT TO GO TO REHAB IN [facility]. CM MET WITH PT AND SPOUSE IN ROOM, USED LANGUAGE LINE, , GIVER [id number]; CM DISCUSSED REHAB HERE HAS ACCEPTED TODAY. PT AND SPOUSE WANT REHAB CLOSER TO HOME IN [facility] AND IF NOT IN [facility], CLOSE TO [facility] POSSIBLE. CHOICE LETTER SIGNED. IMPORTANT MESSAGE FROM MEDICARE PROVIDED AND EXPLAINED. CM NOTIFIED DR. MCCARTNEY AND ANTHONY OF INPATIENT REHAB OF PT'S CHANGE IN PLAN. CM CALLED [facility], , SPOKE TO MILLIE WHO TOOK REFERRAL INFORMATION AND REPORTS THEY HAVE A [place] SPEAKING STAFF MEMBER THAT CAN ASSIST WEDNESDAY THRU WEDNESDAY AND WILL CONSIDER PT FOR REHAB ADMISSION. THEY WILL NOT BE ABLE TO LOOK AT REFERRAL UNTIL WEDNESDAY THEIR DIRECTOR IS OUT UNTIL THEN. CM FAXED REHAB REFERRAL TO [facility] AT [phone]. CM WAITING ADMISSION DETERMINATION FROM [facility] IN [facility]. THEY WILL NOT HAVE ADMISSION DETERMINATION UNTIL WEDNESDAY AT THE EARLIEST, 03-27-19. JUSTIN Mcghee DCP- Discharge Planning Updated by [id number]: Javi Lott on 03/22/19 3:[address] Patient Name: DARRELL GALDAMEZ Admission Status: ER Accout number: [id number] Admission Date: 03-12-2019 : 1950 Admission Diagnosis:SEPSIS, UNSPECIFIED ORGANISM Attending: TREVA MCCARTNEY Current LOS: 10 Anticipated DC Date: 03-23-2019 Planned Disposition: Inpatient Rehab Primary Insurance: MEDICARE A & B PLANNED EXTERNAL PROVIDER; [facility] Discharge Planning Comments: CM MET WITH PT AND SPOUSE IN ROOM TO DISCUSS DISCHARGE PLANNING AND NEEDS. CM UTILIZED [employer], , BOARDING MOTHER # [id number]. PTCM DISCUSSED AVAILABILITY OF REHAB SERVICES, PROVIDERS AND LOCATIONS. CM DISCUSSED INPATIENT REHAB PRESCREEN AND THERAPY NEEDS. PT WOULD LIKE TO STAY AT [facility] FOR [facility]. PT NOR SPOUSE HAD FURTHER QUESTIONS FOR CM AT THIS TIME. IMPORTANT MESSAGE FROM MEDICARE PROVIDED AND EXPLAINED. CM CALLED AND SPOKE TO MATT OF INPATIENT RE[facility], THEY PLAN TO ACCEPT PT WHEN MEDICALLY STABLE. WHEN READY FOR DISCHARGE, NOTIFY [facility]. Special Effects Artist: Javi Lott DCP- Discharge Planning Updated by [id number]: Javi Lott on 03/13/19 4:[address] Patient Name: DARRELL GALDAMEZ Admission Status: ER Accout number: [id number] Admission Date: 03-12-2019 : 1950 Admission Diagnosis: Attending: TREVA MCCARTNEY Current LOS: 1 Anticipated DC Date: Planned Disposition: Home Primary Insurance: MEDICARE A & B Discharge Planning Comments: CM MET WITH PT AND SPOUSE IN ROOM TO DISCUSS DISCHARGE PLANNING AND NEEDS. CM CALLED [employer], , WAS ASSISTED BY RONDA, GIVER # [id number]. DARRELL GALDAMEZ provided verbal consent to discuss current and ongoing needs with/in the presence of: SPOUSE, RONDA. PT REPORTS LIVING AT HOME INDEPENDENTLY WITH HIS . PT HAS NEBULIZER, HE NO LONGER HAS OXYGEN FROM [facility], THEY PICKED IT UP. PT HAS NO OUTSIDE SERVICES ASSISTING IN THE HOME. PT REPORTS SOMEONE FROM THE MEDICAL CLINIC CHECKS ON HIM AT HOME. CM DISCUSSED AVAILABILITY OF HOME HEALTH, REHAB SERVICES AND MEDICAL EQUIPMENT. PT DENIES DISCHARGE NEEDS, PT INITIALLY ASKED FOR HOSPITAL TO GIVE HIM AND HIS A [place] RIDE HOME IF THEY ARE LEAVING TODAY, CM EXPLAINED THAT THEY ARE NOT DISCHARGING TODAY, WE ARE ONLY TALKING ABOUT THE DISCHARGE PLAN. PT HTEN REPORTS FAMILY WILL PICK HE AND UP FOR DISCHARGE HOME. IMPORTANT MESSAGE FROM MEDICARE PROVIDED AND EXPLAINED, PROVIDED IN [place] PT REPORTS ABILITY TO READ [place]. PT DENIES DISCHARGE NEEDS, FAMILY TO TRANSPORT HOME AT DISCHARGE. CM TO FOLLOW AND ASSIST IF NEEDED. Special Effects Artist: Javi Lott DCPIA - Discharge Planning Initial Assessment Updated by CASEY: Javi Lott on 03/13/19 4:59 pm * Is the patient Alert and Oriented? Yes * How many steps to enter\exit or inside your home? * PCP [facility] [phone] * Pharmacy [facility] [phone] * Preadmission Environment Home with Family * ADLs Independent * Equipment Nebulizer * Other Equipment [facility] IN [facility] - MEDICAL EQUIPMENT PROVIDER PREFERENCE * List name and contact numbers for known caregivers / representatives who currently or will assist patient after discharge: RONDA FAM, SPOUSE, [phone] TAPAN WEBSTERLemuel, DTR, * Verbal permission to speak to the caregivers and representatives has been obtained from the patient. Yes * Community resources currently utilized None * Please name any agencies selected above. NONE * Additional services required to return to the preadmission environment? No * Can the patient safely return to the preadmission environment? Yes * Has this patient been hospitalized within the prior 30 days at any hospital? No Coverage Notice Reviewer: CASEY Lott Notice Issued Date-Time: 03/13/2019 16:30 Notice Type: IM Discharge Notice Notice Delivered To: Family Member Relationship to Patient: Spouse Product Owner Name: RONDA FAM Delivery Method: HAND - Hand Delivered Lanny Days: Prior Verbal Notification: Recipient Understood Notice: Yes Recipient Signature: Yes Med Rec Note Co-signed by Attending: Coverage Notice Comment: Reviewer: [id number] Lott Notice Issued Date-Time: 03/22/2019 16:45 Notice Type: IM Discharge Notice Notice Delivered To: Family Member Relationship to Patient: Spouse Product Owner Name: RONDA Delivery Method: HAND - Hand Delivered Lanny Days: Prior Verbal Notification: Recipient Understood Notice: Yes Recipient Signature: Yes Med Rec Note Co-signed by Attending: Coverage Notice Comment: Reviewer: CASEY Lott Notice Issued Date-Time: 03/24/2019 12:03 Notice Type: Patient Choice Letter Notice Delivered To: Family Member Relationship to Patient: Spouse Product Owner Name: RONDA Delivery Method: HAND - Hand Delivered Lanny Days: Prior Verbal Notification: Recipient Understood Notice: Yes Recipient Signature: Yes Med Rec Note Co-signed by Attending: Coverage Notice Comment: ANY SNF IN [facility] OR CLOSE TO [facility] Reviewer: [id number] Shayan Lott Notice Issued Date-Time: 03/24/2019 12:03 Notice Type: IM Discharge Notice Notice Delivered To: Family Member Relationship to Patient: Spouse Product Owner Name: RONDA Delivery Method: HAND - Hand Delivered Lanny Days: Prior Verbal Notification: Recipient Understood Notice: Yes Recipient Signature: Yes Med Rec Note Co-signed by Attending: Coverage Notice Comment: Last DP export: 03/30/19 2:49 p Patient Name: MAIRA GALDAMEZDARRELL Page [phone] at 0837 All edits/amendments must be made on the electronic document DICTATION DATE: 03/31/19 0837 ENTEROSTOMAL NURSE: MARCELL 03/31/19 0837 RPT#: [id number] DC DATE:03/30/19 STATUS: DIS IN [facility] [address] [place] [address] END OF REPORT
--- NOTE | 2019-03-31 08:57 | MORECARE ---
CASE MANAGEMENT DISCHARGE SUMMARY PATIENT: DARRELL DE LA ROSA UNIT: [id number] ADM DATE: 03/12/19 AGE: 68 : 50 SEX: M ROOM/BED: D.2106 AUTHOR: EVERDOC PHYSICIAN: REFERRING PHYSICIAN: TREVA MCCARTNEY MD DATE OF SERVICE: 03/31/19 Discharge Plan Patient Name: DARRELL DE LA ROSA Facility: [facility]:[place] : 1950 Planned Disposition: Inpatient Rehab Anticipated Discharge Date: 03/30/19 Discharge Date: 03/30/2019 Expected LOS: 18 Initial Reviewer: [id number] Initial Review Date: 03/12/2019 Generated: 03/31/19 9:57 am Comments DCP- Discharge Planning Updated by [id number]: Javi Lott on 03/31/19 7:[address] Patient Name: DARRELL GALDAMEZ Encounter No: [id number] : 1950 Primary Insurance: MEDICARE A & B Anticipated DC Date: 03-30-2019 Planned Disposition: Inpatient Rehab External Planned Provider: [facility] DCP follow-up note: CM CALLED AND SPOKE TO PT'S SPOUSE, RONDA, . CM ADDED LANGUAGE LINE SHINGLER [id number], TO THE LINE. CM NOTIFIED RONDA OF PT'S NEW ROOM NUMBER IN REHAB AT [facility] AND PHONE NUMBER TO THE INPATIENT REHAB UNIT. Javi Lott, CASE MANAGEMENT DCP- Discharge Planning Updated by [id number]: Javi Lott on 03/30/19 2:[address] Patient Name: DARRELL GALDAMEZ Encounter No: [id number] : 1950 Primary Insurance: MEDICARE A & B Anticipated DC Date: 03-30-2019 Planned Disposition: Inpatient Rehab External Planned Provider: [facility] DCP follow-up note: CM CALLED AND SPOKE TO PT'S SPOUSE, RONDA, . CM ADDED LANGUAGE LINE [id number], TO THE LINE. CM DISCUSSED NURSING REHAB DECLINATIONS IN [place] AND CLOSE TO [place] REQUESTED BY SHE AND PT. CM ASKED IF REFERRALS TO [facility] OR [facility] WOULD BE OK. RONDA STATES THAT WOULD BE A LITTLE FAR, BUT BELIEVES THAT PT NEEDS REHAB AND ASKED THAT CM PUT PT ANYWHERE WHERE HE WILL GET REHAB TO COME HOME SOON POSSIBLE. CM EXPLAINED THAT PT HAS ALREADY MISSED OUT ON 5 DAYS OF REHAB HE COULD HAVE RECEIVED AT [facility]. CM INFORMED RONDA THAT [facility] WILL ACCEPT PT. AKIL ASKED IF THE REHAB WILL BE ABLE TO COMMUNICATE WITH PT, CM ASSURED RONDA THAT THEY TOO HAVE ACCESS TO LANGUAGE LINE IF NEEDED. RONDA IS IN AGREEMENT WITH PLAN, SHE REPORTS SHE WANTS TO KNOW WHAT ROOM HE IS IN SHE PLANS TO COME AND SEE PT ON WEDNESDAY. CM NOTIFIED DR. JORGENSEN WHO WILL DISCHARGE PT TO REHAB TODAY. CM SPOKE TO MATT OF INPATIENT REHAB WHO WILL ACCEPT PT TODAY. [facility] TO CONTACT MED 2 NURSE WITH ROOM NUMBER WHEN READY TO ACCEPT PT AND NURSE REPORT. Javi Lott, CASE MANAGEMENT Appended by Javi Lott on 03/30/2019 15:42 CDT: CM RECEIVED CALL FROM JOCELINE OF [facility] WHO VOICED CONCERNS OF MEDICAL STABLITY AND THAT DR. SINGH'S NOTE INDICATED THAT IF LIVER ENZYMES CONTINUE TO RISE, AND THEY HAVE, PT WILL NEED FURHTER IMAGING. ZANA SPOKE TO DR. JORGENSEN AND DR. SINGH'S NURSE REGINA, WHO BOTH INFORMED CM THAT PT IS STABLE TO DISCHARGE TO REHAB WITH NO FURHTER TESTING. MIRYAM STATED THAT AN ULTRASOUND IS NOT GOING TO SHOW ANYTHING AND THEY ARE NOT GOING TO BE ABLE TO PERFORM ANY BIOPSY. ZANA NOTIFIED JOCELINE OF INPATIENT REHAB. JESSICA LOTT, CASE MANAGEMENT DCP- Discharge Planning Updated by [email or web address]: Javi Lott on 03/30/19 10:[address] Patient Name: DARRELL GALDAMEZ Encounter No: [id number] : 1950 Primary Insurance: MEDICARE A & B Anticipated DC Date: 03-27-2019 Planned Disposition: Retirement Facility External Planned Provider: [facility], MEDICARE REHAB BED DCP follow-up note: CM CALLED [facility], , LEFT MESSAGE FOR ACTIVITY AIDE TO DISCUSS REFERRAL. CM FAXED UDPATE TO [facility], . CM WAITING RETURN CALL FROM [facility]. CM WAITING ADMISSION DETERMINATION FROM [facility] IN [place], [place], FOR REHAB. CM WAITING RETURN CALL FROM PT'S JOHN TO DISCUSS THE POSSIBILITY OF STAYING AT [facility] FOR REHAB. Javi Lott, CASE MANAGEMENT Appended by Javi Lott on 03/30/2019 11:06 CDT: CM RECEIVED CALL FROM GADIEL OF [facility] WHO ADVISED THEY DO NOT HAVE OPEN REHAB BEDS. CM CALLED [facility], , DISCUSSED PT'S SITUATION AND NEED FOR REHAB. [facility] HAS NURSING FACILITIES IN [place] AND [place]. CM FAXED REFERRAL TO [facility] FOR REHAB IN [place] OR [place], . CM WAITING ADMISSION DETERMINATION FROM [facility] FOR REHAB IN [place] OR [place], [place]. CM WAITING RETURN CALL FROM PT'S JOHN TO DISCUSS THE POSSIBILITY OF STAYING AT [facility] FOR REHAB. Javi Lott CASE MANAGEMENT DCP- Discharge Planning Updated by [id number]: Javi Lott on 03/29/19 3:[address] Patient Name: DARRELL GALDAMEZ Encounter No: [id number] : 1950 Primary Insurance: MEDICARE A & B Anticipated DC Date: 03-27-2019 Planned Disposition: Retirement Facility External Planned Provider: [facility] REHAB BED DCP follow-up note: CM ATTEMPTED TO CALL PT'S SPOUSE, RONDA, , THERE WAS NOT ANSWER AND NO VOICE MAIL SET UP. CM CALLED PT'S DAUGHTER, TAPAN, , LEFT MESSAGE ASKING FOR RETURN CALL SOON POSSIBLE REGADING DISCHARGE PLANNING FOR PATIENT. CM WAITING ADMISSION DETERMINATION FROM [facility] IN [place], [place], FOR REHAB. CM TO DISCUSS WITH PT'S SPOUSE THE POSSIBILITY OF STAYING AT [facility] FOR REHAB. Javi Lott CASE JACOB DCP- Discharge Planning Updated by [id number]: Javi Lott on 03/28/19 4:[address] Patient Name: DARRELL GALDAMEZ Encounter No: [id number] : 1950 Primary Insurance: MEDICARE A & B Anticipated DC Date: 03-27-2019 Planned Disposition: Retirement Facility External Planned Provider: TO BE DETERMINED DCP follow-up note: CM SPOKE TO [facility] WHO ADVISED THEY WILL NOT ACCEPT PT FOR REHAB. CM FAXED REFERRAL TO [facility] IN [place] AT [phone]. CM TO DISCUSS GOING TO INPATIENT REHAB AT [facility] AGAIN WHEN PT'S SPOUSE ARRIVES. SHE HAS NOT BEEN IN ROOM TODAY, PT IS CONFUSED. CM WAITING ADMISSION DETERMINATION FROM [facility] IN [place], [place], FOR REHAB. CM TO DISCUSS WITH PT'S SPOUSE STAYING AT [facility] FOR REHAB. Javi Lott, CASE MANAGEMENT DCP- Discharge Planning Updated by [id number]: Javi Lott on 03/27/19 4:[address] Patient Name: DARRELL GALDAMEZ Encounter No: [id number] : 1950 Primary Insurance: MEDICARE A & B Anticipated DC Date: 03-27-2019 Planned Disposition: Retirement Facility External Planned Provider: [facility], MEDICARE REHAB BED DCP follow-up note: CM RECEIVED CALL FROM [facility],, , WHO ADVISED THAT THEY WILL SCREEN FOR REHAB ADMISSION AND TO SEND REFERRAL VIA FAX. CM FAXED REFERRAL TO [facility], . CM WAITING ADMISSION DETERMINATION FROM [facility]. JUSTIN Mcghee DCP- Discharge Planning Updated by [id number]: Javi Lott on 03/27/19 2:[address] Patient Name: DARRELL GALDAMEZ Admission Status: ER Accout number: [id number] Admission Date: 03-12-2019 : 1950 Admission Diagnosis:SEPSIS, UNSPECIFIED ORGANISM Attending: TREVA MCCARTNEY Current LOS: 15 Anticipated DC Date: 03-27-2019 Planned Disposition: Retirement Facility Primary Insurance: MEDICARE A & B PLANNED EXTERNAL PROVIDER: [employer] Discharge Planning Comments: CM RECEIVED CALL FROM [facility] AT ABOUT 1420 HOURS, THEY CANNOT MEET PT'S NEEDS THEY DO NOT HAVE 24 HOUR MARTINI[employer]AIS SPEAKING STAFF AT THE FACILITY. CM CALLED [facility], , SPOKE TO SHANAE WHO TOOK REFERRAL INFORMATION AND ASKED THAT CM NOT FAX REFERRAL YET, SHE WILL CHECK WITH ACTIVITY AIDE AND NOTIFY CM IF THEY WILL REVIEW REFERRAL AND NOTIFY CM SHORTLY. CM WAITING RETURN CALL FROM [facility] REGARDING REHAB PLACEMENT REFERRAL. Cupola Liner Helper: Javi Lott DCP- Discharge Planning Updated by [id number]: Javi Lott on 03/27/19 8:[address] Patient Name: DARRELL GALDAMEZ Encounter No: [id number] : 1950 Primary Insurance: MEDICARE A & B Anticipated DC Date: 03-27-2019 Planned Disposition: Retirement Facility External Planned Provider: [employer] [facility], MEDICARE REHAB BED DCP follow-up note: CM FAXED REHAB REFERRAL UPDATE TO [facility] AT [phone]. CM EMAILED REFERRAL AND UPDATE TO [email or web address]. CM WAITING ADMISSION DETERMINATION FROM [facility] IN [facility]. Javi Lott, CASE MANAGEMENT DCP- Discharge Planning Updated by [id number]: Javi Lott on 03/24/19 1:[address] Patient Name: DARRELL GALDAMEZ Encounter No: [id number] : 1950 Primary Insurance: MEDICARE A & B Anticipated DC Date: 03-27-2019 Planned Disposition: Retirement Facility External Planned Provider: [employer] [facility], MEDICARE REHAB BED DCP follow-up note: CM SPOKE TO NURSE JUNIOR LINUX SYSTEMS ADMINISTRATOR JULIANNE WHO HAS SPOKEN TO THE PT IN ROOM 2107 HAS INFORMED JULIANNE THAT PT'S SPOUSE HAS SAID THEY DO NOT WANT TO STAY HERE FOR REHAB AND WANT TO GO TO REHAB IN [facility]. CM MET WITH PT AND SPOUSE IN ROOM, USED LANGUAGE LINE, , SHINGLER [phone]; CM DISCUSSED REHAB HERE HAS ACCEPTED TODAY. PT AND SPOUSE WANT REHAB CLOSER TO HOME IN [facility] AND IF NOT IN [facility], CLOSE TO [facility] POSSIBLE. CHOICE LETTER SIGNED. IMPORTANT MESSAGE FROM MEDICARE PROVIDED AND EXPLAINED. CM NOTIFIED DR. MCCARTNEY AND ANTHONY OF INPATIENT REHAB OF PT'S CHANGE IN PLAN. CM CALLED [facility], , SPOKE TO MILLIE WHO TOOK REFERRAL INFORMATION AND REPORTS THEY HAVE A [employer] SPEAKING STAFF MEMBER THAT CAN ASSIST WEDNESDAY THRU WEDNESDAY AND WILL CONSIDER PT FOR REHAB ADMISSION. THEY WILL NOT BE ABLE TO LOOK AT REFERRAL UNTIL WEDNESDAY THEIR DIRECTOR IS OUT UNTIL THEN. CM FAXED REHAB REFERRAL TO [facility] AT [phone]. CM WAITING ADMISSION DETERMINATION FROM [facility] IN [facility]. THEY WILL NOT HAVE ADMISSION DETERMINATION UNTIL WEDNESDAY AT THE EARLIEST, 03-27-19. Javi Lott, JUSTIN MANAGEMENT DCP- Discharge Planning Updated by [id number]: Javi Lott on 03/22/19 3:[address] Patient Name: DARRELL GALDAMEZ Admission Status: ER Accout number: [id number] Admission Date: 03-12-2019 : 1950 Admission Diagnosis:SEPSIS, UNSPECIFIED ORGANISM Attending: TREVA MCCARTNEY Current LOS: 10 Anticipated DC Date: 03-23-2019 Planned Disposition: Inpatient Rehab Primary Insurance: MEDICARE A & B PLANNED EXTERNAL PROVIDER; [facility] Discharge Planning Comments: CM MET WITH PT AND SPOUSE IN ROOM TO DISCUSS DISCHARGE PLANNING AND NEEDS. CM UTILIZED [employer], , VP AD SALES WEST # [phone]. PTCM DISCUSSED AVAILABILITY OF REHAB SERVICES, PROVIDERS AND LOCATIONS. CM DISCUSSED INPATIENT REHAB PRESCREEN AND THERAPY NEEDS. PT WOULD LIKE TO STAY AT [facility] FOR REHAB. PT NOR SPOUSE HAD FURTHER QUESTIONS FOR CM AT THIS TIME. IMPORTANT MESSAGE FROM MEDICARE PROVIDED AND EXPLAINED. CM CALLED AND SPOKE TO MATT OF INPATIENT REHAB, THEY PLAN TO ACCEPT PT WHEN MEDICALLY STABLE. WHEN READY FOR DISCHARGE, NOTIFY [facility]. Cupola Liner Helper: Javi Lott DCP- Discharge Planning Updated by [email or web address]: Javi Lott on 03/13/19 4:[address] Patient Name: DARRELL GALDAMEZ Admission Status: ER Accout number: [id number] Admission Date: 03-12-2019 : 1950 Admission Diagnosis: Attending: TREVA MCCARTNEY Current LOS: 1 Anticipated DC Date: Planned Disposition: Home Primary Insurance: MEDICARE A & B Discharge Planning Comments: CM MET WITH PT AND SPOUSE IN ROOM TO DISCUSS DISCHARGE PLANNING AND NEEDS. CM CALLED [employer], , WAS ASSISTED BY RONDA, SHINGLER # [id number]. DARRELL GALDAMEZ provided verbal consent to discuss current and ongoing needs with/in the presence of: SPOUSE, RONDA. PT REPORTS LIVING AT HOME INDEPENDENTLY WITH HIS . PT HAS NEBULIZER, HE NO LONGER HAS OXYGEN FROM [facility], THEY PICKED IT UP. PT HAS NO OUTSIDE SERVICES ASSISTING IN THE HOME. PT REPORTS SOMEONE FROM THE MEDICAL CLINIC CHECKS ON HIM AT HOME. CM DISCUSSED AVAILABILITY OF HOME HEALTH, REHAB SERVICES AND MEDICAL EQUIPMENT. PT DENIES DISCHARGE NEEDS, PT INITIALLY ASKED FOR HOSPITAL TO GIVE HIM AND HIS A TAXI RIDE HOME IF THEY ARE LEAVING TODAY, CM EXPLAINED THAT THEY ARE NOT DISCHARGING TODAY, WE ARE ONLY TALKING ABOUT THE DISCHARGE PLAN. PT HTEN REPORTS FAMILY WILL PICK HE AND UP FOR DISCHARGE HOME. IMPORTANT MESSAGE FROM MEDICARE PROVIDED AND EXPLAINED, PROVIDED IN MARTINIQUAIS PT REPORTS ABILITY TO READ MARTINIQUAIS. PT DENIES DISCHARGE NEEDS, FAMILY TO TRANSPORT HOME AT DISCHARGE. CM TO FOLLOW AND ASSIST IF NEEDED. Cupola Liner Helper: Javi Lott [facility] - Discharge Planning Initial Assessment Updated by [id number]: Javi Lott on 03/13/19 4:59 pm * Is the patient Alert and Oriented? Yes * How many steps to enter\exit or inside your home? * PCP [facility] IN [facility] [phone] * Pharmacy [facility] [phone] * Preadmission Environment Home with Family * ADLs Independent * Equipment Nebulizer * Other Equipment [facility] IN [facility] - MEDICAL EQUIPMENT PROVIDER PREFERENCE * List name and contact numbers for known caregivers / representatives who currently or will assist patient after discharge: RONDA FAM, SPOUSE, [phone] TAPAN RAO DTR, * Verbal permission to speak to the caregivers and representatives has been obtained from the patient. Yes * Community resources currently utilized None * Please name any agencies selected above. NONE * Additional services required to return to the preadmission environment? No * Can the patient safely return to the preadmission environment? Yes * Has this patient been hospitalized within the prior 30 days at any hospital? No Coverage Notice Reviewer: [id number] - Javi Lott Notice Issued Date-Time: 03/24/2019 12:03 Notice Type: IM Discharge Notice Notice Delivered To: Family Member Relationship to Patient: Spouse Patient Relations Specialist Name: RONDA Delivery Method: HAND - Hand Delivered Lanny Days: Prior Verbal Notification: Recipient Understood Notice: Yes Recipient Signature: Yes Med Rec Note Co-signed by Attending: Coverage Notice Comment: Reviewer: CASEY Lott Notice Issued Date-Time: 03/22/2019 16:45 Notice Type: IM Discharge Notice Notice Delivered To: Family Member Relationship to Patient: Spouse Patient Relations Specialist Name: RONDA Delivery Method: HAND - Hand Delivered Lanny Days: Prior Verbal Notification: Recipient Understood Notice: Yes Recipient Signature: Yes Med Rec Note Co-signed by Attending: Coverage Notice Comment: Reviewer: CASEY Lott Notice Issued Date-Time: 03/13/2019 16:30 Notice Type: IM Discharge Notice Notice Delivered To: Family Member Relationship to Patient: Spouse Patient Relations Specialist Name: RONDA FAM Delivery Method: HAND - Hand Delivered Lanny Days: Prior Verbal Notification: Recipient Understood Notice: Yes Recipient Signature: Yes Med Rec Note Co-signed by Attending: Coverage Notice Comment: Reviewer: CASEY Lott Notice Issued Date-Time: 03/24/2019 12:03 Notice Type: Patient Choice Letter Notice Delivered To: Family Member Relationship to Patient: Spouse Patient Relations Specialist Name: RONDA Delivery Method: HAND - Hand Delivered Lanny Days: Prior Verbal Notification: Recipient Understood Notice: Yes Recipient Signature: Yes Med Rec Note Co-signed by Attending: Coverage Notice Comment: ANY SNF IN [facility] OR CLOSE TO [facility] Last DP export: 03/31/19 7:37 a Patient Name: MELLISA DE LA ROSAVENESSA Page [phone] at 0857 All edits/amendments must be made on the electronic document DICTATION DATE: 03/31/19 0857 HEAD START TEACHER: MARCELL 03/31/19 0857 RPT#: [id number] DC DATE:03/30/19 STATUS: DIS IN [place] [id number] [place] [address] END OF REPORT
== END 2019-03-30 19:31 | DRG 871 ==
LOC: D.ER 12:03 → D.M2 14:00
PROVIDERS: Emergency Medicine; Family Medicine; Internal Medicine Gastroenterology; ADMIT Internal Medicine Nephrology; ATTEND Internal Medicine Nephrology
DX: A41.9 Sepsis, unspecified organism (principal); J18.9 Pneumonia, unspecified organism; E43 Unspecified severe protein-calorie malnutrition; K65.9 Peritonitis, unspecified; I63.9 Cerebral infarction, unspecified; J96.11 Chronic respiratory failure with hypoxia; E87.1 Hypo-osmolality and hyponatremia; D68.9 Coagulation defect, unspecified; G81.94 Hemiplegia, unspecified affecting left nondominant side; K70.31 Alcoholic cirrhosis of liver with ascites; D53.9 Nutritional anemia, unspecified; Z68.25 Body mass index [BMI] 25.0-25.9, adult; D69.6 Thrombocytopenia, unspecified; K70.40 Alcoholic hepatic failure without coma; E11.65 Type 2 diabetes mellitus with hyperglycemia

== ENCOUNTER 2019-03-20 09:25 | Emergency (ER) | payer MEDICARE ==
[2019-03-13 16:03] VITALS: Ht 177.8 cm; Wt 90.9 kg
[~2019-03-20] VITALS: Ht 177.8 cm; Wt 90.9 kg
[2019-03-20 09:29] VITALS: BP 108/40
== END 2019-03-20 09:55 | disposition other institution (70) ==
LOC: D.ER 09:25
DX: R41.82 Altered mental status, unspecified (principal); K74.60 Unspecified cirrhosis of liver

== ENCOUNTER 2019-03-30 16:17 | Inpatient (IN) | payer MEDICARE ==
[~2019-03-30] VITALS: Ht 177.8 cm; Wt 104.3 kg
[~2019-03-30 16:17] MED LIST changes: +ALDACTONE100 MG PO; +IMURAN50 MG PO; +LASIX40 MG PO; +MIRALAX17 GM PO; +PREDNISONE10 MG PO; +PREDNISONE20 MG PO
--- NOTE | 2019-03-30 18:25 | NUR ---
RECEIVED PT VIA W/C TO FLOOR ACCOMPAINED BY HOSPITAL STAFF FROM ACUTE CARE UNIT. PT SPEAKS VERY LITTLE FAROESE GOVERNMENT GAUGER PHONE PROVIDED. ABDOMEN DISTENDED FIRM, SLIGHTLY TENDER TO TOUCH. LEFT MIDDLE FINGER PARTIAL AMPUTATION. BUE BRUISING. BLE 4+ PITTING EDEMA. PENIS/SCROTUM 3+ EDEMA EXCORATED. DENIES ANY PAIN OR NEEDS. ORIENTED TO ROOM, BATHROOM, FUNCTIONS OF REMOTE. CALL LIGHT AND WATER WITHIN REACH, FALL PRECAUTIONS IN PLACE. WILL CONTINUE TO MONITOR
[2019-03-30 20:39] VITALS: BP 113/61; BMI 33.0
--- NOTE | 2019-03-31 01:21 | NUR ---
QUIET HOURS. LYING IN BED EYES CLOSED RESTING. NO SIGNS OF DISTRESS NOTED. WILL CONTINUE TO MONITOR
--- NOTE | 2019-03-31 04:42 | NUR ---
LYING IN BED ON RIGHT SIDE EYES CLOSED RESTING. RR EVEN AND UNLABORED. WILL CONTINUE TO MONITOR
--- NOTE | 2019-03-31 06:34 | NUR ---
LYING IN BED ON RIGHT SIDE EYES CLOSED RESTING. NO SIGNS OF DISTRESS NOTED. WILL CONTINUE TO MONITOR
[2019-03-31 07:47] LABS: ANION GAP 8.1 mmol/L (8-16); CALCIUM 8.4 mg/dL (8.5-10.1); CARBON DIOXIDE 31.6 mmol/L (21.0-32.0); CREATININE - SERUM 1.2 mg/dL (0.6-1.3); POTASSIUM - SERUM 4.7 mmol/L (3.5-5.1)
[2019-03-31 08:03] LABS: BASOPHILS 0.2 % (0-2); EOSINOPHILS 0 % (0-7); HEMATOCRIT 31.6 % (42.0-54.0); HEMOGLOBIN 11.2 g/dL (13.5-17.5); IMMATURE GRANULOCYTES 3.5 % (0-5); LYMPHOCYTES 8.8 % (15-50); MCH 36.4 pg (26.0-34.0); MCHC 35.4 g/dL (31.0-37.0); MCV 102.6 fL (80.0-100.0); MEAN PLATELET VOLUME 12.8 fL (7.4-10.4); MONOCYTES 3.9 % (2-11); NEUTROPHILS 83.6 % (40-80); PLATELET COUNT 61 10x3/uL (130-400); RBC 3.08 10x6/uL (4.20-6.10); RDW 18.1 % (11.5-14.5); WBC 10.8 10x3/uL (4.8-10.8)
[2019-03-31 12:05] VITALS: Ht 177.8 cm; Wt 104.3 kg
--- NOTE | 2019-03-31 12:28 | NUR ---
PATIENT ADMITTED TO REHAB FROM AN OUTSIDE FACILITY. DISCHARGE PLANS ARE FOR PATIENT TO RETURN HOME WITH HIS SPOUSE. WILL CONTINUE TO FOLLOW WITH PATIENT.
--- NOTE | 2019-03-31 15:47 | NUR ---
THE PATIENT WAS LYING IN BED WHEN STAFF ENTERED HIS ROOM. BED IS IN THE LOW POSITION WITH SIDERAILS X2 AND CALL LIGHT WITHIN REACH. SERVICE DEPARTMENT MANAGER PHONE IS IN THE PATIENTS ROOM AND IS USED. THE PATIENT WAS EDUCATED ON THE USE OF A CALL LIGHT AND DDEMONSTRATES UNDERSTANDING VIA TEACHBACK METHOD. THE PATIENT APPEARS COMFORTABLE WITH NO QUESTIONS OR CONCERNS AT THIS TIME.
--- NOTE | 2019-03-31 19:28 | NUR ---
BEDSIDE SHIFT REPORT COMPLETE. PT SITTING UP ON SIDE OF BED ALERT AND ORIENTED X2. REORIENTED TO TIME AND PLACE. NO COMPLAINTS VOICED AT THIS TIME. DENIES ANY PAIN. NO FAMILY NOTED AT BEDSIDE. RR EVEN AND UNLABORED. WILL CONTINUE TO MONITOR
[2019-03-31 19:30] VITALS: BP 149/79
--- NOTE | 2019-03-31 22:56 | NUR ---
QUIET HOURS. LYING IN BED ON RIGHT SIDE EYES CLOSED RESTING. RR EVEN AND UNLABORED. WILL CONTINUE TO MONITOR
--- NOTE | 2019-04-01 03:08 | NUR ---
LYING IN BED ON LEFT SIDE EYES CLOSED RESTING. NO SIGNS OF DISTRESS NOTED
--- NOTE | 2019-04-01 05:37 | NUR ---
LYING IN BED WATCHING TV. DENIES ANY NEEDS OR PAIN. BRIEF CLEAN AND DRY. WILL CONTINUE TO MONITOR
--- NOTE | 2019-04-01 08:06 | NUR ---
PT ASSISTED TO SET UP TO EAT BREAKFAST. PT DENIES NEEDS AT THIS TIME. WCTM.
--- NOTE | 2019-04-01 09:55 | NUR ---
PT AM MEDS ADMINISTERED. PT ASSISTED TO USE URINAL. WCTM.
[2019-04-01 10:28] VITALS: BP 130/70
--- NOTE | 2019-04-01 17:33 | NUR ---
PT EATING DINNER, DESIRE NEEDS. WCTM.
[2019-04-01 19:40] VITALS: BP 117/61
--- NOTE | 2019-04-01 20:09 | NUR ---
AWAKE AND ALERT. RESTING IN BED WITH RESPIRATIONS UNLABORED. C/O BEING COLD AND HUNGRY. WARM BLANKET PROVIDED, AIR TEMP ADJUSTED AND SANDWICH TRAY PROVIDED. AT BEDSIDE. NO DISTRESS NOTED.
--- NOTE | 2019-04-02 00:59 | NUR ---
RESTING IN BED. RESPIRATIONS UNLABORED. NO DISTRESS NOTED. AT BEDSIDE.
--- NOTE | 2019-04-02 06:18 | NUR ---
QUIET HOURS. NO ACUTE CHANGES THIS SHIFT. ASSITED OUT OF BED TO BATHROOM AND HAD ONE LARGE LOOSE BM THIS SHIFT. NOW RESTING QUIETLY.
--- NOTE | 2019-04-02 08:00 | NUR ---
SHIFT ASSMT COMPLETED.ABD FIRM AND DISTENDED.BREAKFAST GIVEN.CL IN REACH. AT BEDSIDE.BILAT LEGS GROSSLY EDEMATOUS.
[2019-04-02 08:52] VITALS: BP 119/64
--- NOTE | 2019-04-02 12:00 | NUR ---
DENIES NEEDS.ENC NOT TO DRINK MUCH FLDS D/T DISTENDED ABD.
--- NOTE | 2019-04-02 16:00 | NUR ---
DENIES PAIN. REMAINS IN ROOM.
[2019-04-02 19:34] VITALS: BP 131/76
--- NOTE | 2019-04-02 19:48 | NUR ---
AWAKE AND ALERT. RESTING IN BED WITH RESPIRATIONS UNLABORED. ABDOMEN VERY DISTENDED AND TIGHT. BLOWEL SOUNDS ACTIVE IN ALL QUADRANTS. 4+ EDEMA NOTED IN BILATERAL LOWER EXTREMITIES. DAY NURSE REPORTED HE DID NOT VOID VERY MUCH SO HE HAS BEEN INSTRUCTED TO LIMIT WATER INTACT FOR NOW. VOICES UNDERSTANDING. AT BEDSIDE. NO DISTRESS NOTED.
--- NOTE | 2019-04-03 03:26 | NUR ---
RESTING IN BED WITH EYES CLOSED AND RESPIRATIONS UNLABORED. NO DISTRESS NOTED. AT BEDSIDE.
--- NOTE | 2019-04-03 06:34 | NUR ---
AWAKE AND RESTING IN BED. VOIDED 3 TIMES THIS SHIFT PER 'S STATMENT. NO BM. COONTINUES TO HAVE LARGE DISTENDED ABDOMEN. RESPIRATIONS UNLABORED. CALL LIGHT IN REACH.
[2019-04-03 07:29] LABS: HEMATOCRIT 33.6 % (42.0-54.0); MCHC 35.7 g/dL (31.0-37.0); MCV 100.9 fL (80.0-100.0); PLATELET COUNT 61 10x3/uL (130-400); RBC 3.33 10x6/uL (4.20-6.10); RDW 18.7 % (11.5-14.5); WBC 4.7 10x3/uL (4.8-10.8)
[2019-04-03 07:35] LABS: ALBUMIN 1.8 g/dL (3.4-5.0); BILIRUBIN - TOTAL 5.86 mg/dL (0.2-1.3); CALCIUM 8.6 mg/dL (8.5-10.1); CARBON DIOXIDE 31.4 mmol/L (21.0-32.0); CREATININE - SERUM 1.1 mg/dL (0.6-1.3); POTASSIUM - SERUM 5.4 mmol/L (3.5-5.1)
--- NOTE | 2019-04-03 08:06 | NUR ---
ALERT AND ORIENTED. NO DISTRESS NOTED. RESP EVEN AND UNLABORED. CL IN REACH. SPEAKS LITTLE [place]. MONTENEGRIN SPEAKING. REPOSITIONED UP IN BED. ABD DISTENDED AND FIRM. FAUSTO LE 4+ EDEMA. MD AWARE.
[2019-04-03 08:41] LABS: EOSINOPHILS 1 % (0-7); LYMPHOCYTES 8 % (15-50); MONOCYTES 6 % (2-11); NEUTROPHILS 76 % (40-80); PLATELET ESTIMATE DECREASED
[2019-04-03 09:00] VITALS: BP 163/73
--- NOTE | 2019-04-03 11:06 | NUR ---
Nutrition Follow-up: Diet: Regular mechanical soft PO intake: 73% x 9 meals Significant meds: prednisone, lasix, lactulose, miralax Labs reviewed, LFTs noted Last BM 04/02/19 Last wt: 230# (03/31/19) RD Following
--- NOTE | 2019-04-03 13:33 | NUR ---
SITTING IN WC. AT BS.
--- NOTE | 2019-04-03 18:35 | NUR ---
N/V. MOSTLY LIQUID. YELLOWISH. AT DAVE. PEGGY ORDERED AND GIVEN.
--- NOTE | 2019-04-03 19:25 | NUR ---
BEDSIDE REPORT COMPLETE. SITTING UP IN BED WATCHING TV. FAMILY AT BEDSIDE NOTED. DENIES ANY NEEDS OR PAIN. NO SIGNS OF DISTRESS NOTED. CALL LIGHT AND WATER WITHIN REACH, FALL PRECAUTIONS IN PLACE. WILL CONTINUE TO MONITOR
[2019-04-03 20:00] VITALS: BP 168/76
--- NOTE | 2019-04-03 23:38 | NUR ---
QUIET HOURS. LYING IN BED SUPINE HOB 20 DEGREES EYES CLOSED RESTING. FAMILY ASLEEP AT BEDSIDE. WILL CONTINUE TO MONITOR
--- NOTE | 2019-04-04 02:14 | NUR ---
LYING IN BED SUPINE HOB 30 DEGREES EYES CLOSED RESTING. FAMILY IN ROOM ASLEEP AT BEDSIDE. NO SIGNS OF DISTRESS NOTED. WILL CONTINUE TO MONITOR
--- NOTE | 2019-04-04 05:13 | NUR ---
REFUSED BLOOD DRAW THIS AM
--- NOTE | 2019-04-04 05:50 | NUR ---
LYING IN BED SUPINE AWAKE AND ALERT. FAMILY AT BEDSIDE NOTED. NO SIGNS OF DISTRESS NOTED. WILL CONTINUE TO MONITOR
--- NOTE | 2019-04-04 07:16 | NUR ---
AWAKE AND ALERT. FAMILY AT BS. ABD DISTENDED AND FIRM. POSITIVE BS. BLADDER SCAN DONE-NO URINE NOTED AT THIS TIME. MD AWARE OF DISTENDED ABD.
[2019-04-04 08:10] VITALS: BP 166/70
--- NOTE | 2019-04-04 12:29 | NUR ---
RESTING IN BED. AT BS. NO DISTRESS NOTED.
--- NOTE | 2019-04-04 16:35 | NUR ---
RESTING WO DISTRESS. AT BS. CL IN REACH.
--- NOTE | 2019-04-04 19:24 | NUR ---
AWAKE AND ALERT. RESTING IN BED WITH RESPIRAITONS UNLABORED. ABDOMEN REMAINS LARGE AND DISTENDED. BOWEL SOUNDS ACTIVE IN ALL QUADRANTS. 4+ EDEMA NOTED IN BILATERAL LOWER EXTREMITIES. LEGS ELEVATED IN BED. NO ACUTE DISTRESS NOTED. CALL LIGHT IN REACH.
[2019-04-04 20:27] VITALS: BP 136/64
--- NOTE | 2019-04-05 00:20 | NUR ---
[facility] TO BED PER SANDING MACHINE OPERATOR OR TENDER. SANDING MACHINE OPERATOR OR TENDER REPORTS HIS MOBILITY SEEMS DECREASED SINCE ADMISSION AND HE REQUIRES MORE ASSISTACE WITH TRANSFERS. CONTINUES TO HAVE VERY DISTENDED ABDOMEN AND BLE 4+ EDEMA. HE HAD A MODERATE SIZE BM.
--- NOTE | 2019-04-05 02:50 | NUR ---
ASSISTED TO BATHROOM BUT WAS UNABLE TO HAVE BM. ASSISTED BACK TO BED. MOBILITY SLOW AND STIFF. CALL LIGHT IN REACH.
--- NOTE | 2019-04-05 06:19 | NUR ---
AWAKE AND RESTING IN BED. CALLS NURSE AND STATES "DRAW MY BLOOD" I INFORMED MAINTENANCE INSTRUCTOR ON FLOOR FOR BMP HE REFUSED YESTERDAY. REAMINS AT BEDSIDE.
[2019-04-05 07:56] LABS: ANION GAP 9.3 mmol/L (8-16); CALCIUM 8.9 mg/dL (8.5-10.1); CARBON DIOXIDE 29.3 mmol/L (21.0-32.0); POTASSIUM - SERUM 5.6 mmol/L (3.5-5.1)
--- NOTE | 2019-04-05 08:00 | NUR ---
SHIFT ASSMT COMPLETED.BREAKFAST TRAY GIVEN. AT BEDSIDE.
[2019-04-05 08:02] VITALS: BP 109/58
[2019-04-05 10:10] LABS: INR 2.43 (0.85-1.17); PROTIME 25.7 SECONDS (11.6-15.0)
[2019-04-05 10:11] LABS: BASOPHILS 0.2 % (0-2); EOSINOPHILS 0.4 % (0-7); HEMATOCRIT 33.5 % (42.0-54.0); HEMOGLOBIN 11.9 g/dL (13.5-17.5); IMMATURE GRANULOCYTES 3.4 % (0-5); LYMPHOCYTES 4.6 % (15-50); MCHC 35.5 g/dL (31.0-37.0); MCV 101.2 fL (80.0-100.0); MONOCYTES 6.5 % (2-11); NEUTROPHILS 84.9 % (40-80); PLATELET COUNT 59 10x3/uL (130-400); RBC 3.31 10x6/uL (4.20-6.10); RDW 18.9 % (11.5-14.5); WBC 15.4 10x3/uL (4.8-10.8)
--- NOTE | 2019-04-05 12:00 | NUR ---
UP IN WC EATING LUNCH. AT BEDSIDE.
--- NOTE | 2019-04-05 12:12 | RHP ---
PATIENT: DARRELL DE LA ROSA MEDICAL RECORD: [id number] ACCOUNT: [id number] [facility] Danisha1111 : 50 ADMISSION DATE: 03/30/19 REHABILITATION HISTORY AND PHYSICAL EXAMINATION POST ADMISSION PHYSICIAN EXAMINATION DATE OF ADMISSION: 03/30/2019 ADMITTING DIAGNOSIS: Nontraumatic brain dysfunction in the case of his will be hepatic encephalopathy. HISTORY OF PRESENT ILLNESS: The patient was transferred from [facility] in [place] on 03/12/2019 when he presented with decreased level of consciousness, abdominal distention, edema, weakness and muscle aches. Chest x-ray showed bibasilar pneumonia. He had ascites, cirrhosis, and hyperbilirubinemia. He is quite ill-appearing. He does not speak Mohawk. The patient does appear to have a history of cirrhosis, etiology is unknown. He apparently had blood cultures in outlying facility that was positive for E. coli and Enterobacter. He has what appears to be hepatic encephalopathy, which is supported by his elevated ammonia levels. He has had fairly elevated lipase levels, but no symptoms. The patient remains confused. Also, translation problems are present. The patient is on prednisone at this time. He is unable to get a liver biopsy secondary to an elevated PT and INR. His abdomen is still distended and firm, but nontender. He will be on prednisone and Imuran. His ammonia level appears to be stable. Dr. Solis has been following him during his stay, still cannot determine if he has an autoimmune hepatitis without a liver biopsy, which he still can have. Previously, he was living with his , was using a rolling walker. Currently, he is [id number] assist for ADLs and mobility. COMORBIDITIES: In this patient include acute mental status changes, cellulitis, elevated ammonia level, ascites, interstitial edema, hyperbilirubinemia, low sodium, septicemia, autoimmune hepatitis, bibasilar pneumonia, sepsis, alcoholic cirrhosis, microcytic anemia, pancreatitis, elevated blood sugars, severe protein-calorie malnutrition, history of CVA. PAST MEDICAL HISTORY: Significant for diabetes, got a history of edema. 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 ALLERGIES: No known drug allergies. CURRENT MEDICATIONS: Include he is on Deltasone 20 mg with breakfast, spironolactone 100 mg daily, prednisone he is on a tapering dose of 30 mg downward. He is on furosemide 40 mg daily. He is on Atrovent updrafts as needed, Brovana 15 mcg b.i.d., Protonix 40 mg daily, Cefixime 550 mg b.i.d., polyethylene glycol 17 grams b.i.d., lactulose 60 cc t.i.d. and Imuran 25 mg b.i.d. HABITS: Unknown at this time. FAMILY HISTORY: Noncontributory. SOCIAL HISTORY: Apparently, the patient needs to return back home with his . HISTORY AND PHYSICAL [id number] DARRELL DE LA ROSA REVIEW OF SYSTEMS: Unable to obtain. PHYSICAL EXAMINATION: VITAL SIGNS: Stable. GENERAL: A somewhat obese gentleman in no acute distress, alert upon exam. HEENT: Normocephalic and atraumatic. Mucosa moist. NECK: Supple without adenopathy. LUNGS: Clear in upper [place]. No wheezing, rhonchi or rales. HEART: Regular rate and rhythm. No murmurs, rubs or gallops. ABDOMEN: Soft, but protuberant, nontender. EXTREMITIES: No clubbing, cyanosis or edema. NEUROLOGIC: Unable to assess other than he does have some noted weakness in all the extremities. LABORATORY DATA: White count is 10.8, H&H of 11 and 31 and platelet count is noted to be 61. His MCV is 102.6. Sodium 135, potassium 4.7, BUN and creatinine of 18 and 1.2, and blood sugar is noted to be 131. ASSESSMENT: This is a 68-year-old gentleman admitted to the rehab with a working diagnosis of hepatic encephalopathy. The patient has potential to make improvement. We instituted the following multidisciplinary therapies including, but not limited to physical, occupational, respiratory, speech, nutritional services, prosthetics and orthotics. Given his complex medical condition and risk for more complications, rehabilitation services cannot be provided at a low level of care such as skilled nurse facility. PLAN: 1. Admit to [facility] for therapy to include the following disciplines: A. Physical therapy to improve gait, all transfer skills and bed mobility to a modified independent level. B. Occupational therapy to a modified independent level. C. Case management to assist with discharge planning and placement options. D. Nutrition to assist with nutritional needs. E. Rehabilitation nursing to assist in monitoring the underlying medical conditions and to assist with any type of bowel or bladder management. 2. The patient's current medication and medical care will be continued. 3. The patient will be placed on standard fall precautions. 4. The patient's estimated length of stay is approximately 7-10 days. 5. We will discuss the patient during care team staff meeting this week. TRANSINT:[id number] Voice Confirmation ID: [id number] DOCUMENT ID: [id number] KAYLAH notes whether there has been none or any medical/functional change since admission: - No change since prescreen. KAYLAH attests patient continues to be appropriate for IRF: - Continues to be appropriate. HISTORY AND PHYSICAL [id number] DARRELL DE LA ROSA,EMBER ISAACS MD at 1212 CC: [id number] DICTATION DATE: 03/31/19 0836 MEDICAL ENGINEER: 03/31/19 1017 ADM IN [place] [id number] [place] [address]
--- NOTE | 2019-04-05 13:53 | NUR ---
DUE TO CHANGE IN MEDICAL CONDITION, PATIENT DSICHARGE FROM REHAB AND ADMITTED TO ACUTE FLOOR. FAMILY AT BEDSIDE.
--- NOTE | 2019-04-05 14:20 | NUR ---
REPORT GIVEN TO RAH.PT TAKEN TO ACUTE FLOOR ROOM 2131.PLACED ON O2@2L/NC.ACCOMPANIED BY STAYING WITH HIM.ALERTED US AND POLY RANKIN PT IS IN ROOM.
[2019-04-05] MEDS ORDERED: CHRONULAC30 ML PO (17:39)
[2019-04-05] MEDS ORDERED: ATROVENT 0.02%2.5 ML UPD (17:42)
[2019-04-05] MEDS ORDERED: ALDACTONE50 MG PO (17:42)
[2019-04-05] MEDS ORDERED: BROVANA15 MCG/2 M INH (17:44)
[2019-04-05] MEDS ORDERED: VELTASSA8.4 GM PO (19:26)
[2019-04-05] MEDS ORDERED: XIFAXAN550 MG PO (19:27)
[2019-04-05] MEDS ORDERED: ULTRAM50 MG PO (19:28)
[2019-04-05] MEDS ORDERED: ZOFRAN4 MG PO (19:29)
--- NOTE | 2019-05-02 10:09 | DS ---
PATIENT:JOE DE LA ROSAGisell :50 MEDICAL RECORD: [id number] DISCHARGE SUMMARY ADMISSION DATE: 03/30/19 DISCHARGE DATE: 04/05/19 This is a discharge dated 04/05/2019 from inpatient rehabilitation. PRIMARY DIAGNOSIS: Decreased functional ability and ability to provide activities of daily living secondary to hepatic encephalopathy. SECONDARY DIAGNOSES: 1. Chronic cirrhosis. 2. Cellulitis. 3. Hyperammonemia. 4. Ascites. 5. Hyperbilirubinemia. 6. Hyponatremia. 7. Hyperkalemia. 8. Autoimmune hepatitis. 9. Bilateral pneumonia. 10. Severe protein-calorie malnutrition. 11. Diabetes. HOSPITAL COURSE: Full H&P is located elsewhere on the chart on this 68-year-old male who was admitted to inpatient rehab for physical therapy and occupational therapy to improve gait, transfer skills, bed mobility, and activities of daily living to a modified independent level. He was evaluated by PT, OT and ST and their plans of care were followed. He required chcf care for observation and assessment and medication administration. He remained on appropriate home medications. Electrolytes were managed by protocol. Fingerstick blood sugars were monitored throughout his hospital stay with appropriate adjustment in medications as needed. He was on prednisone and Imuran. He continued nebulized medications for respiratory support. He had frequent monitoring of labs. He was cooperative with therapies making some progress; however, he had a significant decline in medical condition with elevated potassium, increasing edema and abdominal distention. He was transferred to the acute facility for higher level of care. DISCHARGE MEDICATIONS: As per discharge medication reconciliation. DISCHARGE DISPOSITION: The patient was discharged to the acute hospital. He will continue current diet and level of activity and will follow with primary care and specialists in the acute setting. At least 30 minutes was spent in this discharge activity. TRANSINT:[id number] Voice Confirmation ID: [id number] DOCUMENT ID: [id number] Dictated By: EZEQUIEL STEWART I have interviewed/examined the above patient and agree with these documented findings. DISCHARGE SUMMARY REPORT [id number] DARRELL DE LA ORSA JOHN SCOTT MD at 1011 at 1009 CC: [id number] DICTATION DATE: 04/30/19 1837 COOPERATIVE EDUCATION COORDINATOR: 05/01/19 0816 DIS IN 04/05/19 [facility] [address] [place] [address]
== END 2019-04-05 16:15 | disposition short-term general hospital (02) | DRG 441 ==
LOC: D.REHAB 16:17
PROVIDERS: ADMIT Emergency Medicine; ATTEND Emergency Medicine
DX: K72.90 Hepatic failure, unspecified without coma (principal); A41.9 Sepsis, unspecified organism; E43 Unspecified severe protein-calorie malnutrition; J18.9 Pneumonia, unspecified organism; K85.90 Acute pancreatitis without necrosis or infection, unspecified; L03.90 Cellulitis, unspecified; E87.1 Hypo-osmolality and hyponatremia; I69.354 Hemiplegia and hemiparesis following cerebral infarction affecting left non-dominant side; J96.11 Chronic respiratory failure with hypoxia; D50.9 Iron deficiency anemia, unspecified; K70.31 Alcoholic cirrhosis of liver with ascites; K75.4 Autoimmune hepatitis; R41.82 Altered mental status, unspecified; E11.65 Type 2 diabetes mellitus with hyperglycemia; D69.6 Thrombocytopenia, unspecified

== ENCOUNTER 2019-04-05 12:56 | Inpatient (IN) | payer MEDICARE ==
[~2019-04-05] VITALS: Ht 177.8 cm; Wt 103.9 kg
[2019-04-05 15:14] VITALS: BP 121/63; BMI 32.9
--- NOTE | 2019-04-05 16:08 | NUR ---
JULIANNE RANKIN CAN NOT FIND A VEIN SHE CALLED VASCULAR ACCESS NURSE TO START IV AND LEFT A MESSAGE.
[2019-04-05 16:27] VITALS: BP 121/63
--- NOTE | 2019-04-05 16:40 | NUR ---
jo-ann sauceda stated to me that she spoke with er and they are going to send a nurse over to start an iv.
[2019-04-05] MEDS ORDERED: CHRONULAC30 ML PO (17:39)
[2019-04-05] MEDS ORDERED: ALDACTONE50 MG PO (17:42)
[2019-04-05] MEDS ORDERED: ATROVENT 0.02%2.5 ML UPD (17:42)
[2019-04-05] MEDS ORDERED: BROVANA15 MCG/2 M INH (17:44)
--- NOTE | 2019-04-05 17:58 | NUR ---
SPOKE WITH ER AND THEY STATED THEY WILL TRY TO SEND SOMEONE TO START IV.
--- NOTE | 2019-04-05 19:00 | NUR ---
PATIENT LAYING IN BED. PATIENT HAD INCONTINENCE EPISODE OF BOWEL. PATIENT CLEANED. PATIENT HAS NO COMPLAINTS AT THIS TIME. NO DISTRESS NOTED.
[2019-04-05] MEDS ORDERED: VELTASSA8.4 GM PO (19:26)
[2019-04-05] MEDS ORDERED: XIFAXAN550 MG PO (19:27)
[2019-04-05] MEDS ORDERED: ULTRAM50 MG PO (19:28)
[2019-04-05] MEDS ORDERED: ZOFRAN4 MG PO (19:29)
[2019-04-06] VITALS (7 sets, daily range): BP systolic 95–123; BP diastolic 46–66; Ht 177.8 cm; Wt 103.9 kg
--- NOTE | 2019-04-06 01:00 | NUR ---
PATIENT COMPLAINING OF NAUSEA. PATIENT GIVEN ZOFRAN PER ORDER. NO OTHER COMPLAINTS AT THIS TIME. NO DISTRESS NOTED.
--- NOTE | 2019-04-06 01:40 | NUR ---
PATIENT HAD EPISODE OF VOMITING BROWN LIQUID. PATIENT CLEANED AND HAS NO OTHER COMPLAINTS AT THIS TIME. PATIENT HAD JUST RECIEVED ZOFRAN PER ORDER.
--- NOTE | 2019-04-06 03:18 | NUR ---
I have reviewed this patient and I concur with the Shift Assessment completed by the Licensed Practical Nurse today this shift.
[2019-04-06 06:39] LABS: BASOPHILS 0.2 % (0-2); EOSINOPHILS 0.2 % (0-7); HEMATOCRIT 34.9 % (42.0-54.0); HEMOGLOBIN 12.5 g/dL (13.5-17.5); IMMATURE GRANULOCYTES 2.5 % (0-5); LYMPHOCYTES 3.3 % (15-50); MCH 36.3 pg (26.0-34.0); MCHC 35.8 g/dL (31.0-37.0); MCV 101.5 fL (80.0-100.0); MONOCYTES 5.8 % (2-11); PLATELET COUNT 67 10x3/uL (130-400); RBC 3.44 10x6/uL (4.20-6.10); RDW 19.1 % (11.5-14.5); WBC 12.6 10x3/uL (4.8-10.8)
[2019-04-06 06:55] LABS: APTT 42.5 SECONDS (22.8-39.4); INR 2.44 (0.85-1.17); PROTIME 25.8 SECONDS (11.6-15.0)
[2019-04-06 06:59] LABS: ALBUMIN 1.9 g/dL (3.4-5.0); ANION GAP 12.2 mmol/L (8-16); BILIRUBIN - DIRECT 7.27 mg/dL (0.00-0.30); BILIRUBIN - INDIRECT 7.69 mg/dL (0.00-1.00); BILIRUBIN - TOTAL 14.96 mg/dL (0.2-1.3); CALCIUM 9.2 mg/dL (8.5-10.1); MAGNESIUM - SERUM 2.4 mg/dL (1.8-2.4); PHOSPHOROUS 5.9 mg/dL (2.5-4.9); PROTEIN - SERUM 5.9 g/dL (6.4-8.2)
[2019-04-06 07:28] LABS: CREATININE - SERUM 2.7 mg/dL (0.6-1.3)
[2019-04-06 07:33] LABS: POTASSIUM - SERUM 6.2 mmol/L (3.5-5.1)
--- NOTE | 2019-04-06 07:40 | NUR ---
REPORT RECEIVED. WILL CONTINUE WITH POC. PT CURRENTLY LYING SEMI FOWLERS. CALL LIGHT W/I REACH. PT IS AAO BUT CONFUSED. AT BEDSIDE. RR EVEN AND UNLABORED ON 2L 02. NS WITH 20KCL INFUSING @10ML/HR VIA L.AC PIV. NO S/S OF DISTRESS NOTED. WILL CTM.
[2019-04-06 09:48] LABS: PLATELET ESTIMATE DECREASED
[2019-04-06 09:49] LABS: ANISOCYTOSIS OCC; HYPOCHROMASIA OCC; TARGET CELLS OCC
--- NOTE | 2019-04-06 10:03 | NUR ---
SPOKE WITH ESPERANZA MORAN WHO TELEPHONE ORDERED 1 AMP OF D50 FOLLOWED BY 10 UNITS OF REGULAR INSULIN IV. PLACED ORDER. WILL CTM.
--- NOTE | 2019-04-06 10:40 | NUR ---
AM MEDICATIONS ADMINISTERED. ONE AMP OF D50 AND TEN UNITS OF INSULIN ADMINISTERED. PT FSBS @1035 WAS 127. STOPPED POTASSUM AND NS INFUSION DUE TO HYPERKALEMIA. WILL CTM.
[2019-04-06 12:08] LABS: ALBUMIN 1.7 g/dL (3.4-5.0); ANION GAP 18.3 mmol/L (8-16); BILIRUBIN - TOTAL 15.1 mg/dL (0.2-1.3); CARBON DIOXIDE 22.7 mmol/L (21.0-32.0); CREATININE - SERUM 2.9 mg/dL (0.6-1.3); PROTEIN - SERUM 5.1 g/dL (6.4-8.2)
[2019-04-06 15:09] LABS: BASOPHILS 0.2 % (0-2); EOSINOPHILS 0.2 % (0-7); HEMATOCRIT 32.9 % (42.0-54.0); HEMOGLOBIN 11.9 g/dL (13.5-17.5); IMMATURE GRANULOCYTES 2.9 % (0-5); MCH 36.3 pg (26.0-34.0); MCHC 36.2 g/dL (31.0-37.0); MCV 100.3 fL (80.0-100.0); NEUTROPHILS 85.7 % (40-80); RBC 3.28 10x6/uL (4.20-6.10); RDW 18.7 % (11.5-14.5); WBC 14.4 10x3/uL (4.8-10.8)
[2019-04-06 15:14] LABS: PLATELET COUNT 44 10x3/uL (130-400)
[2019-04-06 15:29] LABS: PLATELET ESTIMATE DECREASED
--- NOTE | 2019-04-06 16:51 | NUR ---
PT THROWING UP DARK RED BLOOD. AND REGINA MORAN AWARE OF SITUATION. ADMINISTERED ZOFRAN. PROTONIX INFUSING @10ML/HR VIA L.AC PIV. PT DENIES ANY NEEDS. WILL CTM.
--- NOTE | 2019-04-06 17:14 | NUR ---
I have reviewed this patient and I concur with the Shift Assessment completed by the Licensed Practical Nurse today this shift.
--- NOTE | 2019-04-06 18:14 | NUR ---
NOTIFIED THAT THE PATIENT IS PROJECTILE VOMITING BLOOD. HE STATED TO GET THE PATIENT TO THE ICU, ORDER 2 UNITS OF FFP, START ON ZOFRAN DRIP, CONTINUE PROTONIX DRIP, AND SERIEL Q8H H&H. NOTIFIED PRICE CLERK AND CHARGE NURSE.
--- NOTE | 2019-04-06 18:27 | MORECARE ---
CASE MANAGEMENT DISCHARGE SUMMARY PATIENT: DARRELL DE LA ROSA UNIT: [id number] ADM DATE: 04/05/19 AGE: 68 : 50 SEX: M ROOM/BED: D.2132 AUTHOR: GUIDO CURTIS PHYSICIAN: REFERRING PHYSICIAN: EMBER AMEZQUITA MD DATE OF SERVICE: 04/06/19 Discharge Plan Patient Name: DARRELL DE LA ROSA Facility: [facility]:[place] : 1950 Planned Disposition: Hospice Medical Facility Anticipated Discharge Date: Discharge Date: Expected LOS: Initial Reviewer: [email or web address] Initial Review Date: 04/05/2019 Generated: 04/06/19 7:27 pm Patient Name: DARRELL DE LA ROSA Page [phone] at 1827 All edits/amendments must be made on the electronic document DICTATION DATE: 04/06/191826 [employer] ARCHITECT: MARCELL 04/06/191826 RPT#: [id number] DC DATE: STATUS: ADM IN [facility] [address] [place] [address] END OF REPORT
--- NOTE | 2019-04-06 18:34 | MORECARE ---
CASE MANAGEMENT DISCHARGE SUMMARY PATIENT: DARRELL DE LA ROSA UNIT: [id number] ADM DATE: 04/05/19 AGE: 68 : 50 SEX: M ROOM/BED: D.2132 AUTHOR: GUIDO CURTIS PHYSICIAN: REFERRING PHYSICIAN: EMBER AMEZQUITA MD DATE OF SERVICE: 04/06/19 Discharge Plan Patient Name: DARRELL DE LA ROSA Facility: [facility]:[place] : 1950 Planned Disposition: Hospice Medical Facility Anticipated Discharge Date: Discharge Date: Expected LOS: Initial Reviewer: [email or web address] Initial Review Date: 04/05/2019 Generated: 04/06/19 7:34 pm DCPIA - Discharge Planning Initial Assessment Updated by [email or web address]: Javi Ayala on 04/06/19 6:28 pm * Is the patient Alert and Oriented? Yes * How many steps to enter\exit or inside your home? NONE * PCP [facility] * Pharmacy [facility] * Preadmission Environment Acute Inpatient Rehab * Facility Name [facility] * ADLs Partial Dependent * Partial ADLs (Assistance needed) Ambulation Bathing Medication Management Toileting Transfers * Equipment Nebulizer * Other Equipment [facility] * List name and contact numbers for known caregivers / representatives who currently or will assist patient after discharge: RONDA ROSANACASIMIRO, H[place]ENSIA, REMEDIOS RAO, * Verbal permission to speak to the caregivers and representatives has been obtained from the patient. N/A * Community resources currently utilized None * Please name any agencies selected above. NONE * Additional services required to return to the preadmission environment? Yes * Can the patient safely return to the preadmission environment? Yes * Has this patient been hospitalized within the prior 30 days at any hospital? Yes Last DP export: 04/06/19 5:28 p Patient Name: DARRELL DE LA ROSA Page 20995 at 1834 All edits/amendments must be made on the electronic document DICTATION DATE: 04/06/191833 ASBESTOS SIDING INSTALLER: DM 04/06/191833 RPT#: [id number] DC DATE: STATUS: ADM IN [facility] [address] [place] [address] END OF REPORT
--- NOTE | 2019-04-06 18:41 | MORECARE ---
CASE MANAGEMENT DISCHARGE SUMMARY PATIENT: DARRELL DE LA ROSA UNIT: [id number] ADM DATE: 04/05/19 AGE: 68 : 50 SEX: M ROOM/BED: D.2132 AUTHOR: GUIDO CURTIS PHYSICIAN: REFERRING PHYSICIAN: EMBER AMEZQUITA MD DATE OF SERVICE: 04/06/19 Discharge Plan Patient Name: DARRELL DE LA ROSA Facility: [facility]:[place] : 1950 Planned Disposition: Hospice Medical Facility Anticipated Discharge Date: Discharge Date: Expected LOS: Initial Reviewer: [email or web address] Initial Review Date: 04/05/2019 Generated: 04/06/19 7:41 pm Comments DCP- Discharge Planning Updated by [email or web address]: Javi Ayala on 04/06/19 5:[address] Patient Name: DARRELL GALDAMEZ Admission Status: Elective Accout number: [id number] Admission Date: 04-05-2019 : 1950 Admission Diagnosis: Attending: SHITAL AMEZQUITA Current LOS: 1 Anticipated DC Date: Planned Disposition: Hospice Medical Facility Primary Insurance: MEDICARE A & B PLANNED EXTERNAL PROVIDER: TO BE DETERMINED, WAITING FAMILY DECISION Discharge Planning Comments: ZANA AND LUISA ARECHIGA MET WITH PT AND SPOUSE IN ROOM TO DISCUSS DISCHARGE PLANNING AND NEEDS. ZANA CALLED [employer] [employer], , WAS ASSISTED BY CARLITOS, TRANSFORMER ASSEMBLER # [id number]. LUISA ARECHIGA DISCUSSED PT'S DECLINING CONDITION AND THAT PT HAS REACHED LIMITS OF MEDICAL CARE FOR HIS CONDITIONS; DISCUSSED AVAILABILITY OF HOSPICE AND WHAT HOSPICE CARE IS AND DOES. PT'S SPOUSE TEARFUL AND WANTS TO SPEAK TO HER SON TOMORROW AND HATES THAT THEY ARE AT THIS POINT. PT HAS BEEN IN REHAB HERE AT THE HOSPITAL, BUT GOT SICK AND IS SWELLING, HE WAS SENT BACK TO HOSPITAL. PT LIVES AT HOME INDEPENDENTLY WITH HIS . PT HAS NEBULIZER, HE NOLONGER HAS OXYGEN FROM [facility], [place], THEY PICKED IT UP. PT HAS NO OUTSIDE SERVICES ASSISTING IN THE HOME. PT AND SPOUSE HAVE ABILITY TO READ CENTRAL AFRICAN BUT SPEAK ONLY CENTRAL AFRICAN. PT'S SPOUSE WILL MEET WITH HER SON WHO WILL BE AT HOSPITAL TOMORROW TO CONSIDER HOSPICE CARE AND SERVICES. Credit Risk Manager: aJvi Ayala DCPIA - Discharge Planning Initial Assessment Updated by [email or web address]: Javi Ayala on 04/06/19 6:28 pm * Is the patient Alert and Oriented? Yes * How many steps to enter\exit or inside your home? NONE * PCP [facility] * Pharmacy [facility] * Preadmission Environment Acute Inpatient Rehab * Facility Name [facility] * ADLs Partial Dependent * Partial ADLs (Assistance needed) Ambulation Bathing Medication Management Toileting Transfers * Equipment Nebulizer * Other Equipment [facility] * List name and contact numbers for known caregivers / representatives who currently or will assist patient after discharge: RONDA JOSE M, SPOUSE, REMEDIOS RAO, * Verbal permission to speak to the caregivers and representatives has been obtained from the patient. N/A * Community resources currently utilized None * Please name any agencies selected above. NONE * Additional services required to return to the preadmission environment? Yes * Can the patient safely return to the preadmission environment? Yes * Has this patient been hospitalized within the prior 30 days at any hospital? Yes Last DP export: 04/06/19 5:34 p Patient Name: MAIRA GALDAMEZDARRELL Page 49283 at 1841 All edits/amendments must be made on the electronic document DICTATION DATE: 04/06/191839 [facility] ATTENDANT: MARCELL 04/06/191839 RPT#: [id number] DC DATE: STATUS: ADM IN [facility] [address] [place] [address] END OF REPORT
[2019-04-06 19:56] LABS: HEMATOCRIT 32.6 % (42.0-54.0); HEMOGLOBIN 11.7 g/dL (13.5-17.5)
--- NOTE | 2019-04-06 20:56 | NUR ---
PT TRANSFERED TO ICU. PER PROVIDER'S REQUEST.
--- NOTE | 2019-04-06 21:00 | NUR ---
RECIEVED PT FROM MED 2 VIA MD ORDER. MOVED TO ICU DUE TO RECENT MULTIPLE BLOODY VOMITS ON FLOOR. SEE VITAL FLOWSHEET. GARBLED SPEECH NOTED. VS STABLE AND WITH CURRENT FLOOR TRENDS. WILL CONTINUE TO MONITOR.
[2019-04-06 21:24] LABS: HEMATOCRIT 32.8 % (42.0-54.0); HEMOGLOBIN 11.7 g/dL (13.5-17.5); MCH 36.4 pg (26.0-34.0); MCHC 35.7 g/dL (31.0-37.0); MCV 102.2 fL (80.0-100.0); MEAN PLATELET VOLUME 13.7 fL (7.4-10.4); RBC 3.21 10x6/uL (4.20-6.10); RDW 19.1 % (11.5-14.5); WBC 13.5 10x3/uL (4.8-10.8)
[2019-04-06 21:26] LABS: PLATELET COUNT 63 10x3/uL (130-400)
[2019-04-06 21:43] LABS: LYMPHOCYTES 2 % (15-50); MONOCYTES 5 % (2-11); NEUTROPHILS 90 % (40-80); PLATELET ESTIMATE DECREASED; TARGET CELLS 2+; TEAR DROP CELLS 1+
--- NOTE | 2019-04-06 23:00 | NUR ---
NO IMPROVEMENT IN CONDITION. K+ ELEVATED PRIOR TO RECEIVING. WILL CONTINUE TO MONITOR.
[2019-04-07] VITALS (9 sets, daily range): BP systolic 54–187; BP diastolic 27–71
--- NOTE | 2019-04-07 01:00 | NUR ---
CHEST RISING AND FALLING. NO IMPROVEMTN IN CONDITION. WILL CONTINUE TO MONITOR.
--- NOTE | 2019-04-07 03:00 | NUR ---
CHEST RISING AND FALLING. NO IMPROVEMTN IN CONDITION. WILL CONTINUE TO MONITOR.
[2019-04-07 04:29] LABS: BASOPHILS 0.3 % (0-2); EOSINOPHILS 0.2 % (0-7); HEMATOCRIT 28.5 % (42.0-54.0); HEMOGLOBIN 9.5 g/dL (13.5-17.5); IMMATURE GRANULOCYTES 6.4 % (0-5); MCH 36.5 pg (26.0-34.0); MCHC 33.3 g/dL (31.0-37.0); MONOCYTES 8.7 % (2-11); NEUTROPHILS 81.4 % (40-80); RDW 20.2 % (11.5-14.5); WBC 14.1 10x3/uL (4.8-10.8)
[2019-04-07 04:30] LABS: MCV 109.6 fL (80.0-100.0); PLATELET COUNT 87 10x3/uL (130-400)
[2019-04-07 04:58] LABS: ALBUMIN 1.7 g/dL (3.4-5.0); BILIRUBIN - TOTAL 14.2 mg/dL (0.2-1.3); CALCIUM 9.6 mg/dL (8.5-10.1); CREATININE - SERUM 3.6 mg/dL (0.6-1.3); MAGNESIUM - SERUM 2.8 mg/dL (1.8-2.4); PROTEIN - SERUM 4.4 g/dL (6.4-8.2)
--- NOTE | 2019-04-07 05:00 | NUR ---
CHEST RISING AND FALLING. NO IMPROVEMTN IN CONDITION. WILL CONTINUE TO MONITOR.
[2019-04-07 05:03] LABS: ANION GAP 29.4 mmol/L (8-16); CARBON DIOXIDE 14.6 mmol/L (21.0-32.0)
--- NOTE | 2019-04-07 06:40 | NUR ---
PT CONDITION DETEREORATING ALL NIGHT. HAD LARGE AMOUNT OF BLOODY VOMIT FROM ONGOING GI AND LIVER ISSUES. INFORMED LANCE MORAN. PT DNR UPON FAMILY REQUEST AND MD. VITAL SIGNS ABSENT.
--- NOTE | 2019-04-07 07:35 | NUR ---
PT PRONOUNCED WITH AT BEDSIDE. ELECTRONICS ENGINEERING TECHNOLOGIST NOTIFIED AT WIFES REQUEST BO WITH HOME AND MALLOY.
--- NOTE | 2019-04-07 10:00 | NUR ---
HOME STEM PROCESSING MACHINE OPERATOR HERE WITH BODY RELEASED WITH QUESTIONS ANSWERED FOR FAMILY.
[2019-04-07 11:10] LABS: EBV - EARLY ANTIGEN AB IGG <9.0 U/mL (0.0-8.9); EBV - NUCLEAR ANTIGEN AB IGG >600.0 U/mL (0.0-17.9); EBV VIRAL CAPSID AB IGG 67.1 U/mL (0.0-17.9); EBV VIRAL CAPSID AB IGM <36.0 U/mL (0.0-35.9)
--- NOTE | 2019-04-07 14:53 | MORECARE ---
CASE MANAGEMENT DISCHARGE SUMMARY PATIENT: DARRELL DE LA ROSA UNIT: [id number] ADM DATE: 04/05/19 AGE: 68 : 50 SEX: M ROOM/BED: D.2311 AUTHOR: GUIDO CURTIS PHYSICIAN: REFERRING PHYSICIAN: EMBER AMEZQUITA MD DATE OF SERVICE: 04/07/19 Discharge Plan Patient Name: DARRELL DE LA ROSA Facility: [facility]:[place] : 1950 Planned Disposition: Hospice Medical Facility Anticipated Discharge Date: Discharge Date: 04/07/2019 Expected LOS: Initial Reviewer: [email or web address] Initial Review Date: 04/05/2019 Generated: 04/07/19 3:53 pm Comments DCP- Discharge Planning Updated by [email or web address]: Javi Ayala on 04/06/19 5:[address] Patient Name: DARRELL GALDAMEZ Admission Status: Elective Accout number: [id number] Admission Date: 04-05-2019 : 1950 Admission Diagnosis: Attending: SHITAL AMEZQUITA Current LOS: 1 Anticipated DC Date: Planned Disposition: Hospice Medical Facility Primary Insurance: MEDICARE A & B PLANNED EXTERNAL PROVIDER: TO BE DETERMINED, WAITING FAMILY DECISION Discharge Planning Comments: ZANA AND LUISA ARECHIGA MET WITH PT AND SPOUSE IN ROOM TO DISCUSS DISCHARGE PLANNING AND NEEDS. ZANA CALLED [employer] [facility] [employer] [employer], , WAS ASSISTED BY CARLITOS, APPLICATION SUPPORT INTERN # [phone]. LUISA ARECHIGA DISCUSSED PT'S DECLINING CONDITION AND THAT PT HAS REACHED LIMITS OF MEDICAL CARE FOR HIS CONDITIONS; DISCUSSED AVAILABILITY OF HOSPICE AND WHAT HOSPICE CARE IS AND DOES. PT'S SPOUSE TEARFUL AND WANTS TO SPEAK TO HER SON TOMORROW AND HATES THAT THEY ARE AT THIS POINT. PT HAS BEEN IN REHAB HERE AT THE HOSPITAL, BUT GOT SICK AND IS SWELLING, HE WAS SENT BACK TO HOSPITAL. PT LIVES AT HOME INDEPENDENTLY WITH HIS . PT HAS NEBULIZER, HE NOLONGER HAS OXYGEN FROM [facility], [place], THEY PICKED IT UP. PT HAS NO OUTSIDE SERVICES ASSISTING IN THE HOME. PT AND SPOUSE HAVE ABILITY TO READ MACEDONIAN BUT SPEAK ONLY MACEDONIAN. PT'S SPOUSE WILL MEET WITH HER SON WHO WILL BE AT HOSPITAL TOMORROW TO CONSIDER HOSPICE CARE AND SERVICES. Rail Operator: Javi Ayala DCPIA - Discharge Planning Initial Assessment Updated by [email or web address]: Javi Ayala on 04/06/19 6:28 pm * Is the patient Alert and Oriented? Yes * How many steps to enter\exit or inside your home? NONE * PCP [facility] * Pharmacy [facility] * Preadmission Environment Acute Inpatient Rehab * Facility Name [facility] * ADLs Partial Dependent * Partial ADLs (Assistance needed) Ambulation Bathing Medication Management Toileting Transfers * Equipment Nebulizer * Other Equipment [facility] * List name and contact numbers for known caregivers / representatives who currently or will assist patient after discharge: RONDA SALGUERO, SPOUSE, REMEDIOS RAO, * Verbal permission to speak to the caregivers and representatives has been obtained from the patient. N/A * Community resources currently utilized None * Please name any agencies selected above. NONE * Additional services required to return to the preadmission environment? Yes * Can the patient safely return to the preadmission environment? Yes * Has this patient been hospitalized within the prior 30 days at any hospital? Yes Last DP export: 04/06/19 5:41 p Patient Name: MAIRA GALDAMEZ DARRELL Page 23181 at 1453 All edits/amendments must be made on the electronic document DICTATION DATE: 04/07/191452 EMERGENCY MEDICAL TECHNICIAN BASIC: MARCELL 04/07/19 145 RPT#: [id number] DC DATE:04/07/19 STATUS: DIS IN [facility] [address] [place] [address] END OF REPORT
== END 2019-04-07 10:00 | DRG 441 ==
LOC: D.M2 12:56 → D.ICU 04-06 20:32
PROVIDERS: Internal Medicine Gastroenterology; Internal Medicine Nephrology; ADMIT Emergency Medicine; ATTEND Emergency Medicine
DX: K72.90 Hepatic failure, unspecified without coma (principal); R40.2124 Coma scale, eyes open, to pain, 24 hours or more after hospital admission; R40.2314 Coma scale, best motor response, none, 24 hours or more after hospital admission; R40.2214 Coma scale, best verbal response, none, 24 hours or more after hospital admission; N17.9 Acute kidney failure, unspecified; E87.1 Hypo-osmolality and hyponatremia; E72.20 Disorder of urea cycle metabolism, unspecified; R18.8 Other ascites; D68.9 Coagulation defect, unspecified; K75.4 Autoimmune hepatitis; K74.60 Unspecified cirrhosis of liver; R60.9 Edema, unspecified; I10 Essential (primary) hypertension; D53.9 Nutritional anemia, unspecified; D72.819 Decreased white blood cell count, unspecified; E11.9 Type 2 diabetes mellitus without complications